=== PATIENT | male | born 1955 | race Caucasian/White ===

== ENCOUNTER 2017-08-22 06:03 | Day surgery (SDC) | payer OTHER ==
[~2017-08-22] VITALS: Ht 165.1 cm; Wt 68.0 kg
[~2017-08-22 06:03] MED LIST: 1-ME1LIQ PO; PERC5TAB12 PO; VASO10TA8 PO
[2017-08-22 06:51] VITALS: BP 151/91; PULSE 80; RESP 20; TEMP 98.7; O2SAT 98
[2017-08-22] MEDS ORDERED: CHLORHEXIDINE GLUCONATE 2 % 1 PACK (2 CLOTHS) TOPICAL SCH (07:00)
[2017-08-22] MEDS ORDERED: SODIUM CHLORIDE 0.9% 1000 ML IV SCH (07:00)
[2017-08-22] MEDS ORDERED: VANCOMYCIN 1000 MG/NS 250 ML - implanted port/tunneled catheter IV SCH ×2 (07:00)
[2017-08-22] MEDS ORDERED: ceFAZolin 2 GM PREMIX 50 ML - implanted port/tunneled catheter insertion IV SCH (07:00)
[2017-08-22] MEDS ORDERED: POVIDONE IODINE 5% (ANTISEPSIS KIT) 4 APPLICATIONS EACH NARE SCH (07:00)
[2017-08-22] MEDS ORDERED: AMLO5TAB2 PO (07:13)
[2017-08-22] MEDS ORDERED: VASO10TA8 PO (07:13)
[2017-08-22] MEDS ORDERED: [UNRECOGNIZED DRUG - OTHER] (07:13)
[2017-08-22] MEDS ORDERED: ASPI81CH6 CHEW (07:13)
[2017-08-22] MEDS ORDERED: MIDAZOLAM HCL 2 MG/2 ML VIAL ONE ×4 (07:47→08:34)
[2017-08-22] MEDS ORDERED: LORazepam 2 MG/ML VIAL ONE (07:47)
[2017-08-22] MEDS ORDERED: LIDOCAINE 1%/EPINEPHrine 1:100,000 SOLN 20 ML VIAL ONE (07:57)
[2017-08-22] MEDS ORDERED: HYDROmorphone HCL PF 2 MG/ML VIAL ONE (08:28)
--- NOTE | 2017-08-22 08:58 | PD.RAD ---
Post Procedure Progress Note Pre Procedure Diagnosis: (1) Rectal cancer Post Procedure Diagnosis: (1) Rectal cancer Procedure Date: Aug 22, 2017 Supervising Radiologist: Victorino Goldstein Proceduralist/Assist: Frankie Rausch RT(R), RT Orestes(R) Anesthesia: Local, Analgesia, Conscious Sedation Plan of Activity Patient to Unit: ROPU Patient Condition: Good See PACS Report for procedural detail/treatment Central Venous Access Device Procedure 1 Right Internal Jugular Infusaport Placement single lumen Divehi: 8 Victorino Goldstein MD Aug 22, 2017 08:58
[2017-08-22] MEDS ORDERED: SODIUM CHLORIDE 0.9% FLUSH 10 ML FLUSH IVF PRN (09:00)
[2017-08-22 09:05] VITALS: BP 122/65; PULSE 97; RESP 18; TEMP 97.9; O2SAT 94
[2017-08-22 09:20] VITALS: BP 115/65; PULSE 92; RESP 20; O2SAT 93
[2017-08-22 09:50] VITALS: BP 108/71; PULSE 82; RESP 20; O2SAT 97
[2017-08-22 10:20] VITALS: BP 117/72; PULSE 80; RESP 20; O2SAT 97
[2017-08-22 10:50] VITALS: BP 157/93; PULSE 91; RESP 20; O2SAT 96
--- NOTE | 2017-08-22 13:23 | RADRPT ---
EXAM DATE/TIME: 08/22/2017 09:06 [place] COMPARISON: No previous studies available for comparison. INDICATIONS : Patient presents with rectal cancer in need of a port placement. MEDICAL HISTORY : Rectal CA HTN DJD Bipolar Anxiety SURGICAL HISTORY : Carpal Tunnel Left Shoulder SX ENCOUNTER: Initial ACUITY: >1 year PAIN SCORE: 0/10 FLUORO TIME: 0.4 minutes IMAGE SERIES: 1 SEDATION TIME: 40 minutes ACCESS: Right internal jugular vein SEDATION: 1.) 6 mg midazolam (Versed) IV 2.) 300 mcg fentanyl (Sublimaze) IV 3.) 2mg hydromorphone (Dilaudid) IV 4.) 14units Lidocaine with epinephrine IV 5.) 400units Heparin IV Prophylactic antibiotics were administered with appropriate pre-procedure timing. Vancomycin within 2 hours of procedure, Ancef (or alternative) within 1 hour of procedure. DEVICE: 1. 8 Croatian single lumen cm [id number] PROCEDURE : 1. Continuous pulse oximetry and EKG monitoring. 2. Intravenous conscious sedation. 3. Ultrasound guidance for venous access. 4. Fluoroscopic guided implantable central venous port placement. The patient was placed supine. The neck was prepped in sterile fashion. Full sterile technique was u sed, including cap, mask, sterile gloves and gown, and a large sterile sheet. Hand hygiene and 2% ch lorhexidine Betadine was utilized per protocol for cutaneous antisepsis with appropriate dry time for site. Sterile gel and sterile probe cover were utilized for ultrasound guidance. The skin and sub cutaneous tissues were infiltrated with local anesthetic solution. Under direct ultrasound guidance, central venous access was accomplished in the targeted vessel. The ultrasound images depicting access guidance were stored and saved to PACS for permanent record. A s ubcutaneous pocket was created using blunt dissection. The port was introduced to the pocket. The c atheter tubing was fed through a subcutaneous tunnel to the venotomy site. The catheter tubing was c ut to a suitable length and then was introduced through a valved Peel-Away sheath and positioned with catheter tubing tip at the cavo-atrial junction level. The pocket incision was closed with subcutic ular Vicryl suture. Steri-Strips were applied. The port was flushed and locked with heparin solutio n per protocol. Sterile dressing was applied to the site. The patient tolerated the procedure well. Conscious sedation was performed with the prescribed dosages and duration as above in the presence of an independent trained radiology nurse to assist in the monitoring of the patient. EKG and oximetry remained stable throughout the procedure. The patient tolerated the procedure well and there were no complications. The patient was sent to post anesthesia recovery in stable condition. CONCLUSION: Uncomplicated ultrasound and fluoroscopic guided implanted central venous port catheter placement as described in detail above. An 8 Croatian Power port was placed. Victorino Goldstein MD on August 22, 2017 at 13:20 Board Certified Radiologist. This report was verified electronically.
== END 2017-08-22 11:15 | disposition home or self-care (01) ==
LOC: HROP 06:03 → HRIP 06:04 → HROP 11:15
PROVIDERS: ATTEND Internal Medicine
DX: Z45.2 Encounter for adjustment and management of vascular access device (principal); C20 Malignant neoplasm of rectum; I10 Essential (primary) hypertension; F41.9 Anxiety disorder, unspecified
CPT/HCPCS: 36561; 76937; 77001; 99152; 99153; C1788; J1170; J1642; J2060; J2250; J3010; J3370; J7030; J7050

== ENCOUNTER 2017-09-15 10:55 | Inpatient (IN) | payer OTHER ==
[~2017-09-15] VITALS: Ht 167.6 cm; Wt 68.2 kg
[~2017-09-15 10:55] MED LIST changes: -1-ME1LIQ PO; +AMLO5TAB2 PO; +ASPI81CH6 CHEW; -PERC5TAB12 PO; +[UNRECOGNIZED DRUG - OTHER]
[2017-09-15 10:57] VITALS: BP 156/82; PULSE 88; RESP 16; TEMP 98; O2SAT 100
[2017-09-15 11:32] VITALS: BP 138/88; PULSE 85; RESP 18; O2SAT 99
--- NOTE | 2017-09-15 11:56 | PD ---
HPI Chief Complaint: Abnormal Results Time Seen by Provider: 11:22 Travel History International Travel<30 days: No Contact w/Intl Traveler<30days: No Traveled to known affect area: No History of Present Illness HPI 61-year-old male with rectal cancer on chemotherapy and radiation therapy presents to emergency department at the request of his oncologist, Dr. Bauer for low sodium. Patient states that he started chemotherapy and radiation therapy one week ago and has felt weak since then. Patient admits to polydipsia and polyuria but believes this is secondary to physician's request to increase fluid intake. Patient denies fever or chills. Denies dizziness, chest pain, shortness of breath, abdominal pain. Denies urinary symptoms. Patient is to the complaints today. PFSH Past Medical History Bipolar Disorder: Yes Anxiety: Yes Depression: Yes Cancer: Yes (BASAL CELL, SQUAMOUS CELL CARCINOMA ) Cardiovascular Problems: Yes (HTN) Chemotherapy: Yes Diabetes: No Diminished Hearing: No Glaucoma: No Hepatitis: No Hiatal Hernia: No Hypertension: Yes Musculoskeletal: No Respiratory: No Immunizations Current: No Thyroid Disease: No Tetanus Vaccination: < 5 Years Influenza Vaccination: No Past Surgical History Abdominal Surgery: Yes (HERNIA REPAIR ) Cardiac Surgery: No Pacemaker: No Thoracic Surgery: No Other Surgery: Yes (CARPAL TUNNEL RELEASE BILATERAL) Social History Alcohol Use: No Tobacco Use: No Substance Use: No Allergies-Medications (Allergen,Severity, Reaction): Coded Allergies: doxycycline (Unverified Allergy, Severe, edema, 04/15/17) minocycline (Unverified Allergy, Severe, edema, 04/15/17) tigecycline (Unverified Allergy, Severe, edema, 04/15/17) Reported Meds & Prescriptions Reported Meds & Active Scripts Active Reported Trazodone (Trazodone HCl) 100 Mg Tablet 100 Mg PO BID Olanzapine Unknown Strength Tab 1 Tab PO TID Zolpidem (Zolpidem Tartrate) 10 Mg Tab 10 Mg PO HS Protonix (Pantoprazole Sodium) 40 Mg Tab 40 Mg PO DAILY Tegretol (Carbamazepine) 200 Mg Tab 200 Mg PO BID Lisinopril 20 Mg Tab 20 Mg PO BID Amlodipine (Amlodipine Besylate) 10 Mg Tab 10 Mg PO DAILY Aspirin Low Dose (Aspirin) 81 Mg Chew 81 Mg CHEW DAILY Review of Systems Except as stated in HPI: all other systems reviewed are Neg Physical Exam Narrative GENERAL: Well-developed well-nourished in no apparent distress SKIN: Focused skin assessment warm/dry. HEAD: Atraumatic. Normocephalic. EYES: Pupils equal and round. No scleral icterus. No injection or drainage. ENT: No nasal bleeding or discharge. Mucous membranes pink and moist. NECK: Trachea midline. No JVD. CARDIOVASCULAR: Regular rate and rhythm. No murmur appreciated. RESPIRATORY: No accessory muscle use. Clear to auscultation. Breath sounds equal bilaterally. GASTROINTESTINAL: Abdomen soft, non-tender, nondistended. Hepatic and splenic margins not palpable. MUSCULOSKELETAL: No obvious deformities. No clubbing. No cyanosis. No edema. NEUROLOGICAL: Awake and alert. No obvious cranial nerve deficits. Motor grossly within normal limits. Normal speech. PSYCHIATRIC: Appropriate mood and affect; insight and judgment normal. Data Data Last Documented VS Vital Signs Date Time Temp Pulse Resp B/P (MAP) Pulse Ox O2 Delivery O2 Flow Rate FiO2 09/15/17 11:32 83 18 98 Room Air 09/15/17 11:32 138/88 (105) 09/15/17 10:57 98.0 Orders Orders Sodium Chlorid 0.9% 500 Ml Inj (Ns 500 M (09/15/17 12:00) Admit To Inpatient (09/15/17 ) Code Status (09/15/17 12:17) Vital Signs (Adult) Q4H (09/15/17 12:17) Activity Oob With Assistance (09/15/17 12:17) Diet Heart Healthy (09/15/17 Lunch) Sodium Chloride 0.9% Flush (Ns Flush) (09/15/17 12:30) Sodium Chloride 0.9% Flush (Ns Flush) (09/15/17 21:00) Acetaminophen (Tylenol) (09/15/17 12:30) Ondansetron Inj (Zofran Inj) (09/15/17 12:30) Basic Metabolic Panel (Bmp) (09/16/17 06:00) Complete Blood Count With Diff (09/16/17 06:00) Electrocardiogram (09/15/17 12:17) Pt Request For Service (09/15/17 12:17) Scd Bilateral/Knee High MELISSA.BID (09/15/17 12:17) Naloxone Inj (Narcan Inj) (09/15/17 12:30) Magnesium Hydroxide Liq (Milk Of Magnesi (09/15/17 12:30) Inpatient Certification (09/15/17 ) Ns + Kcl 20 Meq Inj (Ns + Kcl 20 Meq Inj (09/15/17 12:30) Magnesium (Mg) (09/16/17 06:00) Amlodipine (Norvasc) (09/16/17 09:00) Aspirin Chew (Aspirin Chew) (09/16/17 09:00) Carbamazepine (Tegretol) (09/15/17 21:00) Lisinopril (Prinivil) (09/15/17 21:00) Pantoprazole (Protonix) (09/16/17 09:00) Zolpidem (Ambien) (09/15/17 21:00) Trazodone (Desyrel) (09/15/17 21:00) Olanzapine (Zyprexa) (09/15/17 21:00) Admit Order (Ed Use Only) (09/15/17 12:34) MDM Medical Decision Making Medical Screen Exam Complete: Yes Emergency Medical Condition: Yes Differential Diagnosis Hyponatremia, metabolic disorder, hypokalemia, electrolyte imbalance Narrative Course 61-year-old male with rectal cancer on chemotherapy and radiation therapy presents to emergency department at the request of his oncologist, Dr. Bauer for low sodium. Patient states that he started chemotherapy and radiation therapy one week ago and has felt weak since then. Patient admits to polydipsia and polyuria but believes this is secondary to physician's request to increase fluid intake. Patient denies fever or chills. Denies dizziness, chest pain, shortness of breath, abdominal pain. Denies urinary symptoms. Patient is to the complaints today. Vital signs stable. Sodium at 122. White blood cell count 3.1. I've attempted to contact Dr. Bauer for labs for comparison. I recommend fluid restriction and slow increase in sodium until confirmation of acuity of hyponatremia. No evidence of neurological deficits. Mucous membranes pink and moist. 500c fluid bolus administered in the ED for gentle hydration. Pt will be admitted for hyponatremia, leukocytopenia. Thank you Dr. Min for taking this patient. Patient was very reluctant to be admitted today. Patient states that he has dogs at home that he has taken care of. I discussed this case with case management but unfortunately there were unable to make further recommendations regarding this issue. Patient states that he does have a friend that will help with his dogs. Patient states that he is willing to stay for 24 hours. He is very concerned about getting his radiation therapy. Advised that if patient does not stay, this could results in coma and . I advised him the severity of this lab value and strongly advised him to stay. Patient is willing to stay at this point. Diagnosis Primary Impression: Rectal cancer Additional Impressions: Hyponatremia Leukocytopenia Qualified Codes: D72.810 - Lymphocytopenia Admitting Information Admitting Physician Requests: Admit Condition: Stable Krissy Chatterjee Sep 15, 2017 11:56
[2017-09-15] MEDS ORDERED: OLAN2.5T7 PO (11:58)
[2017-09-15] MEDS ORDERED: AMLO10TA2 PO (11:58)
[2017-09-15] MEDS ORDERED: ZOLP10TA3 PO (11:58)
[2017-09-15] MEDS ORDERED: PROT40TA PO (11:58)
[2017-09-15] MEDS ORDERED: TEGR200T PO (11:58)
[2017-09-15] MEDS ORDERED: LISI-515 PO (11:58)
[2017-09-15] MEDS ORDERED: SODIUM CHLORID 0.9% 500 ML INJ 500 ML IV ONE (12:00)
[2017-09-15] MEDS ORDERED: TRAZ100T10 PO (12:00)
[2017-09-15] MEDS ORDERED: NALOXONE HCL 0.4 MG/ML AMP IV PUSH PRN (12:30)
[2017-09-15] MEDS ORDERED: SODIUM CHLORIDE 0.9% FLUSH 10 ML FLUSH IV FLUSH PRN (12:30)
[2017-09-15] MEDS ORDERED: ACETAMINOPHEN 325 MG TAB PO PRN (12:30)
[2017-09-15] MEDS ORDERED: MAGNESIUM HYDROXIDE SUSP 30 ML CUP PO PRN (12:30)
[2017-09-15] MEDS ORDERED: ONDANSETRON HCL 4 MG/2 ML VIAL IVP PRN (12:30)
[2017-09-15] MEDS: NS + KCL 20 MEQ INJ 1,000 ML IV SCH (13:50)
--- NOTE | 2017-09-15 14:47 | HHI.HP ---
HPI Service [facility] Hospitalists Primary Care Physician Jerry Hankins MD Admission Diagnosis hyponatremia, leukocytopenia Chief Complaint: Weakness, oral pain Travel History International Travel<30 Days: No Contact w/Intl Traveler <30 Da: No Traveled to Known Affected Are: No History of Present Illness Mr. 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 Pt [place] [facility] [place] by his oncologist, Dr. Bauer, for hyponatremia. Pts labs noted sodium level of 122 this morning. Patient states that he started chemotherapy and radiation therapy one week ago and has felt weak since then. He reports that he has been drinking a lot of fluids over the last but he states that this is secondary to the physician's request to increase fluid intake. He has had some sores in his mouth which have been quite painful. He denies fever/chills, dizziness, chest pain, shortness of breath, abdominal pain. Denies urinary symptoms. He reports that he has been urinating more often but that he has been drinking a lot more liquids. He was noted to have a WBC count of 3.1, Hgb 11.7, Hct 33.4. Review of Systems Constitutional: DENIES: Diaphoretic episodes, Fever, Chills, Dizziness Eyes: DENIES: Vision loss Ears, nose, mouth, throat: COMPLAINS OF: Oral lesions, Odynophagia, DENIES: Hearing loss, Running Nose, Sinus Pain Respiratory: DENIES: Cough, Shortness of breath Cardiovascular: DENIES: Chest pain, Palpitations, Dyspnea on Exertion, Lower Extremity Edema Gastrointestinal: DENIES: Abdominal pain, Constipation, Nausea, Vomiting Genitourinary: COMPLAINS OF: Urinary frequency, Urgency, DENIES: Dysuria Musculoskeletal: DENIES: Back pain, Neck pain Integumentary: DENIES: Rash Neurologic: DENIES: Headache Psychiatric: DENIES: Confusion Past Family Social History Past Medical History 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 Bauer and Dr. Broussard, diagnosed in 08/2017 - PET/CT (08/08/17) with noted perirectal tumor was extremely hypermetabolic and measures in excess of 5cm. It is local regional metastasis with hypermetabolic right perirectal node and presacral mesenteric fat. No evidence of distal metastatic disease. HTN Hyperlipidemia GERD/Hiatal hernia Chronic back pain/lumbar disc disease Depression/Bipolar disorder Restless leg syndrome Hx of opioid dependence (he was addicted to Lortab and Oxycontin and went through a detox and 12-step program in 2009 and in 2013) BPH Hx of TIA Chronic intermittent vertigo Anemia Past Surgical History Colonoscopy on 07/31/[address] Noonan --> left lateral posterior submucosal rectal mass. Pathology with invasive squamous cell carcinoma, poorly differentiated EGD/colonoscopy 06/16/[address] Hamm --> reflux esophagitis in the distal esophagus, acute gastritis, medium hiatal hernia, rectal mass measuring 1 x 3cm , palpable on GILL, grade II hemorrhoids. Pathology was negative. Axillary lymphadenectomy in 1998, benign BCC removal Right inguinal hernia repair in 2012 Nerve block of paravertebral facet joints Bilateral carpal tunnel release Rhizotomy in 2008 Right rotator cuff repair in 2011 Left rotator cuff repair in 2014 Reported Medications -Zolpidem 10 Mg PO HS PRN -Protonix 40 Mg PO DAILY -Lisinopril 20 Mg PO BID -Amlodipine 10 Mg PO DAILY -Aspirin Low Dose 81 Mg CHEW DAILY -Trazodone 200 Mg PO HS -Olanzapine 15mg HS -Tegretol 400 Mg PO in AM and 600mg PO HS Allergies: Coded Allergies: doxycycline (Unverified Allergy, Severe, edema, 04/15/17) minocycline (Unverified Allergy, Severe, edema, 04/15/17) tigecycline (Unverified Allergy, Severe, edema, 04/15/17) Family History Paternal uncle with hx of colorectal cancer Father with hx of melanoma Mother with hx of CAD Social History Remote hx of tobacco use, smoked occasionally for about 5 years Denies any alcohol use Hx of opioid abuse, none since 2040 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 SKIN: No rashes, ecchymoses or lesions. Cool and dry. HEENT: Atraumatic. Normocephalic. No temporal or scalp tenderness. No scleral icterus. Mucositis noted. Airway patent. NECK: Trachea midline, supple, nontender. CARDIO: Regular. RESP: CTA bilaterally. No wheezes, rales, or rhonchi. ABD: +BS, soft, non-tender, nondistended. EXT: Extremities without clubbing, cyanosis, or edema. NEURO: Awake and alert. Motor and sensory grossly within normal limits. Normal speech. Caprini VTE Risk Assessment Caprini VTE Risk Assessment: Mod/High Risk (score >= 2) Caprini Risk Assessment Model Point Value = 1 Point Value = 2 Point Value = 3 Point Value = 5 Age 41-60 Minor surgery BMI > 25 kg/m2 Swollen legs Varicose veins or History of unexplained or recurrent spontaneous Oral contraceptives or hormone replacement Sepsis (< 1 month) Serious lung disease, including pneumonia (< 1 month) Abnormal pulmonary function Acute myocardial infarction Congestive heart failure (< 1 month) History of inflammatory bowel disease Medical patient at bed rest Age 61-74 Arthroscopic surgery Major open surgery (> 45 min) Laparoscopic surgery (> 45 min) Malignancy Confined to bed (> 72 hours) Immobilizing plaster cast Central venous access Age >= 75 History of VTE Family history of VTE Factor V Leiden Prothrombin [id number] Lupus anticoagulant Anticardiolipin antibodies Elevated serum homocysteine Heparin-induced thrombocytopenia Other congenital or acquired thrombophilia Stroke (< 1 month) Elective arthroplasty Hip, pelvis, or leg fracture Acute spinal cord injury (< 1 month) Prophylaxis Regimen Total Risk Factor Score Risk Level Prophylaxis Regimen 0-1 Low Early ambulation 2 Moderate Order ONE of the following: *Sequential Compression Device (SCD) *Heparin 5000 units SQ BID 3-4 Higher Order ONE of the following medications: *Heparin 5000 units SQ TID *Enoxaparin/Lovenox 40 mg SQ daily (WT < 150 kg, CrCl > 30 mL/min) *Enoxaparin/Lovenox 30 mg SQ daily (WT < 150 kg, CrCl > 10-29 mL/min) *Enoxaparin/Lovenox 30 mg SQ BID (WT < 150 kg, CrCl > 30 mL/min) AND/OR *Sequential Compression Device (SCD) 5 or more Highest Order ONE of the following medications: *Heparin 5000 units SQ TID (Preferred with Epidurals) *Enoxaparin/Lovenox 40 mg SQ daily (WT < 150 kg, CrCl > 30 mL/min) *Enoxaparin/Lovenox 30 mg SQ daily (WT < 150 kg, CrCl > 10-29 mL/min) *Enoxaparin/Lovenox 30 mg SQ BID (WT < 150 kg, CrCl > 30 mL/min) AND *Sequential Compression Device (SCD) Assessment and Plan Problem List: (1) Hyponatremia ICD Codes: E87.1 - Hypo-osmolality and hyponatremia Status: Acute Plan: - Pt is a 61 y/o male who was 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 - He follows with Dr. Bauer for Medical Oncology and Dr. Rocha for Radiation Oncology. - Pt just started chemo and XRT last week. - Pt was [place] [facility] [place] by his oncologist for hyponatremia. Pts labs noted sodium level of 122 this morning. - He reports that he has been drinking a lot of fluids over the last but he has developed some sores in his mouth which have been quite painful. - Labs noted WBC count of 3.1, Hgb 11.7, Hct 33.4. - We will provide IVF hydration with NS@85mL/hr and recheck labs in AM - Magic mouth wash QID - Pt is supposed to have radiation therapy tomorrow with Dr. Rocha so we will consult Dr. Rocha to help get that arranged. 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 Bauer and Dr. Broussard, diagnosed in 08/2017 - Outpt PET/CT (08/08/17) with noted perirectal tumor was extremely hypermetabolic and measures in excess of 5cm. It is local regional metastasis with hypermetabolic right perirectal node and presacral mesenteric fat. No evidence of distal metastatic disease. - Pt just started chemo and XRT last week - Consult Dr. Rocha as pt due for XRT tomorrow (5) HTN (hypertension) ICD Codes: I10 - Essential (primary) hypertension Status: Chronic Plan: - Home meds continued - Monitor (6) Bipolar depression ICD Codes: F31.30 - Bipolar disorder, current episode depressed, mild or moderate severity, unspecified Status: Chronic Plan: - Home meds resumed Assessment and Plan Patient examined. Assessment and plan formulated with Indira Pinedo PA-C. I agree with the above. Pt c/o ulceration and pain at tongue, mouth, lips. NS with KCL repeat BMP/Mg in AM Case d/w Radiation Oncology, Dr. Rocha. He will consult. Pt scheduled for next radiation treatment 09/16 at [facility]. Physician Certification 2 Midnight Certification Type: Admission for Inpatient Services Order for Inpatient Services The services are ordered in accordance with Medicare regulations or non- Medicare payer requirements, as applicable. In the case of services not specified as inpatient-only, they are appropriately provided as inpatient services in accordance with the 2-midnight benchmark. Estimated LOS (days): 2 2 days is the estimated time the patient will need to remain in the hospital, assuming treatment plan goals are met and no additional complications. Post-Hospital Plan: Not yet determined Problem Qualifiers (1) Leukocytopenia: Qualified Codes: D72.810 - Lymphocytopenia Indira Pinedo Sep 15, 2017 14:47 Tom Min DO Sep 15, 2017 22:44
[2017-09-15] MEDS ORDERED: traMADol HCL 50 MG TAB PO PRN (16:45)
[2017-09-15] MEDS: NYSTAT/DIPHENHY/LIDO MOUTHWASH (Adult) 120ML SWISH-SWAL SCH ×2 (19:24→23:29)
[2017-09-15 20:00] VITALS: BP 151/92; PULSE 96; RESP 18; TEMP 98.4; O2SAT 99
[2017-09-15] MEDS ORDERED: ZOLPIDEM TARTRATE 10 MG TAB PO SCH (21:00)
[2017-09-15] MEDS ORDERED: carBAMazepine 200 MG TAB PO SCH ×2 (21:00)
[2017-09-15] MEDS ORDERED: traZODone HCL 100 MG TAB PO SCH ×2 (21:00)
[2017-09-15] MEDS: LISINOPRIL 20 MG TAB PO SCH (23:25)
[2017-09-15] MEDS: SODIUM CHLORIDE 0.9% FLUSH 10 ML FLUSH IV FLUSH SCH (23:26)
[2017-09-16] MEDS: NS + KCL 20 MEQ INJ 1,000 ML IV SCH ×2 (00:16→12:02)
[2017-09-16 01:05] VITALS: BP 132/77; PULSE 91; RESP 18; TEMP 98.5; O2SAT 99
[2017-09-16 04:50] VITALS: BP 137/81; PULSE 97; RESP 17; TEMP 99.8; O2SAT 98
[2017-09-16 07:46] VITALS: BP 130/80; PULSE 94; RESP 17; TEMP 99.5; O2SAT 98
[2017-09-16] MEDS: SODIUM CHLORIDE 0.9% FLUSH 10 ML FLUSH IV FLUSH SCH (08:55)
[2017-09-16] MEDS: LISINOPRIL 20 MG TAB PO SCH (08:55)
[2017-09-16] MEDS: NYSTAT/DIPHENHY/LIDO MOUTHWASH (Adult) 120ML SWISH-SWAL SCH ×3 (08:56→18:00)
[2017-09-16 08:59] LABS: AUTOMATED NEUTROPHIL # 3.1 TH/MM3 (1.8-7.7); BASOPHIL % 0.2 % (0.0-2.0); EOSINOPHIL # 0.1 TH/MM3 (0-0.4); EOSINOPHIL % 1.8 % (0.0-4.0); HEMATOCRIT 32.7 % (39.0-51.0); HEMOGLOBIN 11.3 GM/DL (13.0-17.0); LYMPH % 9.2 % (9.0-44.0); LYMPHOCYTE # 0.3 TH/MM3 (1.0-4.8); MEAN CELL VOLUME 88.3 FL (80.0-100.0); MEAN CORPUSCULAR HEMOGLOBIN 30.4 PG (27.0-34.0); MEAN CORPUSCULAR HGB CONC 34.4 % (32.0-36.0); MEAN PLATELET VOLUME 7.6 FL (7.0-11.0); MONO % 3.6 % (0.0-8.0); MONOCYTE # 0.1 TH/MM3 (0-0.9); NEUT % 85.2 % (16.0-70.0); PLATELET COUNT 209 TH/MM3 (150-450); RED BLOOD COUNT 3.71 MIL/MM3 (4.50-5.90); RED CELL DISTRIBUTION WIDTH 12.7 % (11.6-17.2); WHITE BLOOD COUNT 3.7 TH/MM3 (4.0-11.0)
[2017-09-16] MEDS ORDERED: carBAMazepine 200 MG TAB PO SCH (09:00)
[2017-09-16] MEDS ORDERED: PANTOPRAZOLE SOD 40 MG DELAYED RELEASE TAB PO SCH (09:00)
[2017-09-16] MEDS ORDERED: ASPIRIN 81 MG CHEW TAB CHEW SCH (09:00)
[2017-09-16 09:26] LABS: CALCIUM 8.4 MG/DL (8.5-10.1); CREATININE 0.64 MG/DL (0.60-1.30); MAGNESIUM 2.2 MG/DL (1.5-2.5)
[2017-09-16 11:48] VITALS: BP 130/74; PULSE 98; RESP 17; TEMP 97.8; O2SAT 99
[2017-09-16 13:59] VITALS: BP 151/81; PULSE 97; RESP 17; TEMP 99.1; O2SAT 99
[2017-09-16 16:00] VITALS: BP 151/81; PULSE 97; RESP 17; TEMP 99.1; O2SAT 99
--- NOTE | 2017-09-16 16:02 | EKG ---
Date Performed: 09/15/2017 Time Performed: 13:57:56 PTAGE: 61 years EKG: Sinus rhythm Since previous tracing, no significant change noted NORMAL ECG PREVIOUS TRACING : 12/25/2013 22.39 DOCTOR: Lindy Garcia Interpretating Date/Time 09/16/2017 16:00:22
[2017-09-16] MEDS ORDERED: TAMSULOSIN HCL 0.4 MG CAP PO SCH (16:15)
[2017-09-16] MEDS ORDERED: TAMS5CAP PO (16:16)
--- NOTE | 2017-09-16 16:31 | HHI.DCPOC ---
Discharge Care Plan Diagnosis: (1) Mucositis due to chemotherapy (2) Rectal cancer (3) BPH (benign prostatic hyperplasia) (4) HTN (hypertension) (5) Bipolar depression Goals to Promote Your Health * To prevent worsening of your condition and complications * To maintain your health at the optimal level Directions to Meet Your Goals Take your medications as prescribed Follow your dietary instruction Follow activity as directed Keep your appointments as scheduled Take your immunizations and boosters as scheduled If your symptoms worsen call your PCP, if no PCP go to Urgent Care Center or Emergency Room Smoking is Dangerous to Your Health. Avoid second hand smoke Call the 24-hour hour crisis hotline for domestic abuse at Tom Min DO Sep 16, 2017 16:30
[2017-09-16] MEDS ORDERED: MAGICADU2 SWISH-SWAL (16:32)
--- NOTE | 2017-09-16 16:38 | HHI.PR ---
Subjective Remarks Pt had patterson inserted last night for suprapubic pain and inability to ambulate. Pt admits to BPH symptoms such as stammering urinary stream. Pt requests patterson be removed prior to discharge. Pt is felling overall much better. Pain at oral membranes is improved. Pt feels stronger and has been able to ambulate. Objective Vitals Vital Signs Date Time Temp Pulse Resp B/P (MAP) Pulse Ox O2 Delivery O2 Flow Rate FiO2 09/16/17 13:59 99.1 97 17 151/81 (104) 99 09/16/17 11:48 97.8 98 17 130/74 (92) 99 09/16/17 07:46 99.5 94 17 130/80 (97) 98 09/16/17 04:50 99.8 97 17 137/81 (99) 98 09/16/17 01:05 98.5 91 18 132/77 (95) 99 09/15/17 20:00 98.4 96 18 151/92 (111) 99 09/16/17 09/16/17 09/17/17 15:00 23:00 07:00 Intake Total 480 ml Output Total 3050 ml Balance -2570 ml Intake Oral 480 ml Output Urine Total 3050 ml # Bowel Movements 0 Result Diagram: 09/16/17 0750 09/16/17 0750 Objective Remarks GENERAL: This is a well-nourished, well-developed patient, in no apparent distress. CARDIOVASCULAR: Regular rate and rhythm without murmurs, gallops, or rubs. RESPIRATORY: Clear to auscultation. Breath sounds equal bilaterally. No wheezes , rales, or rhonchi. GASTROINTESTINAL: Abdomen soft, non-tender, nondistended. Normal active bowel sounds MUSCULOSKELETAL: Extremities without clubbing, cyanosis, or edema. NEURO: Alert & Oriented x4 to person, place, time, situation. 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 - He follows with Dr. Bauer for Medical Oncology and Dr. Rocha for Radiation Oncology. - Pt just started chemo and XRT last week. - Pt was sent to the ED at [facility] on 09/15/17 by his oncologist for hyponatremia. Pts labs noted sodium level of 122 this morning. - He reports that he has been drinking a lot of fluids over the last but he has developed some sores in his mouth which have been quite painful. - Labs noted WBC count of 3.1, Hgb 11.7, Hct 33.4. - NA improved on IV NS - PO intake and mouth pain improved with Magic Mouth wash - will discharge to home with magic mouth wash - repeat BMP/mg at [facility] lab on Friday, results to PCP - f/u with PCP, Dr. Jerry Hankins, in 1 week - f/u with urology Dr. Wayne Ferguson in 2 weeks - keep f/u with medical Oncology, Dr. Bauer - keep f/u with Radiation Oncology, Dr. 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 Bauer and Dr. Broussard, diagnosed in 08/2017 - Outpt PET/CT (08/08/17) with noted perirectal tumor was extremely hypermetabolic and measures in excess of 5cm. It is local regional metastasis with hypermetabolic right perirectal node and presacral mesenteric fat. No evidence of distal metastatic disease. - Pt just started chemo and XRT last week - Consult Dr. Rocha as pt due for XRT tomorrow (5) HTN (hypertension) ICD Codes: I10 - Essential (primary) hypertension Status: Chronic Plan: - Home meds continued - Monitor (6) Bipolar depression ICD Codes: F31.30 - Bipolar disorder, current episode depressed, mild or moderate severity, unspecified Status: Chronic Plan: - Home meds resumed (7) BPH (benign prostatic hyperplasia) ICD Codes: N40.0 - Benign prostatic hyperplasia without lower urinary tract symptoms Status: Acute Plan: - per request remove patterson prior to discharge - pt understands that if he again has urinary retention he may need to return to the ER for placement of patterson - start flomax - f/u with Urology, Dr. Wayne Ferguson, in 2 weeks Problem Qualifiers (1) Leukocytopenia: Qualified Codes: D72.810 - Lymphocytopenia (2) HTN (hypertension): Qualified Codes: I10 - Essential (primary) hypertension (3) BPH (benign prostatic hyperplasia): Qualified Codes: N40.1 - Benign prostatic hyperplasia with lower urinary tract symptoms; R33.8 - Other retention of urine Tom Min DO Sep 16, 2017 16:38
--- NOTE | 2017-09-17 05:53 | RC ---
cc: JOSUÉ THOMAS MD MEJIA,SUN Biggs MD DATE OF SERVICE 09/16/2017 DATE OF 1955. 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 CHIEF COMPLAINT Hyponatremia. Mouth sores. REASON FOR CONSULTATION The patient is being evaluated for continuation of care. HISTORY OF PRESENT ILLNESS This is a 61-year-old white male known to me as he is currently receiving radiation therapy to the pelvis for his diagnosis of squamous cell carcinoma of the rectum. The patient has received a total number of six treatments in combination with chemotherapy. We received a call last night from the ER doctor stating that the patient would be admitted due to hyponatremia as well as mouth sores. A consult has been placed for continuation of care for the patient. SUBJECTIVE The patient is doing well. He says that he has a burning sensation when he swallows. He has no mouth sores which are tender on the bilateral tongue. He denies any fevers or chills. He says he is weak but he feels better since being admitted to the hospital. The patient denies any bony pain, hemoptysis, cough or shortness of breath. No pelvic pain. No rectal bleeding. No neurological changes. No cognitive function changes. PHYSICAL EXAMINATION GENERAL: The patient is oriented x3, in no major acute distress or discomfort at the time of evaluation. VITAL SIGNS: Temperature 97.8, pulse 98, respiratory rate 17, blood pressure 130/74, pulse ox 99% on room air. LUNGS: Bilateral lungs were clear to auscultation with upper ventilatory and respiratory effort. HEART: The heart was regular in rate and rhythm, without murmurs. NECK: Palpation of the neck and bilateral supraclavicular areas are with lymph nodes. ENT: Visual examination of the facial area reveals ulceration of the left lower lip, mouth sores. CHEST: Examination of the oral cavity reveals no candidal infection. There is mucositis of the bilateral tongue, about grade 1. No other lesions were detected within the oral cavity. ABDOMEN: Palpation of the oral cavity reveals no hepatosplenomegaly. No pain. No periumbilical masses. EXTREMITIES: No lower extremity edema detected. NEUROLOGICAL: No neurological deficit detected. Cognitive function preserved. Motor function preserved. SKIN: With no rash. PELVIC AREA: The patient with a Vee catheter in place. No other positive findings. SURGICAL PATHOLOGY As previously recorded. RADIOLOGY RESULTS As recorded. ASSESSMENT A 61-year-old white male with non-small cell carcinoma of the rectum. The patient is being treated with concomitant chemoradiation therapy. The patient is being evaluated for continuation of care. PLAN I have advised the patient at this point that, since his blood counts are good, I will continue to move forward with radiation therapy. Should any of this change, then we will revise the radiation therapy but at this point we will continue to move forward with the radiation therapy as planned. He was in agreement with this. He was advised, if I could be of any further assistance to please let me know, otherwise we will proceed as above. Josué Thomas MD Radiation Oncologist [facility]AMSI FERGUSON/APOLINAR /3:27 PM /5:37 AM PETE
[2017-09-17] MEDS ORDERED: INFLUENZA VIRUS VACCINE (QUADRIVALENT) 0.5 ML SYR IM ONE (10:00)
[2017-09-17] MEDS ORDERED: PNEUMOCOCCAL POLYVALENT INJ 25 MCG/0.5 ML SYR IM ONE (10:00)
== END 2017-09-16 20:44 | disposition home or self-care (01) | DRG 641 ==
LOC: NEPC 10:55 → NEDA 12:36 → N06B 19:45
PROVIDERS: ADMIT Hospitalist; ATTEND Hospitalist
PROC: 0T9B70Z Drainage of Bladder with Drainage Device, Via Natural or Artificial Opening (ICD-10-PCS; principal; 2017-09-15)
DX: E87.1 Hypo-osmolality and hyponatremia (principal); C77.5 Secondary and unspecified malignant neoplasm of intrapelvic lymph nodes; D70.1 Agranulocytosis secondary to cancer chemotherapy; C21.8 Malignant neoplasm of overlapping sites of rectum, anus and anal canal; I10 Essential (primary) hypertension; K21.9 Gastro-esophageal reflux disease without esophagitis; F31.31 Bipolar disorder, current episode depressed, mild; K12.31 Oral mucositis (ulcerative) due to antineoplastic therapy; T45.1X5A Adverse effect of antineoplastic and immunosuppressive drugs, initial encounter; E78.5 Hyperlipidemia, unspecified; F11.21 Opioid dependence, in remission; N40.1 Benign prostatic hyperplasia with lower urinary tract symptoms; R33.9 Retention of urine, unspecified; M51.9 Unspecified thoracic, thoracolumbar and lumbosacral intervertebral disc disorder; G25.81 Restless legs syndrome; Z85.828 Personal history of other malignant neoplasm of skin; Z86.73 Personal history of transient ischemic attack (TIA), and cerebral infarction without residual deficits; Z87.891 Personal history of nicotine dependence; Z88.1 Allergy status to other antibiotic agents
CPT/HCPCS: 80048; 83735; 85025; 93005; J3480; J7040

== ENCOUNTER 2017-10-17 16:33 | Inpatient (IN) | payer OTHER ==
[~2017-10-17] VITALS: Ht 162.6 cm; Wt 56.8 kg
[2017-10-17] VITALS (10 sets, daily range): BP systolic 106–140; BP diastolic 68–87; PULSE 89–110; RESP 16–18; TEMP 98.4–99.2; O2SAT 95–98
[~2017-10-17 16:33] MED LIST changes: +AMLO10TA2 PO; -AMLO5TAB2 PO; +LISI-515 PO; +MAGICADU2 SWISH-SWAL; +OLAN2.5T7 PO; +PROT40TA PO; +TAMS5CAP PO; +TEGR200T PO; +TRAZ100T10 PO; -VASO10TA8 PO; +ZOLP10TA3 PO; -[UNRECOGNIZED DRUG - OTHER]
--- NOTE | 2017-10-17 17:12 | PD ---
HPI . Head injury Chief Complaint: Fall Time Seen by Provider: 16:58 Travel History International Travel<30 days: No Contact w/Intl Traveler<30days: No Traveled to known affect area: No History of Present Illness HPI This patient presents to us via [facility] following a head injury. He is unaware of the circumstances of the fall. He apparently fell this morning acting his head. He reportedly laid on a tile floor for some time following the fall actually was discovered by his family. He states that he was laying on his back. He states that he was unable to get up on his own. He is complaining with bilateral hip pain. The hip pain is rated 8/10. +/- LOC is unknown. He denies neck pain. He denies any current symptoms of head injury including nausea, blurred vision, headache. This patient has a history of colon cancer and has just completed Chad radiation therapy within the last couple of days. PFSH Past Medical History Bipolar Disorder: Yes Anxiety: Yes Depression: Yes Cancer: Yes (BASAL CELL, SQUAMOUS CELL CARCINOMA ) Cardiovascular Problems: Yes (HTN) Chemotherapy: Yes (FINAL DOSE OF CHEMO 10/15/17) Diabetes: No Diminished Hearing: No Endocrine: No Gastrointestinal Disorders: Yes GERD: Yes Glaucoma: No Genitourinary: No Hepatitis: No Hiatal Hernia: No Hypertension: Yes Immune Disorder: No Musculoskeletal: No Neurologic: Yes Psychiatric: Yes Reproductive: No Respiratory: No Immunizations Current: No Radiation Therapy: Yes Thyroid Disease: No Influenza Vaccination: No Past Surgical History Abdominal Surgery: Yes (HERNIA REPAIR ) Cardiac Surgery: No Pacemaker: No Thoracic Surgery: No Other Surgery: Yes (CARPAL TUNNEL RELEASE BILATERAL) Social History Alcohol Use: No Tobacco Use: No Substance Use: No Allergies-Medications (Allergen,Severity, Reaction): Coded Allergies: doxycycline (Unverified Allergy, Severe, edema, 10/17/17) minocycline (Unverified Allergy, Severe, edema, 10/17/17) tigecycline (Unverified Allergy, Severe, edema, 10/17/17) Reported Meds & Prescriptions Reported Meds & Active Scripts Active Magic Mouthwash Adult Liq (Multi-Ingredient Mouthwash/Gargle) 120 Ml Susp 10 Ml SWISH-SWAL QID Flomax (Tamsulosin HCl) 0.4 Mg Cap 0.4 Mg PO HS Reported Trazodone (Trazodone HCl) 100 Mg Tablet 200 Mg PO HS Zolpidem (Zolpidem Tartrate) 10 Mg Tab 10 Mg PO HS Protonix (Pantoprazole Sodium) 40 Mg Tab 40 Mg PO DAILY Tegretol (Carbamazepine) 200 Mg Tab 200 Mg PO DIRECTED 400MG PO in AM and 600mg PO HS Lisinopril 20 Mg Tab 20 Mg PO BID Aspirin Low Dose (Aspirin) 81 Mg Chew 81 Mg CHEW DAILY Review of Systems Except as stated in HPI: all other systems reviewed are Neg Physical Exam Narrative GENERAL: Awake and alert and in no acute distress. SKIN: Warm and dry. HEAD:. Contusion on the right side of his head. EYES: Pupils are equal. Extraocular movements are intact. NECK: Normal range of motion. Nontender. CARDIOVASCULAR: Regular rate and rhythm. RESPIRATORY: Nonlabored respirations. MUSCULOSKELETAL: Tender over both greater trochanters. Logrolling of both hips causes no pain. There is no shortening or malrotation of his lower extremities. He is distally neurovascularly intact. NEUROLOGICAL: Nonfocal. PSYCHIATRIC: Appropriate mood and affect. Data Data Last Documented VS Vital Signs Date Time Temp Pulse Resp B/P (MAP) Pulse Ox O2 Delivery O2 Flow Rate FiO2 10/17/17 17:19 107 18 118/68 (85) 95 Room Air 10/17/17 16:36 99.2 Orders Orders Basic Metabolic Panel (Bmp) (10/17/17 16:59) Complete Blood Count With Diff (10/17/17 16:59) Lactic Acid (10/17/17 16:59) ^ Saline Lock (10/17/17 16:59) Ct Brain W/O Iv Contrast(Rout) (10/17/17 16:59) Pelvis, Ap Only (Routine) (10/17/17 17:04) Sodium Chlor 0.9% 1000 Ml Inj (Ns 1000 M (10/17/17 17:15) Creatine Kinase (Cpk) (10/17/17 17:15) Protein Corrected Calcium(Pcc) (10/17/17 17:15) CKMB (10/17/17 17:15) CKMB% (10/17/17 17:15) Electrocardiogram (10/17/17 ) Admit Order (Ed Use Only) (10/17/17 18:43) Labs Laboratory Tests Test 10/17/17 17:15 White Blood Count 2.7 TH/MM3 Red Blood Count 2.50 MIL/MM3 Hemoglobin 7.8 GM/DL Hematocrit 22.0 % Mean Corpuscular Volume 87.9 FL Mean Corpuscular Hemoglobin 31.1 PG Mean Corpuscular Hemoglobin Concent 35.4 % Red Cell Distribution Width 14.2 % Platelet Count 163 TH/MM3 Mean Platelet Volume 6.5 FL Neutrophils (%) (Auto) 63.6 % Lymphocytes (%) (Auto) 2.4 % Monocytes (%) (Auto) 33.2 % Eosinophils (%) (Auto) 0.1 % Basophils (%) (Auto) 0.7 % Neutrophils # (Auto) 1.7 TH/MM3 Lymphocytes # (Auto) 0.1 TH/MM3 Monocytes # (Auto) 0.9 TH/MM3 Eosinophils # (Auto) 0.0 TH/MM3 Basophils # (Auto) 0.0 TH/MM3 CBC Comment AUTO DIFF Differential Total Cells Counted 100 Neutrophils % (Manual) 15 % Band Neutrophils % 46 % Lymphocytes % 13 % Monocytes % 7 % Neutrophils # (Manual) 1.9 TH/MM3 Metamyelocytes 7 % Myelocytes 3 % Differential Comment FINAL DIFF MANUAL Atypical Lymphocytes 9 % Dohle Bodies PRESENT Platelet Estimate LOW Platelet Morphology Comment NORMAL Polychromasia 2.0 % Spherocytes 1+ Blood Urea Nitrogen 15 MG/DL Creatinine 0.67 MG/DL Random Glucose 100 MG/DL Total Protein 5.7 GM/DL Calcium Level 7.3 MG/DL Sodium Level 133 MEQ/L Potassium Level 3.3 MEQ/L Chloride Level 99 MEQ/L Carbon Dioxide Level 24.3 MEQ/L Anion Gap 10 MEQ/L Estimat Glomerular Filtration Rate 120 ML/MIN Lactic Acid Level 0.8 mmol/L Protein Corrected Calcium 8.1 MG/DL Total Creatine Kinase 4545 U/L Creatine Kinase MB 5.9 NG/ML Creatine Kinase MB % 0.1 % [place] Medical Decision Making Medical Screen Exam Complete: Yes Emergency Medical Condition: Yes Interpretation(s) His EKG shows a sinus rhythm with a rate of 105. Differential Diagnosis My differential diagnosis of head trauma includes but is not limited to scalp contusion, concussion, intracerebral hemorrhage. Differential diagnosis of extremity trauma includes but is not limited to fracture, sprain or strain, dislocation, contusion Narrative Course This patient presents status post a fall. He struck his head. Whether or not there was any loss of consciousness is unknown. CT of his head is pending. In addition, the patient was on the ground for a prolonged period of time. CK is pending to check for rhabdomyolysis. Lastly, he is complaining with bilateral greater trochanter pain. Pelvic x-ray is pending. CBC & BMP Diagram 10/17/17 17:15 Total Protein 5.7 #L, Calcium Level 7.3 *L CK 4545 LA 0.8 Last Impressions Pelvis X-Ray 10/17/17 1704 Signed Impressions: Service Date/Time: Tuesday, October 17, 2017 17:21 - CONCLUSION: Abnormal intertrochanteric region left hip, nonspecific. I do not see evidence for acute traumatic injury. Imer Stanley MD FACR Head CT 10/17/17 1659 Signed Impressions: Service Date/Time: Tuesday, October 17, 2017 17:34 - CONCLUSION: Intracranial contents unremarkable. Large cephalhematoma. On the right. Imer Stanley MD FACR The patient will be admitted for treatment of mild rhabdomyolysis. Physician Communication Physician Communication Dr. Castle has asked that I consult his oncologist because of a drop in his hemoglobin. Dr. Gaitan does recommend transfusion. 2 units of PRBCs have been ordered for transfusion. Diagnosis Primary Impression: Scalp contusion Qualified Codes: S00.03XA - Contusion of scalp, initial encounter Additional Impressions: Rhabdomyolysis Qualified Codes: M62.82 - Rhabdomyolysis Anemia Qualified Codes: D64.9 - Anemia, unspecified Hypokalemia Admitting Information Admitting Physician Requests: Observation Condition: Stable Janelle Bo MD Oct 17, 2017 17:12
[2017-10-17] MEDS ORDERED: SODIUM CHLOR 0.9% 1000 ML INJ 1,000 ML IV ONE (17:15)
[2017-10-17 17:25] LABS: AUTOMATED NEUTROPHIL # 1.7 TH/MM3 (1.8-7.7); BASOPHIL % 0.7 % (0.0-2.0); EOSINOPHIL % 0.1 % (0.0-4.0); HEMOGLOBIN 7.8 GM/DL (13.0-17.0); LYMPH % 2.4 % (9.0-44.0); LYMPHOCYTE # 0.1 TH/MM3 (1.0-4.8); MEAN CELL VOLUME 87.9 FL (80.0-100.0); MEAN CORPUSCULAR HEMOGLOBIN 31.1 PG (27.0-34.0); MEAN CORPUSCULAR HGB CONC 35.4 % (32.0-36.0); MEAN PLATELET VOLUME 6.5 FL (7.0-11.0); MONO % 33.2 % (0.0-8.0); MONOCYTE # 0.9 TH/MM3 (0-0.9); NEUT % 63.6 % (16.0-70.0); PLATELET COUNT 163 TH/MM3 (150-450); RED CELL DISTRIBUTION WIDTH 14.2 % (11.6-17.2); WHITE BLOOD COUNT 2.7 TH/MM3 (4.0-11.0)
--- NOTE | 2017-10-17 17:47 | RADRPT ---
EXAM DATE/TIME: 10/17/2017 17:34 [facility] COMPARISON: No previous studies available for comparison. INDICATIONS : Trauma. Fall. Hit right forehead. RADIATION DOSE: 61.46 CTDIvol (mGy) MEDICAL HISTORY : Hypertension. Carcinoma, basal cell. SURGICAL HISTORY : Hernia repair. ENCOUNTER: Initial ACUITY: 1 day PAIN SCALE: 0/10 LOCATION: Right cranial TECHNIQUE: Multiple contiguous axial images were obtained of the head. Using automated exposure control and adj ustment of the mA and/or kV according to patient size, radiation dose was kept as low as reasonably a chievable to obtain optimal diagnostic quality images. DICOM format image data is available electro nically for review and comparison. FINDINGS: CEREBRUM: The ventricles are normal for age. No evidence of midline shift, mass lesion, hemorrhage or acute in farction. No extra-axial fluid collections are seen. POSTERIOR FOSSA: The cerebellum and brainstem are intact. The 4th ventricle is midline. The cerebellopontine angle i s unremarkable. EXTRACRANIAL: The visualized portion of the orbits is intact. SKULL: Large cephalhematoma on the right without skull fracture. CONCLUSION: Intracranial contents unremarkable. Large cephalhematoma. On the right. Imer Stanley MD FACR on October 17, 2017 at 17:45 Board Certified Radiologist. This report was verified electronically.
--- NOTE | 2017-10-17 17:53 | RADRPT ---
EXAM DATE/TIME: 10/17/2017 17:21 [facility] COMPARISON: No previous studies available for comparison. INDICATIONS : Bilateral hip pain post fall. MEDICAL HISTORY : Carcinoma, rectal. Hypertension Bipolar, Anxiety, DJD SURGICAL HISTORY : Infusaport, Carpal Tunnel, Left shoulder surgery ENCOUNTER: Initial ACUITY: 1 day PAIN SCORE: 4/10 LOCATION: Bilateral pelvis FINDINGS: Sclerotic well-circumscribed lucency is seen in the intertrochanteric region of the left hip without fracture. Right hip is normal. Bony pelvis is unremarkable. Degenerative changes lumbar spine. CONCLUSION: Abnormal intertrochanteric region left hip, nonspecific. I do not see evidence for acute traumatic injury. Imer Stanley MD FACR on October 17, 2017 at 17:50 Board Certified Radiologist. This report was verified electronically.
[2017-10-17 18:01] LABS: BICARBONATE 24.3 MEQ/L (21.0-32.0); CALCIUM 7.3 MG/DL (8.5-10.1); CREATININE 0.67 MG/DL (0.60-1.30)
[2017-10-17 18:09] LABS: ATYPICAL LYMPHOCYTES 9 % (0-0); BANDS 46 % (0-6); DOHLE BODIES PRESENT (NONE SEEN); LYMPHOCYTES 13 % (9-44); METAMYELOCYTES 7 % (0-1); MONOCYTES 7 % (0-8); MYELOCYTES 3 % (0-0); NEUTROPHIL # MANUAL DIFF 1.9 TH/MM3 (1.8-7.7); POLYS (SEG NEUTROPHILS) 15 % (16-70)
[2017-10-17 18:10] LABS: SPHEROCYTES 1+ (NORMAL)
[2017-10-17 18:22] LABS: CALCIUM-PROTEIN CORRECTED 8.1 MG/DL (8.5-10.1); TOTAL PROTEIN 5.7 GM/DL (6.4-8.2)
[2017-10-17] MEDS ORDERED: CALCIUM GLUCONATE INJ 1 GM in SODIUM CHLORIDE 0.9% INJ 100 ML IV ONE (19:00)
[2017-10-17] MEDS ORDERED: diphenhydrAMINE HCL 25 MG CAP PO ONE (19:30)
[2017-10-17] MEDS ORDERED: SODIUM CHLOR 0.9% 250 ML INJ 250 ML IV ONE (19:30)
[2017-10-17] MEDS ORDERED: ACETAMINOPHEN 325 MG TAB PO ONE (19:30)
[2017-10-17] MEDS: NS + KCL 20 MEQ INJ 1,000 ML IV SCH (19:43)
[2017-10-17] MEDS: carBAMazepine 200 MG TAB PO SCH (22:41)
[2017-10-17] MEDS: TAMSULOSIN HCL 0.4 MG CAP PO SCH (22:41)
[2017-10-17] MEDS: traZODone HCL 100 MG TAB PO SCH (22:41)
[2017-10-18] VITALS (9 sets, daily range): BP systolic 106–148; BP diastolic 70–94; PULSE 80–114; RESP 16–18; TEMP 98.5–100.6; O2SAT 95–98
--- NOTE | 2017-10-18 06:49 | HHI.HP ---
HPI Service [facility] Hospitalists Primary Care Physician Jerry Hankins MD Admission Diagnosis rhabdo, scalp contusion, anemia, hypokalemia Chief Complaint: weakness, s/p fall Travel History International Travel<30 Days: No Contact w/Intl Traveler <30 Da: No Traveled to Known Affected Are: No History of Present Illness 61-year-old male with bipolar Affective disorder presented to the ER via [facility] following a head injury. He was reportedly unaware of the circumstances of the fall yesterday however this morning on my exam he tells me that he was at his home and had been feeling somewhat dizzy and lightheaded and fell to the floor after feeling lightheaded. Denied any chest pain or palpitations or shortness of breath. He apparently fell to the floor yesterday morning hitting his head. He reportedly laid on a tile floor for some time following the fall actually was discovered by his nephew. He was reportedly lying on his back. He states that he was unable to get up on his own due to weakness. He was complaining with bilateral hip pain but this has improved this morning. He denies neck pain. He denies any current symptoms of head injury including nausea, blurred vision, headache. He reports that he had not been eating much lately as he had just been through 2 weeks of chemotherapy for the rectal cancer. He had radiation therapy approximately one month ago he says. He lives alone but has a nephew in the area and has a sister who apparently is flying down from [place] later today. Review of Systems Constitutional: COMPLAINS OF: Fatigue, Weight loss, Dizziness, Change in appetite, DENIES: Diaphoretic episodes, Fever, Weight gain, Chills, Night Sweats Endocrine: DENIES: Heat/cold intolerance, Polydipsia, Polyuria, Polyphagia Eyes: DENIES: Blurred vision, Diplopia, Eye inflammation, Eye pain, Vision loss , Photosensitivity, Double Vision Ears, nose, mouth, throat: DENIES: Tinnitus, Hearing loss, Vertigo, Nasal discharge, Oral lesions, Throat pain, Hoarseness, Ear Pain, Running Nose, Epistaxis, Sinus Pain, Toothache, Odynophagia Respiratory: DENIES: Apneas, Cough, Snoring, Wheezing, Hemoptysis, Sputum production, Shortness of breath Cardiovascular: DENIES: Chest pain, Palpitations, Syncope, Dyspnea on Exertion , PND, Lower Extremity Edema, Orthopnea, Claudication Gastrointestinal: COMPLAINS OF: Nausea, Anorexia, DENIES: Abdominal pain, Black stools, Bloody stools, BRB per rectum, Constipation, Diarrhea, GERD, Reflux, Vomiting, Difficulty Swallowing, See HPI Musculoskeletal: COMPLAINS OF: Joint pain, Back pain Hematologic/lymphatic: COMPLAINS OF: Bruising Neurologic: COMPLAINS OF: Poor Balance Psychiatric: COMPLAINS OF: Anxiety Past Family Social History Past Medical History Bipolar affective disorder with depression BPH Lumbar degenerative disc disease GERD Hypertension Hyperlipidemia Squamous cell carcinoma of the rectum which she reports was diagnosed in July 2017 Past Surgical History Axillary lymphadenectomy 1998 which was benign Rectal biopsy last year which revealed squamous cell carcinomas noted Destruction of basal cell carcinoma of the skin Open repair of indirect right inguinal hernia in 2012 Paravertebral nerve blocks Carpal tunnel release bilaterally Radiofrequency rhizotomy 2009 Rotator cuff repair on the right Port placement Reported Medications Magic Mouthwash Adult Liq (Multi-Ingredient Mouthwash/Gargle) 120 Ml Susp 10 Ml SWISH-SWAL QID Flomax (Tamsulosin HCl) 0.4 Mg Cap 0.4 Mg PO HS Trazodone (Trazodone HCl) 100 Mg Tablet 200 Mg PO HS Zolpidem (Zolpidem Tartrate) 10 Mg Tab 10 Mg PO HS Protonix (Pantoprazole Sodium) 40 Mg Tab 40 Mg PO DAILY Tegretol (Carbamazepine) 200 Mg Tab 200 Mg PO DIRECTED 400MG PO in AM and 600mg PO HS Lisinopril 20 Mg Tab 20 Mg PO BID Aspirin Low Dose (Aspirin) 81 Mg Chew 81 Mg CHEW DAILY Zofran 4 mg every 6 hours when necessary nausea vomiting Hydroxyzine 25 mg 1 in the morning and 2 pills at bedtime Olanzapine 15 mg at bedtime Vitamin D3 4000 units daily Allergies: Coded Allergies: doxycycline (Unverified Allergy, Severe, edema, 10/17/17) minocycline (Unverified Allergy, Severe, edema, 10/17/17) tigecycline (Unverified Allergy, Severe, edema, 10/17/17) Family History Father and sister had diabetes Coronary artery disease and colon cancer also run in the family Social History Denies alcohol or illicit drug use Occasionally smoked a cigarette less than 5 per day and not on a regular basis many years ago. 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 Physical Exam Vital Signs Vital Signs Date Time Temp Pulse Resp B/P (MAP) Pulse Ox O2 Delivery O2 Flow Rate FiO2 10/18/17 05:07 98.7 80 16 110/79 (89) 97 10/18/17 02:15 100.3 103 16 142/91 98 10/18/17 01:23 98.5 95 18 106/72 (83) 96 10/17/17 23:55 98.4 98 16 116/72 98 10/17/17 23:40 98.5 98 18 106/72 96 10/17/17 23:25 99.1 98 17 113/72 98 10/17/17 23:10 99.0 102 18 121/76 98 10/17/17 22:35 98.9 89 18 140/87 (104) 97 10/17/17 21:45 10/17/17 21:45 100 18 139/73 (95) 96 Room Air 10/17/17 20:00 110 18 136/79 (98) 95 Room Air 10/17/17 18:46 106 18 123/70 (87) 96 Room Air 10/17/17 17:19 107 18 118/68 (85) 95 Room Air 10/17/17 16:46 105 18 95 Room Air 10/17/17 16:36 99.2 108 18 117/69 (85) 95 Physical Exam GENERAL: This is a thin, well-developed patient, in no apparent distress. SKIN: Right forehead where the area of ecchymosis and slight abrasion, left forehead small abrasion, left forearm 2 small abrasions. Cool and dry. HEAD: Right forehead with ecchymosis and contusion is noted. Normocephalic. No temporal or scalp tenderness. EYES: Pupils equal round and reactive. Extraocular motions intact. No scleral icterus. No injection or drainage. ENT: Nose without bleeding, purulent drainage or septal hematoma. Airway patent. NECK: Trachea midline. No JVD or lymphadenopathy. Supple, nontender, no meningeal signs. CARDIOVASCULAR: Regular rate and rhythm with soft 2/6 systolic ejection murmur. No gallop or rub. Right upper chest wall with port in place. RESPIRATORY: Clear to auscultation. Breath sounds equal bilaterally. No wheezes , rales, or rhonchi. GASTROINTESTINAL: Abdomen soft, non-tender, nondistended. No hepato-splenomegaly , or palpable masses. No guarding. Bowel sounds normal. MUSCULOSKELETAL: Extremities without clubbing, cyanosis, or edema. No joint tenderness, effusion, or edema noted. No calf tenderness. NEUROLOGICAL: Awake and alert. Cranial nerves II through XII intact. Motor and sensory grossly within normal limits. Five out of 5 muscle strength in all muscle groups. Normal speech. Laboratory Laboratory Tests Test 10/17/17 17:15 White Blood Count 2.7 Red Blood Count 2.50 Hemoglobin 7.8 Hematocrit 22.0 Mean Corpuscular Volume 87.9 Mean Corpuscular Hemoglobin 31.1 Mean Corpuscular Hemoglobin Concent 35.4 Red Cell Distribution Width 14.2 Platelet Count 163 Mean Platelet Volume 6.5 Neutrophils (%) (Auto) 63.6 Lymphocytes (%) (Auto) 2.4 Monocytes (%) (Auto) 33.2 Eosinophils (%) (Auto) 0.1 Basophils (%) (Auto) 0.7 Neutrophils # (Auto) 1.7 Lymphocytes # (Auto) 0.1 Monocytes # (Auto) 0.9 Eosinophils # (Auto) 0.0 Basophils # (Auto) 0.0 CBC Comment AUTO DIFF Differential Total Cells Counted 100 Neutrophils % (Manual) 15 Band Neutrophils % 46 Lymphocytes % 13 Monocytes % 7 Neutrophils # (Manual) 1.9 Metamyelocytes 7 Myelocytes 3 Differential Comment FINAL DIFF MANUAL Atypical Lymphocytes 9 Dohle Bodies PRESENT Platelet Estimate LOW Platelet Morphology Comment NORMAL Polychromasia 2.0 Spherocytes 1+ Blood Urea Nitrogen 15 Creatinine 0.67 Random Glucose 100 Total Protein 5.7 Calcium Level 7.3 Sodium Level 133 Potassium Level 3.3 Chloride Level 99 Carbon Dioxide Level 24.3 Anion Gap 10 Estimat Glomerular Filtration Rate 120 Lactic Acid Level 0.8 Protein Corrected Calcium 8.1 Total Creatine Kinase 4545 Creatine Kinase MB 5.9 Creatine Kinase MB % 0.1 Result Diagram: 10/17/17 1715 10/17/17 1715 Imaging Last 72 hours Impressions Pelvis X-Ray 10/17/17 1704 Signed Impressions: Service Date/Time: Tuesday, October 17, 2017 17:21 - CONCLUSION: Abnormal intertrochanteric region left hip, nonspecific. I do not see evidence for acute traumatic injury. Imer Stanley MD FACR Head CT 10/17/17 165 Signed Impressions: Service Date/Time: Tuesday, October 17, 2017 17:34 - CONCLUSION: Intracranial contents unremarkable. Large cephalhematoma. On the right. Imer Stanley MD FACR Caprini VTE Risk Assessment Caprini VTE Risk Assessment: Mod/High Risk (score >= 2) Caprini Risk Assessment Model Point Value = 1 Point Value = 2 Point Value = 3 Point Value = 5 Age 41-60 Minor surgery BMI > 25 kg/m2 Swollen legs Varicose veins or History of unexplained or recurrent spontaneous Oral contraceptives or hormone replacement Sepsis (< 1 month) Serious lung disease, including pneumonia (< 1 month) Abnormal pulmonary function Acute myocardial infarction Congestive heart failure (< 1 month) History of inflammatory bowel disease Medical patient at bed rest Age 61-74 Arthroscopic surgery Major open surgery (> 45 min) Laparoscopic surgery (> 45 min) Malignancy Confined to bed (> 72 hours) Immobilizing plaster cast Central venous access Age >= 75 History of VTE Family history of VTE Factor V Leiden Prothrombin [id number] Lupus anticoagulant Anticardiolipin antibodies Elevated serum homocysteine Heparin-induced thrombocytopenia Other congenital or acquired thrombophilia Stroke (< 1 month) Elective arthroplasty Hip, pelvis, or leg fracture Acute spinal cord injury (< 1 month) Prophylaxis Regimen Total Risk Factor Score Risk Level Prophylaxis Regimen 0-1 Low Early ambulation 2 Moderate Order ONE of the following: *Sequential Compression Device (SCD) *Heparin 5000 units SQ BID 3-4 Higher Order ONE of the following medications: *Heparin 5000 units SQ TID *Enoxaparin/Lovenox 40 mg SQ daily (WT < 150 kg, CrCl > 30 mL/min) *Enoxaparin/Lovenox 30 mg SQ daily (WT < 150 kg, CrCl > 10-29 mL/min) *Enoxaparin/Lovenox 30 mg SQ BID (WT < 150 kg, CrCl > 30 mL/min) AND/OR *Sequential Compression Device (SCD) 5 or more Highest Order ONE of the following medications: *Heparin 5000 units SQ TID (Preferred with Epidurals) *Enoxaparin/Lovenox 40 mg SQ daily (WT < 150 kg, CrCl > 30 mL/min) *Enoxaparin/Lovenox 30 mg SQ daily (WT < 150 kg, CrCl > 10-29 mL/min) *Enoxaparin/Lovenox 30 mg SQ BID (WT < 150 kg, CrCl > 30 mL/min) AND *Sequential Compression Device (SCD) Assessment and Plan Problem List: (1) Rhabdomyolysis ICD Codes: M62.82 - Rhabdomyolysis Status: Acute Plan: We'll continue IV fluids. Monitor CK. He has good urine output and is not acidotic. Hopefully discharge home later today. We'll have physical therapy evaluate the patient as well. (2) Scalp contusion ICD Codes: S00.03XA - Contusion of scalp, initial encounter Status: Acute Plan: Manage conservatively. Use ice to the area as needed. (3) Rectal cancer ICD Codes: C20 - Malignant neoplasm of rectum Status: Chronic Plan: Currently undergoing chemotherapy as well as radiation therapy as an outpatient. Hematology as been consult and regarding his worsening anemia. He has received 1 unit packed red cells and hopefully that will suffice for now. (4) HTN (hypertension) ICD Codes: I10 - Essential (primary) hypertension Status: Chronic Plan: Continue medication as tolerated. (5) Bipolar depression ICD Codes: F31.30 - Bipolar disorder, current episode depressed, mild or moderate severity, unspecified Status: Chronic Plan: Continue home medication. Code Status Full Discussed Condition With Patient and ER provider. Problem Qualifiers (1) Rhabdomyolysis: (2) Scalp contusion: Qualified Codes: S00.03XA - Contusion of scalp, initial encounter (3) HTN (hypertension): Qualified Codes: I10 - Essential (primary) hypertension Trever Castle MD PhD Oct 18, 2017 06:49
[2017-10-18 07:18] LABS: HEMOGLOBIN 8.4 GM/DL (13.0-17.0); MEAN CELL VOLUME 86.6 FL (80.0-100.0); MEAN CORPUSCULAR HEMOGLOBIN 30.4 PG (27.0-34.0); MEAN CORPUSCULAR HGB CONC 35.1 % (32.0-36.0); PLATELET COUNT 137 TH/MM3 (150-450); RED BLOOD COUNT 2.77 MIL/MM3 (4.50-5.90); RED CELL DISTRIBUTION WIDTH 15.7 % (11.6-17.2); WHITE BLOOD COUNT 2.6 TH/MM3 (4.0-11.0)
[2017-10-18 07:51] LABS: ALBUMIN 1.9 GM/DL (3.4-5.0); BICARBONATE 20.4 MEQ/L (21.0-32.0); CALCIUM 7.2 MG/DL (8.5-10.1); CALCIUM-PROTEIN CORRECTED 8.2 MG/DL (8.5-10.1); CREATININE 0.51 MG/DL (0.60-1.30); TOTAL BILIRUBIN ADULT 1.8 MG/DL (0.2-1.0); TOTAL PROTEIN 5.3 GM/DL (6.4-8.2)
[2017-10-18] MEDS: NS + KCL 20 MEQ INJ 1,000 ML IV SCH ×3 (08:00→11:53)
[2017-10-18 08:11] LABS: BANDS 24 % (0-6); LYMPHOCYTES 3 % (9-44); METAMYELOCYTES 3 % (0-1); MONOCYTES 23 % (0-8); NEUTROPHIL # MANUAL DIFF 1.9 TH/MM3 (1.8-7.7); POLYS (SEG NEUTROPHILS) 47 % (16-70)
[2017-10-18 08:12] LABS: SPHEROCYTES OCC (NORMAL)
[2017-10-18 08:13] LABS: DOHLE BODIES PRESENT (NONE SEEN); ROULEAUX PRESENT (NORMAL); TOXIC GRANULATION 1+ (NORMAL)
[2017-10-18] MEDS: ASPIRIN 81 MG CHEW TAB CHEW SCH (08:17)
[2017-10-18] MEDS: PANTOPRAZOLE SOD 40 MG DELAYED RELEASE TAB PO SCH (08:17)
[2017-10-18] MEDS: carBAMazepine 200 MG TAB PO SCH ×3 (08:18→22:31)
[2017-10-18] MEDS: ACETAMINOPHEN 500 MG CPLT PO PRN (08:18)
--- NOTE | 2017-10-18 10:19 | RADRPT ---
EXAM DATE/TIME: 10/18/2017 10:02 [facility] COMPARISON: No previous studies available for comparison. INDICATIONS : Syncope. MEDICAL HISTORY : Carcinoma, basal cell. SURGICAL HISTORY : Infusaport ENCOUNTER: Initial ACUITY: 3 days PAIN SCORE: 2/10 LOCATION: Bilateral chest FINDINGS: A single view of the chest demonstrates the lungs to be symmetrically aerated without evidence of mas s, infiltrate or effusion. The cardiomediastinal contours are unremarkable. Osseous structures are intact. Right-sided [id number] in place. No evidence of pneumothorax. CONCLUSION: No acute disease. Danny Donahue MD on October 18, 2017 at 10:16 Board Certified Radiologist. This report was verified electronically.
[2017-10-18 11:57] LABS: BILIRUBIN, URINE MOD (NEG); BLOOD, URINE SMALL (NEG); GLUCOSE,URINE NEG (NEG); KETONE, URINE 80 OR GREATER mg/dL (NEG); NITRITE,URINE NEG (NEG); URINE LEUKOCYTE ESTERASE NEG (NEG)
[2017-10-18 12:07] LABS: URINE COLOR AMBER (YELLW/STRAW)
[2017-10-18 12:08] LABS: AMORPHOUS SEDIMENT, URINE MOD; WBC, URINE 0-2 /hpf (0-5)
--- NOTE | 2017-10-18 14:41 | EKG ---
Date Performed: 10/17/2017 Time Performed: 19:05:08 PTAGE: 61 years EKG: SINUS TACHYCARDIA NONSPECIFIC T-WAVE ABNORMALITY ABNORMAL RHYTHM ECG Since PREVIOUS TRACING , no significant change noted PREVIOUS TRACIN09/15/2017 13.57 DOCTOR: Layo Sepulveda Interpretating Date/Time 10/18/2017 14:39:28
[2017-10-18] MEDS: ONDANSETRON HCL 4 MG/2 ML VIAL IV PUSH PRN (16:48)
[2017-10-18] MEDS ORDERED: NS + KCL 20 MEQ INJ 1,000 ML IV SCH (17:00)
[2017-10-18] MEDS ORDERED: POTASSIUM CHLORIDE 20 MEQ CONTROLLED RELEASE TAB PO ONE (17:30)
--- NOTE | 2017-10-18 18:10 | MB ---
cc: SHERRILL CASTLE M.D., RUBY ANNE E. M.D. DATE OF CONSULTATION: 10/18/2017. REASON FOR CONSULTATION / CHIEF COMPLAINT: Dr. Castle requested consultation for Mr. Franks regarding locally advanced rectal cancer status post fall. REFERRING PHYSICIAN: Dr. Sherrill Castle. HISTORY OF PRESENT ILLNESS: Mr. Franks is a 61-year-old man who is a well-known patient to Dr. Kiley Bauer with a locally advanced rectal cancer. He had positive pararectal lymph node. He is being treated with concurrent chemotherapy and radiation. He reports having a dizzy condition that was evaluated at [facility]. He was having a lot of dizzy spells. He is not sure how he fell. He was bruised in the right knee, left hip, right hip more so and laceration of the right forehead and scalp. He was found by his father is sitting up. He was too weak to get up. He was brought into the emergency room on 10/17/2017. He denies any loss of consciousness. He was just feeling weak. His case was discussed with Dr. Castle who saw him in the emergency room. His hemoglobin was 7.8. We discussed transfusing him 2 units of packed red cells. He received one unit of packed red cell. He developed fever before the second unit of packed red cells. I was called at 02:30 in the morning about his fevers. We discussed stopping and halting the second unit of blood. He was followed. His fever recurred at 09:00 a.m.. He is mildly tachycardiac. He is afebrile now. He reports nausea. He has a lot of nausea associated with his chemotherapy and radiation. He is having vomiting. He was at the toilet vomiting when I was doing the consultation. He is requesting his Compazine which he finds very effective. He has frequent bowel movements, more than five a day. He was found to be hypokalemic. His calcium is decreased as well. His albumin is low at 1.9. He denies any urinary complaints. He is sore from the IV placed with a bruise. He has evidence of rhabdomyolysis. His total CK was 4500. His bilirubin is elevated to 1.8 on the day of the consultation with a total CK decreasing to 2800. Hematology/Oncology is consulted for the rectal cancer. PAST MEDICAL HISTORY: 1. Anemia. 2. Anxiety. 3. Bipolar. 4. Depression. 5. Benign prostatic hypertrophy. 6. Chronic low back pain. 7. Gastroesophageal reflux. 8. Hyperlipidemia. 9. Hypertension. 10. Hypogonadism. 11. Restless leg syndrome. 12. Migraine headaches. 13. Locally advanced rectal squamous cell carcinoma. PAST SURGICAL HISTORY: 1. Rectal mass biopsy. 2. Colonoscopy. 3. Port placement. 4. Rotator cuff repair. 5. Hernia repair. FAMILY HISTORY: Father has prostate cancer and is alive and well. SOCIAL HISTORY: He is single. 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 He quit smoking three years ago. He denies any illicit drug use. ALLERGIES: 1. CIPRO. 2. GABAPENTIN. 3. TETRACYCLINE. CURRENT MEDICATIONS: 1. Compazine. 2. Imodium. 3. Potassium chloride. 4. Zofran. 5. Aspirin. 6. Protonix. 7. Tegretol. 8. Tylenol. 9. Flomax. 10. Zyprexa. 11. Trazodone. 12. Demerol PRN. 13. Percocet PRN. PHYSICAL EXAMINATION: VITAL SIGNS: Temperature 98.9, heart rate 114, respiratory rate 16, blood pressure 146/70, saturation 96%. GENERAL: Mr. Franks is a well-developed slender man who looks his stated age. HEAD, EYES, EARS, NOSE, THROAT: His pupils are reactive to light and accommodation. Oropharynx is clear. NECK: Neck is supple. LUNGS: Lungs are clear to auscultation. CARDIOVASCULAR: Exam reveals mild tachycardia. ABDOMEN: Abdomen is benign. EXTREMITIES: Lower extremities with no edema. He has hematoma of the right knee . He has a hematoma over the left hip more prominent in the left hip than on the right. SKIN: He has a hematoma of the right forehead. There is radiation dermatitis in both groins area. NEUROLOGIC: Exam is nonfocal. ABDOMEN: Abdomen is benign. LABORATORY DATA: Significant for pancytopenia. White blood cell count 2.6, hemoglobin 8.4, platelet count 137,000 and 217,000. Potassium is 3.4, BUN and creatinine are normal. Calcium is 7.2. Bilirubin is 1.8. CK is 2800. ASSESSMENT AND PLAN: Mr. Franks is a 61-year-old man with multiple medical problems. He is well-known to oncology for locally advanced rectal cancer, squamous cell histology receiving concurrent chemotherapy and radiation. He has toxicities associated with the treatment. He has frequent diarrhea. He has nausea and vomiting. He feels fatigued. He has anemia and no evidence of leukopenia. His platelet count was normal prior to his admission. We discussed his pancytopenia. He is not neutropenic. He has anemia owing to his bruising and probably the chemotherapy. I recommend no additional transfusion. He has no other signs of bleeding. Ice will be applied to the areas of bruises. We will monitor his CBC. I suspect the decrease in platelet count is due to his consumption given these areas of trauma. No platelet transfusion is needed. There is no active bleeding. I anticipate that bilirubin will be elevated as the hematoma resolves. IV fluid hydration continues. His kidney function and is doing well. His creatine kinase is expected to continue to decrease. His potassium will need to be replaced. He has diarrhea which depletes his potassium stores. Imodium is offered on a p.r.n. basis. This would be an effort to decrease the frequency of his diarrhea to less than five per day. We will monitor closely for constipation. Magnesium will be checked. Mr. Franks's questions and his father's questions were answered to their satisfaction. His antiemetic therapy with Zofran is optimized. Compazine will be added. MD SHARRI Pinto/FILIBERTO /4:54 PM /5:52 PM PETE
[2017-10-18] MEDS: LOPERAMIDE HCL 2 MG CAP PO PRN (19:15)
[2017-10-18] MEDS: traZODone HCL 100 MG TAB PO SCH ×2 (21:02→22:30)
[2017-10-18] MEDS: TAMSULOSIN HCL 0.4 MG CAP PO SCH ×2 (21:02→22:31)
[2017-10-18] MEDS ORDERED: PROCHLORPERAZINE INJ 10 MG/2 ML VIAL IV PUSH ONE (21:30)
[2017-10-18] MEDS ORDERED: TAMSULOSIN HCL 0.4 MG CAP PO PRN (21:45)
[2017-10-18] MEDS ORDERED: carBAMazepine 200 MG TAB PO PRN (21:45)
[2017-10-18] MEDS ORDERED: traZODone HCL 100 MG TAB PO PRN (21:45)
[2017-10-19] VITALS (7 sets, daily range): BP systolic 99–138; BP diastolic 70–89; PULSE 90–120; RESP 14–18; TEMP 98.2–101.2; O2SAT 92–97
[2017-10-19] MEDS: ACETAMINOPHEN 500 MG CPLT PO PRN ×3 (00:12→20:17)
[2017-10-19] MEDS: ONDANSETRON HCL 4 MG/2 ML VIAL IV PUSH PRN ×2 (05:30→11:14)
[2017-10-19 07:01] LABS: AUTOMATED NEUTROPHIL # 0.9 TH/MM3 (1.8-7.7); BASOPHIL % 0.1 % (0.0-2.0); EOSINOPHIL % 1.2 % (0.0-4.0); HEMATOCRIT 29.1 % (39.0-51.0); HEMOGLOBIN 9.6 GM/DL (13.0-17.0); LYMPH % 3.5 % (9.0-44.0); MEAN CELL VOLUME 86.1 FL (80.0-100.0); MEAN CORPUSCULAR HEMOGLOBIN 28.3 PG (27.0-34.0); MEAN CORPUSCULAR HGB CONC 32.9 % (32.0-36.0); MEAN PLATELET VOLUME 7.1 FL (7.0-11.0); MONO % 2.5 % (0.0-8.0); NEUT % 92.7 % (16.0-70.0); PLATELET COUNT 167 TH/MM3 (150-450); RED BLOOD COUNT 3.39 MIL/MM3 (4.50-5.90); RED CELL DISTRIBUTION WIDTH 15.8 % (11.6-17.2)
--- NOTE | 2017-10-19 07:03 | HHI.PR ---
Subjective Remarks Patient had nausea over night which was relieved with Compazine and Zofran which is what he takes at home. Noted to have some intermittent fevers with fever curve slightly increasing. He does have chronic pain in the perirectal area due to recent radiation therapy. His lungs are clear, chest x-ray with no acute process, urine not consistent with infection so possible source could be the perirectal inflammatory process. Objective Vitals Vital Signs Date Time Temp Pulse Resp B/P (MAP) Pulse Ox O2 Delivery O2 Flow Rate FiO2 10/19/17 04:45 100.9 90 18 129/78 (95) 96 10/19/17 01:54 100.0 10/19/17 00:37 101.0 119 16 138/89 (105) 97 10/18/17 20:54 99.3 100 16 148/94 (112) 96 10/18/17 17:25 99.7 16 10/18/17 17:00 98.6 102 16 134/89 (104) 95 10/18/17 10:00 18 10/18/17 09:57 98.9 10/18/17 09:16 100.6 114 16 146/70 (95) 96 10/18/17 08:00 99 GENERAL: No acute distress, alert and oriented. Cooperative. SKIN: Warm and dry. Right forehead with ecchymosis but improved. Small abrasion left for head and left forearm. HEAD: Normocephalic. EYES: No scleral icterus. No injection or drainage. NECK: Supple, trachea midline. No JVD or lymphadenopathy. CARDIOVASCULAR: Regular rate and rhythm, slightly tachycardic, but without significant murmurs, gallops, or rubs. RESPIRATORY: Breath sounds equal bilaterally. No accessory muscle use. GASTROINTESTINAL: Abdomen soft, non-tender, nondistended. Well sounds normal to slightly hyperactive. MUSCULOSKELETAL: No cyanosis, or edema. Moves all extremities. BACK: No CVA tenderness. Result Diagram: 10/18/1762910/18/17629 Imaging Last 72 hours Impressions Pelvis X-Ray 10/17/17 7390 Signed Impressions: Service Date/Time: Tuesday, October 17, 2017 17:21 - CONCLUSION: Abnormal intertrochanteric region left hip, nonspecific. I do not see evidence for acute traumatic injury. Imer Stanley MD FACR Head CT 10/17/17 0071 Signed Impressions: Service Date/Time: Tuesday, October 17, 2017 17:34 - CONCLUSION: Intracranial contents unremarkable. Large cephalhematoma. On the right. Imer Stanley MD FACR Urinary Catheter: No Vascular Central Line Catheter: No A/P Problem List: (1) Rhabdomyolysis ICD Codes: M62.82 - Rhabdomyolysis Status: Acute Plan: We'll continue IV fluids. CK improved. He has good urine output and is not acidotic. Physical therapy will continue to work with patient. (2) Neutropenic fever ICD Codes: D70.9 - Neutropenia, unspecified; R50.81 - Fever presenting with conditions classified elsewhere Status: Acute Plan: Questionable etiology. We'll start Levaquin to cover gram negatives source possibly lower GI tract. ANC was [address] Montemayor this a.m. (3) Scalp contusion ICD Codes: S00.03XA - Contusion of scalp, initial encounter Status: Acute Plan: Manage conservatively. Use ice to the area as needed. (4) Rectal cancer ICD Codes: C20 - Malignant neoplasm of rectum Status: Chronic Plan: Currently undergoing chemotherapy as well as radiation therapy as an outpatient. Appreciate hematology input. He has received 1 unit packed red cells and hopefully that will suffice for now. Possible source of low-grade fever. Provide pain medication. (5) HTN (hypertension) ICD Codes: I10 - Essential (primary) hypertension Status: Chronic Plan: Continue medication as tolerated. (6) Bipolar depression ICD Codes: F31.30 - Bipolar disorder, current episode depressed, mild or moderate severity, unspecified Status: Chronic Plan: Continue home medication. Discharge Planning Hopefully discharge home tomorrow. Problem Qualifiers (1) Rhabdomyolysis: (2) Scalp contusion: Qualified Codes: S00.03XA - Contusion of scalp, initial encounter (3) HTN (hypertension): Qualified Codes: I10 - Essential (primary) hypertension Trever Castle MD PhD Oct 19, 2017 07:02
[2017-10-19 07:05] LABS: CHLORIDE 108 MEQ/L (98-107); SODIUM (NA) 141 MEQ/L (136-145)
[2017-10-19 07:11] LABS: ALBUMIN 1.9 GM/DL (3.4-5.0); BICARBONATE 19.8 MEQ/L (21.0-32.0); CALCIUM 7.7 MG/DL (8.5-10.1)
[2017-10-19 07:12] LABS: BLOOD UREA NITROGEN 19 MG/DL (7-18); GLUCOSE,RANDOM 127 MG/DL (74-106); MAGNESIUM 1.8 MG/DL (1.5-2.5); WHITE BLOOD COUNT 0.9 TH/MM3 (4.0-11.0)
[2017-10-19 07:15] LABS: ALT (GPT) 40 U/L (12-78); AST (GOT) 64 U/L (15-37); CREATININE 0.73 MG/DL (0.60-1.30); GLOMERULAR FILTRATION RATE 109 ML/MIN (>89)
[2017-10-19 07:16] LABS: TOTAL BILIRUBIN ADULT 3.3 MG/DL (0.2-1.0); TOTAL PROTEIN 5.5 GM/DL (6.4-8.2)
[2017-10-19 07:17] LABS: ALKALINE PHOSPHATASE 75 U/L (45-117)
[2017-10-19] MEDS: MORPHINE SULFATE 4 MG/ML INJ IV PUSH PRN ×4 (07:39→20:49)
[2017-10-19] MEDS: carBAMazepine 200 MG TAB PO SCH ×2 (07:40→20:16)
[2017-10-19] MEDS: ASPIRIN 81 MG CHEW TAB CHEW SCH (07:40)
[2017-10-19] MEDS: PANTOPRAZOLE SOD 40 MG DELAYED RELEASE TAB PO SCH (07:40)
[2017-10-19] MEDS: PROCHLORPERAZINE MALEATE 5 MG TAB PO PRN ×3 (07:50→20:16)
[2017-10-19] MEDS ORDERED: LEVOFLOXACIN 500 MG PREMIX INJ 100 ML IV SCH (08:00)
[2017-10-19 08:43] LABS: BANDS 38 % (0-6); LYMPHOCYTES 4 % (9-44); METAMYELOCYTES 3 % (0-1); MONOCYTES 6 % (0-8); NEUTROPHIL # MANUAL DIFF 0.8 TH/MM3 (1.8-7.7); POLYS (SEG NEUTROPHILS) 49 % (16-70)
[2017-10-19 08:45] LABS: DOHLE BODIES PRESENT (NONE SEEN); ROULEAUX PRESENT (NORMAL); TOXIC GRANULATION 1+ (NORMAL)
[2017-10-19 13:27] LABS: DIRECT BILIRUBIN ADULT 2.6 MG/DL (0.0-0.2); INDIRECT BILIRUBIN 0.7 MG/DL (0.0-0.8)
[2017-10-19] MEDS: POTASSIUM CHLORIDE INJ 20 MEQ in SODIUM CHLOR 0.9% 1000 ML INJ 1,000 ML IV SCH ×2 (13:30→23:38)
[2017-10-19 14:00] LABS: BILIRUBIN, URINE LARGE (NEG); BLOOD, URINE NEG (NEG); GLUCOSE,URINE 100 mg/dL (NEG); KETONE, URINE 40 mg/dL (NEG); NITRITE,URINE POS (NEG); PH, URINE 6.5 (5.0-8.5); URINE LEUKOCYTE ESTERASE NEG (NEG)
[2017-10-19] MEDS: CEFEPIME INJ 1,000 MG in SODIUM CHLORIDE 0.9% INJ 100 ML IV SCH ×2 (14:00→22:32)
[2017-10-19 14:07] LABS: URINE COLOR AMBER (YELLW/STRAW)
[2017-10-19 14:11] LABS: AMORPHOUS SEDIMENT, URINE MOD; TRANSITIONAL EPI CELLS, URINE 0-5 /hpf; WBC, URINE 0-2 /hpf (0-5)
[2017-10-19] MEDS: VANCOMYCIN INJ 1,000 MG in SODIUM CHLOR 0.9% 250 ML INJ 250 ML IV SCH (14:55)
[2017-10-19] MEDS: FILGRASTIM 300 MCG/ML VIAL SQ SCH (14:55)
--- NOTE | 2017-10-19 15:08 | RADRPT ---
EXAM DATE/TIME: 10/19/2017 14:17 [facility] COMPARISON: No previous studies available for comparison. EXTERNAL COMPARISON : [facility], PET/CT TUMOR, August 08, 2017, [facility], CT ABDOMEN & PELVIS W/CONTRA ST, June 27, 2017. INDICATIONS : Elevated bilirubin. MEDICAL HISTORY : Hypertension. Rectal cancer. Squamous berna carcinoma. GERD. Bipolar disorder. Depression. Anxiety. SURGICAL HISTORY : Hernia repair. Bilateral shoulder cuff repair. Chemotherapy. Radiation therapy. Blood transfusions. B ilateral carpel tunnel release. ENCOUNTER: Initial ACUITY: 1 day PAIN SCORE: 4/10 LOCATION: Bilateral upper quadrant MEASUREMENTS: LIVER: 16.8 cm length COMMON DUCT: 4 mm RIGHT KIDNEY: 10.8 x 5.2 x 5.0 cm SPLEEN: 9.9 cm length FINDINGS: LIVER: Normal echotexture without focal lesion or ductal dilatation except small hepatic cyst.. COMMON DUCT: No intraluminal mass or stone visualized. GALLBLADDER: Significance sludge in the gallbladder. Minimal pericholecystic fluid. PANCREAS: The visualized portions are within normal limits. RIGHT KIDNEY: No hydronephrosis, stone or mass except for benign cyst. SPLEEN: No focal lesion. CONCLUSION: Extensive sludge in the gallbladder. No gallbladder wall thickening is seen.. Yonatan Quijano MD on October 19, 2017 at 15:05 Board Certified Radiologist. This report was verified electronically.
--- NOTE | 2017-10-19 18:24 | PD.ONC.PN ---
Subjective Subjective Remarks "it hurts" c/o nikhil anal area Noted fevers, improve with empiric abx. Objective Data Date Time Temp Pulse Resp B/P (MAP) Pulse Ox O2 Delivery O2 Flow Rate FiO2 10/19/17 12:00 98.2 117 14 122/88 (99) 92 10/19/17 08:00 98.3 109 14 99/70 (80) 93 10/19/17 04:45 100.9 90 18 129/78 (95) 96 10/19/17 01:54 100.0 10/19/17 00:37 101.0 119 16 138/89 (105) 97 10/18/17 20:54 99.3 100 16 148/94 (112) 96 10/19/17 10/19/17 10/19/17 07:00 15:00 23:00 Intake Total 440 ml 250 ml Balance 440 ml 250 ml Result Diagram: 10/19/17 0630 10/19/17 0630 Laboratory Results Laboratory Tests Test 10/19/17 06:30 10/19/17 08:20 10/19/17 13:42 White Blood Count 0.9 TH/MM3 Red Blood Count 3.39 MIL/MM3 Hemoglobin 9.6 GM/DL Hematocrit 29.1 % Mean Corpuscular Volume 86.1 FL Mean Corpuscular Hemoglobin 28.3 PG Mean Corpuscular Hemoglobin Concent 32.9 % Red Cell Distribution Width 15.8 % Platelet Count 167 TH/MM3 Mean Platelet Volume 7.1 FL Neutrophils (%) (Auto) 92.7 % Lymphocytes (%) (Auto) 3.5 % Monocytes (%) (Auto) 2.5 % Eosinophils (%) (Auto) 1.2 % Basophils (%) (Auto) 0.1 % Neutrophils # (Auto) 0.9 TH/MM3 Lymphocytes # (Auto) 0.0 TH/MM3 Monocytes # (Auto) 0.0 TH/MM3 Eosinophils # (Auto) 0.0 TH/MM3 Basophils # (Auto) 0.0 TH/MM3 CBC Comment AUTO DIFF Differential Total Cells Counted 100 Neutrophils % (Manual) 49 % Band Neutrophils % 38 % Lymphocytes % 4 % Monocytes % 6 % Neutrophils # (Manual) 0.8 TH/MM3 Metamyelocytes 3 % Differential Comment FINAL DIFF MANUAL Toxic Granulation 1+ Dohle Bodies PRESENT Platelet Estimate NORMAL Platelet Morphology Comment NORMAL Rouleau PRESENT Blood Urea Nitrogen 19 MG/DL Creatinine 0.73 MG/DL Random Glucose 127 MG/DL Total Protein 5.5 GM/DL Albumin 1.9 GM/DL Calcium Level 7.7 MG/DL Magnesium Level 1.8 MG/DL Alkaline Phosphatase 75 U/L Aspartate Amino Transf (AST/SGOT) 64 U/L Alanine Aminotransferase (ALT/SGPT) 40 U/L Total Bilirubin 3.3 MG/DL Direct Bilirubin 2.6 MG/DL Sodium Level 141 MEQ/L Potassium Level 3.6 MEQ/L Chloride Level 108 MEQ/L Carbon Dioxide Level 19.8 MEQ/L Anion Gap 13 MEQ/L Estimat Glomerular Filtration Rate 109 ML/MIN Indirect Bilirubin 0.7 MG/DL Urine Collection Type CLEAN CATCH Urine Color HOANG Urine Turbidity SLIGHT Urine pH 6.5 Urine Specific [place] 1.033 Urine Protein 100 mg/dL Urine Glucose (UA) 100 mg/dL Urine Ketones 40 mg/dL Urine Occult Blood NEG Urine Nitrite POS Urine Bilirubin LARGE Urine Leukocyte Esterase NEG Urine WBC 0-2 /hpf Urine Squamous Epithelial Cells 6-8 /hpf Urine Transitional Epithelial Cells 0-5 /hpf Urine Amorphous Sediment MOD Urine Hyaline Casts 3-5 /lpf Urine Fine Granular Casts 0-2 /lpf Microscopic Urinalysis Comment CULTURE INDICATED Urine Collection Time 1342 Culture Results Microbiology Date/Time Source Procedure Growth Status 10/19/17 13:30 Blood Peripheral Aerobic Blood Culture Pending Received 10/19/17 13:30 Blood Peripheral Anaerobic Blood Culture Pending Received 10/19/17 00:30 Blood Peripheral Aerobic Blood Culture Pending Received 10/19/17 00:30 Blood Peripheral Anaerobic Blood Culture Pending Received 10/19/17 00:20 Blood Peripheral Aerobic Blood Culture Pending Received 10/19/17 00:20 Blood Peripheral Anaerobic Blood Culture Pending Received 10/19/17 13:42 Urine Clean Catch Urine Culture Pending Received Imaging Studies Last 24 hours Impressions Liver Ultrasound 10/19/17 0000 Signed Impressions: Service Date/Time: Thursday, October 19, 2017 14:17 - CONCLUSION: Extensive sludge in the gallbladder. No gallbladder wall thickening is seen.. Yonatan Quijano MD Administered Medications Medications (Trade) Dose Ordered Sig/Siddhartha Route PRN Reason Start Time Stop Time Status Last Admin Dose Admin Aspirin (Aspirin Chew) 81 mg DAILY CHEW 10/18/17 09:00 10/19/17 07:40 Pantoprazole Sodium (Protonix) 40 mg DAILY PO 10/18/17 09:00 10/19/17 07:40 Tamsulosin HCl (Flomax) 0.4 mg HS PO 10/17/17 21:00 10/18/17 22:31 Olanzapine (ZyPREXA) 15 mg HS PO 10/17/17 21:00 10/18/17 22:29 Carbamazepine (TEGretol) 400 mg DAILY PO 10/18/17 09:00 10/19/17 07:40 Carbamazepine (TEGretol) 600 mg HS PO 10/17/17 21:00 10/18/17 22:31 Trazodone HCl (Desyrel) 200 mg HS PO 10/17/17 21:00 10/18/17 22:30 Ondansetron HCl (Zofran Inj) 4 mg Q6H PRN IV PUSH VOMITING 10/18/17 16:45 10/19/17 11:14 Prochlorperazine Maleate (Compazine) 10 mg Q6H PRN PO NAUSEA 10/18/17 18:00 10/19/17 14:56 Loperamide HCl (Imodium) 2 mg Q6H PRN PO diarrhea 10/18/17 17:00 10/18/17 19:15 Acetaminophen (Tylenol) 500 mg Q4H PRN PO TEMPERATURE > 100.4 10/19/17 05:15 10/19/17 05:27 Morphine Sulfate (Morphine Inj) 4 mg Q3H PRN IV PUSH PAIN LEVEL 3-10 10/19/17 06:30 10/19/17 14:54 Potassium Chloride 20 meq/ Sodium Chloride 1,010 ml @ 100 mls/hr Q10H6M IV 10/19/17 12:00 10/20/17 07:59 10/19/17 13:30 Vancomycin HCl 1000 mg/Sodium Chloride 250 ml @ 250 mls/hr Q12H IV 10/19/17 15:00 10/19/17 14:55 Cefepime HCl 1000 mg/Sodium Chloride 100 ml @ 200 mls/hr Q8H IV 10/19/17 14:00 10/19/17 14:00 Filgrastim (Neupogen Inj) 300 mcg DAILY@14 SQ 10/19/17 14:00 10/22/17 13:59 10/19/17 14:55 Objective Remarks GENERAL: Slender, well-developed patient. SKIN: Warm and dry. HEAD: Normocephalic. EYES: No scleral icterus. No injection or drainage. NECK: Supple, trachea midline. No JVD or lymphadenopathy. LYMPHATIC: No adenopathy. CARDIOVASCULAR: Regular rate and rhythm without murmurs. RESPIRATORY: Breath sounds equal bilaterally. No accessory muscle use. GASTROINTESTINAL: Abdomen soft, non-tender, nondistended. EXTREMITIES: No cyanosis, or edema. MUSCULOSKELETAL: Adequate muscle tone. Bruising L hip extending posteriorly. Perianal area with maceration and denuded skin, erythema from XRT dermatitis. BL groin area post inflammatory changes. NEUROLOGICAL: No obvious focal deficit. Awake, alert, and oriented x3. Assessment/Plan Problem List: (1) Neutropenic fever ICD Codes: D70.9 - Neutropenia, unspecified; R50.81 - Fever presenting with conditions classified elsewhere Status: Acute Plan: Follow blood cultures. Empiric abx started. GCSF start as XRt anticipate to hold due to Neutropenic fever. Suspect perianal area as site of bacteria entry. Keep area dry, difficult with diarrhea and XRT. (2) Rectal cancer ICD Codes: C20 - Malignant neoplasm of rectum Status: Chronic Plan: Will discuss with Rad Onc. HOld XRT due to neutropenic fever. Anticipate resume treatment after recovery. Assessment 61y/o man undergoing tx for rectal cancer s/p call hematoma, developed neutropenic fever. Plan Cont Abx Follow cultures Perianal care. Ashley Montemayor MD Oct 19, 2017 18:24
[2017-10-19] MEDS: TAMSULOSIN HCL 0.4 MG CAP PO SCH (20:16)
[2017-10-19] MEDS: traZODone HCL 100 MG TAB PO SCH (20:17)
[2017-10-19] MEDS: AQUAPHOR OINT 50 GM TUBE TOPICAL SCH (23:38)
[2017-10-20] VITALS: BP 128/78; PULSE 103; RESP 17; TEMP 99; O2SAT 94
[2017-10-20] MEDS: VANCOMYCIN INJ 1,000 MG in SODIUM CHLOR 0.9% 250 ML INJ 250 ML IV SCH ×2 (03:36→14:53)
[2017-10-20] MEDS: PROCHLORPERAZINE MALEATE 5 MG TAB PO PRN (05:00)
[2017-10-20] MEDS: MORPHINE SULFATE 4 MG/ML INJ IV PUSH PRN ×3 (05:00→13:38)
[2017-10-20] MEDS: CEFEPIME INJ 1,000 MG in SODIUM CHLORIDE 0.9% INJ 100 ML IV SCH ×3 (05:40→21:37)
[2017-10-20 07:32] LABS: AUTOMATED NEUTROPHIL # 5.9 TH/MM3 (1.8-7.7); BASOPHIL # 0.1 TH/MM3 (0-0.2); BASOPHIL % 1.9 % (0.0-2.0); HEMATOCRIT 24.4 % (39.0-51.0); HEMOGLOBIN 8.1 GM/DL (13.0-17.0); LYMPH % 1.2 % (9.0-44.0); LYMPHOCYTE # 0.1 TH/MM3 (1.0-4.8); MEAN CELL VOLUME 86.3 FL (80.0-100.0); MEAN CORPUSCULAR HEMOGLOBIN 28.5 PG (27.0-34.0); MEAN PLATELET VOLUME 7.5 FL (7.0-11.0); MONO % 1.6 % (0.0-8.0); MONOCYTE # 0.1 TH/MM3 (0-0.9); NEUT % 95.3 % (16.0-70.0); PLATELET COUNT 126 TH/MM3 (150-450); RED BLOOD COUNT 2.83 MIL/MM3 (4.50-5.90); RED CELL DISTRIBUTION WIDTH 16.2 % (11.6-17.2); WHITE BLOOD COUNT 6.2 TH/MM3 (4.0-11.0)
--- NOTE | 2017-10-20 07:45 | HHI.PR ---
Subjective Remarks Physical bit stronger this morning. No vomiting. Still has diarrhea but slightly improved. Had fever last evening but none since per his report. Encouraged use of SCDs. Explained reasoning for his continued stay in the hospital due to neutropenic fever Objective Vitals Vital Signs Date Time Temp Pulse Resp B/P (MAP) Pulse Ox O2 Delivery O2 Flow Rate FiO2 10/20/17 05:05 16 10/20/17 00:00 99.0 103 17 128/78 (95) 94 10/19/17 20:00 101.1 101 18 133/74 (93) 93 10/19/17 16:00 101.2 120 16 133/86 (102) 92 10/19/17 12:00 98.2 117 14 122/88 (99) 92 10/19/17 08:00 98.3 109 14 99/70 (80) 93 GENERAL: No acute distress, alert and oriented. Cooperative. SKIN: Warm and dry. Appear slightly jaundiced. Right forehead with ecchymosis but improved. Small abrasion left for head and left forearm. Ecchymosis left lateral posterior thigh as well as left pelvic region. HEAD: Normocephalic. EYES: No scleral icterus. No injection or drainage. NECK: Supple, trachea midline. No JVD or lymphadenopathy. CARDIOVASCULAR: Regular rate and rhythm, slightly tachycardic, but without significant murmurs, gallops, or rubs. RESPIRATORY: Breath sounds equal bilaterally. No accessory muscle use. GASTROINTESTINAL: Abdomen soft, non-tender, nondistended. Bowel sounds normal. MUSCULOSKELETAL: No cyanosis, or edema. Moves all extremities. BACK: No CVA tenderness. Result Diagram: 10/20/17 0600 10/19/17 0630 Imaging Last 72 hours Impressions Pelvis X-Ray 10/17/17 1704 Signed Impressions: Service Date/Time: Tuesday, October 17, 2017 17:21 - CONCLUSION: Abnormal intertrochanteric region left hip, nonspecific. I do not see evidence for acute traumatic injury. Imer Stanley MD FACR Head CT 10/17/17 2134 Signed Impressions: Service Date/Time: Tuesday, October 17, 2017 17:34 - CONCLUSION: Intracranial contents unremarkable. Large cephalhematoma. On the right. Imer Stanley MD FACR Urinary Catheter: No Vascular Central Line Catheter: No A/P Problem List: (1) Rhabdomyolysis ICD Codes: M62.82 - Rhabdomyolysis Status: Acute Plan: We'll continue IV fluids. CK improved. He has good urine output and is not acidotic. Physical therapy will continue to work with patient. (2) Neutropenic fever ICD Codes: D70.9 - Neutropenia, unspecified; R50.81 - Fever presenting with conditions classified elsewhere Status: Resolved Plan: Questionable etiology. Initially started on Levaquin but replaced with cefepime and Vanco per hematology/oncology. Appreciate hematology/oncology input. ANC was down to [address] Montemayor October 19. ANC much improved likely associated with Neupogen injection. (3) Scalp contusion ICD Codes: S00.03XA - Contusion of scalp, initial encounter Status: Acute Plan: Manage conservatively. Use ice to the area as needed. (4) Rectal cancer ICD Codes: C20 - Malignant neoplasm of rectum Status: Chronic Plan: Currently undergoing chemotherapy as well as radiation therapy as an outpatient. Appreciate hematology input. He has received 1 unit packed red cells and hopefully that will suffice for now. Possible source of low-grade fever. Provide pain medication. (5) HTN (hypertension) ICD Codes: I10 - Essential (primary) hypertension Status: Chronic Plan: Continue medication as tolerated. (6) Bipolar depression ICD Codes: F31.30 - Bipolar disorder, current episode depressed, mild or moderate severity, unspecified Status: Chronic Plan: Continue home medication. Assessment and Plan Patient has been somewhat immobile and has not been using SCDs regularly. I discussed the importance of using SCDs and he is now agreeable. We'll try to get him up to chair some today. Discharge Planning Hopefully discharge home in next 2-3 days depending on clinical progress. Problem Qualifiers (1) Rhabdomyolysis: (2) Scalp contusion: Qualified Codes: S00.03XA - Contusion of scalp, initial encounter (3) HTN (hypertension): Qualified Codes: I10 - Essential (primary) hypertension Trever Castle MD PhD Oct 20, 2017 07:45
[2017-10-20 07:53] LABS: ALBUMIN 1.7 GM/DL (3.4-5.0); BICARBONATE 23.4 MEQ/L (21.0-32.0); CALCIUM 7.4 MG/DL (8.5-10.1); CALCIUM-PROTEIN CORRECTED 8.5 MG/DL (8.5-10.1); CREATININE 0.68 MG/DL (0.60-1.30); TOTAL BILIRUBIN ADULT 2.2 MG/DL (0.2-1.0); TOTAL PROTEIN 5.2 GM/DL (6.4-8.2)
[2017-10-20 08:00] VITALS: BP 127/81; PULSE 109; RESP 16; TEMP 98.7; O2SAT 92
[2017-10-20] MEDS: carBAMazepine 200 MG TAB PO SCH ×2 (08:41→20:10)
[2017-10-20] MEDS: PANTOPRAZOLE SOD 40 MG DELAYED RELEASE TAB PO SCH (08:41)
[2017-10-20] MEDS: ASPIRIN 81 MG CHEW TAB CHEW SCH (08:41)
[2017-10-20] MEDS: AQUAPHOR OINT 50 GM TUBE TOPICAL SCH ×2 (08:42→20:10)
[2017-10-20] MEDS: ONDANSETRON HCL 4 MG/2 ML VIAL IV PUSH PRN ×2 (08:53→14:57)
[2017-10-20 12:00] VITALS: BP 121/87; PULSE 115; RESP 18; TEMP 97.7; O2SAT 92
[2017-10-20] MEDS: FILGRASTIM 300 MCG/ML VIAL SQ SCH (13:43)
[2017-10-20 16:00] VITALS: BP 120/84; PULSE 115; RESP 18; TEMP 97.6; O2SAT 92
--- NOTE | 2017-10-20 18:28 | PD.ONC.PN ---
Subjective Subjective Remarks Patient seen and examined, vital signs, labs and medications reviewed, imaging studies reviewed as well. Subjectively; the patient reports feeling tired, he tells me he has been trying to eat. He has been ambulating and sitting up at the bedside. When asked if he feels better when compared to when he came into the hospital he tells me he does not feel better. He does appear to be somewhat disoriented and was oriented to person and place but not to time. He appeared to be word searching as well during this interview. Objective Data Date Time Temp Pulse Resp B/P (MAP) Pulse Ox O2 Delivery O2 Flow Rate FiO2 10/20/17 16:00 97.6 115 18 120/84 (96) 92 10/20/17 12:00 97.7 115 18 121/87 (98) 92 10/20/17 08:00 98.7 109 16 127/81 (96) 92 10/20/17 05:05 16 10/20/17 00:00 99.0 103 17 128/78 (95) 94 10/19/17 20:00 101.1 101 18 133/74 (93) 93 10/20/17 10/20/17 10/20/17 07:00 15:00 23:00 Intake Total 377 ml Balance 377 ml Result Diagram: 10/20/17 0600 10/20/17 0600 Laboratory Results Laboratory Tests Test 10/20/17 06:00 White Blood Count 6.2 TH/MM3 Red Blood Count 2.83 MIL/MM3 Hemoglobin 8.1 GM/DL Hematocrit 24.4 % Mean Corpuscular Volume 86.3 FL Mean Corpuscular Hemoglobin 28.5 PG Mean Corpuscular Hemoglobin Concent 33.0 % Red Cell Distribution Width 16.2 % Platelet Count 126 TH/MM3 Mean Platelet Volume 7.5 FL Neutrophils (%) (Auto) 95.3 % Lymphocytes (%) (Auto) 1.2 % Monocytes (%) (Auto) 1.6 % Eosinophils (%) (Auto) 0.0 % Basophils (%) (Auto) 1.9 % Neutrophils # (Auto) 5.9 TH/MM3 Lymphocytes # (Auto) 0.1 TH/MM3 Monocytes # (Auto) 0.1 TH/MM3 Eosinophils # (Auto) 0.0 TH/MM3 Basophils # (Auto) 0.1 TH/MM3 CBC Comment DIFF FINAL Differential Comment Blood Urea Nitrogen 23 MG/DL Creatinine 0.68 MG/DL Random Glucose 108 MG/DL Total Protein 5.2 GM/DL Albumin 1.7 GM/DL Calcium Level 7.4 MG/DL Alkaline Phosphatase 70 U/L Aspartate Amino Transf (AST/SGOT) 41 U/L Alanine Aminotransferase (ALT/SGPT) 35 U/L Total Bilirubin 2.2 MG/DL Sodium Level 141 MEQ/L Potassium Level 4.5 MEQ/L Chloride Level 110 MEQ/L Carbon Dioxide Level 23.4 MEQ/L Anion Gap 8 MEQ/L Estimat Glomerular Filtration Rate 118 ML/MIN Protein Corrected Calcium 8.5 MG/DL Culture Results Microbiology Date/Time Source Procedure Growth Status 10/19/17 13:30 Blood Peripheral Aerobic Blood Culture - Preliminary NO GROWTH IN 1 DAY Resulted 10/19/17 13:30 Blood Peripheral Anaerobic Blood Culture - Preliminary NO GROWTH IN 1 DAY Resulted 10/19/17 00:30 Blood Peripheral Aerobic Blood Culture - Preliminary NO GROWTH IN 1 DAY Resulted 10/19/17 00:30 Blood Peripheral Anaerobic Blood Culture - Preliminary NO GROWTH IN 1 DAY Resulted 10/19/17 00:20 Blood Peripheral Aerobic Blood Culture - Preliminary NO GROWTH IN 1 DAY Resulted 10/19/17 00:20 Blood Peripheral Anaerobic Blood Culture - Preliminary NO GROWTH IN 1 DAY Resulted 10/19/17 13:42 Urine Clean Catch Urine Culture - Preliminary IMMATURE GROWTH - REINCUBATE Resulted Administered Medications Medications (Trade) Dose Ordered Sig/Siddhartha Route PRN Reason Start Time Stop Time Status Last Admin Dose Admin Aspirin (Aspirin Chew) 81 mg DAILY CHEW 10/18/17 09:00 10/20/17 08:41 Pantoprazole Sodium (Protonix) 40 mg DAILY PO 10/18/17 09:00 10/20/17 08:41 Tamsulosin HCl (Flomax) 0.4 mg HS PO 10/17/17 21:00 10/19/17 20:16 Olanzapine (ZyPREXA) 15 mg HS PO 10/17/17 21:00 10/19/17 20:17 Carbamazepine (TEGretol) 400 mg DAILY PO 10/18/17 09:00 10/20/17 08:41 Carbamazepine (TEGretol) 600 mg HS PO 10/17/17 21:00 10/19/17 20:16 Trazodone HCl (Desyrel) 200 mg HS PO 10/17/17 21:00 10/19/17 20:17 Ondansetron HCl (Zofran Inj) 4 mg Q6H PRN IV PUSH VOMITING 10/18/17 16:45 10/20/17 14:57 Prochlorperazine Maleate (Compazine) 10 mg Q6H PRN PO NAUSEA 10/18/17 18:00 10/20/17 05:00 Loperamide HCl (Imodium) 2 mg Q6H PRN PO diarrhea 10/18/17 17:00 10/18/17 19:15 Acetaminophen (Tylenol) 500 mg Q4H PRN PO TEMPERATURE > 100.4 10/19/17 05:15 10/19/17 20:17 Morphine Sulfate (Morphine Inj) 4 mg Q3H PRN IV PUSH PAIN LEVEL 3-10 10/19/17 06:30 10/20/17 13:38 Vancomycin HCl 1000 mg/Sodium Chloride 250 ml @ 250 mls/hr Q12H IV 10/19/17 15:00 10/20/17 14:53 Cefepime HCl 1000 mg/Sodium Chloride 100 ml @ 200 mls/hr Q8H IV 10/19/17 14:00 10/20/17 13:38 Filgrastim (Neupogen Inj) 300 mcg DAILY@14 SQ 10/19/17 14:00 10/22/17 13:59 10/20/17 13:43 Emollient Ointment (Aquaphor Oint) 1 applic Q12HR TOPICAL 10/19/17 21:00 10/20/17 08:42 Objective Remarks GENERAL: Middle-aged male, appears thin, he does not appear acutely ill. SKIN: Warm and dry. HEAD: Hematoma noted along the right side of the forehead without skin breakdown. EYES: No scleral icterus. No injection or drainage. PERRLA, EOMI. NECK: Supple, trachea midline. No JVD or lymphadenopathy. LYMPHATIC: No adenopathy. CARDIOVASCULAR: Tachycardic, S1 and S2 bounding heart sounds. RESPIRATORY: Poor inspiratory effort, decreased bibasilar breath sounds, scattered rails and crepitus. GASTROINTESTINAL: Thin abdomen, soft, no obvious organ enlargement. EXTREMITIES: No cyanosis, or edema. MUSCULOSKELETAL: Adequate muscle tone. NEUROLOGICAL: He is awake and appears to be alert, he is not oriented to time but is oriented to person and place. He seems to be wart searching at times. PSYCHIATRIC: Appropriate mood, he does not appear to be depressed her tearful. I 'm unable to ascertain as to what degree he understood our conversation. Assessment/Plan Problem List: (1) Neutropenic fever ICD Codes: D70.9 - Neutropenia, unspecified; R50.81 - Fever presenting with conditions classified elsewhere Status: Resolved Plan: Blood and urine cultures remain negative as of 6:25 PM on 10/20/2017. On empiric antibiotic therapy with cefepime and vancomycin. On G-CSF, absolute neutral count is 5.9 as of today. Suspect perianal area as site of bacteria entry. Keep area dry, difficult with diarrhea and XRT. 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 He had been under the care of Dr. Bauer and was being treated with definitive dose chemoradiotherapy with infusional 5-FU and I believe mitomycin-C. He presents to the hospital with neutropenic fever, status post fall with a subcutaneous hematoma over his right for head and confusion. He is on empiric antibiotic therapy with vancomycin and cefepime and did receive Neupogen for growth factor support. Plan 1. Anal squama cell carcinoma: Locally advanced disease, had been on curative intent and current chemoradiotherapy. Presently in the hospital with neutropenic fever and chemotherapy associated myelosuppression. Neutropenia has resolved with Neupogen. I would continue Neupogen for at least 1 more day and then discontinue. Continue monitoring blood and urine cultures to isolate an organism to streamline antibiotic therapy. Initiate IV fluid hydration given the lack of oral intake (patient tells me he has not been drinking much fluids). Confusion: I did make the patient's nurse aware that the patient could not tell me accurately what year it was and he could not name the captain room service either. Nurse tells me the patient was given a dose of intravenous morphine just prior to my walking in the room and that may be disappointing him somewhat. I've advised the nurses to monitor him closely and to consider obtaining a CT head should he be persistently confused specially given his recent fall. The oncology service of follow along with you. Lorenzo Messer MD Oct 20, 2017 18:28
[2017-10-20 20:00] VITALS: BP 146/82; PULSE 121; RESP 18; TEMP 101.5; O2SAT 94
[2017-10-20] MEDS: SODIUM CHLOR 0.9% 1000 ML INJ 1,000 ML IV SCH (20:09)
[2017-10-20] MEDS: traZODone HCL 100 MG TAB PO SCH (20:10)
[2017-10-20] MEDS: TAMSULOSIN HCL 0.4 MG CAP PO SCH (20:10)
[2017-10-21] VITALS: BP 133/79; PULSE 110; RESP 17; TEMP 99; O2SAT 93
[2017-10-21] MEDS: VANCOMYCIN INJ 1,000 MG in SODIUM CHLOR 0.9% 250 ML INJ 250 ML IV SCH ×2 (02:39→15:35)
[2017-10-21] MEDS: MORPHINE SULFATE 4 MG/ML INJ IV PUSH PRN ×3 (02:59→22:09)
[2017-10-21] MEDS: ONDANSETRON HCL 4 MG/2 ML VIAL IV PUSH PRN ×2 (02:59→17:32)
[2017-10-21] MEDS: CEFEPIME INJ 1,000 MG in SODIUM CHLORIDE 0.9% INJ 100 ML IV SCH ×3 (06:05→21:55)
[2017-10-21] MEDS: SODIUM CHLOR 0.9% 1000 ML INJ 1,000 ML IV SCH ×3 (06:37→22:09)
[2017-10-21 06:47] LABS: AUTOMATED NEUTROPHIL # 6.7 TH/MM3 (1.8-7.7); BASOPHIL # 0.1 TH/MM3 (0-0.2); BASOPHIL % 0.9 % (0.0-2.0); EOSINOPHIL % 0.1 % (0.0-4.0); HEMATOCRIT 24.4 % (39.0-51.0); HEMOGLOBIN 7.9 GM/DL (13.0-17.0); LYMPH % 1.7 % (9.0-44.0); LYMPHOCYTE # 0.1 TH/MM3 (1.0-4.8); MEAN CELL VOLUME 86.3 FL (80.0-100.0); MEAN CORPUSCULAR HEMOGLOBIN 27.9 PG (27.0-34.0); MEAN CORPUSCULAR HGB CONC 32.4 % (32.0-36.0); MEAN PLATELET VOLUME 7.8 FL (7.0-11.0); MONO % 1.1 % (0.0-8.0); MONOCYTE # 0.1 TH/MM3 (0-0.9); NEUT % 96.2 % (16.0-70.0); PLATELET COUNT 100 TH/MM3 (150-450); RED BLOOD COUNT 2.82 MIL/MM3 (4.50-5.90); RED CELL DISTRIBUTION WIDTH 16.4 % (11.6-17.2)
[2017-10-21 07:11] LABS: ALBUMIN 1.6 GM/DL (3.4-5.0); BICARBONATE 24.5 MEQ/L (21.0-32.0); CALCIUM 7.2 MG/DL (8.5-10.1); CALCIUM-PROTEIN CORRECTED 8.3 MG/DL (8.5-10.1); CREATININE 0.61 MG/DL (0.60-1.30); TOTAL PROTEIN 5.1 GM/DL (6.4-8.2)
[2017-10-21 08:00] VITALS: BP 142/86; PULSE 115; RESP 18; TEMP 98.9
--- NOTE | 2017-10-21 08:20 | HHI.PR ---
Subjective Remarks Patient reports he is feeling about the same. Still having diarrhea but that has improved somewhat he reports. He reports he doesn't have much of an appetite but he is forcing himself to eat and each meal. Still has pain in the perirectal area. Seems a bit mentally cloudy this morning. It appears his last dose of morphine was around 2 AM. Objective Vitals Vital Signs Date Time Temp Pulse Resp B/P (MAP) Pulse Ox O2 Delivery O2 Flow Rate FiO2 10/21/17 00:00 99.0 110 17 133/79 (97) 93 10/20/17 20:00 101.5 121 18 146/82 (103) 94 10/20/17 16:00 97.6 115 18 120/84 (96) 92 10/20/17 12:00 97.7 115 18 121/87 (98) 92 10/20/17 08:00 98.7 109 16 127/81 (96) 92 GENERAL: No acute distress, alert. Cooperative. Appears a bit confused at times, specifically doesn't know today's date and believes it to be in the 1960s. He is aware that he is in the hospital and in what [facility] is located but cannot tell me the name of the hospital. Follows simple commands well and moves all extremities to command. He seems a bit frustrated by the fact that he can't recall some of the short-term memory questions I asked him. SKIN: Warm and dry. Appear slightly jaundiced. Right forehead with ecchymosis but improved. Small abrasion left for head and left forearm. Ecchymosis left lateral posterior thigh as well as left pelvic region. HEAD: Normocephalic. Contusion right for it is noted. EYES: No scleral icterus. No injection or drainage. NECK: Supple, trachea midline. No JVD or lymphadenopathy. CARDIOVASCULAR: Regular rate and rhythm, slightly tachycardic, but without significant murmurs, gallops, or rubs. RESPIRATORY: Breath sounds equal bilaterally. No accessory muscle use. GASTROINTESTINAL: Abdomen soft, non-tender, mildly distended. Bowel sounds normal to slightly hyperactive. MUSCULOSKELETAL: No cyanosis, or edema. Moves all extremities to command. Strength 5 out of 54 extremities. BACK: No CVA tenderness. Result Diagram: 10/21/17 0540 10/21/17 0640 Imaging Last 72 hours Impressions Pelvis X-Ray 10/17/17 1704 Signed Impressions: Service Date/Time: Tuesday, October 17, 2017 17:21 - CONCLUSION: Abnormal intertrochanteric region left hip, nonspecific. I do not see evidence for acute traumatic injury. Imer Stanley MD FACR Head CT 10/17/17 1659 Signed Impressions: Service Date/Time: Tuesday, October 17, 2017 17:34 - CONCLUSION: Intracranial contents unremarkable. Large cephalhematoma. On the right. Imer Stanley MD FACR Urinary Catheter: No A/P Problem List: (1) Rhabdomyolysis ICD Codes: M62.82 - Rhabdomyolysis Status: Acute Plan: We'll continue IV fluids. CK improved. He has good urine output and is not acidotic. Physical therapy will continue to work with patient. (2) Neutropenic fever ICD Codes: D70.9 - Neutropenia, unspecified; R50.81 - Fever presenting with conditions classified elsewhere Status: Resolved Plan: Questionable etiology. Initially started on Levaquin but replaced with cefepime and Vanco per hematology/oncology. Appreciate hematology/oncology input. ANC was down to 800 10/19/17, but much improved with Neupogen. Discussed with Dr. Montemayor October 19. Still with occasional fever spike. (3) Scalp contusion ICD Codes: S00.03XA - Contusion of scalp, initial encounter Status: Acute Plan: Manage conservatively. Use ice to the area as needed. Clinically improved. Appears a bit more confused 10/21...? post concussive, but had been more oriented previously so not classic presentation. (4) Rectal cancer ICD Codes: C20 - Malignant neoplasm of rectum Status: Chronic Plan: Currently undergoing chemotherapy as well as radiation therapy as an outpatient. Appreciate hematology input. He has received 1 unit packed red cells and hopefully that will suffice for now. Provide pain medication. Pt reports that pain is controlled for short time with morphine, but does complain that it's not controlled usp. (5) HTN (hypertension) ICD Codes: I10 - Essential (primary) hypertension Status: Chronic Plan: Continue medication as tolerated. (6) Bipolar depression ICD Codes: F31.30 - Bipolar disorder, current episode depressed, mild or moderate severity, unspecified Status: Chronic Plan: Continue home medication. (7) Confusion ICD Codes: R41.0 - Disorientation, unspecified Status: Acute Plan: ? etiology. Was more oriented 10/20. ? a/w infectious process, metabolic disturbance, meds, recent head injury. Will check labs, CT brain and monitor for signs of worsening mental capacity. Seems to be some vacillating as pt was able to provide clear information about today's date, his location, name of hospital, day of week when I interviewed him again after he went to restroom. (8) At risk for abuse of opiates ICD Codes: Z91.89 - Other specified personal risk factors, not elsewhere classified Status: Chronic Plan: I spoke with pt's sister and father at his request. Pt has hx of opiate abuse and had been in outpt rehab program. He had been doing quite well. Will use caution when prescribing opiates to control his pain. Assessment and Plan Patient has been somewhat immobile and has not been using SCDs regularly. I discussed the importance of using SCDs 10/21 and he is now agreeable. Hesitant to give lovenox/heparin given his platelet counts, low Hb values. He ambulated to rest room independently when I was leaving his room 10/21/17. Discharge Planning Hopefully discharge home in next 2-3 days depending on clinical progress. Problem Qualifiers (1) Rhabdomyolysis: (2) Scalp contusion: Qualified Codes: S00.03XA - Contusion of scalp, initial encounter (3) HTN (hypertension): Qualified Codes: I10 - Essential (primary) hypertension Trever Castle MD PhD Oct 21, 2017 08:20
[2017-10-21] MEDS: ASPIRIN 81 MG CHEW TAB CHEW SCH (10:51)
[2017-10-21] MEDS: PANTOPRAZOLE SOD 40 MG DELAYED RELEASE TAB PO SCH (10:51)
[2017-10-21] MEDS: carBAMazepine 200 MG TAB PO SCH ×2 (10:52→21:56)
[2017-10-21] MEDS: AQUAPHOR OINT 50 GM TUBE TOPICAL SCH ×2 (10:52→22:05)
[2017-10-21 12:00] VITALS: BP 139/81; PULSE 115; RESP 18; TEMP 99.5; O2SAT 92
[2017-10-21] MEDS: LOPERAMIDE HCL 2 MG CAP PO PRN (15:32)
[2017-10-21] MEDS: FILGRASTIM 300 MCG/ML VIAL SQ SCH (15:34)
[2017-10-21 16:00] VITALS: BP 159/93; PULSE 105; RESP 19; TEMP 100; O2SAT 94
[2017-10-21] MEDS ORDERED: Vancomycin Consult Pharmacy 1 EA OTHER SCH (18:15)
--- NOTE | 2017-10-21 18:18 | PD.ONC.PN ---
Subjective Subjective Remarks Feels better, he knows the president's name now. He is applying aquaphor to perianal area. Ambulating to Br. Objective Data Date Time Temp Pulse Resp B/P (MAP) Pulse Ox O2 Delivery O2 Flow Rate FiO2 10/21/17 16:00 100.0 105 19 159/93 (115) 94 10/21/17 12:00 99.5 115 18 139/81 (100) 92 10/21/17 08:00 98.9 115 18 142/86 (104) 10/21/17 00:00 99.0 110 17 133/79 (97) 93 10/20/17 20:00 101.5 121 18 146/82 (103) 94 10/21/17 10/21/17 10/21/17 07:00 15:00 23:00 Intake Total 1000 ml 100 ml Output Total 2 ml Balance 1000 ml 98 ml Result Diagram: 10/21/17 0540 10/21/17 0640 Laboratory Results Laboratory Tests Test 10/21/17 05:40 10/21/17 06:40 10/21/17 09:40 10/21/17 14:25 White Blood Count 7.0 TH/MM3 Red Blood Count 2.82 MIL/MM3 Hemoglobin 7.9 GM/DL Hematocrit 24.4 % Mean Corpuscular Volume 86.3 FL Mean Corpuscular Hemoglobin 27.9 PG Mean Corpuscular Hemoglobin Concent 32.4 % Red Cell Distribution Width 16.4 % Platelet Count 100 TH/MM3 Mean Platelet Volume 7.8 FL Neutrophils (%) (Auto) 96.2 % Lymphocytes (%) (Auto) 1.7 % Monocytes (%) (Auto) 1.1 % Eosinophils (%) (Auto) 0.1 % Basophils (%) (Auto) 0.9 % Neutrophils # (Auto) 6.7 TH/MM3 Lymphocytes # (Auto) 0.1 TH/MM3 Monocytes # (Auto) 0.1 TH/MM3 Eosinophils # (Auto) 0.0 TH/MM3 Basophils # (Auto) 0.1 TH/MM3 CBC Comment AUTO DIFF Differential Comment AUTO DIFF CONFIRMED Blood Urea Nitrogen 18 MG/DL Creatinine 0.61 MG/DL Random Glucose 115 MG/DL Total Protein 5.1 GM/DL Albumin 1.6 GM/DL Calcium Level 7.2 MG/DL Alkaline Phosphatase 101 U/L Aspartate Amino Transf (AST/SGOT) 121 U/L Alanine Aminotransferase (ALT/SGPT) 61 U/L Total Bilirubin 2.0 MG/DL Sodium Level 140 MEQ/L Potassium Level 3.8 MEQ/L Chloride Level 109 MEQ/L Carbon Dioxide Level 24.5 MEQ/L Anion Gap 7 MEQ/L Estimat Glomerular Filtration Rate 134 ML/MIN Protein Corrected Calcium 8.3 MG/DL Total Creatine Kinase 80 U/L Ammonia LESS THAN 10 MCMOL/L Culture Results Microbiology Date/Time Source Procedure Growth Status 10/19/17 13:30 Blood Peripheral Aerobic Blood Culture - Preliminary NO GROWTH IN 2 DAYS Resulted 10/19/17 13:30 Blood Peripheral Anaerobic Blood Culture - Preliminary NO GROWTH IN 2 DAYS Resulted 10/19/17 00:30 Blood Peripheral Aerobic Blood Culture - Preliminary NO GROWTH IN 2 DAYS Resulted 10/19/17 00:30 Blood Peripheral Anaerobic Blood Culture - Preliminary NO GROWTH IN 2 DAYS Resulted 10/19/17 00:20 Blood Peripheral Aerobic Blood Culture - Preliminary NO GROWTH IN 2 DAYS Resulted 10/19/17 00:20 Blood Peripheral Anaerobic Blood Culture - Preliminary NO GROWTH IN 2 DAYS Resulted 10/19/17 13:42 Urine Clean Catch Urine Culture - Final <10,000 CFU/ML MIXED GRAM POSITIVE FL... Complete Administered Medications Medications (Trade) Dose Ordered Sig/Siddhartha Route PRN Reason Start Time Stop Time Status Last Admin Dose Admin Aspirin (Aspirin Chew) 81 mg DAILY CHEW 10/18/17 09:00 10/21/17 10:51 Pantoprazole Sodium (Protonix) 40 mg DAILY PO 10/18/17 09:00 10/21/17 10:51 Tamsulosin HCl (Flomax) 0.4 mg HS PO 10/17/17 21:00 10/20/17 20:10 Olanzapine (ZyPREXA) 15 mg HS PO 10/17/17 21:00 10/20/17 20:10 Carbamazepine (TEGretol) 400 mg DAILY PO 10/18/17 09:00 10/21/17 10:52 Ondansetron HCl (Zofran Inj) 4 mg Q6H PRN IV PUSH VOMITING 10/18/17 16:45 10/21/17 17:32 Prochlorperazine Maleate (Compazine) 10 mg Q6H PRN PO NAUSEA 10/18/17 18:00 10/20/17 05:00 Loperamide HCl (Imodium) 2 mg Q6H PRN PO diarrhea 10/18/17 17:00 10/21/17 15:32 Acetaminophen (Tylenol) 500 mg Q4H PRN PO TEMPERATURE > 100.4 10/19/17 05:15 10/19/17 20:17 Morphine Sulfate (Morphine Inj) 4 mg Q3H PRN IV PUSH PAIN LEVEL 3-10 10/19/17 06:30 10/21/17 15:33 Vancomycin HCl 1000 mg/Sodium Chloride 250 ml @ 250 mls/hr Q12H IV 10/19/17 15:00 10/21/17 15:35 Cefepime HCl 1000 mg/Sodium Chloride 100 ml @ 200 mls/hr Q8H IV 10/19/17 14:00 10/21/17 15:32 Filgrastim (Neupogen Inj) 300 mcg DAILY@14 SQ 10/19/17 14:00 10/22/17 13:59 10/21/17 15:34 Emollient Ointment (Aquaphor Oint) 1 applic Q12HR TOPICAL 10/19/17 21:00 10/21/17 10:52 Sodium Chloride 1,000 ml @ 84 mls/hr [id number] IV 10/20/17 18:45 10/21/17 10:55 Objective Remarks GENERAL: Well-nourished, well-developed patient. SKIN: Warm and dry. HEAD: Normocephalic. EYES: No scleral icterus. No injection or drainage. NECK: Supple, trachea midline. No JVD or lymphadenopathy. LYMPHATIC: No adenopathy. CARDIOVASCULAR: Regular rate and rhythm without murmurs. RESPIRATORY: Breath sounds equal bilaterally. No accessory muscle use. GASTROINTESTINAL: Abdomen soft, non-tender, nondistended. EXTREMITIES: No cyanosis, or trace edema. MUSCULOSKELETAL: Adequate muscle tone. NEUROLOGICAL: No obvious focal deficit. Awake, alert, and oriented x3. PSYCHIATRIC: Appropriate mood and affect; Anxious. Assessment/Plan Problem List: (1) Neutropenic fever ICD Codes: D70.9 - Neutropenia, unspecified; R50.81 - Fever presenting with conditions classified elsewhere Status: Resolved Plan: Blood and urine cultures remain negative as of 6:25 PM on 10/20/2017. On empiric antibiotic therapy with cefepime and vancomycin. On G-CSF, absolute neutral count is 5.9 as of today. Suspect perianal area as site of bacteria entry. Keep area dry, difficult with diarrhea and XRT. 10/21/17. Neutropenia resolve. Still has fever- low grade T 100.0, BC neg. Noted thrombocytopenia likely chemo induced. Asymptomatic, follow. 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 He had been under the care of Dr. Bauer and was being treated with definitive dose chemoradiotherapy with infusional 5-FU and I believe mitomycin-C. He presents to the hospital with neutropenic fever, status post fall with a subcutaneous hematoma over his right for head and confusion. He is on empiric antibiotic therapy with vancomycin and cefepime and did receive Neupogen for growth factor support. Plan 1. Anal squama cell carcinoma: Locally advanced disease, had been on curative intent and current chemoradiotherapy. 2. DC Neupogen. 3. Cont Abx. Check Vanc trough level, pharmacy to dose. 4. OK for LMWH for DVt prophylaxis 5. La anal care. The oncology service of follow along with you. Ashley Montemayor MD Oct 21, 2017 18:18
[2017-10-21 20:00] VITALS: BP 150/93; PULSE 113; RESP 18; TEMP 99.1; O2SAT 91
[2017-10-21] MEDS: TAMSULOSIN HCL 0.4 MG CAP PO SCH (21:56)
[2017-10-21] MEDS: traZODone HCL 100 MG TAB PO SCH (21:58)
--- NOTE | 2017-10-21 23:58 | RADRPT ---
EXAM DATE/TIME: 10/21/2017 23:07 [facility] COMPARISON: CT BRAIN W/O CONTRAST, October 17, 2017, 17:34. INDICATIONS : Confusion since fall a few days ago. RADIATION DOSE: 60.21 CTDIvol (mGy) MEDICAL HISTORY : Carcinoma, rectal. Carcinoma, squamous cell. Gastroesophageal reflux disease.Basal cell cancer. SURGICAL HISTORY : Hernia repair. Orthopedic surgery. ENCOUNTER: Subsequent ACUITY: 4 - 6 days PAIN SCALE: 5/10 LOCATION: cranial TECHNIQUE: Multiple contiguous axial images were obtained of the head. Using automated exposure control and adj ustment of the mA and/or kV according to patient size, radiation dose was kept as low as reasonably a chievable to obtain optimal diagnostic quality images. DICOM format image data is available electro nically for review and comparison. FINDINGS: CEREBRUM: The ventricles are normal for age. No evidence of midline shift, mass lesion, or acute infarction. T here is now a new hyperdense ill-defined area on the left occipital parietal lobe measuring up to sandra roximately 1.4 x 1.6 cm. There is no mass effect or midline shift. POSTERIOR FOSSA: The cerebellum and brainstem are intact. The 4th ventricle is midline. The cerebellopontine angle i s unremarkable. EXTRACRANIAL: The visualized portion of the orbits is intact. SKULL: The calvaria is intact. No evidence of skull fracture. The previously noted cephalohematoma over the right frontal bone has decreased in size. CONCLUSION: 1. Ill-defined hyperdense area now noted along the left occipital parietal lobe junction likely repre senting a hemorrhagic contusion. 2. Interval decrease in the size of the right cephalohematoma. Ino Head MD on October 21, 2017 at 23:53 Board Certified Radiologist. This report was verified electronically.
[2017-10-22] VITALS (22 sets, daily range): BP systolic 107–158; BP diastolic 79–107; PULSE 92–112; RESP 18–30; TEMP 97.5–99.6; O2SAT 3–100
[2017-10-22] MEDS ORDERED: ENOXAPARIN SODIUM 30 MG/0.3 ML SYRINGE SQ SCH
[2017-10-22] MEDS: VANCOMYCIN INJ 1,000 MG in SODIUM CHLOR 0.9% 250 ML INJ 250 ML IV SCH ×2 (03:05→13:41)
[2017-10-22] MEDS: MORPHINE SULFATE 4 MG/ML INJ IV PUSH PRN ×3 (04:29→21:29)
[2017-10-22 05:56] LABS: AUTOMATED NEUTROPHIL # 5.7 TH/MM3 (1.8-7.7); BASOPHIL # 0.1 TH/MM3 (0-0.2); BASOPHIL % 1.2 % (0.0-2.0); EOSINOPHIL % 0.1 % (0.0-4.0); HEMATOCRIT 24.3 % (39.0-51.0); HEMOGLOBIN 8.4 GM/DL (13.0-17.0); LYMPH % 2.9 % (9.0-44.0); LYMPHOCYTE # 0.2 TH/MM3 (1.0-4.8); MEAN CELL VOLUME 85.4 FL (80.0-100.0); MEAN CORPUSCULAR HEMOGLOBIN 29.4 PG (27.0-34.0); MEAN CORPUSCULAR HGB CONC 34.5 % (32.0-36.0); MEAN PLATELET VOLUME 7.7 FL (7.0-11.0); MONO % 1.7 % (0.0-8.0); MONOCYTE # 0.1 TH/MM3 (0-0.9); NEUT % 94.1 % (16.0-70.0); PLATELET COUNT 66 TH/MM3 (150-450); RED BLOOD COUNT 2.85 MIL/MM3 (4.50-5.90); RED CELL DISTRIBUTION WIDTH 17.4 % (11.6-17.2); WHITE BLOOD COUNT 6.1 TH/MM3 (4.0-11.0)
[2017-10-22] MEDS ORDERED: SODIUM CHLOR 0.9% 250 ML INJ 250 ML IV ONE (06:00)
[2017-10-22] MEDS ORDERED: diphenhydrAMINE HCL 25 MG CAP PO PRN (06:00)
[2017-10-22 06:11] LABS: CHLORIDE 109 MEQ/L (98-107); SODIUM (NA) 140 MEQ/L (136-145)
[2017-10-22 06:14] LABS: CALCIUM 7.5 MG/DL (8.5-10.1)
[2017-10-22] MEDS: CEFEPIME INJ 1,000 MG in SODIUM CHLORIDE 0.9% INJ 100 ML IV SCH ×3 (06:14→21:01)
[2017-10-22 06:15] LABS: ALBUMIN 1.7 GM/DL (3.4-5.0); BLOOD UREA NITROGEN 13 MG/DL (7-18); GLUCOSE,RANDOM 136 MG/DL (74-106)
--- NOTE | 2017-10-22 06:55 | HHI.PR ---
Subjective Remarks Reports that he feels better this morning. Reports the pain is better controlled. Has been walking to the restroom frequently. Diarrhea relatively stable. Mentation appears more clear this morning. Objective Vitals Vital Signs Date Time Temp Pulse Resp B/P (MAP) Pulse Ox O2 Delivery O2 Flow Rate FiO2 10/22/17 04:00 98.7 112 18 144/93 (110) 92 10/22/17 00:00 97.5 106 18 123/79 (94) 92 10/21/17 20:00 99.1 113 18 150/93 (112) 91 10/21/17 16:00 100.0 105 19 159/93 (115) 94 10/21/17 12:00 99.5 115 18 139/81 (100) 92 10/21/17 08:00 98.9 115 18 142/86 (104) GENERAL: No acute distress, alert. Cooperative. Mentation improved this morning. He is able to provide for me today's date and day of the week. He tells me that his birthday is only a few days away and he is correct. He is still at times searching for words and is still not able to provide for me the president's name but apparently was able to do so last night for a physician. SKIN: Warm and dry. Mild jaundice, improving. Right forehead with ecchymosis but improved. Small abrasion left for head and left forearm. Ecchymosis left lateral posterior thigh as well as left pelvic region. HEAD: Normocephalic. Contusion right for it is noted. EYES: No scleral icterus. No injection or drainage. NECK: Supple, trachea midline. No JVD or lymphadenopathy. CARDIOVASCULAR: Regular rate and rhythm, slightly tachycardic, but without significant murmurs, gallops, or rubs. RESPIRATORY: Breath sounds equal bilaterally. No accessory muscle use. GASTROINTESTINAL: Abdomen soft, non-tender, mildly distended. Bowel sounds normal to slightly hyperactive. MUSCULOSKELETAL: No cyanosis, or edema. Moves all extremities to command. Strength 5 out of 54 extremities. BACK: No CVA tenderness. Result Diagram: 10/22/17 0540 10/22/17 0540 Imaging Last 72 hours Impressions Pelvis X-Ray 10/17/17 1704 Signed Impressions: Service Date/Time: Tuesday, October 17, 2017 17:21 - CONCLUSION: Abnormal intertrochanteric region left hip, nonspecific. I do not see evidence for acute traumatic injury. Imer Stanley MD FACR Head CT 10/17/17 [id number] Signed Impressions: Service Date/Time: Tuesday, October 17, 2017 17:34 - CONCLUSION: Intracranial contents unremarkable. Large cephalhematoma. On the right. Imer Stanley MD FACR Urinary Catheter: No Vascular Central Line Catheter: No A/P Problem List: (1) Rhabdomyolysis ICD Codes: M62.82 - Rhabdomyolysis Status: Acute Plan: We'll stop IV fluids. CK normalized. He has good urine output and is not acidotic. Physical therapy will continue to work with patient. (2) Neutropenic fever ICD Codes: D70.9 - Neutropenia, unspecified; R50.81 - Fever presenting with conditions classified elsewhere Status: Resolved Plan: Questionable etiology but most likely associated with perirectal exposure. Initially started on Levaquin but replaced with cefepime and Vanco per hematology/oncology. Appreciate hematology/oncology input. ANC was down to 800 10/19/17, but much improved with Neupogen. Still with occasional fever spike, but fever curve much improved. (3) Scalp contusion ICD Codes: S00.03XA - Contusion of scalp, initial encounter Status: Acute Plan: Manage conservatively. Use ice to the area as needed. Clinically improved. Appeared a bit more confused 10/21...? post concussive, but had been more oriented previously so not classic presentation. Mentation improved 10/22 (4) Rectal cancer ICD Codes: C20 - Malignant neoplasm of rectum Status: Chronic Plan: Currently undergoing chemotherapy as well as radiation therapy as an outpatient. Appreciate hematology input. He has received 1 unit packed red cells and hopefully that will suffice for now. Continue to provide pain medication. We'll monitor for signs of abuse given his history. (5) HTN (hypertension) ICD Codes: I10 - Essential (primary) hypertension Status: Chronic Plan: Continue medication as tolerated. (6) Bipolar depression ICD Codes: F31.30 - Bipolar disorder, current episode depressed, mild or moderate severity, unspecified Status: Chronic Plan: Continue home medication. (7) Confusion ICD Codes: R41.0 - Disorientation, unspecified Status: Acute Plan: ? etiology. Mentation improved today. ? a/w infectious process, metabolic disturbance, meds, recent head injury. Ammonia, CK unremarkable. CT brain reveals possible mild hemorrhagic contusion now. Given that his neuro exam is actually improving, we'll monitor. We'll hold Lovenox due to the CT finding. Patient denies headache. (8) At risk for abuse of opiates ICD Codes: Z91.89 - Other specified personal risk factors, not elsewhere classified Status: Chronic Plan: I spoke with pt's sister and father on October 21 at his request. Pt has hx of opiate abuse and had been in outpt rehab program. He had been doing quite well. Will use caution when prescribing opiates to control his pain. Assessment and Plan Patient has been somewhat immobile and has not been using SCDs regularly. I discussed the importance of using SCDs 10/21 and he is now agreeable. Was hesitant to give lovenox/heparin given his platelet counts, low Hb values, but review of hematology note from October 21 reveals okay for Lovenox so he received a dose last night. Stop Lovenox as noted above due to CT finding. Discharge Planning Hopefully discharge home in next 2-3 days depending on clinical progress. Problem Qualifiers (1) Rhabdomyolysis: (2) Scalp contusion: Qualified Codes: S00.03XA - Contusion of scalp, initial encounter (3) HTN (hypertension): Qualified Codes: I10 - Essential (primary) hypertension Trever Castle MD PhD Oct 22, 2017 06:55
[2017-10-22 07:14] LABS: ALKALINE PHOSPHATASE 143 U/L (45-117); ALT (GPT) 143 U/L (12-78); AST (GOT) 238 U/L (15-37); CREATININE 0.63 MG/DL (0.60-1.30); GLOMERULAR FILTRATION RATE 129 ML/MIN (>89); TOTAL PROTEIN 5.4 GM/DL (6.4-8.2)
[2017-10-22 07:28] LABS: TOXIC GRANULATION 1+ (NORMAL)
--- NOTE | 2017-10-22 07:47 | HHI.PR ---
Addendum to Inpatient Note Addendum Reason: Additional Documentation Additional Information Called to see patient regarding respiratory distress. HEENT seen the patient not long ago when he was breathing fine. He is now resting relatively comfortably although somewhat With a nonrebreather. His sats are above 90s now however when they initially checked him his sats were down in the 60s range on NC earlier. Pt denies CP. No cough. No significant fever as fever has been improving. AM labs are back now and his LFTs are a bit high. This may reflect some degree of pulm congestion. CXR stat reveals pulm congestion. Will provide IV lasix. Fluids already stopped this AM. Check labs. Pt comfortable for now. Will follow closely. Transfer to intermediate care or ICU if deteriorating. Consider BIPAP as well. Trever Castle MD PhD Oct 22, 2017 07:47
[2017-10-22] MEDS ORDERED: FUROSEMIDE 40 MG/4 ML VIAL IV PUSH ONE ×2 (08:00→16:00)
--- NOTE | 2017-10-22 08:10 | RADRPT ---
EXAM DATE/TIME: 10/22/2017 07:34 [facility] COMPARISON: CHEST SINGLE AP, October 18, 2017, 10:02. INDICATIONS : Severe shortness of breath, decrease oxygen saturations. MEDICAL HISTORY : Hypertension. Rectal cancer. Squamous cell carcinoma. GERD. Bipolar disorder. Depression. Anxiety SURGICAL HISTORY : Hernia repair. Bilateral shoulder cuff repair. Chemotherapy. Radiation therapy. Blood transfusions. B ilateral carpel tunnel release. ENCOUNTER: Initial ACUITY: 1 day PAIN SCORE: 0/10 LOCATION: chest FINDINGS: [id number] in good position. The heart is enlarged. There is diffuse interstitial prominence which is new when compared to a prior dated 10/18/17. Findings would be most consistent with CHF. The bony structures are grossly intact. CONCLUSION: 1. Interval developmental of congestive failure compared to previous dated 10/18/17. Bossman Stanley MD on October 22, 2017 at 8:08 Board Certified Radiologist. This report was verified electronically.
[2017-10-22] MEDS: RESP: ALBUTEROL 2.5 MG/3 ML NEB (PRN) INH (10:01)
[2017-10-22] MEDS: PANTOPRAZOLE SOD 40 MG DELAYED RELEASE TAB PO SCH (10:13)
[2017-10-22] MEDS: carBAMazepine 200 MG TAB PO SCH ×2 (10:13→20:59)
[2017-10-22] MEDS: ASPIRIN 81 MG CHEW TAB CHEW SCH (10:13)
[2017-10-22] MEDS: AQUAPHOR OINT 50 GM TUBE TOPICAL SCH ×2 (10:15→21:01)
--- NOTE | 2017-10-22 13:34 | EKG ---
Date Performed: 10/22/2017 Time Performed: 11:33:47 PTAGE: 61 years EKG: Sinus rhythm MODERATE ST DEPRESSION ABNORMAL ECG PREVIOUS TRACING : 10/17/2017 19.05 DOCTOR: Yonatan Boateng Interpretating Date/Time 10/22/2017 13:33:05
--- NOTE | 2017-10-22 13:34 | ECHRPT ---
Indication: Resp. Distress CONCLUSIONS The left ventricular systolic function is normal with an estimated ejection fraction in the range of 60-65%. Normal left ventricular size. Wall thickness is normal. No regional wall motion abnormalities are present. Trace mitral valve regurgitation. There is trace tricuspid valve regurgitation. The estimated pulmonary arterial pressure is 25.7 mmHg. Mild pulmonary valve regurgitation. The inferior vena cava was not well visualized. There is trace pericardial effusion present. BP: / HR: Rhythm: Sinus MEASUREMENTS (Male / Female) Normal Values Technical Quality:Fair 2D ECHO LV Diastolic Diameter PLAX 4.5 cm 4.2 - 5.9 / 3.9 - 5.3 cm LV Systolic Diameter PLAX 3.3 cm IVS Diastolic Thickness 0.8 cm 0.6 - 1.0 / 0.6 - 0.9 cm LVPW Diastolic Thickness 0.8 cm 0.6 - 1.0 / 0.6 - 0.9 cm LV Relative Wall Thickness 0.4 RV Internal Dim ED PLAX 2.8 cm LVOT Diameter 2.0 cm LA Systolic Diameter LX 3.1 cm 3.0 - 4.0 / 2.7 - 3.8 cm LV Ejection Fraction MOD 4C 63.4 % LV Ejection Fraction 4C AL 65.0 % M-MODE Aortic Root Diameter MM 2.2 cm LA Systolic Diameter MM 3.7 cm LA Ao Ratio MM 1.7 AV Cusp Separation MM 1.9 cm DOPPLER AV Peak Velocity 139.0 cm/s AV Peak Gradient 7.7 mmHg LVOT Peak Velocity 103.0 cm/s LVOT Peak Gradient 4.2 mmHg AV Area Cont Eq pk 2.3 cm LV E' Lateral Velocity 10.7 cm/s LV E' Septal Velocity 10.1 cm/s TR Peak Velocity 198.0 cm/s TR Peak Gradient 15.7 mmHg Right Atrial Pressure 10.0 mmHg Pulmonary Artery Systolic Pressu 25.7 mmHg Right Ventricular Systolic Press 25.7 mmHg PV Peak Velocity 99.1 cm/s PV Peak Gradient 3.9 mmHg FINDINGS LEFT VENTRICLE The left ventricular systolic function is normal with an estimated ejection fraction in the range of 60-65%. Normal left ventricular size. Wall thickness is normal. No regional wall motion abnormalities are present. RIGHT VENTRICLE Normal right ventricular size and systolic function. LEFT ATRIUM The left atrial size is normal. RIGHT ATRIUM The right atrial size is normal. ATRIAL SEPTUM Normal atrial septal thickness without atrial level shunting by limited color doppler interrogation. AORTA The aortic root and proximal ascending aorta are normal in size on limited imaging. MITRAL VALVE Structurally normal mitral valve. Trace mitral valve regurgitation. AORTIC VALVE Trileaflet aortic valve. No aortic valve stenosis or regurgitation. TRICUSPID VALVE Structurally normal tricuspid valve. There is trace tricuspid valve regurgitation. The estimated pulmonary arterial pressure is 25.7 mmHg. PULMONARY VALVE Mild pulmonary valve regurgitation. VESSELS The inferior vena cava was not well visualized. PERICARDIUM There is trace pericardial effusion present. Layo Sepulveda MD, FACC, [facility] [place] (Electronically Signed) Final Date:22 October 2017 13:33
[2017-10-22] MEDS: ACETAMINOPHEN 500 MG CPLT PO PRN (13:51)
[2017-10-22] MEDS ORDERED: POTASSIUM CHLORIDE 20 MEQ PWD PACKET PO ONE (16:00)
--- NOTE | 2017-10-22 17:18 | PD.ONC.PN ---
Subjective Subjective Remarks Breathing is better since this morning. Still on BiPap. perianal area is better Dad and sister at bedside Objective Data Date Time Temp Pulse Resp B/P (MAP) Pulse Ox O2 Delivery O2 Flow Rate FiO2 10/22/17 16:13 97 45 10/22/17 13:51 99.6 10/22/17 13:35 93 45 10/22/17 13:07 99.2 110 24 158/107 (124) 100 10/22/17 11:30 97 45 10/22/17 11:15 92 Nasal Cannula 6.00 10/22/17 11:08 99 Partial Rebreather 10.00 10/22/17 11:05 98.4 111 19 148/81 (103) 10/22/17 10:02 97 Partial Rebreather 9.00 10/22/17 09:11 98 45 10/22/17 08:00 100 65 10/22/17 07:20 62 High Flow Nasal Cannula 4.00 10/22/17 07:20 62 4.00 10/22/17 04:00 98.7 112 18 144/93 (110) 92 10/22/17 00:00 97.5 106 18 123/79 (94) 92 10/21/17 20:00 99.1 113 18 150/93 (112) 91 10/22/17 10/22/17 10/22/17 07:00 15:00 23:00 Intake Total 1346 ml 100 ml 250 ml Output Total 1890 ml Balance 1346 ml -1790 ml 250 ml Result Diagram: 10/22/17 0540 10/22/17 0540 Laboratory Results Laboratory Tests Test 10/22/17 05:40 10/22/17 11:24 10/22/17 16:25 White Blood Count 6.1 TH/MM3 Red Blood Count 2.85 MIL/MM3 Hemoglobin 8.4 GM/DL Hematocrit 24.3 % Mean Corpuscular Volume 85.4 FL Mean Corpuscular Hemoglobin 29.4 PG Mean Corpuscular Hemoglobin Concent 34.5 % Red Cell Distribution Width 17.4 % Platelet Count 66 TH/MM3 Mean Platelet Volume 7.7 FL Neutrophils (%) (Auto) 94.1 % Lymphocytes (%) (Auto) 2.9 % Monocytes (%) (Auto) 1.7 % Eosinophils (%) (Auto) 0.1 % Basophils (%) (Auto) 1.2 % Neutrophils # (Auto) 5.7 TH/MM3 Lymphocytes # (Auto) 0.2 TH/MM3 Monocytes # (Auto) 0.1 TH/MM3 Eosinophils # (Auto) 0.0 TH/MM3 Basophils # (Auto) 0.1 TH/MM3 CBC Comment AUTO DIFF Differential Comment AUTO DIFF CONFIRMED Toxic Granulation 1+ Platelet Estimate LOW Platelet Morphology Comment NORMAL Blood Urea Nitrogen 13 MG/DL Creatinine 0.63 MG/DL Random Glucose 136 MG/DL Total Protein 5.4 GM/DL Albumin 1.7 GM/DL Calcium Level 7.5 MG/DL Alkaline Phosphatase 143 U/L Aspartate Amino Transf (AST/SGOT) 238 U/L Alanine Aminotransferase (ALT/SGPT) 143 U/L Total Bilirubin 3.0 MG/DL Sodium Level 140 MEQ/L Potassium Level 3.7 MEQ/L Chloride Level 109 MEQ/L Carbon Dioxide Level 23.0 MEQ/L Anion Gap 8 MEQ/L Estimat Glomerular Filtration Rate 129 ML/MIN Troponin I 0.08 NG/ML 0.07 NG/ML Imaging Studies Last 24 hours Impressions Chest X-Ray 10/22/17 0000 Signed Impressions: Service Date/Time: Sunday, October 22, 2017 07:34 - CONCLUSION: 1. Interval developmental of congestive failure compared to previous dated . Bossman Stanley MD Administered Medications Medications (Trade) Dose Ordered Sig/Siddhartha Route PRN Reason Start Time Stop Time Status Last Admin Dose Admin Aspirin (Aspirin Chew) 81 mg DAILY CHEW 10/18/17 09:00 10/22/17 10:13 Pantoprazole Sodium (Protonix) 40 mg DAILY PO 10/18/17 09:00 10/22/17 10:13 Tamsulosin HCl (Flomax) 0.4 mg HS PO 10/17/17 21:00 10/21/17 21:56 Olanzapine (ZyPREXA) 15 mg HS PO 10/17/17 21:00 10/21/17 21:56 Carbamazepine (TEGretol) 400 mg DAILY PO 10/18/17 09:00 10/22/17 10:13 Ondansetron HCl (Zofran Inj) 4 mg Q6H PRN IV PUSH VOMITING 10/18/17 16:45 10/21/17 17:32 Prochlorperazine Maleate (Compazine) 10 mg Q6H PRN PO NAUSEA 10/18/17 18:00 10/20/17 05:00 Loperamide HCl (Imodium) 2 mg Q6H PRN PO diarrhea 10/18/17 17:00 10/21/17 15:32 Acetaminophen (Tylenol) 500 mg Q4H PRN PO TEMPERATURE > 100.4 10/19/17 05:15 10/22/17 13:51 Morphine Sulfate (Morphine Inj) 4 mg Q3H PRN IV PUSH PAIN LEVEL 3-10 10/19/17 06:30 10/22/17 14:00 Vancomycin HCl 1000 mg/Sodium Chloride 250 ml @ 250 mls/hr Q12H IV 10/19/17 15:00 10/22/17 13:41 Cefepime HCl 1000 mg/Sodium Chloride 100 ml @ 200 mls/hr Q8H IV 10/19/17 14:00 10/22/17 13:41 Emollient Ointment (Aquaphor Oint) 1 applic Q12HR TOPICAL 10/19/17 21:00 10/22/17 10:15 Carbamazepine (TEGretol) 400 mg HS PO 10/21/17 21:00 10/21/17 21:56 Trazodone HCl (Desyrel) 150 mg HS PO 10/21/17 21:00 10/21/17 21:58 Albuterol Sulfate (Albuterol Neb) 2.5 mg Q4HR NEB PRN INH SHORTNESS OF BREATH 10/22/17 08:15 10/22/17 10:01 Objective Remarks GENERAL: Well-nourished, well-developed patient. SKIN: Warm and dry. HEAD: Normocephalic. EYES: No scleral icterus. No injection or drainage. NECK: Supple, trachea midline. No JVD or lymphadenopathy. LYMPHATIC: No adenopathy. CARDIOVASCULAR: Regular rate and rhythm without murmurs. RESPIRATORY: Breath sounds decrease bilaterally. Bibasilar rales. GASTROINTESTINAL: Abdomen soft, non-tender, nondistended. EXTREMITIES: No cyanosis, or edema. NEUROLOGICAL: No obvious focal deficit. Awake, alert, and oriented x3. . Assessment/Plan Problem List: (1) Neutropenic fever ICD Codes: D70.9 - Neutropenia, unspecified; R50.81 - Fever presenting with conditions classified elsewhere Status: Resolved Plan: Blood and urine cultures remain negative as of 6:25 PM on 10/20/2017. On empiric antibiotic therapy with cefepime and vancomycin. On G-CSF, absolute neutral count is 5.9 as of today. Suspect perianal area as site of bacteria entry. Keep area dry, difficult with diarrhea and XRT. 10/21/17. Neutropenia resolve. Still has fever- low grade T 100.0, BC neg. Noted thrombocytopenia likely chemo induced. Asymptomatic, follow. Cont abx 10/22/17 Pt went into resp distress this morning, Movd to ICU. Had Lasix with a good response. Still on BiPap. XRT and chemo on hold at this time due to toxicity,. Neutropenia has resolved. Off of Neupogen, Thrombocytopenia persists. NO TX needed. d/w pt, Dad and sister. Answered their questions. Dr Bauer (His oncologist) will see him tomorrow. 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 He had been under the care of Dr. Bauer and was being treated with definitive dose chemoradiotherapy with infusional 5-FU and I believe mitomycin-C. He presents to the hospital with neutropenic fever, status post fall with a subcutaneous hematoma over his right for head and confusion. He is on empiric antibiotic therapy with vancomycin and cefepime and did receive Neupogen for growth factor support. Plan 1. Anal squama cell carcinoma: Locally advanced disease, had been on curative intent and current chemoradiotherapy. 2. DC Neupogen. 3. Cont Abx. Check Vanc trough level, pharmacy to dose. 4. OK for LMWH for DVt prophylaxis 5. La anal care. The oncology service of follow along with you. Michael Foss MD Oct 22, 2017 17:18
--- NOTE | 2017-10-22 20:22 | MB ---
cc: LYRIC GONZALES DATE OF CONSULTATION 10/22/2017 Cardiac catheterization performed on 10/22/2017 INDICATION Elevated troponin. HISTORY OF THE PRESENT ILLNESS This is a 61-year-old gentleman with history of bipolar affective disorder came into the emergency department after head injury in the fall. He has history of hypertension, hyperlipidemia, but no significant prior heart history. Apparently he developed acute respiratory distress requiring non-rebreather and pulmonary congestion. He was given immediate intravenous Lasix, put on non invasive positive pressure ventilation with BiPap and had significant improvement. He is still on BiPap now weaning the FIO2. No prior history of congestive heart failure. We have an echocardiogram which was performed today showed normal ejection fraction and minimal valvular heart disease. His troponin was slightly elevated 0.07, 0.08. We are consulted for further recommendations. PAST MEDICAL HISTORY 1. Benign prostatic hypertrophy. 2. Bipolar affective disorder. 3. Gastroesophageal reflux disease. 4. Hypertension. 5. Hyperlipidemia. 6. 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 MEDICATIONS See medication reconciliation. ALLERGIES DOXYCYCLINE. MINOCYCLINE. FAMILY HISTORY Denies any family history of early cardiac disease or sudden cardia . SOCIAL HISTORY Occasional tobacco use. Retired. REVIEW OF SYSTEMS 12-point review of systems was performed and negative unless otherwise noted in the history of present illness. PHYSICAL EXAMINATION VITAL SIGNS: Temperature 99, pulse is 106, blood pressure 107/94 mmHg. GENERAL: Alert and oriented times three in no acute distress. HEENT: Exam shows pupils equal and reactive to light and accommodation. Extraocular movements intact. NECK: No elevation in jugular venous distention. No thyromegaly or lymphadenopathy. No carotid bruits. LUNGS: Clear to auscultation bilaterally. CARDIOVASCULAR: Regular rate and rhythm without murmurs, rubs or gallops. ABDOMEN: Nontender. Nondistended. Good bowel sounds. No hepatosplenomegaly. EXTREMITIES: No clubbing, cyanosis or edema. Good peripheral pulses. NEUROLOGIC: Cranial nerves intact. Motor and sensory grossly intact. LABORATORY DATA Sodium 140, potassium 3.7, BUN 13, creatinine 0.63. LFTs mildly elevated. Troponin as mentioned earlier is intermediate range. Hemoglobin is 8.4. ASSESSMENT 1. Diastolic congestive heart failure. 2. Hypertension. 3. Hyperlipidemia. 4. Rectal cancer. PLAN The patient's ejection fraction is normal. No significant valvular heart disease. Symptomatically he is doing better. Looking back he has been getting quite a positive fluid balance, 3 liters just reported for today earlier in addition to between 1.5 and 2.0 liters per day for the past 3 days. I would suspect that he probably just got a significant volume overload in the setting of some diastolic dysfunction. His troponin is only intermediate range. I do not feel strongly without symptoms that we really even need to proceed with a further workup related to this. It does not seem like he is going to be a great invasive candidate anyway. We have a great explanation for his respiratory distress and troponin elevation secondary to demand mediated state, so unless it trends upward, I would probably not even proceed with a stress test or heart catheterization. At this point continue with intravenous diuretic and wean BiPAP as appropriate. We will sign off. If you have any further questions give me a call. MD SHANE Obrien/ADRIAN /6:08 PM /7:49 PM
[2017-10-22] MEDS: traZODone HCL 100 MG TAB PO SCH (20:58)
[2017-10-22] MEDS: TAMSULOSIN HCL 0.4 MG CAP PO SCH (20:59)
[2017-10-22] MEDS: OLANZapine 5 MG TAB PO SCH (21:00)
[2017-10-23] VITALS (20 sets, daily range): BP systolic 92–136; BP diastolic 57–79; PULSE 88–111; RESP 21–47; TEMP 98.1–101.7; O2SAT 81–100
[2017-10-23] MEDS: VANCOMYCIN INJ 1,000 MG in SODIUM CHLOR 0.9% 250 ML INJ 250 ML IV SCH ×2 (03:34→13:19)
[2017-10-23] MEDS: CEFEPIME INJ 1,000 MG in SODIUM CHLORIDE 0.9% INJ 100 ML IV SCH ×3 (05:03→22:06)
[2017-10-23 05:51] LABS: AUTOMATED NEUTROPHIL # 3.2 TH/MM3 (1.8-7.7); BASOPHIL % 0.1 % (0.0-2.0); EOSINOPHIL % 0.2 % (0.0-4.0); HEMOGLOBIN 7.7 GM/DL (13.0-17.0); LYMPH % 4.2 % (9.0-44.0); LYMPHOCYTE # 0.1 TH/MM3 (1.0-4.8); MEAN CELL VOLUME 84.1 FL (80.0-100.0); MEAN CORPUSCULAR HGB CONC 33.3 % (32.0-36.0); MEAN PLATELET VOLUME 8.6 FL (7.0-11.0); MONO % 0.4 % (0.0-8.0); NEUT % 95.1 % (16.0-70.0); PLATELET COUNT 48 TH/MM3 (150-450); RED BLOOD COUNT 2.74 MIL/MM3 (4.50-5.90); RED CELL DISTRIBUTION WIDTH 16.4 % (11.6-17.2); WHITE BLOOD COUNT 3.3 TH/MM3 (4.0-11.0)
[2017-10-23 06:26] LABS: TOXIC GRANULATION 1+ (NORMAL)
--- NOTE | 2017-10-23 07:41 | HHI.PR ---
Subjective Remarks Pt still requiring Bipap on 45-50% supplemental oxygen. Tends to desat easily now. Obviously had some fluid overload and has diuresed over 3 liters. Feels better, but doesn't like the bipap device. Objective Vitals Vital Signs Date Time Temp Pulse Resp B/P (MAP) Pulse Ox O2 Delivery O2 Flow Rate FiO2 10/23/17 04:05 98 Bi-Pap 50 10/23/17 04:00 94 50 10/23/17 04:00 98.8 92 30 124/68 (86) 98 10/23/17 04:00 95 Bi-Pap 50 10/23/17 02:00 100 25 135/79 (97) 100 10/23/17 01:30 95 50 10/23/17 00:00 94 10/23/17 00:00 100 Bi-Pap 50 10/23/17 00:00 99.2 94 30 107/67 (80) 98 10/22/17 23:30 93 Bi-Pap 50 10/22/17 23:30 98 50 10/22/17 22:00 96 114/83 (93) 96 10/22/17 21:40 3 60 10/22/17 21:40 93 Bi-Pap 60 10/22/17 21:05 85 Nasal Cannula 6.00 10/22/17 21:05 92 Bi-Pap 45 10/22/17 21:00 86 Nasal Cannula 6.00 10/22/17 21:00 91 Nasal Cannula 6.00 10/22/17 20:39 93 45 10/22/17 20:00 98 10/22/17 20:00 98.9 92 30 145/86 (105) 96 10/22/17 19:00 96 Bi-Pap 45 10/22/17 16:13 97 45 10/22/17 15:00 106 107/94 (98) 97 10/22/17 13:51 99.6 10/22/17 13:35 93 45 10/22/17 13:07 99.2 110 24 158/107 (124) 100 10/22/17 11:30 97 45 10/22/17 11:15 92 Nasal Cannula 6.00 10/22/17 11:08 99 Partial Rebreather 10.00 10/22/17 11:05 98.4 111 19 148/81 (103) 10/22/17 10:02 97 Partial Rebreather 9.00 10/22/17 09:11 98 45 10/22/17 08:00 100 65 10/22/17 07:20 62 High Flow Nasal Cannula 4.00 10/22/17 07:20 62 4.00 GENERAL: nad, bipap in place, alert, is able to provide his location and month/ year, but not today's date. He is aware that his bday is upcoming on 10/25. SKIN: Warm and dry. Somewhat jaundiced. Left thigh and left gluteal with significant ecchymosis. perirectal wound with erythema/radiation burn. HEAD: Normocephalic. Right forehead with ecchymosis, abrasion left forehead. EYES: No scleral icterus. No injection or drainage. NECK: Supple, trachea midline. No JVD or lymphadenopathy. CARDIOVASCULAR: Regular rate and rhythm without murmurs, gallops, or rubs. slightly tachy. RESPIRATORY: course bs noted in bases, few scattered crackles, course bipap sounds noted. GASTROINTESTINAL: Abdomen soft, non-tender. Moderately distended. BS slightly diminished. NO RUQ pain. MUSCULOSKELETAL: No cyanosis. Trace edema distal LE bilat, SCD in place. BACK: No CVA tenderness. Result Diagram: 10/23/17 0517 10/22/17 0540 Imaging Last 72 hours Impressions Pelvis X-Ray 10/17/17 1704 Signed Impressions: Service Date/Time: Tuesday, October 17, 2017 17:21 - CONCLUSION: Abnormal intertrochanteric region left hip, nonspecific. I do not see evidence for acute traumatic injury. Imer Stanley MD FACR Head CT 10/17/17 1659 Signed Impressions: Service Date/Time: Tuesday, October 17, 2017 17:34 - CONCLUSION: Intracranial contents unremarkable. Large cephalhematoma. On the right. Imer Stanley MD FACR Urinary Catheter: Yes Assessment to: Continue Vee insert reason: Measure Accurate Output Vascular Central Line Catheter: No A/P Problem List: (1) Respiratory failure, acute ICD Codes: J96.00 - Acute respiratory failure, unspecified whether with hypoxia or hypercapnia Status: Acute Plan: likely due to fluid overload. Continue diuresis. Follow lytes. Will have pulm see pt to a/w weaning bipap if not improving by noon. Echo noted. Appreciate cardiology input. (2) Rhabdomyolysis ICD Codes: M62.82 - Rhabdomyolysis Status: Acute Plan: CK normalized. IVF stopped yesterday AM. He was a bit fluid overloaded yesterday causing resp distress/failure. He has good urine output and is not acidotic. will resume PT when resp status improved. (3) Neutropenic fever ICD Codes: D70.9 - Neutropenia, unspecified; R50.81 - Fever presenting with conditions classified elsewhere Status: Resolved Plan: Questionable etiology but most likely associated with perirectal exposure. Initially started on Levaquin but replaced with cefepime and Vanco per hematology/oncology. Appreciate hematology/oncology input. ANC was down to 800 2, but much improved with Neupogen. Still with occasional fever spike, but fever curve much improved. (4) Scalp contusion ICD Codes: S00.03XA - Contusion of scalp, initial encounter Status: Acute Plan: Manage conservatively. Use ice to the area as needed. Clinically improved. Appeared a bit more confused 10/21...? post concussive, but had been more oriented previously so not classic presentation. Mentation improved 10/22 and stable 10/23. cerebral contusion noted on repeat CT. Follow clinically. (5) Rectal cancer ICD Codes: C20 - Malignant neoplasm of rectum Status: Chronic Plan: Currently undergoing chemotherapy as well as radiation therapy as an outpatient. Appreciate hematology input. He has received 1 unit packed red cells and hopefully that will suffice for now. Continue to provide pain medication. We'll monitor for signs of abuse given his history. (6) HTN (hypertension) ICD Codes: I10 - Essential (primary) hypertension Status: Chronic Plan: Continue medication as tolerated. (7) Bipolar depression ICD Codes: F31.30 - Bipolar disorder, current episode depressed, mild or moderate severity, unspecified Status: Chronic Plan: Continue home medication. (8) Confusion ICD Codes: R41.0 - Disorientation, unspecified Status: Acute Plan: ? etiology. Mentation improved 10/22 and stable 10/23. ? a/w infectious process, metabolic disturbance, meds, recent head injury. Ammonia, CK unremarkable. CT brain reveals possible mild hemorrhagic contusion now. Given that his neuro exam is actually improving, we'll monitor. We'll hold Lovenox due to the CT finding. Patient denies headache. (9) At risk for abuse of opiates ICD Codes: Z91.89 - Other specified personal risk factors, not elsewhere classified Status: Chronic Plan: I spoke with pt's sister and father on October 21 at his request. Pt has hx of opiate abuse and had been in outpt rehab program. He had been doing quite well. Will use caution when prescribing opiates to control his pain. (10) Elevated LFTs ICD Codes: R79.89 - Other specified abnormal findings of blood chemistry Status: Acute Plan: will repeat labs today. Possible a/w recent fluid overload vs med (? cefepime) If LFT continue to rise, will stop cefepime and try different abx. (11) Abdominal distension (gaseous) ICD Codes: R14.0 - Abdominal distension (gaseous) Status: Acute Plan: BS decreased a bit. ? developing ileus. Check kub. Some air trapping likely a/w bipap use. May need NGT if we can't wean off bipap later today. Assessment and Plan One lovenox injection given 2/20 PM, but stopped due to CT reading and dropping platelets. Using SCD for dvt proph. Discharge Planning Hopefully discharge home in next 2-3 days depending on clinical progress. Problem Qualifiers (1) Respiratory failure, acute: Qualified Codes: J96.01 - Acute respiratory failure with hypoxia (2) Rhabdomyolysis: (3) Scalp contusion: Qualified Codes: S00.03XA - Contusion of scalp, initial encounter (4) HTN (hypertension): Qualified Codes: I10 - Essential (primary) hypertension Trever Castle MD PhD Oct 23, 2017 07:41
[2017-10-23] MEDS ORDERED: FUROSEMIDE 40 MG/4 ML VIAL IV PUSH ONE ×2 (08:00→14:00)
--- NOTE | 2017-10-23 08:14 | EKG ---
Date Performed: 10/22/2017 Time Performed: 16:04:29 PTAGE: 61 years EKG: SUPRAVENTRICULAR TACHYCARDIA Significant baseline artifact precluding any further interpret ation ABNORMAL ECG PREVIOUS TRACING : 10/22/2017 11.33 DOCTOR: Gabbi Unger Interpretating Date/Time 10/23/2017 08:11:31
--- NOTE | 2017-10-23 08:50 | RADRPT ---
EXAM DATE/TIME: 10/23/2017 08:14 This report includes an Addendum and supersedes previous reports for this exam. [facility] COMPARISON: No previous studies available for comparison. INDICATIONS : Abdomen distention. MEDICAL HISTORY : Hypertension. Rectal cancer. Squamous cell carcinoma. GERD. Bipolar disorder. Depression. Anxiety SURGICAL HISTORY : Hernia repair. Bilateral shoulder cuff repair. Chemotherapy. Radiation therapy. Blood transfusions. B ilateral carpel tunnel release. ENCOUNTER: Subsequent ACUITY: 2 days PAIN SCORE: 0/10 LOCATION: abdomen. FINDINGS: A single supine view of the abdomen shows gas dilated loops of small bowel throughout the abdomen. Th e colon is decompressed. No gross pneumoperitoneum in this supine position patient. No organomegaly. No abnormal calcifications. CONCLUSION: Bowel gas pattern suggesting a distal small bowel obstruction. Marty Ashford Jr., MD on October 23, 2017 at 8:47 Board Certified Radiologist. This report was verified electronically. ADDENDUM: I spoke with Dr. Castle who informs me that patient is on BIPAP. This could generate the distention of the small bowel as opposed to a distal small bowel obstruction. Marty Ashford Jr., MD on October 23, 2017 at 10:33 Board Certified Radiologist. This report was verified electronically.
--- NOTE | 2017-10-23 08:52 | RADRPT ---
EXAM DATE/TIME: 10/23/2017 08:25 [facility] COMPARISON: CHEST SINGLE AP, October 22, 2017, 7:34. INDICATIONS : Short of breath, respiratory distress, pulmonary edema. MEDICAL HISTORY : Hypertension. Rectal cancer. Squamous cell carcinoma. GERD. Bipolar disorder. Depression. Anxiety SURGICAL HISTORY : Hernia repair. Bilateral shoulder cuff repair. Chemotherapy. Radiation therapy. Blood transfusions. B ilateral carpel tunnel release. ENCOUNTER: Initial ACUITY: 2 days PAIN SCORE: 0/10 LOCATION: chest FINDINGS: A single portable frontal view of the chest shows patchy areas of parenchymal consolidation scattered throughout both lungs. The largest consolidation involves the left midlung. There is no basilar pred ominance. No effusions. The heart is at the upper limits of normal in terms of size. Pulmonary vascul ature is limited in evaluation due to the parenchymal infiltrates. No significant engorgement observe d. A Port-A-Cath overlies the right chest. Gas-distended loops of small bowel within the visualized p ortions of the left upper quadrant. CONCLUSION: 1. Bilateral pulmonary infiltrates as detailed above. These have progressed from yesterday's study. D ifferential diagnostic considerations include pulmonary edema versus infectious etiology. Marty Ashford Jr., MD on October 23, 2017 at 8:48 Board Certified Radiologist. This report was verified electronically.
[2017-10-23 08:59] LABS: ALBUMIN 1.5 GM/DL (3.4-5.0); CALCIUM 7.3 MG/DL (8.5-10.1); CALCIUM-PROTEIN CORRECTED 8.3 MG/DL (8.5-10.1); CREATININE 0.58 MG/DL (0.60-1.30); TOTAL BILIRUBIN ADULT 2.6 MG/DL (0.2-1.0); TOTAL PROTEIN 5.2 GM/DL (6.4-8.2)
[2017-10-23] MEDS: PANTOPRAZOLE SOD 40 MG DELAYED RELEASE TAB PO SCH (08:59)
[2017-10-23] MEDS: carBAMazepine 200 MG TAB PO SCH ×2 (09:00→20:00)
[2017-10-23] MEDS: ASPIRIN 81 MG CHEW TAB CHEW SCH (09:00)
[2017-10-23] MEDS: AQUAPHOR OINT 50 GM TUBE TOPICAL SCH ×2 (09:05→20:01)
--- NOTE | 2017-10-23 10:15 | HHI.PR ---
Addendum to Inpatient Note Addendum Reason: Additional Documentation Additional Information Spoke with pt's sister and father per his request. Update on his condition. Reviewed CXR, KUB with his ICU nurse. We have given extra dose of IV lasix this AM and he has had good response, but still dependent on bipap at 45-50% fio2. Will have pulm see pt to a/w Bipap weaning vs more indepth treatment. Noted GI distention most likely due to forced gas volume from bipap. Trever Castle MD PhD Oct 23, 2017 10:15
[2017-10-23] MEDS ORDERED: POTASSIUM CHLORIDE 20 MEQ CONTROLLED RELEASE TAB PO ONE (10:30)
[2017-10-23] MEDS: NYSTAT/DIPHENHY/LIDO MOUTHWASH (Adult) 120ML SWISH-SWAL SCH ×3 (13:00→20:00)
[2017-10-23] MEDS: ACETAMINOPHEN 325 MG TAB PO PRN (13:35)
[2017-10-23] MEDS: ONDANSETRON HCL 4 MG/2 ML VIAL IV PUSH PRN (19:59)
[2017-10-23] MEDS: OLANZapine 5 MG TAB PO SCH (19:59)
[2017-10-23] MEDS: traZODone HCL 100 MG TAB PO SCH (20:00)
[2017-10-23] MEDS: TAMSULOSIN HCL 0.4 MG CAP PO SCH (20:00)
[2017-10-23] MEDS: RESP: ALBUTEROL 2.5 MG/3 ML NEB (PRN) INH (21:15)
[2017-10-23] MEDS: 1/2 NS + KCL 20 MEQ INJ 1,000 ML IV SCH (21:34)
[2017-10-23] MEDS: methylPREDNISolone SOD SUCC 40 MG/1 ML VIAL IV PUSH SCH (21:34)
[2017-10-24] VITALS (14 sets, daily range): BP systolic 97–137; BP diastolic 57–75; PULSE 88–108; RESP 14–39; TEMP 98.2–99.8; O2SAT 90–100
[2017-10-24] MEDS: MORPHINE SULFATE 4 MG/ML INJ IV PUSH PRN ×5 (00:53→19:46)
[2017-10-24] MEDS: VANCOMYCIN INJ 1,000 MG in SODIUM CHLOR 0.9% 250 ML INJ 250 ML IV SCH ×3 (02:26→23:27)
[2017-10-24] MEDS: CEFEPIME INJ 1,000 MG in SODIUM CHLORIDE 0.9% INJ 100 ML IV SCH ×3 (05:17→21:00)
[2017-10-24] MEDS: methylPREDNISolone SOD SUCC 40 MG/1 ML VIAL IV PUSH SCH ×3 (05:18→21:04)
--- NOTE | 2017-10-24 05:40 | PD.ONC.PN ---
Subjective Subjective Remarks Late note entry. Patient seen at bedside at [facility] 7:30 on 10/23/2017. Sister at bedside. Patient is conversant, alert, oriented to person, place and time. Converses fluently. Objective Data Date Time Temp Pulse Resp B/P (MAP) Pulse Ox O2 Delivery O2 Flow Rate FiO2 10/24/17 04:05 99.6 88 29 97/60 (72) 99 10/24/17 04:00 88 10/24/17 00:05 99.8 108 31 101/57 (72) 92 10/24/17 00:00 104 10/23/17 22:05 96 Venturi Mask 12.00 50 10/23/17 22:05 94 Partial Rebreather 12.00 10/23/17 22:04 81 Venturi Mask 6.00 50 10/23/17 21:25 81 Venturi Mask 50 10/23/17 21:25 92 Venturi Mask 6.00 50 10/23/17 21:15 100 Partial Rebreather 12.00 10/23/17 20:05 99.2 100 42 122/64 (83) 98 10/23/17 20:00 111 10/23/17 19:00 85 Nasal Cannula 6.00 Humidified 10/23/17 16:05 98.5 88 31 92/57 (69) 95 10/23/17 16:00 88 10/23/17 16:00 90 21 92 10/23/17 14:00 98.4 10/23/17 12:05 101.7 108 36 117/69 (85) 95 10/23/17 12:00 108 10/23/17 10:50 91 Nasal Cannula 6.00 10/23/17 10:05 102 42 114/70 (85) 96 10/23/17 10:05 102 42 114/70 (85) 96 10/23/17 09:02 92 47 136/76 (96) 91 10/23/17 08:05 91 50 10/23/17 08:05 100 38 128/75 (92) 89 10/23/17 08:00 94 10/23/17 08:00 98.1 10/24/17 10/24/17 10/24/17 07:00 15:00 23:00 Intake Total 880 ml Output Total 1050 ml Balance -170 ml Result Diagram: 10/23/17 0517 10/23/17 1220 Laboratory Results Laboratory Tests Test 10/23/17 05:17 10/23/17 08:20 10/23/17 12:20 10/23/17 21:40 White Blood Count 3.3 TH/MM3 Red Blood Count 2.74 MIL/MM3 Hemoglobin 7.7 GM/DL Hematocrit 23.0 % Mean Corpuscular Volume 84.1 FL Mean Corpuscular Hemoglobin 28.0 PG Mean Corpuscular Hemoglobin Concent 33.3 % Red Cell Distribution Width 16.4 % Platelet Count 48 TH/MM3 Mean Platelet Volume 8.6 FL Neutrophils (%) (Auto) 95.1 % Lymphocytes (%) (Auto) 4.2 % Monocytes (%) (Auto) 0.4 % Eosinophils (%) (Auto) 0.2 % Basophils (%) (Auto) 0.1 % Neutrophils # (Auto) 3.2 TH/MM3 Lymphocytes # (Auto) 0.1 TH/MM3 Monocytes # (Auto) 0.0 TH/MM3 Eosinophils # (Auto) 0.0 TH/MM3 Basophils # (Auto) 0.0 TH/MM3 CBC Comment AUTO DIFF Differential Comment AUTO DIFF CONFIRMED Toxic Granulation 1+ Platelet Estimate LOW Platelet Morphology Comment NORMAL Blood Urea Nitrogen 16 MG/DL Creatinine 0.58 MG/DL Random Glucose 124 MG/DL Total Protein 5.2 GM/DL Albumin 1.5 GM/DL Calcium Level 7.3 MG/DL Alkaline Phosphatase 124 U/L Aspartate Amino Transf (AST/SGOT) 101 U/L Alanine Aminotransferase (ALT/SGPT) 97 U/L Total Bilirubin 2.6 MG/DL Sodium Level 141 MEQ/L Potassium Level 3.4 MEQ/L 3.8 MEQ/L Chloride Level 104 MEQ/L Carbon Dioxide Level 31.0 MEQ/L Anion Gap 6 MEQ/L Estimat Glomerular Filtration Rate 142 ML/MIN Protein Corrected Calcium 8.3 MG/DL Activated Partial Thromboplast Time 43.4 SEC Administered Medications Medications (Trade) Dose Ordered Sig/Siddhartha Route PRN Reason Start Time Stop Time Status Last Admin Dose Admin Aspirin (Aspirin Chew) 81 mg DAILY CHEW 10/18/17 09:00 10/23/17 09:00 Pantoprazole Sodium (Protonix) 40 mg DAILY PO 10/18/17 09:00 10/23/17 08:59 Tamsulosin HCl (Flomax) 0.4 mg HS PO 10/17/17 21:00 10/23/17 20:00 Carbamazepine (TEGretol) 400 mg DAILY PO 10/18/17 09:00 10/23/17 09:00 Ondansetron HCl (Zofran Inj) 4 mg Q6H PRN IV PUSH VOMITING 10/18/17 16:45 10/23/17 19:59 Prochlorperazine Maleate (Compazine) 10 mg Q6H PRN PO NAUSEA 10/18/17 18:00 10/20/17 05:00 Loperamide HCl (Imodium) 2 mg Q6H PRN PO diarrhea 10/18/17 17:00 10/21/17 15:32 Acetaminophen (Tylenol) 500 mg Q4H PRN PO TEMPERATURE > 100.4 10/19/17 05:15 10/22/17 13:51 Morphine Sulfate (Morphine Inj) 4 mg Q3H PRN IV PUSH PAIN LEVEL 3-10 10/19/17 06:30 10/24/17 00:53 Vancomycin HCl 1000 mg/Sodium Chloride 250 ml @ 250 mls/hr Q12H IV 10/19/17 15:00 10/24/17 02:26 Cefepime HCl 1000 mg/Sodium Chloride 100 ml @ 200 mls/hr Q8H IV 10/19/17 14:00 10/23/17 22:06 Emollient Ointment (Aquaphor Oint) 1 applic Q12HR TOPICAL 10/19/17 21:00 10/23/17 20:01 Carbamazepine (TEGretol) 400 mg HS PO 10/21/17 21:00 10/23/17 20:00 Trazodone HCl (Desyrel) 150 mg HS PO 10/21/17 21:00 10/23/17 20:00 Acetaminophen (Tylenol) 650 mg Q4H PRN PO SEE LABEL COMMENTS 10/22/17 06:00 10/23/17 13:35 Albuterol Sulfate (Albuterol Neb) 2.5 mg Q4HR NEB PRN INH SHORTNESS OF BREATH 10/22/17 08:15 10/23/17 21:15 Olanzapine (ZyPREXA) 15 mg HS PO 10/22/17 21:00 10/23/17 19:59 Multi-Ingredient Mouthwash/Gargle (Magic Mouthwash Adult Liq) 5 ml QID SWISH-SWAL 10/23/17 13:00 10/23/17 20:00 Methylprednisolone Sodium Succinate (SoluMEDROL INJ) 40 mg Q8HR IV PUSH 10/23/17 22:00 10/23/17 21:34 Potassium Chloride/Sodium Chloride 1,000 ml @ 42 mls/hr [id number] IV 10/23/17 20:30 10/23/17 21:34 Objective Remarks GENERAL: thin, chronically ill appearing man in no distress SKIN: Warm and dry. HEAD: Normocephalic. EYES: No scleral icterus. No injection or drainage. NECK: Supple, trachea midline. No JVD or lymphadenopathy. LYMPHATIC: No adenopathy. CARDIOVASCULAR: Regular rate and rhythm without murmurs. RESPIRATORY: Breath sounds equal bilaterally. No accessory muscle use. GASTROINTESTINAL: Abdomen soft, non-tender, mildly distended EXTREMITIES: No cyanosis, or edema. MUSCULOSKELETAL: Adequate muscle tone. NEUROLOGICAL: No obvious focal deficit. Awake, alert, and oriented x3. PSYCHIATRIC: Appropriate mood and affect; insight and judgment normal. Assessment/Plan Problem List: (1) Neutropenic fever ICD Codes: D70.9 - Neutropenia, unspecified; R50.81 - Fever presenting with conditions classified elsewhere Status: Resolved Plan: Blood and urine cultures remain negative as of 6:25 PM on 10/20/2017. On empiric antibiotic therapy with cefepime and vancomycin. On G-CSF, absolute neutral count is 5.9 as of today. Suspect perianal area as site of bacteria entry. Keep area dry, difficult with diarrhea and XRT. 10/21/17. Neutropenia resolve. Still has fever- low grade T 100.0, BC neg. Noted thrombocytopenia likely chemo induced. Asymptomatic, follow. Cont abx 10/22/17 Pt went into resp distress this morning, Movd to ICU. Had Lasix with a good response. Still on BiPap. XRT and chemo on hold at this time due to toxicity,. Neutropenia has resolved. Off of Neupogen, Thrombocytopenia persists. NO TX needed. d/w pt, Dad and sister. Answered their questions. Dr Bauer (His oncologist) will see him tomorrow. 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 He had been under the care of Dr. Bauer, Dr. Rocha and was being treated with definitive dose chemoradiotherapy with infusional 5-FU and mitomycin-C. He presents to the hospital with neutropenic fever, status post fall with a subcutaneous hematoma over his right for head and confusion. He is on empiric antibiotic therapy with vancomycin and cefepime and did receive Neupogen for growth factor support. Plan 1. Anal squama cell carcinoma: Locally advanced disease, had been on curative intent and current chemoradiotherapy. Currently on hold due to acute illness and hospitalization. 2. Cytopenia: due to chemotherapy (5-fu and mitomycin C) continue to follow platelet count closely. If continues to fall would discontinue Lovenox for VTE ppx. 3. AMS: resolved 4. Elevated troponin: s/p evaluation by cardiology team. No need for heart catheterization. 5. Respiratory status: improving. s/p lasix. Pulmonary consult pending. Kiley Bauer MD Oct 24, 2017 05:40
[2017-10-24 05:58] LABS: PROTHROMBIN TIME - PATIENT 20.4 SEC (9.8-11.6)
--- NOTE | 2017-10-24 06:51 | HHI.PR ---
Subjective Remarks Patient feeling much better this morning. He was placed on Solu-Medrol last night. Appreciate pulmonology input. Objective Vitals Vital Signs Date Time Temp Pulse Resp B/P (MAP) Pulse Ox O2 Delivery O2 Flow Rate FiO2 10/24/17 04:05 99.6 88 29 97/60 (72) 99 10/24/17 04:00 88 10/24/17 00:05 99.8 108 31 101/57 (72) 92 10/24/17 00:00 104 10/23/17 22:05 96 Venturi Mask 12.00 50 10/23/17 22:05 94 Partial Rebreather 12.00 10/23/17 22:04 81 Venturi Mask 6.00 50 10/23/17 21:25 81 Venturi Mask 50 10/23/17 21:25 92 Venturi Mask 6.00 50 10/23/17 21:15 100 Partial Rebreather 12.00 10/23/17 20:05 99.2 100 42 122/64 (83) 98 10/23/17 20:00 111 10/23/17 19:00 85 Nasal Cannula 6.00 Humidified 10/23/17 16:05 98.5 88 31 92/57 (69) 95 10/23/17 16:00 88 10/23/17 16:00 90 21 92 10/23/17 14:00 98.4 10/23/17 12:05 101.7 108 36 117/69 (85) 95 10/23/17 12:00 108 10/23/17 10:50 91 Nasal Cannula 6.00 10/23/17 10:05 102 42 114/70 (85) 96 10/23/17 10:05 102 42 114/70 (85) 96 10/23/17 09:02 92 47 136/76 (96) 91 10/23/17 08:05 91 50 10/23/17 08:05 100 38 128/75 (92) 89 10/23/17 08:00 94 10/23/17 08:00 98.1 GENERAL: Sleeping, arouses to voice, alert and oriented. Able to provide location, date of the month and is aware that tomorrow is his birthday. SKIN: Warm and dry. A bit jaundiced. Perirectal wound noted with pad and Aquaphor in place. HEAD: Normocephalic. EYES: No scleral icterus. No injection or drainage. NECK: Supple, trachea midline. No JVD or lymphadenopathy. CARDIOVASCULAR: Regular rate and rhythm without murmurs, gallops, or rubs. RESPIRATORY: Breath sounds equal bilaterally. Few crackles at the bases but overall much improved air movement. No wheeze. GASTROINTESTINAL: Abdomen soft, non-tender, mildly distended. Bowel sounds normal. Improved from yesterday. MUSCULOSKELETAL: No cyanosis. Trace edema in distal lower extremities. BACK: Nontender without obvious deformity. No CVA tenderness. Result Diagram: 10/23/17 0517 10/23/17 1220 Imaging Last 72 hours Impressions Pelvis X-Ray 10/17/17 1704 Signed Impressions: Service Date/Time: Tuesday, October 17, 2017 17:21 - CONCLUSION: Abnormal intertrochanteric region left hip, nonspecific. I do not see evidence for acute traumatic injury. Imer Stanley MD FACR Head CT 10/17/17 1659 Signed Impressions: Service Date/Time: Tuesday, October 17, 2017 17:34 - CONCLUSION: Intracranial contents unremarkable. Large cephalhematoma. On the right. Imer Stanley MD FACR Urinary Catheter: Yes Assessment to: Continue Vee insert reason: ICU Pt Getting Diuretics Vascular Central Line Catheter: No A/P Problem List: (1) Respiratory failure, acute ICD Codes: J96.00 - Acute respiratory failure, unspecified whether with hypoxia or hypercapnia Status: Acute Plan: likely due to fluid overload, diastolic failure. Continue diuresis with p.o. Lasix. Follow lytes. Echo noted. Appreciate cardiology and pulmonology input. (2) Rhabdomyolysis ICD Codes: M62.82 - Rhabdomyolysis Status: Acute Plan: CK normalized. IVF stopped 10/22 due to fluid overload, but resumed at a slow rate last night by pulmonology. He has good urine output and is not acidotic. will resume PT. (3) Neutropenic fever ICD Codes: D70.9 - Neutropenia, unspecified; R50.81 - Fever presenting with conditions classified elsewhere Status: Resolved Plan: Questionable etiology but most likely associated with perirectal exposure. Initially started on Levaquin but replaced with cefepime and Vanco per hematology/oncology. Appreciate hematology/oncology input. ANC was down to 800 10/19/17, but much improved with Neupogen. Still with occasional fever spike, but fever curve much improved. (4) Scalp contusion ICD Codes: S00.03XA - Contusion of scalp, initial encounter Status: Acute Plan: Manage conservatively. Use ice to the area as needed. Clinically improved. Appeared a bit more confused 10/21...? post concussive, but had been more oriented previously so not classic presentation. Mentation improved 10/22 and stable 10/23. cerebral contusion noted on repeat CT. Follow clinically. (5) Rectal cancer ICD Codes: C20 - Malignant neoplasm of rectum Status: Chronic Plan: Currently undergoing chemotherapy as well as radiation therapy as an outpatient. Appreciate hematology input. He has received 1 unit packed red cells and hopefully that will suffice for now. Continue to provide pain medication. We'll monitor for signs of abuse given his history. (6) HTN (hypertension) ICD Codes: I10 - Essential (primary) hypertension Status: Chronic Plan: Continue medication as tolerated. (7) Bipolar depression ICD Codes: F31.30 - Bipolar disorder, current episode depressed, mild or moderate severity, unspecified Status: Chronic Plan: Continue home medication. (8) Confusion ICD Codes: R41.0 - Disorientation, unspecified Status: Acute Plan: ? etiology. Mentation improved 10/24 ? a/w infectious process, metabolic disturbance, meds, recent head injury. Ammonia, CK unremarkable. CT brain reveals possible mild hemorrhagic contusion now. Given that his neuro exam is actually improving, we'll monitor. We'll hold Lovenox due to the CT finding. Patient denies headache. (9) At risk for abuse of opiates ICD Codes: Z91.89 - Other specified personal risk factors, not elsewhere classified Status: Chronic Plan: I spoke with pt's sister and father on October 21 and October 23 at his request. Pt has hx of opiate abuse and had been in outpt rehab program. He had been doing quite well. Will use caution when prescribing opiates to control his pain. (10) Elevated LFTs ICD Codes: R79.89 - Other specified abnormal findings of blood chemistry Status: Acute Plan: LFTs improved yesterday. Possible a/w recent fluid overload vs med (? cefepime) If LFT continue to rise, will stop cefepime and try different abx. (11) Abdominal distension (gaseous) ICD Codes: R14.0 - Abdominal distension (gaseous) Status: Acute Plan: Likely associated with BiPAP as noted. Abdominal distention much improved today as we were able to wean patient off BiPAP yesterday. Assessment and Plan One lovenox injection given 2/20 PM, but stopped due to CT reading and dropping platelets. Using SCD for dvt proph. Discharge Planning Hopefully discharge to rehab in next 2-3 days depending on clinical progress. Problem Qualifiers (1) Respiratory failure, acute: Qualified Codes: J96.01 - Acute respiratory failure with hypoxia (2) Rhabdomyolysis: (3) Scalp contusion: Qualified Codes: S00.03XA - Contusion of scalp, initial encounter (4) HTN (hypertension): Qualified Codes: I10 - Essential (primary) hypertension Trever Castle MD PhD Oct 24, 2017 06:51
[2017-10-24] MEDS: RESP: ALBUTEROL 2.5 MG/IPRATROPIUM 0.5 MG NEB (SCH) NEB ×3 (07:22→20:19)
[2017-10-24 07:44] LABS: BASOPHIL % 0.1 % (0.0-2.0); EOSINOPHIL % 0.2 % (0.0-4.0); HEMATOCRIT 19.6 % (39.0-51.0); LYMPH % 7.8 % (9.0-44.0); LYMPHOCYTE # 0.2 TH/MM3 (1.0-4.8); MEAN CELL VOLUME 85.3 FL (80.0-100.0); MEAN CORPUSCULAR HEMOGLOBIN 29.9 PG (27.0-34.0); MEAN PLATELET VOLUME 9.1 FL (7.0-11.0); MONO % 0.7 % (0.0-8.0); NEUT % 91.2 % (16.0-70.0); PLATELET COUNT 39 TH/MM3 (150-450); RED CELL DISTRIBUTION WIDTH 17.1 % (11.6-17.2); WHITE BLOOD COUNT 2.2 TH/MM3 (4.0-11.0)
[2017-10-24 07:50] LABS: HEMOGLOBIN 6.9 GM/DL (13.0-17.0)
[2017-10-24 08:13] LABS: ALBUMIN 1.4 GM/DL (3.4-5.0); BICARBONATE 33.9 MEQ/L (21.0-32.0)
[2017-10-24 08:27] LABS: CALCIUM-PROTEIN CORRECTED 8.2 MG/DL (8.5-10.1); CREATININE 0.52 MG/DL (0.60-1.30); TOTAL BILIRUBIN ADULT 2.1 MG/DL (0.2-1.0); TOTAL PROTEIN 4.9 GM/DL (6.4-8.2)
[2017-10-24] MEDS: PANTOPRAZOLE SOD 40 MG DELAYED RELEASE TAB PO SCH (09:50)
[2017-10-24] MEDS: carBAMazepine 200 MG TAB PO SCH ×2 (09:50→19:47)
[2017-10-24] MEDS: NYSTAT/DIPHENHY/LIDO MOUTHWASH (Adult) 120ML SWISH-SWAL SCH ×5 (09:52→19:45)
[2017-10-24] MEDS: AQUAPHOR OINT 50 GM TUBE TOPICAL SCH ×2 (10:36→21:00)
--- NOTE | 2017-10-24 11:54 | MB ---
cc: LEV ESTRELLA DATE OF CONSULTATION 10/23/2017 REASON FOR CONSULTATION Respiratory failure, hypoxia. HISTORY OF PRESENT ILLNESS This is a 61-year-old white male with a past history of locally advanced rectal cancer who was admitted following a fall and dizzy spells. The patient apparently fell and had a laceration of the right forehead area and scalp and also contused left hip and right hip. He was brought to the emergency room since he could not get up and following admission was noted to be hypoxic and his hemoglobin had dropped to below 8. He received two units of packed red cells and the patient also was on oxygen via Ventimask, but had to be placed on BiPap mask briefly since he was hypoxic. The patient continues to have low oxygen saturations and was tachypneic and nauseated and was admitted to the intensive care unit overnight and presently he is now down to a partial rebreather mask maintaining a saturation 95%. He denies chest pains, but does have some cough and chest congestion, wheezing and having some low grade fevers. He is also having loose stools. Following admission, he also was noted to have a high CK and abnormal liver functions. A chest x-ray done following admission showed patchy bilateral infiltrates and the patient presently is on oxygen at 60-70% via mask. PAST HISTORY The past history has included: 1. History of rectal cancer. 2. History of anemia. 3. History of anxiety and depression. 4. History of chronic back pain. 5. Gastroesophageal reflux 6. Hypertension 7. Restless leg syndrome 8. Migraines PAST SURGICAL HISTORY His surgeries includes: 1. Rotator cuff repair 2. Hernia repairs 3. Colonoscopy 4. Rectal biopsy FAMILY HISTORY Significant for cancer of the prostate in his father HABITS The patient was a prior smoker for over 20 years and quit. 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 No significant alcohol use. ALLERGIES CIPRO, GABAPENTIN, TETRACYCLINE. MEDICATIONS Med list was reviewed from the chart which included: 1. Zyprexa 2. Tegretol 3. Protonix 4. Zofran 5. Potassium chloride 6. Compazine 7. Imodium SYSTEM REVIEW The patient has lost weight. He has dizziness. Postnasal drip, cough and wheezing. He has epigastric distress and cramping. Denies urinary symptoms. Denies leg or calf muscle pains. He has some joint pains of his extremities and urinary frequency. He has depression and anxiety. PHYSICAL EXAMINATION This is a thinly built middle-aged white male who is pale, alert and mildly dyspneic. VITAL SIGNS: Blood pressure 130/60, pulse is 95, respirations 22, temperature 99.2. HEENT: Head normocephalic. Pupils reactive. Tongue is dry. Throat is injected. Nasal mucosae edematous. He has a hematoma of the right side of his forehead about 3 cm in diameter. Ears have no inflammation. NECK: Supple. No bruits or thyroid enlargement. No lymphadenopathy. Throat is mildly injected. CHEST: Distant breath sounds with wheezes bilaterally, prolonged expirations. There are a few crackles in the right lung field. HEART: The heart sounds are regular S1-S2. No murmur. No S3. ABDOMEN: The abdomen is soft and protuberant. No masses or organomegaly or tenderness. Bowel sounds are active. EXTREMITIES: Mild peripheral edema with diminished pulses. Reflexes are 1+ with no gross motor deficits. NEUROLOGIC: Cranial nerves are grossly intact. RECTAL: Exam is deferred. SKIN: No lesions. IMPRESSION 1. Acute hypoxemic respiratory failure. 2. He has a history of rectal cancer. 3. Syncopal episodes 4. Basilar pneumonia 5. Anemia with blood loss 6. Dehydration and acute kidney injury PLAN The patient has been started on O2 at 50% Ventimask and BiPap will be used at night to keep sats above 92. Continue with antibiotic coverage as ordered including Zosyn and vancomycin and nebulized DuoNeb solution started q.i.d. the patient will be weaned down to a nasal cannula once he is clinically stable and a follow up chest x-ray has been ordered for the a.m. Solu-Medrol 40 mg every 6 hours was ordered and this will be tapered down over the next 24-48 hours. CBC and electrolytes to be repeated in a.m. I will follow the case with you Care. Dr. Castle, thank you for this consultation. MD YAEL Dan/ZEESHAN /12:26 AM /11:28 AM
[2017-10-24] MEDS ORDERED: VANCOMYCIN TROUGH ONE (14:45)
[2017-10-24 16:26] LABS: CREATININE 0.48 MG/DL (0.60-1.30)
[2017-10-24 17:15] LABS: HEMATOCRIT 28.4 % (39.0-51.0); HEMOGLOBIN 9.4 GM/DL (13.0-17.0)
[2017-10-24 17:21] LABS: VANCOMYCIN TROUGH 10.7 MCG/ML (5.0-10.0)
--- NOTE | 2017-10-24 18:47 | PD.ONC.PN ---
Subjective Subjective Remarks Anxious but eager to look at good side of things. Afebrile. NO longer on bipap. Saturation better. Objective Data Date Time Temp Pulse Resp B/P (MAP) Pulse Ox O2 Delivery O2 Flow Rate FiO2 10/24/17 16:09 30 10/24/17 16:00 98.2 98 33 137/75 (95) 90 10/24/17 16:00 100 10/24/17 12:54 98.2 97 10/24/17 12:41 98.3 101 10/24/17 12:00 96 10/24/17 12:00 98.3 96 31 102/60 (74) 97 10/24/17 10:34 98.3 90 10/24/17 10:20 98.5 95 10/24/17 08:00 95 Partial Non-Rebreather 12.00 10/24/17 08:00 98.4 10/24/17 08:00 88 39 114/67 (83) 100 10/24/17 08:00 88 10/24/17 07:25 92 Nasal Cannula 6.00 10/24/17 04:05 99.6 88 29 97/60 (72) 99 10/24/17 04:00 88 10/24/17 00:05 99.8 108 31 101/57 (72) 92 10/24/17 00:00 104 10/23/17 22:05 96 Venturi Mask 12.00 50 10/23/17 22:05 94 Partial Rebreather 12.00 10/23/17 22:04 81 Venturi Mask 6.00 50 10/23/17 21:25 81 Venturi Mask 50 10/23/17 21:25 92 Venturi Mask 6.00 50 10/23/17 21:15 100 Partial Rebreather 12.00 10/23/17 20:05 99.2 100 42 122/64 (83) 98 10/23/17 20:00 111 10/23/17 19:00 85 Nasal Cannula 6.00 Humidified 10/24/17 10/24/17 10/24/17 07:00 15:00 23:00 Intake Total 880 ml 390 ml 400 ml Output Total 1200 ml Balance -320 ml 390 ml 400 ml Result Diagram: 10/24/17 1530 10/24/17 1530 Laboratory Results Laboratory Tests Test 10/23/17 21:40 10/24/17 05:30 10/24/17 15:30 Activated Partial Thromboplast Time 43.4 SEC White Blood Count 2.2 TH/MM3 Red Blood Count 2.30 MIL/MM3 Hemoglobin 6.9 GM/DL 9.4 GM/DL Hematocrit 19.6 % 28.4 % Mean Corpuscular Volume 85.3 FL Mean Corpuscular Hemoglobin 29.9 PG Mean Corpuscular Hemoglobin Concent 35.0 % Red Cell Distribution Width 17.1 % Platelet Count 39 TH/MM3 Mean Platelet Volume 9.1 FL Neutrophils (%) (Auto) 91.2 % Lymphocytes (%) (Auto) 7.8 % Monocytes (%) (Auto) 0.7 % Eosinophils (%) (Auto) 0.2 % Basophils (%) (Auto) 0.1 % Neutrophils # (Auto) 2.0 TH/MM3 Lymphocytes # (Auto) 0.2 TH/MM3 Monocytes # (Auto) 0.0 TH/MM3 Eosinophils # (Auto) 0.0 TH/MM3 Basophils # (Auto) 0.0 TH/MM3 CBC Comment AUTO DIFF Differential Comment AUTO DIFF CONFIRMED Platelet Estimate LOW Platelet Morphology Comment NORMAL Haptoglobin 344 MG/DL Prothrombin Time 20.4 SEC Prothromb Time International Ratio 2.0 RATIO Blood Urea Nitrogen 19 MG/DL Creatinine 0.52 MG/DL 0.48 MG/DL Random Glucose 126 MG/DL Total Protein 4.9 GM/DL Albumin 1.4 GM/DL Calcium Level 7.0 MG/DL Alkaline Phosphatase 126 U/L Aspartate Amino Transf (AST/SGOT) 86 U/L Alanine Aminotransferase (ALT/SGPT) 77 U/L Lactate Dehydrogenase 400 U/L Total Bilirubin 2.1 MG/DL Sodium Level 139 MEQ/L Potassium Level 3.8 MEQ/L Chloride Level 102 MEQ/L Carbon Dioxide Level 33.9 MEQ/L Anion Gap 3 MEQ/L Estimat Glomerular Filtration Rate 161 ML/MIN 176 ML/MIN Protein Corrected Calcium 8.2 MG/DL Vancomycin Level Trough 10.7 MCG/ML Administered Medications Medications (Trade) Dose Ordered Sig/Siddhartha Route PRN Reason Start Time Stop Time Status Last Admin Dose Admin Pantoprazole Sodium (Protonix) 40 mg DAILY PO 10/18/17 09:00 10/24/17 09:50 Tamsulosin HCl (Flomax) 0.4 mg HS PO 10/17/17 21:00 10/23/17 20:00 Carbamazepine (TEGretol) 400 mg DAILY PO 10/18/17 09:00 10/24/17 09:50 Ondansetron HCl (Zofran Inj) 4 mg Q6H PRN IV PUSH VOMITING 10/18/17 16:45 10/23/17 19:59 Prochlorperazine Maleate (Compazine) 10 mg Q6H PRN PO NAUSEA 10/18/17 18:00 10/20/17 05:00 Loperamide HCl (Imodium) 2 mg Q6H PRN PO diarrhea 10/18/17 17:00 10/21/17 15:32 Acetaminophen (Tylenol) 500 mg Q4H PRN PO TEMPERATURE > 100.4 10/19/17 05:15 10/22/17 13:51 Morphine Sulfate (Morphine Inj) 4 mg Q3H PRN IV PUSH PAIN LEVEL 3-10 10/19/17 06:30 10/24/17 15:56 Vancomycin HCl 1000 mg/Sodium Chloride 250 ml @ 250 mls/hr Q12H IV 10/19/17 15:00 10/24/17 16:07 Cefepime HCl 1000 mg/Sodium Chloride 100 ml @ 200 mls/hr Q8H IV 10/19/17 14:00 10/24/17 15:48 Emollient Ointment (Aquaphor Oint) 1 applic Q12HR TOPICAL 10/19/17 21:00 10/24/17 10:36 Carbamazepine (TEGretol) 400 mg HS PO 10/21/17 21:00 10/23/17 20:00 Trazodone HCl (Desyrel) 150 mg HS PO 10/21/17 21:00 10/23/17 20:00 Acetaminophen (Tylenol) 650 mg Q4H PRN PO SEE LABEL COMMENTS 10/22/17 06:00 10/23/17 13:35 Albuterol Sulfate (Albuterol Neb) 2.5 mg Q4HR NEB PRN INH SHORTNESS OF BREATH 10/22/17 08:15 10/23/17 21:15 Olanzapine (ZyPREXA) 15 mg HS PO 10/22/17 21:00 10/23/17 19:59 Multi-Ingredient Mouthwash/Gargle (Magic Mouthwash Adult Liq) 5 ml QID SWISH-SWAL 2/22/18 13:00 10/24/17 15:47 Methylprednisolone Sodium Succinate (SoluMEDROL INJ) 40 mg Q8HR IV PUSH 10/23/17 22:00 10/24/17 15:48 Albuterol/ Ipratropium (Duoneb Neb) 1 ampule Q6HR WHILE AWAKE NEB NEB 10/24/17 08:00 10/24/17 13:43 Potassium Chloride/Sodium Chloride 1,000 ml @ 42 mls/hr [id number] IV 10/23/17 20:30 10/23/17 21:34 Objective Remarks GENERAL: thin, chronically ill appearing man in no distress SKIN: Warm and dry. HEAD: Normocephalic. EYES: No scleral icterus. No injection or drainage. NECK: Supple, trachea midline. No JVD or lymphadenopathy. LYMPHATIC: No adenopathy. CARDIOVASCULAR: Regular rate and rhythm without murmurs. RESPIRATORY: Breath sounds equal bilaterally. No accessory muscle use. GASTROINTESTINAL: Abdomen soft, non-tender, mildly distended EXTREMITIES: No cyanosis, or edema. MUSCULOSKELETAL: Adequate muscle tone. NEUROLOGICAL: No obvious focal deficit. Awake, alert, and oriented x3. PSYCHIATRIC: Appropriate mood and affect; insight and judgment normal. Assessment/Plan Problem List: (1) Neutropenic fever ICD Codes: D70.9 - Neutropenia, unspecified; R50.81 - Fever presenting with conditions classified elsewhere Status: Resolved Plan: Blood and urine cultures remain negative as of 6:25 PM on 10/20/2017. On empiric antibiotic therapy with cefepime and vancomycin. On G-CSF, absolute neutral count is 5.9 as of today. Suspect perianal area as site of bacteria entry. Keep area dry, difficult with diarrhea and XRT. 10/21/17. Neutropenia resolve. Still has fever- low grade T 100.0, BC neg. Noted thrombocytopenia likely chemo induced. Asymptomatic, follow. Cont abx 10/22/17 Pt went into resp distress this morning, Movd to ICU. Had Lasix with a good response. Still on BiPap. XRT and chemo on hold at this time due to toxicity,. Neutropenia has resolved. Off of Neupogen, Thrombocytopenia persists. NO TX needed. d/w pt, Dad and sister. Answered their questions. Dr Bauer (His oncologist) will see him tomorrow. D/W RN 10/24/17. Continue GCSF, goal ANC>5000 x 2 days. (2) Thrombocytopenia ICD Codes: D69.6 - Thrombocytopenia, unspecified Status: Acute Plan: Likely due to chemo, Mitomycin C and 5FU. complicated by neutropenic fever, pulmonary infiltrates Noted PT/PTT prolonged, check fibrinogen r/o DIC Consider drug effect, LMWH, antiseizures, antibiotics- monitor for now. Check HIT antibody but clinical presentation makes it unlikely. Monitor for bleeding. 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 He had been under the care of Dr. Bauer, Dr. Rocha and was being treated with definitive dose chemoradiotherapy with infusional 5-FU and mitomycin-C. He presents to the hospital with neutropenic fever, status post fall with a subcutaneous hematoma over his right for head and confusion. He is on empiric antibiotic therapy with vancomycin and cefepime and did receive Neupogen for growth factor support. Plan 1. Anal squama cell carcinoma: Locally advanced disease, had been on curative intent and current chemoradiotherapy. Currently on hold due to acute illness and hospitalization. 2. Cytopenia: due to chemotherapy (5-fu and mitomycin C), s/p transfusion 2UPRBC, no platelet transfusion 3. AMS: resolved 4. Elevated troponin: s/p evaluation by cardiology team. No need for heart catheterization. 5. Respiratory status: improving, saturation better, no longer on Bipap, noted infiltrate. Ashley Montemayor MD Oct 24, 2017 18:47
--- NOTE | 2017-10-24 19:10 | HHI.PR ---
Subjective Remarks Better today and on O2 N/C at 5 L. Had Red cell transfusion. On Antibiotics and Steroids. Objective Vital Signs Date Time Temp Pulse Resp B/P (MAP) Pulse Ox O2 Delivery O2 Flow Rate FiO2 10/24/17 16:09 30 10/24/17 16:00 98.2 98 33 137/75 (95) 90 10/24/17 16:00 100 10/24/17 12:54 98.2 97 10/24/17 12:41 98.3 101 10/24/17 12:00 96 10/24/17 12:00 98.3 96 31 102/60 (74) 97 10/24/17 10:34 98.3 90 10/24/17 10:20 98.5 95 10/24/17 08:00 95 Partial Non-Rebreather 12.00 10/24/17 08:00 98.4 10/24/17 08:00 88 39 114/67 (83) 100 10/24/17 08:00 88 10/24/17 07:25 92 Nasal Cannula 6.00 10/24/17 04:05 99.6 88 29 97/60 (72) 99 10/24/17 04:00 88 10/24/17 00:05 99.8 108 31 101/57 (72) 92 10/24/17 00:00 104 10/23/17 22:05 96 Venturi Mask 12.00 50 10/23/17 22:05 94 Partial Rebreather 12.00 10/23/17 22:04 81 Venturi Mask 6.00 50 10/23/17 21:25 81 Venturi Mask 50 10/23/17 21:25 92 Venturi Mask 6.00 50 10/23/17 21:15 100 Partial Rebreather 12.00 10/23/17 20:05 99.2 100 42 122/64 (83) 98 10/23/17 20:00 111 I/O 10/23/17 10/23/17 10/23/17 10/24/17 10/24/17 10/24/17 07:00 15:00 23:00 07:00 15:00 23:00 Intake Total 680 ml 1500 ml 250 ml 1330 ml 390 ml 1350 ml Output Total 1800 ml 1200 ml 650 ml Balance -1120 ml 1500 ml 250 ml 130 ml 390 ml 700 ml Intake Oral 480 ml 1500 ml 680 ml 600 ml IV Total 200 ml 250 ml 650 ml 350 ml Packed Cells 350 ml 400 ml Blood Product IV Normal Saline Flush 40 ml Output Urine Total 1800 ml 1200 ml 650 ml # Bowel Movements 2 0 0 Result Diagram: 10/24/17 1530 10/24/17 1530 Objective Remarks This is a thinly built middle-aged white male who is pale, alert and mildly dyspneic. HEENT: Head normocephalic. Pupils reactive. Tongue is dry. Throat is injected. Nasal mucosae edematous. He has a hematoma of the right side of his forehead about 3 cm in diameter. Ears have no inflammation. NECK: Supple. No bruits or thyroid enlargement. No lymphadenopathy. Throat is mildly injected. CHEST: Distant breath sounds with wheezes bilaterally, prolonged expirations. There are a few crackles in the right lung field. HEART: The heart sounds are regular S1-S2. No murmur. No S3. ABDOMEN: The abdomen is soft and protuberant. No masses or organomegaly or tenderness. Bowel sounds are active. EXTREMITIES: Mild peripheral edema . Reflexes are 1+ with no gross motor deficits. NEUROLOGIC: Cranial nerves are grossly intact. RECTAL: Exam is deferred. SKIN: No lesions. Assessment and Plan Assessment and Plan IMPRESSION 1. Acute hypoxemic respiratory failure. 2. He has a history of rectal cancer. 3. Syncopal episodes 4. Basilar pneumonia 5. Anemia with blood loss 6. Dehydration and acute kidney injury PLan : 1. Wean o2 to 4 L. 2. Taper solumedrol to 40 mg IV Q8H 3. Continue Antibiotics . 4. BiPAP at HS 12/5 Cm FIO2 35 % 5. CBC,BMP ,Xray chest in Kaylie Jimenez MD Oct 24, 2017 19:10
[2017-10-24] MEDS: traZODone HCL 100 MG TAB PO SCH (19:46)
[2017-10-24] MEDS: OLANZapine 5 MG TAB PO SCH (19:47)
[2017-10-24] MEDS: TAMSULOSIN HCL 0.4 MG CAP PO SCH (19:47)
[2017-10-24] MEDS: ACETAMINOPHEN 500 MG CPLT PO PRN (23:26)
[2017-10-24] MEDS: 1/2 NS + KCL 20 MEQ INJ 1,000 ML IV SCH (23:34)
[2017-10-25] VITALS (22 sets, daily range): BP systolic 110–158; BP diastolic 66–88; PULSE 90–116; RESP 20–42; TEMP 98.2–101.3; O2SAT 92–100
[2017-10-25] MEDS: MORPHINE SULFATE 4 MG/ML INJ IV PUSH PRN ×5 (00:33→20:45)
[2017-10-25] MEDS: ONDANSETRON HCL 4 MG/2 ML VIAL IV PUSH PRN (04:05)
[2017-10-25] MEDS: methylPREDNISolone SOD SUCC 40 MG/1 ML VIAL IV PUSH SCH ×3 (05:51→21:03)
[2017-10-25] MEDS: CEFEPIME INJ 1,000 MG in SODIUM CHLORIDE 0.9% INJ 100 ML IV SCH ×3 (05:51→21:02)
[2017-10-25] MEDS: ACETAMINOPHEN 500 MG CPLT PO PRN (05:52)
[2017-10-25 06:22] LABS: AUTOMATED NEUTROPHIL # 1.9 TH/MM3 (1.8-7.7); BASOPHIL % 1.4 % (0.0-2.0); EOSINOPHIL % 0.3 % (0.0-4.0); HEMATOCRIT 30.5 % (39.0-51.0); HEMOGLOBIN 9.6 GM/DL (13.0-17.0); LYMPH % 10.3 % (9.0-44.0); LYMPHOCYTE # 0.2 TH/MM3 (1.0-4.8); MEAN CELL VOLUME 83.9 FL (80.0-100.0); MEAN CORPUSCULAR HEMOGLOBIN 26.5 PG (27.0-34.0); MEAN CORPUSCULAR HGB CONC 31.6 % (32.0-36.0); MEAN PLATELET VOLUME 9.1 FL (7.0-11.0); MONO % 0.6 % (0.0-8.0); NEUT % 87.4 % (16.0-70.0); PLATELET COUNT 46 TH/MM3 (150-450); RED BLOOD COUNT 3.64 MIL/MM3 (4.50-5.90); RED CELL DISTRIBUTION WIDTH 15.2 % (11.6-17.2); WHITE BLOOD COUNT 2.1 TH/MM3 (4.0-11.0)
--- NOTE | 2017-10-25 06:27 | RADRPT ---
EXAM DATE/TIME: 10/25/2017 05:51 [facility] COMPARISON: CHEST SINGLE AP, October 23, 2017, 8:25. INDICATIONS : Shortness of breath. MEDICAL HISTORY : Hypertension. Rectal cancer. Squamous cell carcinoma. GERD. Bipolar disorder, Depression, Anxiety SURGICAL HISTORY : Hernia repair. Bilateral shoulder cuff repair. Chemotherapy. Radiation therapy. Blood transfusions. B ilateral carpel tunnel release ENCOUNTER: Subsequent ACUITY: 4 - 6 days PAIN SCORE: 0/10 LOCATION: Bilateral chest FINDINGS: Diffuse bilateral airspace opacities persist and accounting for differences in technique not signific antly changed. No large effusion seen. No pneumothorax. Heart size stable, within normal limits. There is a right subclavian [id number] catheter are again noted with tip in the superior vena cava , slightly kinked at its entry site. Chronic left rotator cuff tear noted. CONCLUSION: No significant change. Tommie Capellan MD on October 25, 2017 at 6:24 Board Certified Radiologist. This report was verified electronically.
[2017-10-25 06:36] LABS: INTERNATIONAL NORMALIZED RATIO 1.6 RATIO; PROTHROMBIN TIME - PATIENT 15.8 SEC (9.8-11.6)
[2017-10-25 07:35] LABS: ALBUMIN 1.5 GM/DL (3.4-5.0); BICARBONATE 30.5 MEQ/L (21.0-32.0); CALCIUM 7.3 MG/DL (8.5-10.1); CALCIUM-PROTEIN CORRECTED 8.3 MG/DL (8.5-10.1); CREATININE 0.51 MG/DL (0.60-1.30); TOTAL BILIRUBIN ADULT 2.9 MG/DL (0.2-1.0); TOTAL PROTEIN 5.3 GM/DL (6.4-8.2)
[2017-10-25] MEDS: RESP: ALBUTEROL 2.5 MG/IPRATROPIUM 0.5 MG NEB (SCH) NEB ×2 (07:42→12:54)
[2017-10-25] MEDS: NYSTAT/DIPHENHY/LIDO MOUTHWASH (Adult) 120ML SWISH-SWAL SCH ×4 (09:00→20:30)
[2017-10-25] MEDS: carBAMazepine 200 MG TAB PO SCH ×2 (09:50→20:44)
[2017-10-25] MEDS: VANCOMYCIN INJ 1,000 MG in SODIUM CHLOR 0.9% 250 ML INJ 250 ML IV SCH ×2 (09:50→16:00)
[2017-10-25] MEDS: AQUAPHOR OINT 50 GM TUBE TOPICAL SCH ×2 (09:51→20:47)
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
[2017-10-25] MEDS ORDERED: PANTOPRAZOLE SODIUM 40 MG VIAL IV PUSH ONE (10:00)
[2017-10-25] MEDS: LORazepam 2 MG/ML VIAL IV PRN (13:47)
--- NOTE | 2017-10-25 15:22 | HHI.PR ---
Subjective Remarks severe respiratory distress on bipap cxay increasing bilateral infiltrates Objective Vital Signs Date Time Temp Pulse Resp B/P (MAP) Pulse Ox O2 Delivery O2 Flow Rate FiO2 10/25/17 12:55 104 34 141/88 (105) 93 10/25/17 12:55 104 10/25/17 12:00 102 10/25/17 12:00 102 32 92 10/25/17 11:19 98.2 10/25/17 10:45 100 42 147/83 (104) 95 10/25/17 09:51 30 10/25/17 08:46 106 40 132/78 (96) 95 10/25/17 08:00 95 Partial Non-Rebreather 12.00 10/25/17 08:00 108 20 93 10/25/17 08:00 108 10/25/17 08:00 108 10/25/17 07:42 98 Partial Rebreather 15.00 10/25/17 07:35 99.9 10/25/17 06:44 99.5 10/25/17 05:50 100.1 10/25/17 04:00 98.7 90 32 137/80 (99) 95 10/25/17 04:00 90 10/25/17 01:00 94 10/25/17 01:00 98.9 94 22 100 10/25/17 00:00 101.2 102 28 148/85 (106) 99 10/25/17 00:00 102 10/24/17 20:21 90 Nasal Cannula 6.00 10/24/17 20:00 99.5 102 14 131/73 (92) 92 10/24/17 20:00 102 10/24/17 19:15 92 Nasal Cannula 7.00 Humidified 10/24/17 16:00 98.2 98 33 137/75 (95) 90 10/24/17 16:00 100 I/O 10/24/17 10/24/17 10/24/17 10/25/17 10/25/17 10/25/17 07:00 15:00 23:00 07:00 15:00 23:00 Intake Total 1330 ml 390 ml 1350 ml 1970 ml 600 ml Output Total 1200 ml 650 ml 400 ml 500 ml Balance 130 ml 390 ml 700 ml 1570 ml 100 ml Intake Oral 680 ml 600 ml 720 ml 600 ml Oral Supplement 0 ml IV Total 650 ml 350 ml 1250 ml Packed Cells 350 ml 400 ml Blood Product IV Normal Saline Flush 40 ml Output Urine Total 1200 ml 650 ml 400 ml 500 ml # Bowel Movements 0 0 0 Result Diagram: 10/25/1760910/25/17609 Objective Remarks GENERAL: SKIN: Warm and dry. HEAD: Atraumatic. Normocephalic. EYES: Pupils equal and round. No scleral icterus. No injection or drainage. ENT: No nasal bleeding or discharge. Mucous membranes pink and moist. NECK: Trachea midline. No JVD. CARDIOVASCULAR: Regular rate and rhythm. RESPIRATORY: tachypneic, use of accessory muscles. GASTROINTESTINAL: Abdomen soft, non-tender, nondistended. Hepatic and splenic margins not palpable. MUSCULOSKELETAL: Extremities without clubbing, cyanosis, or edema. No obvious deformities. NEUROLOGICAL: Awake and alert. No obvious cranial nerve deficits. Motor grossly within normal limits. Five out of 5 muscle strength in the arms and legs. Normal speech. PSYCHIATRIC: Appropriate mood and affect; insight and judgment normal. Assessment and Plan Assessment and Plan respiratory failure pna/ards rectal ca plan bipap most likely will need vent support antibx intensvist and id consulted Laisha Interiano MD Oct 25, 2017 15:22
[2017-10-25] MEDS ORDERED: PHARMACY ORDERED LAB ONE (15:45)
[2017-10-25] MEDS ORDERED: SUCCINYLCHOLINE CHLORIDE 100 MG/5 ML SYRINGE IV PUSH ONE (16:30)
[2017-10-25] MEDS ORDERED: ETOMIDATE 20 MG/10 ML VIAL IV PUSH ONE (16:30)
[2017-10-25] MEDS ORDERED: PROPOFOL 500 MG/50 ML INJ 50 ML ONE (16:45)
--- NOTE | 2017-10-25 17:23 | RADRPT ---
EXAM DATE/TIME: 10/25/2017 16:51 [facility] COMPARISON: CHEST SINGLE AP, October 25, 2017, 5:51. INDICATIONS : Post intubation. MEDICAL HISTORY : Hypertension. Rectal cancer. Squamous cell carcinoma. GERD. Bipolar disorder, Depression, Anxiety SURGICAL HISTORY : Hernia repair. Bilateral shoulder cuff repair. Chemotherapy. Radiation therapy. Blood transfusions. B ilateral carpel tunnel release ENCOUNTER: Initial ACUITY: 1 day PAIN SCORE: Non-responsive. LOCATION: Bilateral chest FINDINGS: Portable AP view of the chest demonstrates a normal-sized cardiac silhouette. Nasogastric tube course s beyond the GE junction. Endotracheal tube distal tip measures 1.8 cm from the justin. [id number] remains present multiple lines overlie the patient. There is diffuse relatively severe bilateral air space consolidation without significant change. No pneumothorax is identified. CONCLUSION: 1. Endotracheal tube distal tip measures 1.8 cm from the justin. Nasogastric tube courses beyond the GE junction. 2. Stable severe bilateral airspace consolidation. Tommie Rivera MD on October 25, 2017 at 17:20 Board Certified Radiologist. This report was verified electronically.
[2017-10-25] MEDS: PROPOFOL 1000 MG/100 ML INJ 100 ML IV PRN (19:00)
[2017-10-25] MEDS: 1/2 NS + KCL 20 MEQ INJ 1,000 ML IV SCH (20:08)
[2017-10-25] MEDS: TAMSULOSIN HCL 0.4 MG CAP PO SCH (20:28)
[2017-10-25] MEDS: ACETAMINOPHEN 325 MG TAB PO PRN (20:43)
[2017-10-25] MEDS: traZODone HCL 100 MG TAB PO SCH (20:44)
[2017-10-25] MEDS: CHLORHEXIDINE 0.12% (ORAL KIT) 15 ML CUP MT SCH (20:45)
[2017-10-25] MEDS: OLANZapine 5 MG TAB PO SCH (21:00)
--- NOTE | 2017-10-25 22:07 | PD.CONS ---
HPI Service Critical Care Medicine Consult Requested By Primary Care Physician Jerry Hankins MD History of Present Illness 62-year-old very pleasant gentleman with locally advanced rectal cancer, positive pararectal lymph node, who has been treated with concurrent chemotherapy and radiation. He is been admitted to [facility] after having a dizzy condition, having a lot of dizzy spells. The day prior to admission he fell and hit his head. He was not sure how he fell. He was bruised in the right knee, left hip, right hip more so and laceration of the right forehead and scalp. He was found by his father sitting up. He was too weak to get up. He was brought into the emergency room on 10/17/2017. While in the hospital he became severely septic with suspect perianal area as site of bacteria entry. He developed respiratory failure with ARDS requiring intubation and transfer to [facility] critical care unit. 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 July 2017 Past Surgical History Axillary lymphadenectomy 1998 which was benign Rectal biopsy last year which revealed squamous cell carcinomas noted Destruction of basal cell carcinoma of the skin Open repair of indirect right inguinal hernia in 2012 Paravertebral nerve blocks Carpal tunnel release bilaterally Radiofrequency rhizotomy 2008 Rotator cuff repair on the right Port placement Reported Medications Reported Meds & Active Scripts Active Magic Mouthwash Adult Liq (Multi-Ingredient Mouthwash/Gargle) 120 Ml Susp 10 Ml SWISH-SWAL QID Flomax (Tamsulosin HCl) 0.4 Mg Cap 0.4 Mg PO HS Reported Trazodone (Trazodone HCl) 100 Mg Tablet 200 Mg PO HS Zolpidem (Zolpidem Tartrate) 10 Mg Tab 10 Mg PO HS Protonix (Pantoprazole Sodium) 40 Mg Tab 40 Mg PO DAILY Tegretol (Carbamazepine) 200 Mg Tab 200 Mg PO DIRECTED 400MG PO in AM and 600mg PO HS Lisinopril 20 Mg Tab 20 Mg PO BID Aspirin Low Dose (Aspirin) 81 Mg Chew 81 Mg CHEW DAILY Active Ordered Medications Current Medications Medications (Trade) Dose Ordered Sig/Siddhartha Route PRN Reason Start Time Stop Time Status Last Admin Dose Admin Tamsulosin HCl (Flomax) 0.4 mg HS PO 10/17/17 21:00 10/24/17 19:47 Carbamazepine (TEGretol) 400 mg DAILY PO 10/18/17 09:00 10/25/17 09:50 Ondansetron HCl (Zofran Inj) 4 mg Q6H PRN IV PUSH VOMITING 10/18/17 16:45 10/25/17 04:05 Prochlorperazine Maleate (Compazine) 10 mg Q6H PRN PO NAUSEA 10/18/17 18:00 10/20/17 05:00 Loperamide HCl (Imodium) 2 mg Q6H PRN PO diarrhea 10/18/17 17:00 10/21/17 15:32 Acetaminophen (Tylenol) 500 mg Q4H PRN PO TEMPERATURE > 100.4 10/19/17 05:15 10/25/17 05:52 Morphine Sulfate (Morphine Inj) 4 mg Q3H PRN IV PUSH PAIN LEVEL 3-10 10/19/17 06:30 10/25/17 20:45 Cefepime HCl 1000 mg/Sodium Chloride 100 ml @ 200 mls/hr Q8H IV 10/19/17 14:00 10/25/17 21:02 Emollient Ointment (Aquaphor Oint) 1 applic Q12HR TOPICAL 10/19/17 21:00 10/25/17 09:51 Carbamazepine (TEGretol) 400 mg HS PO 10/21/17 21:00 10/25/17 20:44 Trazodone HCl (Desyrel) 150 mg HS PO 10/21/17 21:00 10/25/17 20:44 Pharmacy Profile Note 0 ml @ 0 mls/hr UNSCH OTHER 10/21/17 18:15 Diphenhydramine HCl (Benadryl) 25 mg Q4H PRN PO SEE LABEL COMMENTS 10/22/17 06:00 Albuterol Sulfate (Albuterol Neb) 2.5 mg Q4HR NEB PRN INH SHORTNESS OF BREATH 10/22/17 08:15 10/23/17 21:15 Olanzapine (ZyPREXA) 15 mg HS PO 10/22/17 21:00 10/24/17 19:47 Multi-Ingredient Mouthwash/Gargle (Magic Mouthwash Adult Liq) 5 ml QID SWISH-SWAL 10/23/17 13:00 10/24/17 19:45 Methylprednisolone Sodium Succinate (SoluMEDROL INJ) 40 mg Q8HR IV PUSH 10/23/17 22:00 10/25/17 21:03 Albuterol/ Ipratropium (Duoneb Neb) 1 ampule Q6HR WHILE AWAKE NEB NEB 10/24/17 08:00 10/25/17 12:54 Potassium Chloride/Sodium Chloride 1,000 ml @ 42 mls/hr [id number] IV 10/23/17 20:30 10/24/17 23:34 Vancomycin HCl 1000 mg/Sodium Chloride 250 ml @ 250 mls/hr Q8H IV 10/25/17 00:00 10/25/17 16:00 Pantoprazole Sodium (Protonix Inj) 40 mg Q24H IV PUSH 10/26/17 10:00 Lorazepam (Ativan Inj) 1 mg Q8H PRN IV ANXIETY 10/25/17 13:45 10/25/17 13:47 Propofol 100 ml @ 1.911 mls/ hr TITRATE PRN IV SEDATION 10/25/17 16:30 10/25/17 19:00 Chlorhexidine Gluconate (Peridex 0.12% Liq) 15 ml BID@08,20 MT 10/25/17 20:00 10/25/17 20:45 Fentanyl Citrate 250 ml @ 5 mls/hr TITRATE PRN IV SEDATION 10/25/17 22:15 10/25/17 22:51 Oseltamivir Phosphate (Tamiflu) 75 mg BID PO 10/25/17 22:30 Azithromycin 500 mg/Sodium Chloride 250 ml @ 250 mls/hr Q24H IV 10/25/17 20:00 Family History Father and sister had diabetes Coronary artery disease and colon cancer also run in the family Social History Denies alcohol or illicit drug use Occasionally smoked a cigarette less than 5 per day and not on a regular basis many years ago. 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 Physical Exam Vital Signs Vital Signs Date Time Temp Pulse Resp B/P (MAP) Pulse Ox O2 Delivery O2 Flow Rate FiO2 10/25/17 20:14 99 50 10/25/17 20:00 95 Mechanical Ventilator 50 10/25/17 18:00 94 32 110/66 (81) 99 10/25/17 18:00 94 10/25/17 17:15 96 100 10/25/17 17:10 108 10/25/17 17:10 108 36 125/75 (92) 96 10/25/17 17:00 116 10/25/17 17:00 116 35 158/79 (105) 94 10/25/17 16:00 100 80 10/25/17 16:00 99 15.00 10/25/17 15:26 100.2 10/25/17 15:00 99 100 10/25/17 12:55 104 34 141/88 (105) 93 10/25/17 12:55 104 10/25/17 12:00 102 10/25/17 12:00 102 32 92 10/25/17 11:19 98.2 10/25/17 10:45 100 42 147/83 (104) 95 10/25/17 09:51 30 10/25/17 08:46 106 40 132/78 (96) 95 10/25/17 08:00 95 Partial Non-Rebreather 12.00 10/25/17 08:00 108 20 93 10/25/17 08:00 108 10/25/17 08:00 108 10/25/17 07:42 98 Partial Rebreather 15.00 10/25/17 07:35 99.9 10/25/17 06:44 99.5 10/25/17 05:50 100.1 10/25/17 04:00 98.7 90 32 137/80 (99) 95 10/25/17 04:00 90 10/25/17 01:00 94 10/25/17 01:00 98.9 94 22 100 10/25/17 00:00 101.2 102 28 148/85 (106) 99 10/25/17 00:00 102 Physical Exam GENERAL: Cachectic sick ill-appearing male sedated and intubated SKIN: Right forehead where the area of ecchymosis and slight abrasion, left forehead small abrasion, left forearm 2 small abrasions. Cool and dry. HEAD: Right forehead with ecchymosis and contusion is noted. Normocephalic. No temporal or scalp tenderness. EYES: Pupils equal round and reactive. Extraocular motions intact. No scleral icterus. No injection or drainage. ENT: Nose without bleeding, purulent drainage or septal hematoma. Airway patent. NECK: Trachea midline. No JVD or lymphadenopathy. Supple, nontender, no meningeal signs. CARDIOVASCULAR: Regular rate and rhythm with soft 2/6 systolic ejection murmur. No gallop or rub. Right upper chest wall with port in place. RESPIRATORY: Clear to auscultation. Breath sounds equal bilaterally. No wheezes , rales, or rhonchi. GASTROINTESTINAL: Abdomen soft, non-tender, nondistended. No hepato-splenomegaly , or palpable masses. No guarding. Bowel sounds normal. MUSCULOSKELETAL: Extremities without clubbing, cyanosis, or edema. No joint tenderness, effusion, or edema noted. No calf tenderness. NEUROLOGICAL: Sedated and intubated Laboratory Laboratory Tests Test 10/25/17 06:10 10/25/17 15:25 10/25/17 17:20 10/25/17 17:36 White Blood Count 2.1 Red Blood Count 3.64 Hemoglobin 9.6 Hematocrit 30.5 Mean Corpuscular Volume 83.9 Mean Corpuscular Hemoglobin 26.5 Mean Corpuscular Hemoglobin Concent 31.6 Red Cell Distribution Width 15.2 Platelet Count 46 Mean Platelet Volume 9.1 Neutrophils (%) (Auto) 87.4 Lymphocytes (%) (Auto) 10.3 Monocytes (%) (Auto) 0.6 Eosinophils (%) (Auto) 0.3 Basophils (%) (Auto) 1.4 Neutrophils # (Auto) 1.9 Lymphocytes # (Auto) 0.2 Monocytes # (Auto) 0.0 Eosinophils # (Auto) 0.0 Basophils # (Auto) 0.0 CBC Comment AUTO DIFF Differential Comment AUTO DIFF CONFIRMED Platelet Estimate LOW Platelet Morphology Comment NORMAL Prothrombin Time 15.8 Prothromb Time International Ratio 1.6 Activated Partial Thromboplast Time 31.5 Fibrinogen 539 Blood Urea Nitrogen 18 Creatinine 0.51 Random Glucose 102 Total Protein 5.3 Albumin 1.5 Calcium Level 7.3 Alkaline Phosphatase 163 Aspartate Amino Transf (AST/SGOT) 104 Alanine Aminotransferase (ALT/SGPT) 89 Total Bilirubin 2.9 Sodium Level 135 Potassium Level 3.7 Chloride Level 99 Carbon Dioxide Level 30.5 Anion Gap 6 Estimat Glomerular Filtration Rate 164 Protein Corrected Calcium 8.3 Blood Gas Puncture Site RT RADIAL LT RADIAL Blood Gas Patient Temperature 37.0 37.0 Blood Gas HCO3 28 29 Blood Gas Base Excess 5.1 4.8 Blood Gas Oxygen Saturation 96 97 Arterial Blood pH 7.51 7.43 Arterial Blood Partial Pressure CO2 36 45 Arterial Blood Partial Pressure O2 164 226 Arterial Blood Oxygen Content 13.8 13.6 Arterial Blood Carboxyhemoglobin 1.6 0.2 Arterial Blood Methemoglobin 1.4 1.0 Blood Gas Hemoglobin 10.0 9.6 Oxygen Delivery Device BIPAP VENTILATOR Blood Gas Ventilator Setting 15IPAP/ 8 EPAP PRVC/AC Blood Gas Inspired Oxygen 100 100 Vancomycin Level Trough 15.3 Test 10/25/17 20:15 Date/Time Source Procedure Growth Status 10/25/17 17:20 Blood Peripheral Aerobic Blood Culture Pending Received 10/25/17 17:20 Blood Peripheral Anaerobic Blood Culture Pending Received 10/25/17 17:30 Nasal Aspirate Influenza Types A,B Antigen (CED) - Final Positive For Flu A Antigen Complete 10/25/17 17:30 Urine Catheterized Urine Legionella Antigen Pending Received 10/25/17 17:30 Urine Catheterized Urine Streptococcus pneumoniae Antigen (M Pending Received Result Diagram: 10/25/17 0610 10/25/17 0610 Imaging Last 24 hours Impressions Chest X-Ray 10/25/17 0600 Signed Impressions: Service Date/Time: Wednesday, October 25, 2017 05:51 - CONCLUSION: No significant change. Tommie Capellan MD Chest X-Ray 10/25/17 0000 Signed Impressions: Service Date/Time: Wednesday, October 25, 2017 16:51 - CONCLUSION: 1. Endotracheal tube distal tip measures 1.8 cm from the justin. Nasogastric tube courses beyond the GE junction. 2. Stable severe bilateral airspace consolidation. Tommie Rivera MD Septic Shock Reassessment Septic shock perfusion: reassessment completed Assessment and Plan Assessment and Plan Respiratory failure - ARDS - Underlying sepsis - Broad-spectrum antibiotic - Mechanical ventilation - Follow-up cultures - CXR and ABG daily - DuoNeb scheduled and when necessary Severe sepsis - perianal area as site of bacteria entry - Broad-spectrum antibiotics - Follow-up cultures and de-escalate per sensitivity Influenza A - Tamiflu twice a day BPH - Flomax Bipolar disorder - Olanzapine - Carbamazepine - Trazodone DVT GI prophylaxis - Teds SCDs - Subcutaneous Lovenox - Pantoprazole Critical Care: The total critical care time was 35 minutes. Time to perform other separately billable procedures was not included in the critical care time. Mike Epstein MD Oct 25, 2017 10:07 pm
[2017-10-25] MEDS: fentaNYL DRIP 250 ML IV PRN (22:51)
[2017-10-25] MEDS: AZITHROMYCIN INJ 500 MG in SODIUM CHLOR 0.9% 250 ML INJ 250 ML IV SCH (23:16)
[2017-10-25] MEDS: OSELTAMIVIR PHOSPHATE 75 MG CAP PO SCH (23:23)
[2017-10-26] VITALS (17 sets, daily range): BP systolic 101–119; BP diastolic 62–79; PULSE 68–93; RESP 26–27; TEMP 98.5–99.7; O2SAT 97–100
[2017-10-26] MEDS: VANCOMYCIN INJ 1,000 MG in SODIUM CHLOR 0.9% 250 ML INJ 250 ML IV SCH ×3 (00:28→15:06)
[2017-10-26] MEDS: PROPOFOL 1000 MG/100 ML INJ 100 ML IV PRN ×3 (00:31→15:58)
[2017-10-26 04:53] LABS: AUTOMATED NEUTROPHIL # 1.3 TH/MM3 (1.8-7.7); BASOPHIL % 0.4 % (0.0-2.0); EOSINOPHIL % 0.4 % (0.0-4.0); HEMATOCRIT 24.2 % (39.0-51.0); HEMOGLOBIN 8.4 GM/DL (13.0-17.0); LYMPH % 5.9 % (9.0-44.0); LYMPHOCYTE # 0.1 TH/MM3 (1.0-4.8); MEAN CELL VOLUME 83.3 FL (80.0-100.0); MEAN CORPUSCULAR HGB CONC 34.8 % (32.0-36.0); MEAN PLATELET VOLUME 9.2 FL (7.0-11.0); MONO % 1.8 % (0.0-8.0); NEUT % 91.5 % (16.0-70.0); PLATELET COUNT 39 TH/MM3 (150-450); RED BLOOD COUNT 2.91 MIL/MM3 (4.50-5.90); WHITE BLOOD COUNT 1.4 TH/MM3 (4.0-11.0)
[2017-10-26 05:00] LABS: ALBUMIN 1.3 GM/DL (3.4-5.0); ALT (GPT) 94 U/L (12-78); AST (GOT) 97 U/L (15-37); BICARBONATE 32.6 MEQ/L (21.0-32.0); BLOOD UREA NITROGEN 15 MG/DL (7-18); CALCIUM 7.6 MG/DL (8.5-10.1); CHLORIDE 100 MEQ/L (98-107); CREATININE 0.59 MG/DL (0.60-1.30); GLOMERULAR FILTRATION RATE 138 ML/MIN (>89); GLUCOSE,RANDOM 106 MG/DL (74-106); MAGNESIUM 1.8 MG/DL (1.5-2.5); PHOSPHORUS 2.4 MG/DL (2.5-4.9); SODIUM (NA) 136 MEQ/L (136-145)
[2017-10-26 05:03] LABS: ALKALINE PHOSPHATASE 149 U/L (45-117); TOTAL BILIRUBIN ADULT 3.2 MG/DL (0.2-1.0); TOTAL PROTEIN 4.6 GM/DL (6.4-8.2)
[2017-10-26] MEDS: CEFEPIME INJ 1,000 MG in SODIUM CHLORIDE 0.9% INJ 100 ML IV SCH (05:08)
[2017-10-26] MEDS: methylPREDNISolone SOD SUCC 40 MG/1 ML VIAL IV PUSH SCH ×3 (05:08→20:17)
[2017-10-26 06:46] LABS: BANDS 1 % (0-6); LYMPHOCYTES 6 % (9-44); NEUTROPHIL # MANUAL DIFF 1.3 TH/MM3 (1.8-7.7); POLYS (SEG NEUTROPHILS) 93 % (16-70); TOXIC GRANULATION 3+ (NORMAL)
[2017-10-26 06:47] LABS: DOHLE BODIES PRESENT (NONE SEEN)
[2017-10-26 06:48] LABS: ACANTHOCYTES OCC (NORMAL)
[2017-10-26] MEDS ORDERED: PHARMACY ORDERED LAB ONE (07:45)
[2017-10-26] MEDS: CHLORHEXIDINE 0.12% (ORAL KIT) 15 ML CUP MT SCH ×2 (08:00→19:15)
[2017-10-26] MEDS: RESP: ALBUTEROL 2.5 MG/IPRATROPIUM 0.5 MG NEB (SCH) NEB ×4 (08:10→21:04)
[2017-10-26] MEDS: OSELTAMIVIR PHOSPHATE 75 MG CAP PO SCH ×2 (08:24→20:16)
[2017-10-26] MEDS: NYSTAT/DIPHENHY/LIDO MOUTHWASH (Adult) 120ML SWISH-SWAL SCH ×4 (08:25→20:17)
[2017-10-26] MEDS: AQUAPHOR OINT 50 GM TUBE TOPICAL SCH ×3 (08:25→20:17)
[2017-10-26] MEDS: carBAMazepine 200 MG TAB PO SCH ×2 (08:25→20:16)
[2017-10-26] MEDS: PANTOPRAZOLE SODIUM 40 MG VIAL IV PUSH SCH (08:26)
--- NOTE | 2017-10-26 09:38 | HHI.CCPN ---
Subjective Remarks/Hospital Course 10/25: 62-year-old very pleasant gentleman with locally advanced rectal cancer, positive pararectal lymph node, who has been treated with concurrent chemotherapy and radiation. He is been admitted to [facility] after having a dizzy condition, having a lot of dizzy spells. The day prior to admission he fell and hit his head. He was not sure how he fell. He was bruised in the right knee, left hip, right hip more so and laceration of the right forehead and scalp. He was found by his father sitting up. He was too weak to get up. He was brought into the emergency room on 10/17/2017. While in the hospital he became severely septic with suspect perianal area as site of bacteria entry. He developed respiratory failure with ARDS requiring intubation and transfer to [facility] critical care unit. 10/26: No events overnight. Oxygen requirement gradually improving, currently at 0.5 FiO2. T-max of 101.3 yesterday afternoon. Patient is currently on propofol and fentanyl, comfortable, easily arousable, denying any pain. Yesterday's chest x-ray reviewed, ET tube 1.7 cm above justin, diffuse bilateral infiltrates. Objective Vital Signs Date Time Temp Pulse Resp B/P (MAP) Pulse Ox O2 Delivery O2 Flow Rate FiO2 10/26/17 08:14 99 50 10/26/17 08:00 92 10/26/17 08:00 99.2 26 116/66 (83) 10/26/17 07:00 Mechanical Ventilator 10/25/17 16:00 15.00 Intake and Output 10/26/17 10/26/17 10/27/17 08:00 16:00 00:00 Intake Total 700 ml 100 ml Output Total 950 ml Balance -250 ml 100 ml Result Diagram: 10/26/17 0412 10/26/17 0412 Other Results Microbiology Date/Time Source Procedure Growth Status 10/25/17 17:30 Nasal Aspirate Influenza Types A,B Antigen (CED) - Final Positive For Flu A Antigen Complete Laboratory Tests Test 10/25/17 15:25 10/25/17 17:36 10/26/17 07:19 Blood Gas Puncture Site RT RADIAL LT RADIAL LT RADIAL Blood Gas Patient Temperature 37.0 37.0 98.6 Blood Gas HCO3 28 mmol/L (22-26) 29 mmol/L (22-26) 28 mmol/L (22-26) Blood Gas Base Excess 5.1 mmol/L (-2-2) 4.8 mmol/L (-2-2) 4.1 mmol/L (-2-2) Blood Gas Oxygen Saturation 96 % (90-100) 97 % (90-100) 96 % (90-100) Arterial Blood pH 7.51 (7.380-7.420) 7.43 (7.380-7.420) 7.45 (7.380-7.420) Arterial Blood Partial Pressure CO2 36 mmHg (38-42) 45 mmHg (38-42) 41 mmHg (38-42) Arterial Blood Partial Pressure O2 164 mmHg (61-120) 226 mmHg (61-120) 131 mmHg (61-120) Arterial Blood Oxygen Content 13.8 Vol % (12.0-20.0) 13.6 Vol % (12.0-20.0) 13.9 Vol % (12.0-20.0) Arterial Blood Carboxyhemoglobin 1.6 % (0-4) 0.2 % (0-4) 1.3 % (0-4) Arterial Blood Methemoglobin 1.4 % (0-2) 1.0 % (0-2) 1.1 % (0-2) Blood Gas Hemoglobin 10.0 G/DL (12.0-16.0) 9.6 G/DL (12.0-16.0) 10.1 G/DL (12.0-16.0) Oxygen Delivery Device BIPAP VENTILATOR VENTILATOR Blood Gas Ventilator Setting 15IPAP/ 8 EPAP PRVC/AC PRVC/AC Blood Gas Inspired Oxygen 100 % 100 % 50 % Imaging Last 24 hours Impressions Chest X-Ray 10/25/17 0600 Signed Impressions: Service Date/Time: Wednesday, October 25, 2017 05:51 - CONCLUSION: No significant change. Tommie Capellan MD Chest X-Ray 10/25/17 0000 Signed Impressions: Service Date/Time: Wednesday, October 25, 2017 16:51 - CONCLUSION: 1. Endotracheal tube distal tip measures 1.8 cm from the justin. Nasogastric tube courses beyond the GE junction. 2. Stable severe bilateral airspace consolidation. Tommie Rivera MD Objective Remarks General -middle-aged gentleman, intubated and lightly sedated, cachectic, ill- appearing HEENT - pupils equal, reactive, sclerae anicteric, neck supple, no nuchal rigidity, neck veins not distended, no carotid bruit CV - regular S1, S2, no murmurs Chest - coarse breath sounds b/l, good air entry, no wheezes Abdomen - soft, non-tender, distended, BS present, no hepatomegaly, no splenomegaly Skin - no rashes, no cyanosis Extremities - warm and well perfused, no edema, + peripheral pulses, no clubbing Neuro -intubated and lightly sedated, easily arousable, follows commands, moves all 4 extremities A/P Assessment and Plan 1. Acute hypoxic respiratory failure -improved oxygen requirements, currently at 0.5 FiO2 2. Severe sepsis 3. Influenza pneumonia 4. Rule out bacterial superinfection 5. Leukopenia -ANC 1300 6. Anal squama cell carcinoma which is locally advanced to the rectum and perirectal lymph nodes on 5FU and mitomycin 7. Bipolar disorder 8. Mild transaminitis -etiology unclear at this time 1. Continue PRVC at the current vent settings. Decrease Ti to 0.7 to avoid auto PEEP 2. Vent bundle and bronchodilators. Sedation with propofol, pain controlled with fentanyl. Maintain a RASS of -1 as long as patient does not interfere with the ventilator 3. Neutropenic precautions 4. Continue Vanco, change cefepime to meropenem (patient worsening on cefepime) 5. Continue azithromycin for now but discontinue over the next few days if Legionella urinary antigen returns negative 6. Oseltamivir 7. On carbamazepine, trazodone and Zyprexa 8. Daily chest x-ray 9. KUB today to rule out obstruction. If no evidence of obstruction we will start tube feeds tomorrow after EGD 10. GI/DVT prophylaxis 11. GI consult appreciated. Plan for EGD noted 12. Liver ultrasound ordered. Check acute hepatitis profile and HIV Patient is critically ill with acute hypoxic respiratory failure, influenza pneumonia, neutropenic fever in an immunosuppressed individual, and he is at very high risk for further deterioration and . I spent 32 minutes of critical care time managing ventilator, fluids, antibiotics, reviewing data, ordering tests, discussing with nursing staff. No family present at bedside. Gabino Huddleston MD Oct 26, 2017 09:38
--- NOTE | 2017-10-26 09:44 | PD.CONS ---
HPI History of Present Illness This is an unfortunate 62 year old male who is currently in the intensive care setting being managed with ET tube and ventilator. He is very drowsy but does open eyes with minimal response time. According to the record he was brought to the emergency room on 10/19/17 with dizzy spells, fall and hitting his head, bruises noted to right knee left hip and right hip, laceration to the 4 head and scalp which is healing, weakness and malaise. According to the record patient has advanced rectal cancer, positive pararectal lymph nodes and being treated with concurrent chemotherapy and radiation. Perianal site is very edematous and erythema, which may be the cause of his sepsis. He also is in contact and respiratory isolation for flu A. Patient will shake his head very minimal to questions of symptoms. Currently has no nausea no vomiting, no abdominal pain. Labs include elevated LFTs AST 97, ALT 94, alkaline phosphatase 149. Hemoglobin on 10/24/17 was 6.9 patient received transfusions X 3 units. 3 units now hemoglobin is 8.4. Initial bilirubin was 2.1 and now 3.2. patient is negative for C. difficile (Riddhi Andrews) PFSH Past Medical History Per the record GERD Hypertension Hyperlipidemia Degenerative disc disease BPH Bipolar affective disorder with depression Squamous cell carcinoma of the rectum, medical records show diagnosis July 2017 Past Surgical History Chemotherapy and radiation According to the record axillary lymph node removal benign in 1998 Rectal biopsy July 2017 squamous cell Distraction of basal cell skin carcinoma Right inguinal hernia 2012 Vertebral nerve blocks (Riddhi Andrews) Coded Allergies: doxycycline (Unverified Allergy, Severe, edema, 10/17/17) minocycline (Unverified Allergy, Severe, edema, 10/17/17) tigecycline (Unverified Allergy, Severe, edema, 10/17/17) Medications Administered Medications Medications (Trade) Dose Ordered Sig/Siddhartha Route PRN Reason Start Time Stop Time Status Last Admin Dose Admin Tamsulosin HCl (Flomax) 0.4 mg HS PO 10/17/17 21:00 10/24/17 19:47 Carbamazepine (TEGretol) 400 mg DAILY PO 10/18/17 09:00 10/26/17 08:25 Ondansetron HCl (Zofran Inj) 4 mg Q6H PRN IV PUSH VOMITING 10/18/17 16:45 10/25/17 04:05 Prochlorperazine Maleate (Compazine) 10 mg Q6H PRN PO NAUSEA 10/18/17 18:00 10/20/17 05:00 Loperamide HCl (Imodium) 2 mg Q6H PRN PO diarrhea 10/18/17 17:00 10/21/17 15:32 Acetaminophen (Tylenol) 500 mg Q4H PRN PO TEMPERATURE > 100.4 10/19/17 05:15 10/25/17 05:52 Morphine Sulfate (Morphine Inj) 4 mg Q3H PRN IV PUSH PAIN LEVEL 3-10 10/19/17 06:30 10/25/17 20:45 Cefepime HCl 1000 mg/Sodium Chloride 100 ml @ 200 mls/hr Q8H IV 10/19/17 14:00 10/26/17 05:08 Emollient Ointment (Aquaphor Oint) 1 applic Q12HR TOPICAL 10/19/17 21:00 10/25/17 09:51 Carbamazepine (TEGretol) 400 mg HS PO 10/21/17 21:00 10/25/17 20:44 Trazodone HCl (Desyrel) 150 mg HS PO 10/21/17 21:00 10/25/17 20:44 Albuterol Sulfate (Albuterol Neb) 2.5 mg Q4HR NEB PRN INH SHORTNESS OF BREATH 10/22/17 08:15 10/23/17 21:15 Olanzapine (ZyPREXA) 15 mg HS PO 10/22/17 21:00 10/24/17 19:47 Multi-Ingredient Mouthwash/Gargle (Magic Mouthwash Adult Liq) 5 ml QID SWISH-SWAL 10/23/17 13:00 10/24/17 19:45 Methylprednisolone Sodium Succinate (SoluMEDROL INJ) 40 mg Q8HR IV PUSH 10/23/17 22:00 10/26/17 05:08 Albuterol/ Ipratropium (Duoneb Neb) 1 ampule Q6HR WHILE AWAKE NEB NEB 10/24/17 08:00 10/26/17 08:10 Potassium Chloride/Sodium Chloride 1,000 ml @ 42 mls/hr [id number] IV 10/23/17 20:30 2/23/18 23:34 Vancomycin HCl 1000 mg/Sodium Chloride 250 ml @ 250 mls/hr Q8H IV 10/25/17 00:00 10/26/17 08:24 Pantoprazole Sodium (Protonix Inj) 40 mg Q24H IV PUSH 10/26/17 10:00 10/26/17 08:26 Lorazepam (Ativan Inj) 1 mg Q8H PRN IV ANXIETY 10/25/17 13:45 10/25/17 13:47 Propofol 100 ml @ 1.911 mls/ hr TITRATE PRN IV SEDATION 10/25/17 16:30 10/26/17 08:30 Chlorhexidine Gluconate (Peridex 0.12% Liq) 15 ml BID@08,20 MT 10/25/17 20:00 10/26/17 08:00 Fentanyl Citrate 250 ml @ 5 mls/hr TITRATE PRN IV SEDATION 10/25/17 22:15 10/25/17 22:51 Oseltamivir Phosphate (Tamiflu) 75 mg BID PO 10/25/17 22:30 10/26/17 08:24 Azithromycin 500 mg/Sodium Chloride 250 ml @ 250 mls/hr Q24H IV 10/25/17 20:00 10/25/17 23:16 Family History Unknown, minimal communication for now Social History Unknown (Riddhi Andrews) Review of Systems Minimal review due to patient's drowsiness and ventilator management (Riddhi Andrews) GI Exam Vitals I&O Vital Signs Date Time Temp Pulse Resp B/P (MAP) Pulse Ox O2 Delivery O2 Flow Rate FiO2 10/26/17 08:14 99 50 10/26/17 08:00 92 10/26/17 08:00 99.2 82 26 116/66 (83) 99 10/26/17 08:00 50 10/26/17 07:00 95 Mechanical Ventilator 50 10/26/17 04:00 76 10/26/17 04:00 50 10/26/17 04:00 98.6 76 26 102/62 (75) 99 10/26/17 03:54 100 50 10/26/17 00:34 99 50 10/26/17 00:00 50 10/26/17 00:00 99.7 69 26 101/63 (76) 98 10/26/17 00:00 69 10/25/17 20:14 99 50 10/25/17 20:00 60 10/25/17 20:00 95 Mechanical Ventilator 50 10/25/17 20:00 92 10/25/17 20:00 101.3 94 33 148/75 (99) 99 10/25/17 18:00 94 32 110/66 (81) 99 10/25/17 18:00 94 10/25/17 17:15 96 100 10/25/17 17:10 108 10/25/17 17:10 108 36 125/75 (92) 96 10/25/17 17:00 116 10/25/17 17:00 116 35 158/79 (105) 94 10/25/17 16:00 100 80 10/25/17 16:00 99 15.00 10/25/17 15:26 100.2 10/25/17 15:00 99 100 10/25/17 12:55 104 34 141/88 (105) 93 10/25/17 12:55 104 10/25/17 12:00 102 10/25/17 12:00 102 32 92 10/25/17 11:19 98.2 10/25/17 10:45 100 42 147/83 (104) 95 10/25/17 09:51 30 I/O 10/25/17 10/25/17 10/25/17 10/26/17 10/26/17 10/26/17 07:00 15:00 23:00 07:00 15:00 23:00 Intake Total 1970 ml 600 ml 500 ml 700 ml 100 ml Output Total 400 ml 500 ml 950 ml Balance 1570 ml 100 ml 500 ml -250 ml 100 ml Intake Oral 720 ml 600 ml 0 ml Oral Supplement 0 ml IV Total 1250 ml 500 ml 600 ml 100 ml Other 100 ml Output Urine Total 400 ml 500 ml 750 ml Gastric Drainage Total 200 ml # Bowel Movements 0 0 Imaging Last Impressions Chest X-Ray 10/25/17 0600 Signed Impressions: Service Date/Time: Wednesday, October 25, 2017 05:51 - CONCLUSION: No significant change. Tommie Capellan MD Abdomen X-Ray 10/23/17 0000 Signed Impressions: Service Date/Time: October 08:14 - CONCLUSION: Bowel gas pattern suggesting a distal small bowel obstruction. Marty Ashford Jr., MD ADDENDUM: I spoke with Dr. Castle who informs me that patient is on BIPAP. This could generate the distention of the small bowel as opposed to a distal small bowel obstruction. Marty Ashford Jr., MD Head CT 10/21/17 0000 Signed Impressions: Service Date/Time: Saturday, October 21, 2017 23:07 - CONCLUSION: 1. Ill-defined hyperdense area now noted along the left occipital parietal lobe junction likely representing a hemorrhagic contusion. 2. Interval decrease in the size of the right cephalohematoma. Ino Head MD Liver Ultrasound 10/19/17 0000 Signed Impressions: Service Date/Time: Thursday, October 19, 2017 14:17 - CONCLUSION: Extensive sludge in the gallbladder. No gallbladder wall thickening is seen.. Yonatan Quijano MD Pelvis X-Ray 10/17/17 1704 Signed Impressions: Service Date/Time: Tuesday, October 17, 2017 17:21 - CONCLUSION: Abnormal intertrochanteric region left hip, nonspecific. I do not see evidence for acute traumatic injury. Imer Stanley MD FACR Laboratory Test 10/25/17 15:25 10/25/17 17:20 10/25/17 17:36 10/25/17 20:15 Blood Gas Puncture Site RT RADIAL LT RADIAL Blood Gas Patient Temperature 37.0 37.0 Blood Gas HCO3 28 mmol/L 29 mmol/L Blood Gas Base Excess 5.1 mmol/L 4.8 mmol/L Blood Gas Oxygen Saturation 96 % 97 % Arterial Blood pH 7.51 7.43 Arterial Blood Partial Pressure CO2 36 mmHg 45 mmHg Arterial Blood Partial Pressure O2 164 mmHg 226 mmHg Arterial Blood Oxygen Content 13.8 Vol % 13.6 Vol % Arterial Blood Carboxyhemoglobin 1.6 % 0.2 % Arterial Blood Methemoglobin 1.4 % 1.0 % Blood Gas Hemoglobin 10.0 G/DL 9.6 G/DL Oxygen Delivery Device BIPAP VENTILATOR Blood Gas Ventilator Setting 15IPAP/ 8 EPAP PRVC/AC Blood Gas Inspired Oxygen 100 % 100 % Vancomycin Level Trough 15.3 MCG/ML Nasal Screen MRSA (PCR) MRSA NOT DETECTED Test 10/26/17 04:12 10/26/17 07:19 White Blood Count 1.4 TH/MM3 Red Blood Count 2.91 MIL/MM3 Hemoglobin 8.4 GM/DL Hematocrit 24.2 % Mean Corpuscular Volume 83.3 FL Mean Corpuscular Hemoglobin 29.0 PG Mean Corpuscular Hemoglobin Concent 34.8 % Red Cell Distribution Width 16.0 % Platelet Count 39 TH/MM3 Mean Platelet Volume 9.2 FL Neutrophils (%) (Auto) 91.5 % Lymphocytes (%) (Auto) 5.9 % Monocytes (%) (Auto) 1.8 % Eosinophils (%) (Auto) 0.4 % Basophils (%) (Auto) 0.4 % Neutrophils # (Auto) 1.3 TH/MM3 Lymphocytes # (Auto) 0.1 TH/MM3 Monocytes # (Auto) 0.0 TH/MM3 Eosinophils # (Auto) 0.0 TH/MM3 Basophils # (Auto) 0.0 TH/MM3 CBC Comment AUTO DIFF Differential Total Cells Counted 100 Neutrophils % (Manual) 93 % Band Neutrophils % 1 % Lymphocytes % 6 % Neutrophils # (Manual) 1.3 TH/MM3 Differential Comment FINAL DIFF MANUAL Toxic Granulation 3+ Dohle Bodies PRESENT Platelet Estimate LOW Platelet Morphology Comment NORMAL Acanthocytes OCC Blood Urea Nitrogen 15 MG/DL Creatinine 0.59 MG/DL Random Glucose 106 MG/DL Total Protein 4.6 GM/DL Albumin 1.3 GM/DL Calcium Level 7.6 MG/DL Phosphorus Level 2.4 MG/DL Magnesium Level 1.8 MG/DL Alkaline Phosphatase 149 U/L Aspartate Amino Transf (AST/SGOT) 97 U/L Alanine Aminotransferase (ALT/SGPT) 94 U/L Total Bilirubin 3.2 MG/DL Sodium Level 136 MEQ/L Potassium Level 3.7 MEQ/L Chloride Level 100 MEQ/L Carbon Dioxide Level 32.6 MEQ/L Anion Gap 3 MEQ/L Estimat Glomerular Filtration Rate 138 ML/MIN Blood Gas Puncture Site LT RADIAL Blood Gas Patient Temperature 98.6 Blood Gas HCO3 28 mmol/L Blood Gas Base Excess 4.1 mmol/L Blood Gas Oxygen Saturation 96 % Arterial Blood pH 7.45 Arterial Blood Partial Pressure CO2 41 mmHg Arterial Blood Partial Pressure O2 131 mmHg Arterial Blood Oxygen Content 13.9 Vol % Arterial Blood Carboxyhemoglobin 1.3 % Arterial Blood Methemoglobin 1.1 % Blood Gas Hemoglobin 10.1 G/DL Oxygen Delivery Device VENTILATOR Blood Gas Ventilator Setting PRVC/AC Blood Gas Inspired Oxygen 50 % Date/Time Source Procedure Growth Status 10/25/17 17:20 Blood Peripheral Aerobic Blood Culture Pending Received 10/25/17 17:20 Blood Peripheral Anaerobic Blood Culture Pending Received 10/25/17 17:30 Nasal Aspirate Influenza Types A,B Antigen (CED) - Final Positive For Flu A Antigen Complete 10/25/17 17:30 Urine Catheterized Urine Legionella Antigen Pending Received 10/25/17 17:30 Urine Catheterized Urine Streptococcus pneumoniae Antigen (M Pending Received Physical Examination HEENT: Pupils round and reactive to light, slow; normocephalic; atraumatic; pale , mild icteric ET tube in, with oral NG tube NECK: Neck is supple, CHEST: Mild rhonchi, some diminished breath sounds, ventilator management CARDIAC: Regular rate and rhythm with no murmur gallop or rubs. ABDOMEN: Taut, nondistended, nontender; no hepatosplenomegaly; bowel sounds are soft in all four quadrants. EXTREMITIES: Mild lower extremity edema right leg SKIN: Pale, dry; no rash; no jaundice. IN STORE DEMONSTRATOR: Drowsy and lethargic, sedation on board (Riddhi Andrews) Assessment and Plan Assessment: (1) Rectal cancer ICD Codes: C20 - Malignant neoplasm of rectum Status: Chronic (2) Elevated LFTs ICD Codes: R79.89 - Other specified abnormal findings of blood chemistry Status: Acute (3) Abdominal distension (gaseous) ICD Codes: R14.0 - Abdominal distension (gaseous) Status: Acute (4) Anemia ICD Codes: D64.9 - Anemia, unspecified Status: Acute Plan Symptomatic anemia on 223 hemoglobin dropped to 6.9, she received 3 units of packed RBC transfusion now back up to 8.4. After reviewing these record no history seen of EGD or colonoscopy. GI bleed, hemoglobin now stable but will need further evaluation. Will review for previous EGD and colonoscopy records Patient remains on ventilator management, positive for flu a, C. difficile negative. Shakes head minimally to no nausea vomiting or diarrhea. Abdomen is taut, soft bowel sounds. Rectal erythema which is recommended to manage through wound care. Rectal cancer, local, advanced per the record. Currently has been receiving chemotherapy and radiation Transaminitis , Elevated LFTs and bilirubin, initially 2.1 now 3.2, could be related to his cancer, inflammatory, rule out obstructive, versus shock, hemolysis., Liver ultrasound done on 10/19/17 shows extensive sludge in the gallbladder no gallbladder wall thickening, rule out gallbladder disease. Abdominal x-ray on 10/23/17 shows possible distal small bowel obstruction, patient was on BiPAP which could generate the distention of the small bowel as opposed to a distal small bowel obstruction, now patient is intubated. OG tube is to low intermittent suction Plan Liver workup, alpha-1 antitrypsin, mitochondrial and smooth muscle auto labs, LILA, IgG IgA, sedimentation rate, Ceruloplasmin. Liver ultrasound on chart. Consider EGD/possible colonoscopy, TBA, probable EGD in morning. PPI OG tube left intermittent suction, consider trickle feedings within the next few days abdominal x-ray today read eval distention Monitor for any acute bleeding Transfuse as necessary Supportive care Monitor labs This patient was seen per myself and Dr. Asencio, written on his behalf (Riddhi Andrews) Plan Patient was seen and examined, agree with above-noted, we will start by doing upper endoscopy to see if there is any reason for the bleeding and anemia to try to avoid giving patient the burden of the prep, if this is negative and patient continued to have anemia we will plan on doing colonoscopy at a later date Patient also has elevated liver function test and workup in progress most likely multifactorial (Willie Mclaughlin MD) Problem Qualifiers (1) Anemia: Qualified Codes: D64.9 - Anemia, unspecified Riddhi Andrews Oct 26, 2017 09:44 Willie Mclaughlin MD Oct 26, 2017 16:53
[2017-10-26] MEDS ORDERED: MISCELLANEOUS PHARMACY INFORMATION XX PRN (10:15)
[2017-10-26] MEDS ORDERED: ASP: Other exception documentation: ( ) PRN (10:15)
--- NOTE | 2017-10-26 10:39 | RADRPT ---
EXAM DATE/TIME: 10/26/2017 09:47 [facility] COMPARISON: ABDOMEN KUB ONLY, October 23, 2017, 8:14. INDICATIONS : Obstruction. Abdominal pain. MEDICAL HISTORY : Hypertension. Rectal cancer. Squamous cell carcinoma. GERD. SURGICAL HISTORY : Hernia repair. Bilateral shoulder cuff repair. Chemotherapy. Radiation therapy. Blood transfusions. ENCOUNTER: Subsequent ACUITY: 1 week PAIN SCORE: Non-responsive. LOCATION: abdomen. FINDINGS: There is an NG tube in place with the tip in the duodenum. Air seen within nondistended segments of s mall and large bowel. Free air is not detected. There is some degenerative change of the lower lumbar spine. CONCLUSION: Negative KUB. Tommie Cortez MD on October 26, 2017 at 10:37 Board Certified Radiologist. This report was verified electronically.
[2017-10-26] MEDS: MEROPENEM INJ 1,000 MG in SODIUM CHLORIDE 0.9% INJ 100 ML IV SCH ×2 (10:53→18:02)
--- NOTE | 2017-10-26 11:34 | RADRPT ---
EXAM DATE/TIME: 10/26/2017 09:42 [facility] COMPARISON: CHEST SINGLE AP, October 25, 2017, 16:51. INDICATIONS : Respiratory failure. MEDICAL HISTORY : Hypertension. Rectal cancer. Squamous cell carcinoma. GERD. SURGICAL HISTORY : Hernia repair. Bilateral shoulder cuff repair. Chemotherapy. Radiation therapy. Blood transfusions. ENCOUNTER: Subsequent ACUITY: 1 week PAIN SCORE: Non-responsive. LOCATION: Bilateral chest FINDINGS: The patient is intubated with the tip of the ET tube 1.4 cm from the justin. There is an Infuse-A-Po rt in place in the right entering throughout the right internal jugular central approach with the tip overlying the SVC. It is well-placed. The heart size is normal. There is diffuse areas of consoli dation seen throughout the lungs bilaterally being most prominent in the left perihilar region. Ther e is an NG tube in place with the tip directed into the stomach. A significant effusion is not clear ly seen on these frontal views. CONCLUSION: 1. Diffuse areas of consolidation throughout the lungs which could represent underlying edema or dif fuse infection. There is more focal consolidation in the left perihilar region. These findings are unchanged. 2. ET tube continues to be a low but acceptable position 1.4 cm above the justin. Tommie Cortez MD on October 26, 2017 at 10:34 Board Certified Radiologist. This report was verified electronically.
--- NOTE | 2017-10-26 12:17 | MB ---
cc: MAURA NICK MD DATE OF CONSULTATION: 10/26/2017 REQUESTING PHYSICIAN: Dr. Interiano. REASON FOR CONSULTATION: Sepsis. HISTORY OF PRESENT ILLNESS This is a 62-year-old white male who presented to the emergency department on 10/17 after falling. The patient reportedly was on the tile floor of his home for some time after he fell and was discovered by his family. He was evaluated and was noted to have heart rate of 107 and white blood cell count of 2.7 with 63% neutrophils. He was felt to have mild rhabdomyolysis and was treated. The patient has a history of rectal cancer for which he received chemotherapy and subsequently radiation therapy. His blood cultures were taken on admission and has no growth. He was positive for testing for influenzae on 10/25. Chest x-ray performed on 10/25 showed severe bilateral airspace consolidation. The chest x-ray on October 23 also revealed bilateral pulmonary infiltrates which has progressed and the differential included pulmonary edema versus infectious etiology. Sputum culture is pending. The sputum Gram stain showed few white cells and rare budding yeast cells and also rare pleomorphic gram-positive rods. He is currently not producing any significant sputum via the endotracheal tube. The patient has been intubated and is on the ventilator. The radiation therapy has been put on hold because of his current condition and hospitalization. The patient had a temperature elevation of 100.3 on 10/18 and he has had recurrent fever with temperature up to 101, and the last maximum temperature was 101.3 yesterday evening. The white count has been decreasing. The white count was 2.7 on admission and today it is 1.4. Latest temperature is 99.2. He is awake on the ventilator and follows commands. The patient was intubated yesterday and transferred to the [facility] from [place] yesterday evening. Repeated blood cultures from 10/25 is pending. Urine Legionella antigen and Strep pneumoniae antigen is negative. Today's chest x-ray still shows bilateral infiltrates but they appear to be improved. The patient has been started on Tamiflu. PAST MEDICAL HISTORY: 1. Bipolar disorder. 2. Hypertension. 3. Gastroesophageal reflux. 4. BPH. 5. Lumbar degenerative disk disease. 6. Squamous cell cancer of the rectum diagnosed 07/2017. 7. Basal cell carcinoma of the skin. 8. Right inguinal hernia repair. 9. Rotator cuff repair. 10. [id number]. ALLERGIES DOXYCYCLINE, MINOCYCLINE, TIGECYCLINE. MEDICATIONS: 1. Meropenem. 2. Azithromycin. 3. Vancomycin. 4. Methylprednisolone. 5. Tamiflu 6. Protonix 7. Propofol. 8. Inhaled albuterol. 9. Potassium. 10. Tegretol. 11. Desyrel. 12. Flomax. SOCIAL HISTORY: No tobacco, no alcohol. No illicit drugs noted. FAMILY HISTORY Noncontributory. REVIEW OF SYSTEMS: Unobtainable. PHYSICAL EXAMINATION: This is a well-developed slender male who is in no acute distress. He is awake and alert on the ventilator. Vital signs: Include temperature of 99.2, BP 139/66, heart rate 84, respirations per ventilator. HEENT. Respirations per ventilator. The patient on 50% FIO2. Head, ears, eyes, nose and throat: The head atraumatic. Extraocular movements grossly intact, pupils reactive to light. No icterus. Oropharynx intubated. Neck: Supple without adenopathy or swelling. Lungs: Rhonchi at both bases. No wheezes. Heart: Regular S1-S2. No murmurs, rubs or gallops. Abdomen: Bowel sounds present, soft, mildly distended, nontender. No masses palpable. : Normal genitalia. Rectal: Not performed. The patient has skin breakdown at the rectum. Extremities: No clubbing or cyanosis or edema. Skin: No rash. Neurologic: No gross focal findings. Psychiatric: The patient is calm and is cooperative. LABORATORY DATA WBC 1.4, platelets 39, hemoglobin 8.4, 91% neutrophils, 5% lymphocytes, BUN 15, creatinine 0.59, sodium 136, AST 97, ALT 94, total bilirubin 3.2. IMPRESSION 1. Sepsis. 2. Neutropenia with fever. 3. Influenza pneumonia and probably superimposed bacterial pneumonia. 4. Acute respiratory failure. 5. Rectal cancer. The patient receiving radiation therapy. RECOMMENDATIONS 1. Continue Tamiflu for influenza treatment. 2. Continue vancomycin and meropenem for broad antibiotic coverage. 3. Continue azithromycin for additional pulmonary coverage in light of persistent infiltrates. 4. Monitor blood cultures. 5. Monitor white blood cell count. 6. Monitor temperature. 7. Monitor liver function tests. I have discussed the patient's condition with the RN. Thank you this consultation. The patient's progress will be monitored and further recommendations will be given on follow up. Maura Nick MD FD/MARJAN /11:24 AM /11:54 AM PETE
[2017-10-26 13:19] LABS: HEPARIN INDUCED PLATELET AB NEGATIVE (NEGATIVE)
--- NOTE | 2017-10-26 13:22 | HHI.PR ---
Subjective Remarks Patient was intubated yesterday after he failed BIPAP currently intubated and sedated with Diprivan and Fentanyl infusion. T:101.3 last night. Objective Vital Signs Vital Signs Date Time Temp Pulse Resp B/P (MAP) Pulse Ox O2 Delivery O2 Flow Rate FiO2 10/26/17 12:00 98.7 81 27 119/71 (87) 100 10/26/17 12:00 50 10/26/17 12:00 81 10/26/17 11:29 100 40 10/26/17 10:00 72 10/26/17 08:14 99 50 10/26/17 08:00 92 10/26/17 08:00 99.2 82 26 116/66 (83) 99 10/26/17 08:00 50 10/26/17 07:00 95 Mechanical Ventilator 50 10/26/17 04:00 76 10/26/17 04:00 50 10/26/17 04:00 98.6 76 26 102/62 (75) 99 10/26/17 03:54 100 50 10/26/17 00:34 99 50 10/26/17 00:00 50 10/26/17 00:00 99.7 69 26 101/63 (76) 98 10/26/17 00:00 69 10/25/17 20:14 99 50 10/25/17 20:00 60 10/25/17 20:00 95 Mechanical Ventilator 50 10/25/17 20:00 92 10/25/17 20:00 101.3 94 33 148/75 (99) 99 10/25/17 18:00 94 32 110/66 (81) 99 10/25/17 18:00 94 10/25/17 17:15 96 100 10/25/17 17:10 108 10/25/17 17:10 108 36 125/75 (92) 96 10/25/17 17:00 116 10/25/17 17:00 116 35 158/79 (105) 94 10/25/17 16:00 100 80 10/25/17 16:00 99 15.00 10/25/17 15:26 100.2 10/25/17 15:00 99 100 I/O 2/24/18 2/24/18 2/24/18 2/25/18 2/25/18 2/25/18 07:00 15:00 23:00 07:00 15:00 23:00 Intake Total 1970 ml 600 ml 500 ml 700 ml 450 ml Output Total 400 ml 500 ml 950 ml Balance 1570 ml 100 ml 500 ml -250 ml 450 ml Intake Oral 720 ml 600 ml 0 ml Oral Supplement 0 ml IV Total 1250 ml 500 ml 600 ml 450 ml Other 100 ml Output Urine Total 400 ml 500 ml 750 ml Gastric Drainage Total 200 ml # Bowel Movements 0 0 Result Diagram: 10/26/1741110/26/17411 Other Results Last Impressions Chest X-Ray 10/25/17 0600 Signed Impressions: Service Date/Time: Wednesday, October 25, 2017 05:51 - CONCLUSION: No significant change. Tommie Capellan MD Abdomen X-Ray 10/23/17 0000 Signed Impressions: Service Date/Time: October 08:14 - CONCLUSION: Bowel gas pattern suggesting a distal small bowel obstruction. Marty Ashford Jr., MD ADDENDUM: I spoke with Dr. Castle who informs me that patient is on BIPAP. This could generate the distention of the small bowel as opposed to a distal small bowel obstruction. Marty Ashford Jr., MD Head CT 10/21/17 0000 Signed Impressions: Service Date/Time: Saturday, October 21, 2017 23:07 - CONCLUSION: 1. Ill-defined hyperdense area now noted along the left occipital parietal lobe junction likely representing a hemorrhagic contusion. 2. Interval decrease in the size of the right cephalohematoma. Ino Head MD Liver Ultrasound 10/19/17 0000 Signed Impressions: Service Date/Time: Thursday, October 19, 2017 14:17 - CONCLUSION: Extensive sludge in the gallbladder. No gallbladder wall thickening is seen.. Yonatan Quijano MD Pelvis X-Ray 10/17/17 1704 Signed Impressions: Service Date/Time: Tuesday, October 17, 2017 17:21 - CONCLUSION: Abnormal intertrochanteric region left hip, nonspecific. I do not see evidence for acute traumatic injury. Imre Stanley MD FACR Objective Remarks GENERAL: Patient is 62 yo intubated and sedated SKIN: Warm and dry. HEAD: Normocephalic. EYES: No scleral icterus. No injection or drainage. NECK: Supple, trachea midline. No JVD or lymphadenopathy. CARDIOVASCULAR: Regular rate and rhythm without murmurs, gallops, or rubs. RESPIRATORY: Breath sounds equal bilaterally. No accessory muscle use. GASTROINTESTINAL: Abdomen soft, non-tender, nondistended. MUSCULOSKELETAL: No cyanosis, or edema. Neuro: Sedated A/P Assessment and Plan 1)VDRF 2)Diffuse b/l pulmonary infiltrates ddx : Infectious process vs fluid overload 3)Pancytopenia 4)Positive Influenza 5)Rectal Ca 6)Elevated LFT's Plan Continue with Diprivan, Fentanyl infusion for sedation. Daily sedation vacation. Monitor neuro status Continue with vent support keep sat >92% On PRVC, decrease FIO2 as fatuma. Bronchodilators, continue solumederol 40mg Q8 Abx per ID ( On Tamiflu, Vanco, Merrem, Azithromycin) Follow up on sputum cx, strep pneumonia and Legionella Ag negative on 10/25 D/C IVF and diurese with Lasix 40mg IV x1 Check 2D echo to eval LV function Continue treatment plan Danielle Landis MD Oct 26, 2017 13:22
[2017-10-26] MEDS ORDERED: FUROSEMIDE 40 MG/4 ML VIAL IV PUSH ONE (14:00)
[2017-10-26] MEDS: AZITHROMYCIN INJ 500 MG in SODIUM CHLOR 0.9% 250 ML INJ 250 ML IV SCH (19:15)
[2017-10-26] MEDS: traZODone HCL 100 MG TAB PO SCH (20:16)
[2017-10-26] MEDS: TAMSULOSIN HCL 0.4 MG CAP PO SCH (20:17)
[2017-10-27] VITALS (18 sets, daily range): BP systolic 89–139; BP diastolic 62–81; PULSE 78–110; RESP 26–28; TEMP 98.4–99.2; O2SAT 98–100
[2017-10-27] MEDS: VANCOMYCIN INJ 1,000 MG in SODIUM CHLOR 0.9% 250 ML INJ 250 ML IV SCH ×3 (00:30→16:00)
[2017-10-27] MEDS: PROPOFOL 1000 MG/100 ML INJ 100 ML IV PRN (01:50)
[2017-10-27] MEDS: MEROPENEM INJ 1,000 MG in SODIUM CHLORIDE 0.9% INJ 100 ML IV SCH ×3 (02:02→19:00)
[2017-10-27] MEDS: RESP: ALBUTEROL 2.5 MG/IPRATROPIUM 0.5 MG NEB (SCH) NEB ×4 (02:59→20:18)
[2017-10-27 04:20] LABS: AUTOMATED NEUTROPHIL # 1.1 TH/MM3 (1.8-7.7); BASOPHIL % 0.4 % (0.0-2.0); EOSINOPHIL % 0.6 % (0.0-4.0); HEMATOCRIT 24.2 % (39.0-51.0); HEMOGLOBIN 8.3 GM/DL (13.0-17.0); LYMPH % 9.2 % (9.0-44.0); LYMPHOCYTE # 0.1 TH/MM3 (1.0-4.8); MEAN CELL VOLUME 84.7 FL (80.0-100.0); MEAN CORPUSCULAR HEMOGLOBIN 29.2 PG (27.0-34.0); MEAN CORPUSCULAR HGB CONC 34.4 % (32.0-36.0); MEAN PLATELET VOLUME 9.3 FL (7.0-11.0); NEUT % 87.8 % (16.0-70.0); PLATELET COUNT 52 TH/MM3 (150-450); RED BLOOD COUNT 2.85 MIL/MM3 (4.50-5.90); RED CELL DISTRIBUTION WIDTH 16.1 % (11.6-17.2); WHITE BLOOD COUNT 1.2 TH/MM3 (4.0-11.0)
[2017-10-27 04:42] LABS: ALBUMIN 1.3 GM/DL (3.4-5.0); AST (GOT) 45 U/L (15-37); BICARBONATE 33.3 MEQ/L (21.0-32.0); BLOOD UREA NITROGEN 22 MG/DL (7-18); CALCIUM 7.7 MG/DL (8.5-10.1); CHLORIDE 100 MEQ/L (98-107); CREATININE 0.55 MG/DL (0.60-1.30); GLOMERULAR FILTRATION RATE 150 ML/MIN (>89); GLUCOSE,RANDOM 90 MG/DL (74-106); SODIUM (NA) 138 MEQ/L (136-145)
[2017-10-27 04:44] LABS: ALT (GPT) 67 U/L (12-78); PHOSPHORUS 2.9 MG/DL (2.5-4.9)
[2017-10-27 04:47] LABS: ALKALINE PHOSPHATASE 133 U/L (45-117); TOTAL BILIRUBIN ADULT 1.9 MG/DL (0.2-1.0); TOTAL PROTEIN 4.8 GM/DL (6.4-8.2)
[2017-10-27] MEDS: methylPREDNISolone SOD SUCC 40 MG/1 ML VIAL IV PUSH SCH ×3 (05:33→22:13)
--- NOTE | 2017-10-27 05:56 | RADRPT ---
EXAM DATE/TIME: 10/27/2017 05:08 [place] COMPARISON: CHEST SINGLE AP, October 26, 2017, 9:42. INDICATIONS : Short of breath. MEDICAL HISTORY : Hypertension. Rectal cancer. Squamous cell carcinoma. GERD. SURGICAL HISTORY : Hernia repair. Bilateral shoulder cuff repair. Chemotherapy. Radiation therapy. Blood transfusions. ENCOUNTER: Subsequent ACUITY: 1 week PAIN SCORE: 0/10 LOCATION: Bilateral chest FINDINGS: Stable ETT, NGT coursing beyond the GE junction and right IJ [id number]. Improved aeration of the right lower lung zones with persistent patchy airspace disease most prominently in the left mid to lo wer lung zones and perihilar region. Cardiomediastinal contours are stable. Remainder of the exam is unchanged. CONCLUSION: 1. Stable tubes and lines, as above. 2. Improved right lower lung zone airspace disease. 3. Stable patchy airspace disease in the left mid to lower lung zones. Erasmo Lacey MD on October 27, 2017 at 5:54 Board Certified Radiologist. This report was verified electronically.
[2017-10-27 06:59] LABS: BANDS 5 % (0-6); LYMPHOCYTES 7 % (9-44); MONOCYTES 1 % (0-8); NEUTROPHIL # MANUAL DIFF 1.1 TH/MM3 (1.8-7.7); POLYS (SEG NEUTROPHILS) 87 % (16-70)
[2017-10-27] MEDS: NYSTAT/DIPHENHY/LIDO MOUTHWASH (Adult) 120ML SWISH-SWAL SCH ×4 (07:41→20:53)
[2017-10-27] MEDS: CHLORHEXIDINE 0.12% (ORAL KIT) 15 ML CUP MT SCH ×2 (08:14→20:00)
[2017-10-27] MEDS: carBAMazepine 200 MG TAB PO SCH ×2 (08:15→20:50)
[2017-10-27] MEDS: OSELTAMIVIR PHOSPHATE 75 MG CAP PO SCH ×2 (08:15→20:49)
[2017-10-27] MEDS: AQUAPHOR OINT 50 GM TUBE TOPICAL SCH ×2 (08:15→20:53)
[2017-10-27] MEDS: PANTOPRAZOLE SODIUM 40 MG VIAL IV PUSH SCH (09:56)
[2017-10-27 10:32] LABS: HEPATITIS A AB IGM NEGATIVE (NEGATIVE); HEPATITIS B CORE AB IGM NEGATIVE (NEGATIVE); HEPATITIS B SURFACE ANTIGEN NEGATIVE (NEGATIVE); HEPATITIS C AB IgG NEGATIVE (NEGATIVE)
[2017-10-27] MEDS: fentaNYL DRIP 250 ML IV PRN (10:54)
[2017-10-27] MEDS ORDERED: PROPOFOL 200 MG/20 ML AMP IV ONE (12:00)
[2017-10-27] MEDS ORDERED: PHENYLEPH/NS 1000 MCG/10 ML SYR IV ONE (12:00)
[2017-10-27] MEDS ORDERED: ROCURONIUM INJ 50 MG/5 ML SYRINGE IV PUSH ONE (12:00)
--- NOTE | 2017-10-27 12:47 | HHI.PR ---
Subjective Remarks Intubated and on Vent support for resp failure . On Antibiotics and Steroids. Objective Vital Signs Date Time Temp Pulse Resp B/P (MAP) Pulse Ox O2 Delivery O2 Flow Rate FiO2 10/27/17 12:14 99 40 10/27/17 12:00 98.9 81 26 123/69 (87) 99 10/27/17 12:00 81 10/27/17 12:00 40 10/27/17 10:00 100 10/27/17 08:35 100 40 10/27/17 08:00 98.8 78 26 117/68 (84) 100 10/27/17 08:00 78 10/27/17 08:00 40 10/27/17 07:00 99 Mechanical Ventilator 40 10/27/17 04:30 99 40 10/27/17 04:00 40 10/27/17 04:00 98.4 88 26 89/62 (71) 100 10/27/17 02:05 99 40 10/27/17 00:00 40 10/27/17 00:00 99.2 92 26 123/68 (86) 100 10/26/17 22:37 99 40 10/26/17 20:00 95 Mechanical Ventilator 50 10/26/17 20:00 40 10/26/17 20:00 98.5 92 26 114/79 (91) 100 10/26/17 20:00 93 10/26/17 19:59 100 40 10/26/17 18:00 86 10/26/17 16:00 88 10/26/17 16:00 40 10/26/17 16:00 98.8 88 26 103/66 (78) 97 10/26/17 15:54 99 40 10/26/17 15:00 86 10/26/17 15:00 50 10/26/17 14:00 68 I/O 10/26/17 10/26/17 10/26/17 10/27/17 10/27/17 10/27/17 07:00 15:00 23:00 07:00 15:00 23:00 Intake Total 700 ml 1450 ml 593 ml 1095 ml 500 ml Output Total 950 ml 2550 ml 675 ml Balance -250 ml 1450 ml -1957 ml 420 ml 500 ml IV Total 600 ml 1450 ml 593 ml 1095 ml 500 ml Other 100 ml Output Urine Total 750 ml 2450 ml 550 ml Gastric Drainage Total 200 ml 100 ml 125 ml # Bowel Movements 0 0 0 Result Diagram: 10/27/1739910/27/17399 Objective Remarks This is a thinly built middle-aged white male who is pale and on Vent support. HEENT: Head normocephalic. Pupils reactive. Tongue is dry. Throat is clear . Nasal mucosae clear. He has a hematoma of the right side of his forehead about 1 cm in diameter. Ears have no inflammation. NECK: Supple. No bruits or thyroid enlargement. No lymphadenopathy. CHEST: Distant breath sounds with wheezes bilaterally, prolonged expirations. There are a few crackles at bases . HEART: The heart sounds are regular S1-S2. No murmur. No S3. ABDOMEN: The abdomen is soft and protuberant. No masses or organomegaly or tenderness. Bowel sounds are active. EXTREMITIES: Mild peripheral edema . Reflexes are 1+ with no gross motor deficits. NEUROLOGIC: sedated. RECTAL: Exam is deferred. SKIN: No lesions. Assessment and Plan Assessment and Plan IMPRESSION 1. Acute hypoxemic respiratory failure. 2. He has a history of rectal cancer. 3. Syncopal episodes 4. Basilar pneumonia 5. Anemia with blood loss 6. Dehydration and acute kidney injury PLan : 1. Wean Fio2 to 30 % 2. Cont solumedrol 40 mg IV Q8H 3. Continue Antibiotics . 4. Wean vent to CPAP in am 5. CBC,BMP ,Xray chest in am 6. Reduce sedation Kaylie Son MD Oct 27, 2017 12:47
--- NOTE | 2017-10-27 14:14 | HHI.CCPN ---
Subjective Remarks/Hospital Course 10/25: 62-year-old very pleasant gentleman with locally advanced rectal cancer, positive pararectal lymph node, who has been treated with concurrent chemotherapy and radiation. He is been admitted to [facility] after having a dizzy condition, having a lot of dizzy spells. The day prior to admission he fell and hit his head. He was not sure how he fell. He was bruised in the right knee, left hip, right hip more so and laceration of the right forehead and scalp. He was found by his father sitting up. He was too weak to get up. He was brought into the emergency room on 10/17/2017. While in the hospital he became severely septic with suspect perianal area as site of bacteria entry. He developed respiratory failure with ARDS requiring intubation and transfer to [facility] critical care unit. 10/26: No events overnight. Oxygen requirement gradually improving, currently at 0.5 FiO2. T-max of 101.3 yesterday afternoon. Patient is currently on propofol and fentanyl, comfortable, easily arousable, denying any pain. Yesterday's chest x-ray reviewed, ET tube 1.7 cm above justin, diffuse bilateral infiltrates. 10/27: some improvements in fio2 and oxygenation. patient awake and alert denies pain. out of shock. however, recently was in hypoxic respiratory failure. patient endorses mild dypsnea. ROS difficult to obtain due to ett, appears otherwise negative and only complaint this morning is mild dyspnea. Objective Vital Signs Date Time Temp Pulse Resp B/P (MAP) Pulse Ox O2 Delivery O2 Flow Rate FiO2 10/27/17 14:00 85 10/27/17 12:30 30 10/27/17 12:30 100 10/27/17 12:00 98.9 26 123/69 (87) 10/27/17 07:00 Mechanical Ventilator 10/25/17 16:00 15.00 Intake and Output 10/27/17 10/27/17 10/28/17 08:00 16:00 00:00 Intake Total 1095 ml 500 ml Output Total 675 ml Balance 420 ml 500 ml Result Diagram: 10/27/17 0400 10/27/17 0400 Other Results Microbiology Date/Time Source Procedure Growth Status 10/25/17 17:30 Nasal Aspirate Influenza Types A,B Antigen (CED) - Final Positive For Flu A Antigen Complete 10/25/17 17:30 Sputum Endotracheal Gram Stain - Final Complete 10/25/17 17:30 Sputum Endotracheal Sputum Culture - Final HEAVY GROWTH NORMAL RESPIRATORY MARIVEL Complete 10/25/17 17:30 Urine Catheterized Urine Legionella Antigen - Final PRESUMPTIVE NEGATIVE FOR LEGIONELLA P... Complete 10/25/17 17:30 Urine Catheterized Urine Streptococcus pneumoniae Antigen (M - Final PRESUMPTIVE NEGATIVE FOR STREPTOCOCCU... Complete Laboratory Tests Test 10/27/17 05:44 Blood Gas Puncture Site RT RADIAL Blood Gas Patient Temperature 98.6 Blood Gas HCO3 29 mmol/L (22-26) Blood Gas Base Excess 5.6 mmol/L (-2-2) Blood Gas Oxygen Saturation 97 % (90-100) Arterial Blood pH 7.50 (7.380-7.420) Arterial Blood Partial Pressure CO2 38 mmHg (38-42) Arterial Blood Partial Pressure O2 165 mmHg (61-120) Arterial Blood Oxygen Content 13.6 Vol % (12.0-20.0) Arterial Blood Carboxyhemoglobin 1.2 % (0-4) Arterial Blood Methemoglobin 1.0 % (0-2) Blood Gas Hemoglobin 9.7 G/DL (12.0-16.0) Oxygen Delivery Device VENT Blood Gas Ventilator Setting Blood Gas Inspired Oxygen 40 % Imaging Last 24 hours Impressions Chest X-Ray 10/25/17 0600 Signed Impressions: Service Date/Time: Wednesday, October 25, 2017 05:51 - CONCLUSION: No significant change. Tommie Capellan MD Chest X-Ray 10/25/17 0000 Signed Impressions: Service Date/Time: Wednesday, October 25, 2017 16:51 - CONCLUSION: 1. Endotracheal tube distal tip measures 1.8 cm from the justin. Nasogastric tube courses beyond the GE junction. 2. Stable severe bilateral airspace consolidation. Tommie Rivera MD Objective Remarks General -middle-aged gentleman, intubated and lightly sedated, cachectic, ill- appearing HEENT - pupils equal, reactive, sclerae anicteric, no JVD. CV - normal rate, regular rhythm. sinus. Chest - coarse breath sounds b/l, good air entry, no wheezes Abdomen - soft, non-tender, non-distended, no guarding. Skin - no rashes, no cyanosis Extremities - warm and well perfused, no edema, + peripheral pulses, no clubbing Neuro -intubated and lightly sedated, easily arousable, follows commands, moves all 4 extremities A/P Assessment and Plan 1. Acute hypoxic respiratory failure -improved oxygen requirements, currently at 0.5 FiO2 2. Severe sepsis - improving. 3. Influenza pneumonia 4. Rule out bacterial superinfection 5. Leukopenia - persistent. 6. Anal squama cell carcinoma which is locally advanced to the rectum and perirectal lymph nodes on 5FU and mitomycin 7. Bipolar disorder 8. Mild transaminitis -etiology unclear at this time 1. continue mechanical ventilation. will trial 30 - 60 minutes of SBT today, but given recent respiratory failure and ongoing dyspnea, will not extubate today. 2. Vent bundle and bronchodilators. Sedation with propofol, pain controlled with fentanyl. Maintain a RASS of -1 as long as patient does not interfere with the ventilator 3. Neutropenic precautions 4. Continue Vanco, changed cefepime to meropenem (patient worsening on cefepime ) 5. will attempt OOB today to prevent deconditioning. 6. continue Oseltamivir 7. On carbamazepine, trazodone and Zyprexa 8. Daily chest x-ray 9. tube feeds. 10. GI/DVT prophylaxis 11. GI consult appreciated. Plan for EGD noted OVERALL IMPRESSION: s/p severe sepsis, clinically improving. still with influenza pneumonia and marked neutropenia. respiratory failure persists and not ready to separate from mechanical ventilation. critically ill, but with some improvements today. Dominic Corado MD Oct 27, 2017 14:14
--- NOTE | 2017-10-27 14:55 | ECHRPT ---
Indication: EVALUATE LV FUNCTION CONCLUSIONS The left ventricular systolic function is normal with an estimated ejection fraction in the range of 55-60%. Mild concentric left ventricular hypertrophy. There is trace to mild tricuspid regurgitation. Probable epicardial fat pad is present, although could be a possible small anterior locuated pericar dial effusion (no hemodynamic criteria for tamponade noted). Doppler parameters are consistent with impaired left ventricular relaxtion (grade 1 diastolic dysfun ction). BP: 89 / 62 HR: 88 Rhythm: MEASUREMENTS (Male / Female) Normal Values Technical Quality: 2D ECHO LV Diastolic Diameter PLAX 4.8 cm 4.2 - 5.9 / 3.9 - 5.3 cm LV Systolic Diameter PLAX 3.1 cm IVS Diastolic Thickness 1.0 cm 0.6 - 1.0 / 0.6 - 0.9 cm LVPW Diastolic Thickness 1.0 cm 0.6 - 1.0 / 0.6 - 0.9 cm LV Relative Wall Thickness 0.4 RV Internal Dim ED PLAX 2.2 cm LVOT Diameter 1.9 cm Aortic Root Diameter 3.3 cm LA Systolic Diameter LX 3.1 cm 3.0 - 4.0 / 2.7 - 3.8 cm M-MODE AV Cusp Separation MM 2.1 cm DOPPLER AV Peak Velocity 146.0 cm/s AV Peak Gradient 8.5 mmHg AV Mean Gradient 4.0 mmHg AV Velocity Time Integral 24.0 cm LVOT Peak Velocity 82.7 cm/s LVOT Peak Gradient 2.7 mmHg LVOT Velocity Time Integral 12.5 cm AV Area Cont Eq vti 1.5 cm AV Area Cont Eq pk 1.6 cm Mitral E Point Velocity 64.7 cm/s Mitral A Point Velocity 93.8 cm/s Mitral E to A Ratio 0.7 LV E' Lateral Velocity 6.6 cm/s Mitral E to LV E' Lateral Ratio 9.8 LV E' Septal Velocity 9.1 cm/s Mitral E to LV E' Septal Ratio 7.1 TR Peak Velocity 322.0 cm/s TR Peak Gradient 41.5 mmHg Right Atrial Pressure 10.0 mmHg Pulmonary Artery Systolic Pressu 51.5 mmHg Right Ventricular Systolic Press 51.5 mmHg PV Peak Velocity 63.9 cm/s PV Peak Gradient 1.6 mmHg FINDINGS LEFT VENTRICLE Normal left ventricular size. Mild concentric left ventricular hypertrophy. The left ventricular systolic function is normal with an estimated ejection fraction in the range of 55-60%. There was limited left ventricular wall motion assessment due to poor endocardial visualization. Doppler parameters are consistent with impaired left ventricular relaxtion (grade 1 diastolic dysfun ction). RIGHT VENTRICLE Normal right ventricular size and systolic function. LEFT ATRIUM The left atrial size is normal. RIGHT ATRIUM The right atrial size is normal. ATRIAL SEPTUM Normal atrial septal thickness without atrial level shunting by limited color doppler interrogation. AORTA The aortic root and proximal ascending aorta are normal in size on limited imaging. MITRAL VALVE Structurally normal mitral valve. No mitral valve stenosis or regurgitation. AORTIC VALVE Aortic valve sclerosis is present. No aortic valve regurgitation. No aortic valve stenosis. TRICUSPID VALVE Structurally normal tricuspid valve. There is trace to mild tricuspid regurgitation The estimated pulmonary arterial pressure is 39 mmHg. PULMONARY VALVE The pulmonary valve is not well visualized. VESSELS The inferior vena cava is normal in size. PERICARDIUM Probable epicardial fat pad is present, although possible small anterior locuated pericardial effusi on (no hemodynamic criteria for tamponade noted) Porfirio Barraza DO (Electronically Signed) Final Date:27 October 2017 14:54 Amended: 27 October 2017 15:53
--- NOTE | 2017-10-27 14:58 | HHI.IDPN ---
Note Infectious Disease Note Patient on the ventilator. He is awake and alert. Following commands. Afebrile. Blood counts remain low. 62-year-old white male who presented to the emergency department on 10/17 after falling. The patient reportedly was on the tile floor of his home for some time after he fell and was discovered by his family. He was evaluated and was noted to have heart rate of 107 and white blood cell count of 2.7 with 63% neutrophils. He was felt to have mild rhabdomyolysis and was treated. The patient has a history of rectal cancer for which he received chemotherapy and subsequently radiation therapy. His blood cultures were taken on admission and has no growth. He was positive for testing for influenzae on 10/25. PAST MEDICAL HISTORY: 1. Bipolar disorder. 2. Hypertension. 3. Gastroesophageal reflux. 4. BPH. 5. Lumbar degenerative disk disease. 6. Squamous cell cancer of the rectum diagnosed 07/2017. 7. Basal cell carcinoma of the skin. 8. Right inguinal hernia repair. 9. Rotator cuff repair. 10. [id number]. ALLERGIES DOXYCYCLINE, MINOCYCLINE, TIGECYCLINE. MEDICATIONS: 1. Meropenem. 2. Azithromycin. 3. Vancomycin. 4. Tamiflu OBJECTIVE: Vital Signs Date Time Temp Pulse Resp B/P (MAP) Pulse Ox O2 Delivery O2 Flow Rate FiO2 10/27/17 14:00 85 10/27/17 12:30 30 10/27/17 12:30 100 30 10/27/17 12:14 99 40 10/27/17 12:00 98.9 81 26 123/69 (87) 99 10/27/17 12:00 81 10/27/17 12:00 40 10/27/17 10:00 100 10/27/17 08:35 100 40 10/27/17 08:00 98.8 78 26 117/68 (84) 100 10/27/17 08:00 78 10/27/17 08:00 40 10/27/17 07:00 99 Mechanical Ventilator 40 10/27/17 04:30 99 40 10/27/17 04:00 40 10/27/17 04:00 98.4 88 26 89/62 (71) 100 10/27/17 02:05 99 40 10/27/17 00:00 40 10/27/17 00:00 99.2 92 26 123/68 (86) 100 10/26/17 22:37 99 40 10/26/17 20:00 95 Mechanical Ventilator 50 10/26/17 20:00 40 10/26/17 20:00 98.5 92 26 114/79 (91) 100 10/26/17 20:00 93 10/26/17 19:59 100 40 10/26/17 18:00 86 10/26/17 16:00 88 10/26/17 16:00 40 10/26/17 16:00 98.8 88 10/26/17 15:00 50 Laboratory Tests Test 10/26/17 04:12 10/27/17 04:00 White Blood Count 1.4 TH/MM3 1.2 TH/MM3 Red Blood Count 2.91 MIL/MM3 2.85 MIL/MM3 Hemoglobin 8.4 GM/DL 8.3 GM/DL Hematocrit 24.2 % 24.2 % Mean Corpuscular Volume 83.3 FL 84.7 FL Mean Corpuscular Hemoglobin 29.0 PG 29.2 PG Mean Corpuscular Hemoglobin Concent 34.8 % 34.4 % Red Cell Distribution Width 16.0 % 16.1 % Platelet Count 39 TH/MM3 52 TH/MM3 Mean Platelet Volume 9.2 FL 9.3 FL Neutrophils (%) (Auto) 91.5 % 87.8 % Lymphocytes (%) (Auto) 5.9 % 9.2 % Monocytes (%) (Auto) 1.8 % 2.0 % Eosinophils (%) (Auto) 0.4 % 0.6 % Basophils (%) (Auto) 0.4 % 0.4 % Neutrophils # (Auto) 1.3 TH/MM3 1.1 TH/MM3 Lymphocytes # (Auto) 0.1 TH/MM3 0.1 TH/MM3 Monocytes # (Auto) 0.0 TH/MM3 0.0 TH/MM3 Eosinophils # (Auto) 0.0 TH/MM3 0.0 TH/MM3 Basophils # (Auto) 0.0 TH/MM3 0.0 TH/MM3 CBC Comment AUTO DIFF AUTO DIFF Differential Total Cells Counted 100 100 Neutrophils % (Manual) 93 % 87 % Band Neutrophils % 1 % 5 % Lymphocytes % 6 % 7 % Neutrophils # (Manual) 1.3 TH/MM3 1.1 TH/MM3 Differential Comment FINAL DIFF MANUAL FINAL DIFF MANUAL Toxic Granulation 3+ Dohle Bodies PRESENT Platelet Estimate LOW LOW Platelet Morphology Comment NORMAL NORMAL Acanthocytes OCC Monocytes % 1 % Red Cell Morphology Comment Laboratory Tests Test 10/26/17 04:12 10/27/17 04:00 Blood Urea Nitrogen 15 MG/DL 22 MG/DL Creatinine 0.59 MG/DL 0.55 MG/DL Random Glucose 106 MG/DL 90 MG/DL Total Protein 4.6 GM/DL 4.8 GM/DL Albumin 1.3 GM/DL 1.3 GM/DL Calcium Level 7.6 MG/DL 7.7 MG/DL Phosphorus Level 2.4 MG/DL 2.9 MG/DL Magnesium Level 1.8 MG/DL 2.0 MG/DL Alkaline Phosphatase 149 U/L 133 U/L Aspartate Amino Transf (AST/SGOT) 97 U/L 45 U/L Alanine Aminotransferase (ALT/SGPT) 94 U/L 67 U/L Total Bilirubin 3.2 MG/DL 1.9 MG/DL Sodium Level 136 MEQ/L 138 MEQ/L Potassium Level 3.7 MEQ/L 3.4 MEQ/L Chloride Level 100 MEQ/L 100 MEQ/L Carbon Dioxide Level 32.6 MEQ/L 33.3 MEQ/L Anion Gap 3 MEQ/L 5 MEQ/L Estimat Glomerular Filtration Rate 138 ML/MIN 150 ML/MIN Microbiology Date/Time Source Procedure Growth Status 10/25/17 17:20 Blood Peripheral Aerobic Blood Culture - Preliminary NO GROWTH IN 2 DAYS Resulted 10/25/17 17:20 Blood Peripheral Anaerobic Blood Culture - Preliminary NO GROWTH IN 2 DAYS Resulted 10/25/17 17:15 Blood Peripheral Aerobic Blood Culture - Preliminary NO GROWTH IN 2 DAYS Resulted 10/25/17 17:15 Blood Peripheral Anaerobic Blood Culture - Preliminary NO GROWTH IN 2 DAYS Resulted 10/25/17 17:30 Nasal Aspirate Influenza Types A,B Antigen (CED) - Final Positive For Flu A Antigen Complete 10/25/17 17:30 Sputum Endotracheal Gram Stain - Final Complete 10/25/17 17:30 Sputum Endotracheal Sputum Culture - Final HEAVY GROWTH NORMAL RESPIRATORY MARIVEL Complete 10/25/17 17:30 Urine Catheterized Urine Legionella Antigen - Final PRESUMPTIVE NEGATIVE FOR LEGIONELLA P... Complete 10/25/17 17:30 Urine Catheterized Urine Streptococcus pneumoniae Antigen (M - Final PRESUMPTIVE NEGATIVE FOR STREPTOCOCCU... Complete IMAGING: Chest X-Ray 10/26/17 1000 Signed Impressions: Service Date/Time: Thursday, October 26, 2017 09:42 - CONCLUSION: 1. Diffuse areas of consolidation throughout the lungs which could represent underlying edema or diffuse infection. There is more focal consolidation in the left perihilar region. These findings are unchanged. 2. ET tube continues to be a low but acceptable position 1.4 cm above the justin. Tommie Cortez MD Abdomen X-Ray 10/26/17 1000 Signed Impressions: Service Date/Time: Thursday, October 26, 2017 09:47 - CONCLUSION: Negative KUB. Tommie Cortez MD Head CT 10/21/17 0000 Signed Impressions: Service Date/Time: Saturday, October 21, 2017 23:07 - CONCLUSION: 1. Ill-defined hyperdense area now noted along the left occipital parietal lobe junction likely representing a hemorrhagic contusion. 2. Interval decrease in the size of the right cephalohematoma. Ino Head MD Liver Ultrasound 10/19/17 0000 Signed Impressions: Service Date/Time: Thursday, October 19, 2017 14:17 - CONCLUSION: Extensive sludge in the gallbladder. No gallbladder wall thickening is seen.. Yonatan Quijano MD Pelvis X-Ray 10/17/17 1704 Signed Impressions: Service Date/Time: Tuesday, October 17, 2017 17:21 - CONCLUSION: Abnormal intertrochanteric region left hip, nonspecific. I do not see evidence for acute traumatic injury. Imer Stanley MD FACR PHYSICAL EXAMINATION: GENERAL: No acute distress. He is awake and alert on the ventilator. HEENT. The head atraumatic. Extraocular movements grossly intact, pupils reactive to light. No icterus. Oropharynx intubated. Neck: Supple without adenopathy or swelling. Lungs: Rhonchi at the left base. No wheezes. Breath sounds clearer. Heart: Regular S1-S2. No murmurs, rubs or gallops. Abdomen: Bowel sounds present, soft, mildly distended, nontender. No masses palpable. Extremities: No clubbing or cyanosis or edema. Skin: No rash. Neurologic: No gross focal findings. Psychiatric: Calm and is cooperative. IMPRESSION 1. Sepsis. 2. Neutropenia with fever. 3. Influenza pneumonia and probably superimposed bacterial pneumonia. 4. Acute respiratory failure. 5. Rectal cancer. 6. Increased LFT. improving. RECOMMENDATIONS 1. Continue Tamiflu for influenzae treatment. 2. Continue vancomycin. 3. Continue Meropenem. 4. Continue azithromycin for additional pulmonary coverage in light of persistent infiltrates. 5. Monitor blood cultures. 6. Monitor white blood cell count. 7. Monitor temperature. 8. Monitor liver function tests. Discussed with RN and patient's 2 sisters at bedside. Kamar Chand MD Oct 27, 2017 14:58
--- NOTE | 2017-10-27 15:37 | PD.PROCEDR ---
GI Procedure PROCEDURE PERFORMED Upper endoscopy INDICATION FOR PROCEDURE Anemia PROCEDURE: The procedure, risks and benefits were discussed with Mr. Franks and informed consent was obtained. Anesthesia sedated him with Diprivan. He was placed in the left lateral decubitus position. EGD: The Pentax videoscope was introduced through the oropharynx and advanced to the second portion of the duodenum under direct visualization. Retroflexion was performed in the stomach. ESTIMATED BLOOD LOSS: None SPECIMENS REMOVED: None COMPLICATIONS: None IMPRESSION: Mild erythema in the stomach consistent with NG tube trauma Minimal esophagitis Normal otherwise Most likely anemia multifactorial including colon cancer PLAN: Avoid to much suction to the NG tube Monitor hemoglobin Back RBC as needed If patient started having active bleeding from the rectum might consider colonoscopy Willie Mclaughlin MD Oct 27, 2017 15:37
--- NOTE | 2017-10-27 15:41 | HHI.GIFU ---
Subjective Remarks Patient is awake intubated lethargic no sign of active bleeding Objective Vitals I&O Vital Signs Date Time Temp Pulse Resp B/P (MAP) Pulse Ox O2 Delivery O2 Flow Rate FiO2 10/27/17 14:00 85 10/27/17 12:30 30 10/27/17 12:30 100 30 10/27/17 12:14 99 40 10/27/17 12:00 98.9 81 26 123/69 (87) 99 10/27/17 12:00 81 10/27/17 12:00 40 10/27/17 10:00 100 10/27/17 08:35 100 40 10/27/17 08:00 98.8 78 26 117/68 (84) 100 10/27/17 08:00 78 10/27/17 08:00 40 10/27/17 07:00 99 Mechanical Ventilator 40 10/27/17 04:30 99 40 10/27/17 04:00 40 10/27/17 04:00 98.4 88 26 89/62 (71) 100 10/27/17 02:05 99 40 10/27/17 00:00 40 10/27/17 00:00 99.2 92 26 123/68 (86) 100 10/26/17 22:37 99 40 10/26/17 20:00 95 Mechanical Ventilator 50 10/26/17 20:00 40 10/26/17 20:00 98.5 92 26 114/79 (91) 100 10/26/17 20:00 93 10/26/17 19:59 100 40 10/26/17 18:00 86 10/26/17 16:00 88 10/26/17 16:00 40 10/26/17 16:00 98.8 88 26 103/66 (78) 97 10/26/17 15:54 99 40 I/O 10/26/17 10/26/17 10/26/17 10/27/17 10/27/17 10/27/17 07:00 15:00 23:00 07:00 15:00 23:00 Intake Total 700 ml 1450 ml 593 ml 1095 ml 500 ml Output Total 950 ml 2550 ml 675 ml Balance -250 ml 1450 ml -1957 ml 420 ml 500 ml IV Total 600 ml 1450 ml 593 ml 1095 ml 500 ml Other 100 ml Output Urine Total 750 ml 2450 ml 550 ml Gastric Drainage Total 200 ml 100 ml 125 ml # Bowel Movements 0 0 0 Laboratory Laboratory Tests Test 10/27/17 04:00 10/27/17 05:44 White Blood Count 1.2 Red Blood Count 2.85 Hemoglobin 8.3 Hematocrit 24.2 Mean Corpuscular Volume 84.7 Mean Corpuscular Hemoglobin 29.2 Mean Corpuscular Hemoglobin Concent 34.4 Red Cell Distribution Width 16.1 Platelet Count 52 Mean Platelet Volume 9.3 Neutrophils (%) (Auto) 87.8 Lymphocytes (%) (Auto) 9.2 Monocytes (%) (Auto) 2.0 Eosinophils (%) (Auto) 0.6 Basophils (%) (Auto) 0.4 Neutrophils # (Auto) 1.1 Lymphocytes # (Auto) 0.1 Monocytes # (Auto) 0.0 Eosinophils # (Auto) 0.0 Basophils # (Auto) 0.0 CBC Comment AUTO DIFF Differential Total Cells Counted 100 Neutrophils % (Manual) 87 Band Neutrophils % 5 Lymphocytes % 7 Monocytes % 1 Neutrophils # (Manual) 1.1 Differential Comment FINAL DIFF MANUAL Platelet Estimate LOW Platelet Morphology Comment NORMAL Red Cell Morphology Comment Blood Urea Nitrogen 22 Creatinine 0.55 Random Glucose 90 Total Protein 4.8 Albumin 1.3 Calcium Level 7.7 Phosphorus Level 2.9 Magnesium Level 2.0 Alkaline Phosphatase 133 Aspartate Amino Transf (AST/SGOT) 45 Alanine Aminotransferase (ALT/SGPT) 67 Total Bilirubin 1.9 Sodium Level 138 Potassium Level 3.4 Chloride Level 100 Carbon Dioxide Level 33.3 Anion Gap 5 Estimat Glomerular Filtration Rate 150 Hepatitis A IgM Antibody NEGATIVE Hepatitis B Surface Antigen NEGATIVE Hepatitis B Core IgM Antibody NEGATIVE Hepatitis C Antibody NEGATIVE HIV (1&2) Antibody NEGATIVE Blood Gas Puncture Site RT RADIAL Blood Gas Patient Temperature 98.6 Blood Gas HCO3 29 Blood Gas Base Excess 5.6 Blood Gas Oxygen Saturation 97 Arterial Blood pH 7.50 Arterial Blood Partial Pressure CO2 38 Arterial Blood Partial Pressure O2 165 Arterial Blood Oxygen Content 13.6 Arterial Blood Carboxyhemoglobin 1.2 Arterial Blood Methemoglobin 1.0 Blood Gas Hemoglobin 9.7 Oxygen Delivery Device VENT Blood Gas Ventilator Setting Blood Gas Inspired Oxygen 40 Date/Time Source Procedure Growth Status 10/25/17 17:20 Blood Peripheral Aerobic Blood Culture - Preliminary NO GROWTH IN 2 DAYS Resulted 10/25/17 17:20 Blood Peripheral Anaerobic Blood Culture - Preliminary NO GROWTH IN 2 DAYS Resulted 10/25/17 17:30 Nasal Aspirate Influenza Types A,B Antigen (CED) - Final Positive For Flu A Antigen Complete 10/25/17 17:30 Urine Catheterized Urine Legionella Antigen - Final PRESUMPTIVE NEGATIVE FOR LEGIONELLA P... Complete 10/25/17 17:30 Urine Catheterized Urine Streptococcus pneumoniae Antigen (M - Final PRESUMPTIVE NEGATIVE FOR STREPTOCOCCU... Complete Physical Exam HEENT: Pupils round and reactive to light; normocephalic; atraumatic; no jaundice. Throat is clear.n a shunt intubated NECK: Neck is supple, no JVD, no lymphadenopathy. CHEST: Decreased breathing sounds CARDIAC: Regular rate and rhythm with no murmur gallop or rubs. ABDOMEN: Soft, nondistended, nontender; no hepatosplenomegaly; bowel sounds are present in all four quadrants. EXTREMITIES: No clubbing, cyanosis, +edema. SKIN: Normal; no rash; no jaundice. STATISTICS TEACHER: No focal deficits; awake. Assessment and Plan Assessment: (1) Rectal cancer ICD Codes: C20 - Malignant neoplasm of rectum Status: Chronic (2) Elevated LFTs ICD Codes: R79.89 - Other specified abnormal findings of blood chemistry Status: Acute (3) Abdominal distension (gaseous) ICD Codes: R14.0 - Abdominal distension (gaseous) Status: Acute (4) Anemia ICD Codes: D64.9 - Anemia, unspecified Status: Acute Plan Patient was seen and examined, agree hemoglobin stable over the last 48 hours, patient had upper endoscopy today, Liver function test is improving IMPRESSION: Mild erythema in the stomach consistent with NG tube trauma Minimal esophagitis Normal otherwise Most likely anemia multifactorial including colon cancer PLAN: Avoid to much suction to the NG tube Monitor hemoglobin Back RBC as needed If patient started having active bleeding from the rectum might consider colonoscopy Most likely elevated liver function test because of medication and possible malignancy Problem Qualifiers (1) Anemia: Qualified Codes: D64.9 - Anemia, unspecified Willie Mclaughlin MD Oct 27, 2017 15:41
--- NOTE | 2017-10-27 15:43 | PD.WCN.NOT ---
Wound Consult Description: Consult placed for WOUND MANAGEMENT of rectal per telephone order by Dr Celestin/ CARMEN Communicated with: DAVID Hale Family members at bedside Recommendation: Apply Ritters Cream BID to perirectal/bilateral buttocks. Ritters cream is a medication available from pharmacy. Additional Information: Patient seen with RN and family members at bedside. Patient turned to his right side for assessment of the perirectal and bilateral buttocks that are severely macerated. Patient family members are stating that the wounds have actually gotten better and are from radiation therapy. The wounds were measured as one wound encompassing the medial buttocks and distal sacral area. Measurements are 10cm x 6cm x <0.1cm of moist red non granulating tissue with maceration noted to the periwounds. Patient has blanching discoloration noted to bilateral buttocks. The cloth pad was removed and the green disposable ultrasorb was placed underneath patient buttocks for moisture. Wounds were gently cleansed with normal saline and gauze before prepping with Cavilon skin barrier film spray. Patient repositioned back to his right side with a pillow underneath his left buttocks and back when film writer was leaving room for a procedure with GI. Kasia Pineda [facility] Oct 27, 2017 15:43
[2017-10-27] MEDS: TAMSULOSIN HCL 0.4 MG CAP PO SCH (20:49)
[2017-10-27] MEDS: traZODone HCL 100 MG TAB PO SCH (20:50)
[2017-10-27] MEDS: AZITHROMYCIN INJ 500 MG in SODIUM CHLOR 0.9% 250 ML INJ 250 ML IV SCH (20:51)
[2017-10-28] VITALS (17 sets, daily range): BP systolic 105–144; BP diastolic 63–82; PULSE 72–96; RESP 14–26; TEMP 98.4–100.6; O2SAT 94–100
[2017-10-28] MEDS: fentaNYL DRIP 250 ML IV PRN (01:11)
[2017-10-28] MEDS: VANCOMYCIN INJ 1,000 MG in SODIUM CHLOR 0.9% 250 ML INJ 250 ML IV SCH ×3 (01:11→15:14)
[2017-10-28] MEDS: PROPOFOL 1000 MG/100 ML INJ 100 ML IV PRN (01:12)
[2017-10-28] MEDS: ACETAMINOPHEN 500 MG CPLT PO PRN (01:24)
[2017-10-28] MEDS: MEROPENEM INJ 1,000 MG in SODIUM CHLORIDE 0.9% INJ 100 ML IV SCH ×3 (03:29→18:26)
[2017-10-28] MEDS: RESP: ALBUTEROL 2.5 MG/IPRATROPIUM 0.5 MG NEB (SCH) NEB ×4 (04:32→20:43)
[2017-10-28] MEDS: methylPREDNISolone SOD SUCC 40 MG/1 ML VIAL IV PUSH SCH ×3 (05:14→21:00)
[2017-10-28 05:59] LABS: HEMATOCRIT 22.8 % (39.0-51.0); HEMOGLOBIN 7.8 GM/DL (13.0-17.0); MEAN CELL VOLUME 84.2 FL (80.0-100.0); MEAN CORPUSCULAR HGB CONC 34.4 % (32.0-36.0); MEAN PLATELET VOLUME 9.2 FL (7.0-11.0); PLATELET COUNT 62 TH/MM3 (150-450); RED CELL DISTRIBUTION WIDTH 15.9 % (11.6-17.2); WHITE BLOOD COUNT 0.8 TH/MM3 (4.0-11.0)
[2017-10-28 06:23] LABS: ALBUMIN 1.3 GM/DL (3.4-5.0); BICARBONATE 28.2 MEQ/L (21.0-32.0); CALCIUM 7.1 MG/DL (8.5-10.1); CALCIUM-PROTEIN CORRECTED 8.5 MG/DL (8.5-10.1); CREATININE 0.6 MG/DL (0.60-1.30); MAGNESIUM 1.9 MG/DL (1.5-2.5); PHOSPHORUS 1.8 MG/DL (2.5-4.9); TOTAL BILIRUBIN ADULT 2.3 MG/DL (0.2-1.0); TOTAL PROTEIN 4.5 GM/DL (6.4-8.2)
[2017-10-28] MEDS: OSELTAMIVIR PHOSPHATE 75 MG CAP PO SCH ×2 (07:51→21:00)
[2017-10-28] MEDS: CHLORHEXIDINE 0.12% (ORAL KIT) 15 ML CUP MT SCH ×2 (07:51→20:00)
[2017-10-28] MEDS: carBAMazepine 200 MG TAB PO SCH ×2 (07:52→21:01)
[2017-10-28] MEDS: NYSTAT/DIPHENHY/LIDO MOUTHWASH (Adult) 120ML SWISH-SWAL SCH ×4 (07:52→21:02)
[2017-10-28] MEDS: AQUAPHOR OINT 50 GM TUBE TOPICAL SCH ×2 (07:53→21:04)
[2017-10-28 09:10] LABS: BANDS 1 % (0-6); BASOPHILS 1 % (0-2); LYMPHOCYTES 32 % (9-44); MONOCYTES 3 % (0-8); NEUTROPHIL # MANUAL DIFF 0.5 TH/MM3 (1.8-7.7); POLYS (SEG NEUTROPHILS) 63 % (16-70); TOXIC GRANULATION 2+ (NORMAL)
[2017-10-28] MEDS: PANTOPRAZOLE SODIUM 40 MG VIAL IV PUSH SCH (10:27)
[2017-10-28] MEDS ORDERED: POTASSIUM PHOSPHATE INJ 30 MMOL in SODIUM CHLOR 0.9% 250 ML INJ 250 ML IV PRN (10:30)
[2017-10-28] MEDS ORDERED: MAGNESIUM OXIDE 400 MG TAB PO PRN (10:30)
[2017-10-28] MEDS ORDERED: POTASSIUM CHLOR 40 MEQ PREMIX 100 ML IV PRN ×2 (10:30)
[2017-10-28] MEDS ORDERED: SODIUM PHOSPHATE INJ 30 MMOL in SODIUM CHLOR 0.9% 250 ML INJ 240 ML IV PRN (10:30)
[2017-10-28] MEDS ORDERED: POTASSIUM PHOSPHATE MONOBASIC 500 MG TAB PO PRN (10:30)
[2017-10-28] MEDS ORDERED: POTASSIUM CHLORIDE 25 MEQ EFFERVESCENT TAB PO PRN (10:30)
[2017-10-28] MEDS ORDERED: MAGNESIUM SULFATE INJ 4 GM in SODIUM CHLORIDE 0.9% INJ 92 ML IV PRN (10:30)
[2017-10-28] MEDS ORDERED: POTASSIUM PHOSPHATE MONOBASIC 500 MG TAB PO/TUBE PRN (10:30)
[2017-10-28] MEDS ORDERED: MAGNESIUM SULFATE INJ 2 GM in SODIUM CHLORIDE 0.9% INJ 96 ML IV PRN (10:30)
[2017-10-28] MEDS ORDERED: POTASSIUM CHLOR 20 MEQ PREMIX 100 ML IV PRN ×2 (10:30)
--- NOTE | 2017-10-28 10:35 | HHI.CCPN ---
Subjective Remarks/Hospital Course 10/25: 62-year-old very pleasant gentleman with locally advanced rectal cancer, positive pararectal lymph node, who has been treated with concurrent chemotherapy and radiation. He is been admitted to [facility] after having a dizzy condition, having a lot of dizzy spells. The day prior to admission he fell and hit his head. He was not sure how he fell. He was bruised in the right knee, left hip, right hip more so and laceration of the right forehead and scalp. He was found by his father sitting up. He was too weak to get up. He was brought into the emergency room on 10/17/2017. While in the hospital he became severely septic with suspect perianal area as site of bacteria entry. He developed respiratory failure with ARDS requiring intubation and transfer to [facility] critical care unit. 10/26: No events overnight. Oxygen requirement gradually improving, currently at 0.5 FiO2. T-max of 101.3 yesterday afternoon. Patient is currently on propofol and fentanyl, comfortable, easily arousable, denying any pain. Yesterday's chest x-ray reviewed, ET tube 1.7 cm above justin, diffuse bilateral infiltrates. 10/27: some improvements in fio2 and oxygenation. patient awake and alert denies pain. out of shock. however, recently was in hypoxic respiratory failure. patient endorses mild dypsnea. ROS difficult to obtain due to ett, appears otherwise negative and only complaint this morning is mild dyspnea. 10/28: clinically improving. tolerated 1 hour of cpap yesterday, but due to severe deconditioning and recent hypoxia, rested overnight. did get OOB and stand, walk in place yesterday to help with strength. still very neutropenic today. EGD yesterday with mild gastritis Objective Vital Signs Date Time Temp Pulse Resp B/P (MAP) Pulse Ox O2 Delivery O2 Flow Rate FiO2 10/28/17 10:00 85 10/28/17 08:00 98.7 16 144/77 (99) 97 10/28/17 08:00 30 10/28/17 07:00 Mechanical Ventilator 10/25/17 16:00 15.00 Intake and Output 10/28/17 10/28/17 10/29/17 08:00 16:00 00:00 Intake Total 250 ml Output Total 425 ml Balance -425 ml 250 ml Result Diagram: 10/28/17 0520 10/28/17 0520 Other Results Microbiology Date/Time Source Procedure Growth Status 10/25/17 17:30 Nasal Aspirate Influenza Types A,B Antigen (CED) - Final Positive For Flu A Antigen Complete 10/25/17 17:30 Sputum Endotracheal Gram Stain - Final Complete 10/25/17 17:30 Sputum Endotracheal Sputum Culture - Final HEAVY GROWTH NORMAL RESPIRATORY MARIVEL Complete 10/25/17 17:30 Urine Catheterized Urine Legionella Antigen - Final PRESUMPTIVE NEGATIVE FOR LEGIONELLA P... Complete 10/25/17 17:30 Urine Catheterized Urine Streptococcus pneumoniae Antigen (M - Final PRESUMPTIVE NEGATIVE FOR STREPTOCOCCU... Complete Imaging Last 24 hours Impressions Chest X-Ray 10/25/17 0600 Signed Impressions: Service Date/Time: Wednesday, October 25, 2017 05:51 - CONCLUSION: No significant change. Tommie Capellan MD Chest X-Ray 10/25/17 0000 Signed Impressions: Service Date/Time: Wednesday, October 25, 2017 16:51 - CONCLUSION: 1. Endotracheal tube distal tip measures 1.8 cm from the justin. Nasogastric tube courses beyond the GE junction. 2. Stable severe bilateral airspace consolidation. Tommie Rivera MD Objective Remarks General -middle-aged gentleman, intubated and lightly sedated, cachectic, ill- appearing HEENT - pupils equal, reactive, sclerae anicteric, no JVD. CV - normal rate, regular rhythm. sinus. Chest - coarse breath sounds b/l, good air entry, no wheezes Abdomen - soft, non-tender, non-distended, no guarding. Skin - no rashes, no cyanosis Extremities - warm and well perfused, no edema, + peripheral pulses, no clubbing Neuro -intubated and lightly sedated, easily arousable, follows commands, moves all 4 extremities A/P Assessment and Plan 1. Acute hypoxic respiratory failure -improved oxygen requirements 2. Severe sepsis - improving. 3. Influenza pneumonia 4. Rule out bacterial superinfection 5. Leukopenia - persistent. 6. Neutropenia - worsening 7. 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 Bipolar disorder 9. Mild transaminitis -etiology unclear at this time 1. SBT again. would consider extubation if he passes SBT. 2. Vent bundle and bronchodilators. Sedation with propofol, pain controlled with fentanyl. Maintain a RASS of -1 as long as patient does not interfere with the ventilator 3. Neutropenic precautions 4. Continue Vanco, changed cefepime to meropenem (patient worsening on cefepime ) 5. continue daily OOB for strength training. 6. continue Oseltamivir 7. On carbamazepine, trazodone and Zyprexa 8. ID consulted 9. tube feeds. 10. GI/DVT prophylaxis OVERALL IMPRESSION: s/p severe sepsis, clinically improving. still with influenza pneumonia and marked neutropenia. critically ill, but with some improvements today. Dominic Corado MD Oct 28, 2017 10:35
[2017-10-28] MEDS ORDERED: FUROSEMIDE 40 MG/4 ML VIAL IV PUSH ONE (10:50)
[2017-10-28] MEDS: POTASSIUM CHLOR 20 MEQ PREMIX 100 ML IV SCH ×2 (11:00→12:58)
[2017-10-28] MEDS ORDERED: POTASSIUM CHLORIDE 25 MEQ EFFERVESCENT TAB PO ONE (11:00)
--- NOTE | 2017-10-28 13:17 | HHI.GIFU ---
Objective Vitals I&O Vital Signs Date Time Temp Pulse Resp B/P (MAP) Pulse Ox O2 Delivery O2 Flow Rate FiO2 10/28/17 12:00 93 10/28/17 12:00 30 10/28/17 12:00 98.9 93 23 134/82 (99) 97 10/28/17 11:15 99 30 10/28/17 10:00 85 10/28/17 08:00 98.7 81 16 144/77 (99) 97 10/28/17 08:00 30 10/28/17 08:00 81 10/28/17 07:48 96 30 10/28/17 07:48 30 10/28/17 07:00 100 Mechanical Ventilator 40 10/28/17 06:00 72 10/28/17 04:32 94 30 10/28/17 04:00 40 10/28/17 04:00 76 10/28/17 04:00 98.9 76 26 120/65 (83) 96 10/28/17 02:00 86 10/28/17 00:00 100.6 96 26 105/63 (77) 95 10/28/17 00:00 40 10/28/17 00:00 96 10/27/17 23:14 98 30 10/27/17 22:00 104 10/27/17 20:23 99 30 10/27/17 20:00 40 10/27/17 20:00 98.9 110 26 123/71 (88) 98 10/27/17 20:00 110 10/27/17 19:00 100 Mechanical Ventilator 40 10/27/17 18:00 93 10/27/17 16:14 100 30 10/27/17 16:00 40 10/27/17 16:00 98.7 92 28 139/81 (100) 100 10/27/17 16:00 92 10/27/17 14:00 85 I/O 10/27/17 10/27/17 10/27/17 10/28/17 10/28/17 10/28/17 07:00 15:00 23:00 07:00 15:00 23:00 Intake Total 1095 ml 600 ml 250 ml 250 ml Output Total 675 ml 400 ml 425 ml Balance 420 ml 600 ml -150 ml -425 ml 250 ml IV Total 1095 ml 600 ml 250 ml 250 ml Output Urine Total 550 ml 350 ml 425 ml Gastric Drainage Total 125 ml 50 ml 0 ml # Bowel Movements 0 0 0 Laboratory Laboratory Tests Test 10/28/17 05:20 10/28/17 12:45 White Blood Count 0.8 Red Blood Count 2.70 Hemoglobin 7.8 Hematocrit 22.8 Mean Corpuscular Volume 84.2 Mean Corpuscular Hemoglobin 29.0 Mean Corpuscular Hemoglobin Concent 34.4 Red Cell Distribution Width 15.9 Platelet Count 62 Mean Platelet Volume 9.2 CBC Comment AUTO DIFF Differential Total Cells Counted 100 Neutrophils % (Manual) 63 Band Neutrophils % 1 Lymphocytes % 32 Monocytes % 3 Basophils % 1 Neutrophils # (Manual) 0.5 Differential Comment FINAL DIFF MANUAL Atypical Lymphocytes Toxic Granulation 2+ Platelet Estimate LOW Platelet Morphology Comment ENLARGED Blood Urea Nitrogen 21 Creatinine 0.60 Random Glucose 88 Total Protein 4.5 Albumin 1.3 Calcium Level 7.1 Phosphorus Level 1.8 Magnesium Level 1.9 Alkaline Phosphatase 173 Aspartate Amino Transf (AST/SGOT) 56 Alanine Aminotransferase (ALT/SGPT) 56 Total Bilirubin 2.3 Sodium Level 137 Potassium Level 3.1 Chloride Level 102 Carbon Dioxide Level 28.2 Anion Gap 7 Estimat Glomerular Filtration Rate 136 Protein Corrected Calcium 8.5 Blood Gas Puncture Site RT RADIAL Blood Gas Patient Temperature 98.6 Blood Gas HCO3 29 Blood Gas Base Excess 5.3 Blood Gas Oxygen Saturation 96 Arterial Blood pH 7.48 Arterial Blood Partial Pressure CO2 39 Arterial Blood Partial Pressure O2 105 Arterial Blood Oxygen Content 13.9 Arterial Blood Carboxyhemoglobin 1.3 Arterial Blood Methemoglobin 1.2 Blood Gas Hemoglobin 10.2 Oxygen Delivery Device VENTILATOR Blood Gas Ventilator Setting [id number] Blood Gas Inspired Oxygen 30 Date/Time Source Procedure Growth Status 10/25/17 17:20 Blood Peripheral Aerobic Blood Culture - Preliminary NO GROWTH IN 3 DAYS Resulted 10/25/17 17:20 Blood Peripheral Anaerobic Blood Culture - Preliminary NO GROWTH IN 3 DAYS Resulted 10/25/17 17:30 Nasal Aspirate Influenza Types A,B Antigen (CED) - Final Positive For Flu A Antigen Complete 10/25/17 17:30 Urine Catheterized Urine Legionella Antigen - Final PRESUMPTIVE NEGATIVE FOR LEGIONELLA P... Complete 10/25/17 17:30 Urine Catheterized Urine Streptococcus pneumoniae Antigen (M - Final PRESUMPTIVE NEGATIVE FOR STREPTOCOCCU... Complete Physical Exam HEENT: Pupils round and reactive to light; normocephalic; atraumatic; no jaundice. Throat is clear.n a shunt intubated NECK: Neck is supple, no JVD, no lymphadenopathy. CHEST: Decreased breathing sounds CARDIAC: Regular rate and rhythm with no murmur gallop or rubs. ABDOMEN: Soft, nondistended, nontender; no hepatosplenomegaly; bowel sounds are present in all four quadrants. EXTREMITIES: No clubbing, cyanosis, +edema. SKIN: Normal; no rash; no jaundice. 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 (Maddy Razo) Assessment and Plan Plan Symptomatic anemia on 223 hemoglobin dropped to 6.9, she received 3 units of packed RBC transfusion now back up to 8.4. After reviewing these record no history seen of EGD or colonoscopy. GI bleed, hemoglobin now stable but will need further evaluation. Will review for previous EGD and colonoscopy records Patient remains on ventilator management, positive for flu a, C. difficile negative. Shakes head minimally to no nausea vomiting or diarrhea. Abdomen is taut, soft bowel sounds. Rectal erythema which is recommended to manage through wound care. Rectal cancer, local, advanced per the record. Currently has been receiving chemotherapy and radiation Transaminitis , Elevated LFTs and bilirubin, initially 2.1 now 3.2, could be related to his cancer, inflammatory, rule out obstructive, versus shock, hemolysis., Liver ultrasound done on 10/19/17 shows extensive sludge in the gallbladder no gallbladder wall thickening, rule out gallbladder disease. Abdominal x-ray on 10/23/17 shows possible distal small bowel obstruction, patient was on BiPAP which could generate the distention of the small bowel as opposed to a distal small bowel obstruction, now patient is intubated. OG tube is to low intermittent suction 10/27/17 Patient was seen and examined, agree hemoglobin stable over the last 48 hours, patient had upper endoscopy today, Liver function test is improving IMPRESSION: Mild erythema in the stomach consistent with NG tube trauma Minimal esophagitis Normal otherwise Most likely anemia multifactorial including colon cancer PLAN: Avoid to much suction to the NG tube Monitor hemoglobin Back RBC as needed If patient started having active bleeding from the rectum might consider colonoscopy (Maddy Razo) Plan patient was seen and examined, agree with above note, contniue current care, GI will sign off and FU as needed. (Willie Mclaughlin MD) Maddy Razo Oct 28, 2017 13:17 Willie Mclaughlin MD Oct 30, 2017 17:21
--- NOTE | 2017-10-28 14:08 | HHI.GIFU ---
Subjective Remarks Pt resting in bed, at bedside. He is happy to be extubated and eager for something to drink. has questions about probiotics for him, discussed this with her. No bleeding. (Maddy Razo) Objective Vitals I&O Vital Signs Date Time Temp Pulse Resp B/P (MAP) Pulse Ox O2 Delivery O2 Flow Rate FiO2 10/28/17 13:26 98 Nasal Cannula 4.00 10/28/17 13:10 98 Nasal Cannula 4 10/28/17 12:00 93 10/28/17 12:00 30 10/28/17 12:00 98.9 93 23 134/82 (99) 97 10/28/17 11:15 99 30 10/28/17 10:00 85 10/28/17 08:00 98.7 81 16 144/77 (99) 97 10/28/17 08:00 30 10/28/17 08:00 81 10/28/17 07:48 96 30 10/28/17 07:48 30 10/28/17 07:00 100 Mechanical Ventilator 40 10/28/17 06:00 72 10/28/17 04:32 94 30 10/28/17 04:00 40 10/28/17 04:00 76 10/28/17 04:00 98.9 76 26 120/65 (83) 96 10/28/17 02:00 86 10/28/17 00:00 100.6 96 26 105/63 (77) 95 10/28/17 00:00 40 10/28/17 00:00 96 10/27/17 23:14 98 30 10/27/17 22:00 104 10/27/17 20:23 99 30 10/27/17 20:00 40 10/27/17 20:00 98.9 110 26 123/71 (88) 98 10/27/17 20:00 110 10/27/17 19:00 100 Mechanical Ventilator 40 10/27/17 18:00 93 10/27/17 16:14 100 30 10/27/17 16:00 40 10/27/17 16:00 98.7 92 28 139/81 (100) 100 10/27/17 16:00 92 I/O 10/27/17 10/27/17 10/27/17 10/28/17 10/28/17 10/28/17 07:00 15:00 23:00 07:00 15:00 23:00 Intake Total 1095 ml 600 ml 250 ml 590 ml Output Total 675 ml 400 ml 425 ml Balance 420 ml 600 ml -150 ml -425 ml 590 ml IV Total 1095 ml 600 ml 250 ml 590 ml Output Urine Total 550 ml 350 ml 425 ml Gastric Drainage Total 125 ml 50 ml 0 ml # Bowel Movements 0 0 0 Laboratory Laboratory Tests Test 10/28/17 05:20 10/28/17 12:45 White Blood Count 0.8 Red Blood Count 2.70 Hemoglobin 7.8 Hematocrit 22.8 Mean Corpuscular Volume 84.2 Mean Corpuscular Hemoglobin 29.0 Mean Corpuscular Hemoglobin Concent 34.4 Red Cell Distribution Width 15.9 Platelet Count 62 Mean Platelet Volume 9.2 CBC Comment AUTO DIFF Differential Total Cells Counted 100 Neutrophils % (Manual) 63 Band Neutrophils % 1 Lymphocytes % 32 Monocytes % 3 Basophils % 1 Neutrophils # (Manual) 0.5 Differential Comment FINAL DIFF MANUAL Atypical Lymphocytes Toxic Granulation 2+ Platelet Estimate LOW Platelet Morphology Comment ENLARGED Blood Urea Nitrogen 21 Creatinine 0.60 Random Glucose 88 Total Protein 4.5 Albumin 1.3 Calcium Level 7.1 Phosphorus Level 1.8 Magnesium Level 1.9 Alkaline Phosphatase 173 Aspartate Amino Transf (AST/SGOT) 56 Alanine Aminotransferase (ALT/SGPT) 56 Total Bilirubin 2.3 Sodium Level 137 Potassium Level 3.1 Chloride Level 102 Carbon Dioxide Level 28.2 Anion Gap 7 Estimat Glomerular Filtration Rate 136 Protein Corrected Calcium 8.5 Blood Gas Puncture Site RT RADIAL Blood Gas Patient Temperature 98.6 Blood Gas HCO3 29 Blood Gas Base Excess 5.3 Blood Gas Oxygen Saturation 96 Arterial Blood pH 7.48 Arterial Blood Partial Pressure CO2 39 Arterial Blood Partial Pressure O2 105 Arterial Blood Oxygen Content 13.9 Arterial Blood Carboxyhemoglobin 1.3 Arterial Blood Methemoglobin 1.2 Blood Gas Hemoglobin 10.2 Oxygen Delivery Device VENTILATOR Blood Gas Ventilator Setting [id number] Blood Gas Inspired Oxygen 30 Date/Time Source Procedure Growth Status 10/25/17 17:20 Blood Peripheral Aerobic Blood Culture - Preliminary NO GROWTH IN 3 DAYS Resulted 10/25/17 17:20 Blood Peripheral Anaerobic Blood Culture - Preliminary NO GROWTH IN 3 DAYS Resulted 10/25/17 17:30 Nasal Aspirate Influenza Types A,B Antigen (CED) - Final Positive For Flu A Antigen Complete 10/25/17 17:30 Urine Catheterized Urine Legionella Antigen - Final PRESUMPTIVE NEGATIVE FOR LEGIONELLA P... Complete 10/25/17 17:30 Urine Catheterized Urine Streptococcus pneumoniae Antigen (M - Final PRESUMPTIVE NEGATIVE FOR STREPTOCOCCU... Complete Imaging Last Impressions Chest X-Ray 10/27/17 0600 Signed Impressions: Service Date/Time: Friday, October 27, 2017 05:08 - CONCLUSION: 1. Stable tubes and lines, as above. 2. Improved right lower lung zone airspace disease. 3. Stable patchy airspace disease in the left mid to lower lung zones. Erasmo Lacey MD Abdomen X-Ray 10/26/17 1000 Signed Impressions: Service Date/Time: Thursday, October 26, 2017 09:47 - CONCLUSION: Negative KUB. Tommie Cortez MD Head CT 10/21/17 0000 Signed Impressions: Service Date/Time: Saturday, October 21, 2017 23:07 - CONCLUSION: 1. Ill-defined hyperdense area now noted along the left occipital parietal lobe junction likely representing a hemorrhagic contusion. 2. Interval decrease in the size of the right cephalohematoma. Ino Head MD Liver Ultrasound 10/19/17 0000 Signed Impressions: Service Date/Time: Thursday, October 19, 2017 14:17 - CONCLUSION: Extensive sludge in the gallbladder. No gallbladder wall thickening is seen.. Yonatan Quijano MD Pelvis X-Ray 10/17/17 1704 Signed Impressions: Service Date/Time: Tuesday, October 17, 2017 17:21 - CONCLUSION: Abnormal intertrochanteric region left hip, nonspecific. I do not see evidence for acute traumatic injury. Imer Stanley MD FACR Physical Exam HEENT: PERRL; normocephalic; atraumatic; no jaundice. CHEST: CTA CARDIAC: RRR ABDOMEN: Soft, nondistended, nontender; no hepatosplenomegaly; bowel sounds are present in all four quadrants. EXTREMITIES: No clubbing, cyanosis, SKIN: Normal; no rash; no jaundice. 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 After reviewing these record no history seen of EGD or colonoscopy. GI bleed, hemoglobin now stable but will need further evaluation. Will review for previous EGD and colonoscopy records Patient remains on ventilator management, positive for flu a, C. difficile negative. Shakes head minimally to no nausea vomiting or diarrhea. Abdomen is taut, soft bowel sounds. Rectal erythema which is recommended to manage through wound care. Rectal cancer, local, advanced per the record. Currently has been receiving chemotherapy and radiation Transaminitis , Elevated LFTs and bilirubin, initially 2.1 now 3.2, could be related to his cancer, inflammatory, rule out obstructive, versus shock, hemolysis., Liver ultrasound done on 10/19/17 shows extensive sludge in the gallbladder no gallbladder wall thickening, rule out gallbladder disease. Abdominal x-ray on 10/23/17 shows possible distal small bowel obstruction, patient was on BiPAP which could generate the distention of the small bowel as opposed to a distal small bowel obstruction, now patient is intubated. OG tube is to low intermittent suction 10/27/17 Patient was seen and examined, agree hemoglobin stable over the last 48 hours, patient had upper endoscopy today, Liver function test is improving IMPRESSION: Mild erythema in the stomach consistent with NG tube trauma Minimal esophagitis Normal otherwise Most likely anemia multifactorial including colon cancer 10/28/17 mild decrease hgb. recently extubated, doing well. no bleeding. LFTs trending down. starting clears per CCM. d/w probiotics sources PLAN: - clear liquids, advance as tolerated - monitor labs - transfuse as needed - consider colonoscopy if active rectal bleeding - probiotics from [employer] refrigerator section or foods w/ probiotics - supportive care pt seen by myself and Dr Mclaughlin and this note is on his behalf (Maddy Razo) Plan Patient was seen and examined, agree with above-noted, patient extubated and doing well, LFTs improving, no sign of active bleeding, EGD was unremarkable, if patient starts having bleeding he might need colonoscopy otherwise plan per radiation oncology, will follow up as needed (Willie Mclaughlin MD) Problem Qualifiers (1) Anemia: Qualified Codes: D64.9 - Anemia, unspecified Maddy Razo Oct 28, 2017 14:08 Willie Mclaughlin MD Oct 29, 2017 10:37
[2017-10-28] MEDS ORDERED: FUROSEMIDE 20 MG/2 ML VIAL IV PUSH ONE (16:00)
--- NOTE | 2017-10-28 17:07 | HHI.IDPN ---
Note Infectious Disease Note Patient was extubated today. He is awake and alert. No complaints. Feels well. On nasal cannula. Not short of breath. Afebrile. Blood counts remain low. 62-year-old white male who presented to the emergency department on 10/17 after falling. The patient reportedly was on the tile floor of his home for some time after he fell and was discovered by his family. He was evaluated and was noted to have heart rate of 107 and white blood cell count of 2.7 with 63% neutrophils. He was felt to have mild rhabdomyolysis and was treated. The patient has a history of rectal cancer for which he received chemotherapy and subsequently radiation therapy. His blood cultures were taken on admission and has no growth. He was positive for testing for influenzae on 10/25. PAST MEDICAL HISTORY: 1. Bipolar disorder. 2. Hypertension. 3. Gastroesophageal reflux. 4. BPH. 5. Lumbar degenerative disk disease. 6. Squamous cell cancer of the rectum diagnosed 07/2017. 7. Basal cell carcinoma of the skin. 8. Right inguinal hernia repair. 9. Rotator cuff repair. 10. [id number]. ALLERGIES DOXYCYCLINE, MINOCYCLINE, TIGECYCLINE. MEDICATIONS: 1. Meropenem. 2. Azithromycin. 3. Vancomycin. 4. Tamiflu Current Medications Medications (Trade) Dose Ordered Sig/Siddhartha Route PRN Reason Start Time Stop Time Status Last Admin Dose Admin Tamsulosin HCl (Flomax) 0.4 mg HS PO 10/17/17 21:00 10/27/17 20:49 Carbamazepine (TEGretol) 400 mg DAILY PO 10/18/17 09:00 10/28/17 07:52 Ondansetron HCl (Zofran Inj) 4 mg Q6H PRN IV PUSH VOMITING 10/18/17 16:45 10/25/17 04:05 Prochlorperazine Maleate (Compazine) 10 mg Q6H PRN PO NAUSEA 10/18/17 18:00 10/20/17 05:00 Loperamide HCl (Imodium) 2 mg Q6H PRN PO diarrhea 10/18/17 17:00 10/21/17 15:32 Acetaminophen (Tylenol) 500 mg Q4H PRN PO TEMPERATURE > 100.4 10/19/17 05:15 10/28/17 01:24 Morphine Sulfate (Morphine Inj) 4 mg Q3H PRN IV PUSH PAIN LEVEL 3-10 2/18/18 06:30 10/25/17 20:45 Emollient Ointment (Aquaphor Oint) 1 applic Q12HR TOPICAL 10/19/17 21:00 10/28/17 07:53 Carbamazepine (TEGretol) 400 mg HS PO 10/21/17 21:00 10/27/17 20:50 Trazodone HCl (Desyrel) 150 mg HS PO 10/21/17 21:00 10/27/17 20:50 Pharmacy Profile Note 0 ml @ 0 mls/hr UNSCH OTHER 10/21/17 18:15 Diphenhydramine HCl (Benadryl) 25 mg Q4H PRN PO SEE LABEL COMMENTS 10/22/17 06:00 Albuterol Sulfate (Albuterol Neb) 2.5 mg Q4HR NEB PRN INH SHORTNESS OF BREATH 10/22/17 08:15 10/23/17 21:15 Multi-Ingredient Mouthwash/Gargle (Magic Mouthwash Adult Liq) 5 ml QID SWISH-SWAL 10/23/17 13:00 10/28/17 13:00 Methylprednisolone Sodium Succinate (SoluMEDROL INJ) 40 mg Q8HR IV PUSH 10/23/17 22:00 10/28/17 13:58 Vancomycin HCl 1000 mg/Sodium Chloride 250 ml @ 250 mls/hr Q8H IV 10/25/17 00:00 10/28/17 15:14 Pantoprazole Sodium (Protonix Inj) 40 mg Q24H IV PUSH 10/26/17 10:00 10/28/17 10:27 Lorazepam (Ativan Inj) 1 mg Q8H PRN IV ANXIETY 10/25/17 13:45 10/25/17 13:47 Chlorhexidine Gluconate (Peridex 0.12% Liq) 15 ml BID@08,20 MT 10/25/17 20:00 10/28/17 07:51 Oseltamivir Phosphate (Tamiflu) 75 mg BID PO 10/25/17 22:30 10/28/17 07:51 Azithromycin 500 mg/Sodium Chloride 250 ml @ 250 mls/hr Q24H IV 10/25/17 20:00 10/27/17 20:51 Meropenem 1000 mg/ Sodium Chloride 100 ml @ 200 mls/hr Q8H IV 10/26/17 11:00 10/28/17 10:27 Albuterol/ Ipratropium (Duoneb Neb) 1 ampule Q6HR NEB NEB 10/26/17 16:00 10/28/17 16:00 Olanzapine (ZyPREXA) 15 mg HS PO 10/26/17 21:00 10/27/17 20:49 Potassium Chloride 100 ml @ 50 mls/hr Q2H PRN IV For Potassium 2.8 - 3.2 mEq/L 10/28/17 10:30 Potassium Chloride 100 ml @ 50 mls/hr Q2H PRN IV For Potassium 2.8 - 3.2 mEq/L 10/28/17 10:30 Potassium Bicarb/ Potassium Chloride (K-Lyte Cl Eff) 50 meq UNSCH PRN PO For Potassium 3.3 - 3.5 mEq/L 10/28/17 10:30 Potassium Chloride 100 ml @ 25 mls/hr UNSCH PRN IV For Potassium 3.3 - 3.5 mEq/L 10/28/17 10:30 Potassium Chloride 100 ml @ 50 mls/hr Q2H PRN IV For Potassium 3.3 - 3.5 mEq/L 10/28/17 10:30 Magnesium Sulfate 4 gm/Sodium Chloride 100 ml @ 50 mls/hr UNSCH PRN IV For Magnesium 0.9 - 1.1 mg/dL 10/28/17 10:30 Magnesium Oxide (Mag-Ox) 800 mg UNSCH PRN PO For Magnesium 1.2 - 1.6 mg/dL 10/28/17 10:30 Magnesium Sulfate 2 gm/Sodium Chloride 100 ml @ 50 mls/hr UNSCH PRN IV For Magnesium 1.2 - 1.6 mg/dL 10/28/17 10:30 Potassium Phosphate (K-Phos) 2,000 mg Q4H PRN PO For Phosphorus < 2.5 mg/dL 10/28/17 10:30 Sodium Phosphate 30 mmol/Sodium Chloride 250 ml @ 42 mls/hr UNSCH PRN IV For Phosphorus < 2.5 mg/dL 10/28/17 10:30 Potassium Phosphate (K-Phos) 2,000 mg UNSCH PRN PO/TUBE SEE LABEL COMMENTS 10/28/17 10:30 Potassium Phosphate 30 mmol/ Sodium Chloride 260 ml @ 42 mls/hr UNSCH PRN IV SEE LABEL COMMENTS 10/28/17 10:30 10/28/17 11:15 Miscellaneous Information SPECIFIC LAB TO BE DRAWN:[facility]AN[facility] TROUGH DATE TO... ONCE ONCE .XX 10/29/17 07:45 10/29/17 07:46 Compound Med (Ritters Cream) 1 applic BID TOPICAL 10/28/17 21:00 OBJECTIVE: Vital Signs Date Time Temp Pulse Resp B/P (MAP) Pulse Ox O2 Delivery O2 Flow Rate FiO2 10/28/17 16:00 96 10/28/17 14:00 90 10/28/17 13:26 98 Nasal Cannula 4.00 10/28/17 13:10 98 Nasal Cannula 4 10/28/17 12:00 93 10/28/17 12:00 30 10/28/17 12:00 98.9 93 23 134/82 (99) 97 10/28/17 11:15 99 30 10/28/17 10:00 85 10/28/17 08:00 98.7 81 16 144/77 (99) 97 10/28/17 08:00 30 10/28/17 08:00 81 10/28/17 07:48 96 30 10/28/17 07:48 30 10/28/17 07:00 100 Mechanical Ventilator 40 10/28/17 06:00 72 10/28/17 04:32 94 30 10/28/17 04:00 40 10/28/17 04:00 76 10/28/17 04:00 98.9 76 26 120/65 (83) 96 10/28/17 02:00 86 10/28/17 00:00 100.6 96 26 105/63 (77) 95 10/28/17 00:00 40 10/28/17 00:00 96 10/27/17 23:14 98 30 10/27/17 22:00 104 10/27/17 20:23 99 30 10/27/17 20:00 40 10/27/17 20:00 98.9 110 26 123/71 (88) 98 10/27/17 20:00 110 10/27/17 19:00 100 Mechanical Ventilator 40 10/27/17 18:00 93 Laboratory Tests Test 10/27/17 04:00 10/28/17 05:20 White Blood Count 1.2 TH/MM3 0.8 TH/MM3 Red Blood Count 2.85 MIL/MM3 2.70 MIL/MM3 Hemoglobin 8.3 GM/DL 7.8 GM/DL Hematocrit 24.2 % 22.8 % Mean Corpuscular Volume 84.7 FL 84.2 FL Mean Corpuscular Hemoglobin 29.2 PG 29.0 PG Mean Corpuscular Hemoglobin Concent 34.4 % 34.4 % Red Cell Distribution Width 16.1 % 15.9 % Platelet Count 52 TH/MM3 62 TH/MM3 Mean Platelet Volume 9.3 FL 9.2 FL Neutrophils (%) (Auto) 87.8 % Lymphocytes (%) (Auto) 9.2 % Monocytes (%) (Auto) 2.0 % Eosinophils (%) (Auto) 0.6 % Basophils (%) (Auto) 0.4 % Neutrophils # (Auto) 1.1 TH/MM3 Lymphocytes # (Auto) 0.1 TH/MM3 Monocytes # (Auto) 0.0 TH/MM3 Eosinophils # (Auto) 0.0 TH/MM3 Basophils # (Auto) 0.0 TH/MM3 CBC Comment AUTO DIFF AUTO DIFF Differential Total Cells Counted 100 100 Neutrophils % (Manual) 87 % 63 % Band Neutrophils % 5 % 1 % Lymphocytes % 7 % 32 % Monocytes % 1 % 3 % Neutrophils # (Manual) 1.1 TH/MM3 0.5 TH/MM3 Differential Comment FINAL DIFF MANUAL FINAL DIFF MANUAL Platelet Estimate LOW LOW Platelet Morphology Comment NORMAL ENLARGED Red Cell Morphology Comment Basophils % 1 % Atypical Lymphocytes % Toxic Granulation 2+ Laboratory Tests Test 10/27/17 04:00 10/28/17 05:20 Blood Urea Nitrogen 22 MG/DL 21 MG/DL Creatinine 0.55 MG/DL 0.60 MG/DL Random Glucose 90 MG/DL 88 MG/DL Total Protein 4.8 GM/DL 4.5 GM/DL Albumin 1.3 GM/DL 1.3 GM/DL Calcium Level 7.7 MG/DL 7.1 MG/DL Phosphorus Level 2.9 MG/DL 1.8 MG/DL Magnesium Level 2.0 MG/DL 1.9 MG/DL Alkaline Phosphatase 133 U/L 173 U/L Aspartate Amino Transf (AST/SGOT) 45 U/L 56 U/L Alanine Aminotransferase (ALT/SGPT) 67 U/L 56 U/L Total Bilirubin 1.9 MG/DL 2.3 MG/DL Sodium Level 138 MEQ/L 137 MEQ/L Potassium Level 3.4 MEQ/L 3.1 MEQ/L Chloride Level 100 MEQ/L 102 MEQ/L Carbon Dioxide Level 33.3 MEQ/L 28.2 MEQ/L Anion Gap 5 MEQ/L 7 MEQ/L Estimat Glomerular Filtration Rate 150 ML/MIN 136 ML/MIN Protein Corrected Calcium 8.5 MG/DL Microbiology Date/Time Source Procedure Growth Status 10/25/17 17:20 Blood Peripheral Aerobic Blood Culture - Preliminary NO GROWTH IN 3 DAYS Resulted 10/25/17 17:20 Blood Peripheral Anaerobic Blood Culture - Preliminary NO GROWTH IN 3 DAYS Resulted 10/25/17 17:15 Blood Peripheral Aerobic Blood Culture - Preliminary NO GROWTH IN 3 DAYS Resulted 10/25/17 17:15 Blood Peripheral Anaerobic Blood Culture - Preliminary NO GROWTH IN 3 DAYS Resulted 10/25/17 17:30 Nasal Aspirate Influenza Types A,B Antigen (CED) - Final Positive For Flu A Antigen Complete 10/25/17 17:30 Sputum Endotracheal Gram Stain - Final Complete 10/25/17 17:30 Sputum Endotracheal Sputum Culture - Final HEAVY GROWTH NORMAL RESPIRATORY MARIVEL Complete 10/25/17 17:30 Urine Catheterized Urine Legionella Antigen - Final PRESUMPTIVE NEGATIVE FOR LEGIONELLA P... Complete 10/25/17 17:30 Urine Catheterized Urine Streptococcus pneumoniae Antigen (M - Final PRESUMPTIVE NEGATIVE FOR STREPTOCOCCU... Complete Microbiology Date/Time Source Procedure Growth Status 10/25/17 17:20 Blood Peripheral Aerobic Blood Culture - Preliminary NO GROWTH IN 2 DAYS Resulted 10/25/17 17:20 Blood Peripheral Anaerobic Blood Culture - Preliminary NO GROWTH IN 2 DAYS Resulted 10/25/17 17:15 Blood Peripheral Aerobic Blood Culture - Preliminary NO GROWTH IN 2 DAYS Resulted 10/25/17 17:15 Blood Peripheral Anaerobic Blood Culture - Preliminary NO GROWTH IN 2 DAYS Resulted 10/25/17 17:30 Nasal Aspirate Influenza Types A,B Antigen (CED) - Final Positive For Flu A Antigen Complete 10/25/17 17:30 Sputum Endotracheal Gram Stain - Final Complete 10/25/17 17:30 Sputum Endotracheal Sputum Culture - Final HEAVY GROWTH NORMAL RESPIRATORY MARIVEL Complete 10/25/17 17:30 Urine Catheterized Urine Legionella Antigen - Final PRESUMPTIVE NEGATIVE FOR LEGIONELLA P... Complete 10/25/17 17:30 Urine Catheterized Urine Streptococcus pneumoniae Antigen (M - Final PRESUMPTIVE NEGATIVE FOR STREPTOCOCCU... Complete IMAGING: Chest X-Ray 10/27/17 0600 Signed Impressions: Service Date/Time: Friday, October 27, 2017 05:08 - CONCLUSION: 1. Stable tubes and lines, as above. 2. Improved right lower lung zone airspace disease. 3. Stable patchy airspace disease in the left mid to lower lung zones. Erasmo Lacey MD Abdomen X-Ray 10/26/17 1000 Signed Impressions: Service Date/Time: Thursday, October 26, 2017 09:47 - CONCLUSION: Negative KUB. Tommie Cortez MD Head CT 10/21/17 0000 Signed Impressions: Service Date/Time: Saturday, October 21, 2017 23:07 - CONCLUSION: 1. Ill-defined hyperdense area now noted along the left occipital parietal lobe junction likely representing a hemorrhagic contusion. 2. Interval decrease in the size of the right cephalohematoma. Ino Head MD Liver Ultrasound 10/19/17 0000 Signed Impressions: Service Date/Time: Thursday, October 19, 2017 14:17 - CONCLUSION: Extensive sludge in the gallbladder. No gallbladder wall thickening is seen.. Yonatan Quijano MD Pelvis X-Ray 10/17/17 1704 Signed Impressions: Service Date/Time: Tuesday, October 17, 2017 17:21 - CONCLUSION: Abnormal intertrochanteric region left hip, nonspecific. I do not see evidence for acute traumatic injury. Imer Stanley MD FACR Chest X-Ray 10/26/17 1000 Signed Impressions: Service Date/Time: Thursday, October 26, 2017 09:42 - CONCLUSION: 1. Diffuse areas of consolidation throughout the lungs which could represent underlying edema or diffuse infection. There is more focal consolidation in the left perihilar region. These findings are unchanged. 2. ET tube continues to be a low but acceptable position 1.4 cm above the justin. Tommie Cortez MD Abdomen X-Ray 10/26/17 1000 Signed Impressions: Service Date/Time: Thursday, October 26, 2017 09:47 - CONCLUSION: Negative KUB. Tommie Cortez MD Head CT 10/21/17 0000 Signed Impressions: Service Date/Time: Saturday, October 21, 2017 23:07 - CONCLUSION: 1. Ill-defined hyperdense area now noted along the left occipital parietal lobe junction likely representing a hemorrhagic contusion. 2. Interval decrease in the size of the right cephalohematoma. Ino Head MD Liver Ultrasound 10/19/17 0000 Signed Impressions: Service Date/Time: Thursday, October 19, 2017 14:17 - CONCLUSION: Extensive sludge in the gallbladder. No gallbladder wall thickening is seen.. Yonatan Quijano MD Pelvis X-Ray 10/17/17 1704 Signed Impressions: Service Date/Time: Tuesday, October 17, 2017 17:21 - CONCLUSION: Abnormal intertrochanteric region left hip, nonspecific. I do not see evidence for acute traumatic injury. Imer Stanley MD FACR PHYSICAL EXAMINATION: GENERAL: No acute distress. HEENT. The head atraumatic. Extraocular movements grossly intact, pupils reactive to light. No icterus. Neck: Supple without adenopathy or swelling. Lungs: Rhonchi at the left base. No wheezes. Heart: Regular S1-S2. No murmurs, rubs or gallops. Abdomen: Bowel sounds present, soft, mildly distended, nontender. No masses. Extremities: No clubbing or cyanosis or edema. Skin: No rash. Neurologic: No gross focal findings. Psychiatric: Pleasant, calm and is cooperative. IMPRESSION 1. Sepsis. 2. Neutropenia with fever. 3. Influenza pneumonia and probably superimposed bacterial pneumonia. improving. 4. Acute respiratory failure. 5. Rectal cancer. 6. Increased LFT. improving. Clinically appears stable. RECOMMENDATIONS 1. Continue Tamiflu for influenzae treatment. 2. Continue vancomycin. 3. Continue Meropenem. 4. Continue azithromycin for additional pulmonary coverage in light of persistent infiltrates. 5. Monitor blood cultures. 6. Monitor white blood cell count. 7. Monitor temperature. 8. Monitor liver function tests. 9. consider oncology consult. Kamar Chand MD Oct 28, 2017 17:07
[2017-10-28] MEDS: MORPHINE SULFATE 4 MG/ML INJ IV PUSH PRN (18:27)
[2017-10-28] MEDS: SILVER SULFADIAZINE/LIDOCAINE CREAM 60 GM JAR TOPICAL SCH (20:59)
[2017-10-28] MEDS: AZITHROMYCIN INJ 500 MG in SODIUM CHLOR 0.9% 250 ML INJ 250 ML IV SCH (21:00)
[2017-10-28] MEDS: traZODone HCL 100 MG TAB PO SCH (21:00)
[2017-10-28] MEDS: TAMSULOSIN HCL 0.4 MG CAP PO SCH (21:01)
[2017-10-28] MEDS: LORazepam 2 MG/ML VIAL IV PRN (21:41)
--- NOTE | 2017-10-28 23:49 | PD.ONC.PN ---
Subjective Subjective Remarks Resting comfortably in bed in no distress. S/p extubation. Breathing comfortably on nasal cannula. Objective Data Date Time Temp Pulse Resp B/P (MAP) Pulse Ox O2 Delivery O2 Flow Rate FiO2 10/28/17 20:33 100 Nasal Cannula 4.00 10/28/17 18:32 17 10/28/17 18:00 96 10/28/17 16:00 98.4 96 14 123/74 (90) 98 10/28/17 16:00 96 10/28/17 14:00 90 10/28/17 13:26 98 Nasal Cannula 4.00 10/28/17 13:10 98 Nasal Cannula 4 10/28/17 12:00 93 10/28/17 12:00 30 10/28/17 12:00 98.9 93 23 134/82 (99) 97 10/28/17 11:15 99 30 10/28/17 10:00 85 10/28/17 08:00 98.7 81 16 144/77 (99) 97 10/28/17 08:00 30 10/28/17 08:00 81 10/28/17 07:48 96 30 10/28/17 07:48 30 10/28/17 07:00 100 Mechanical Ventilator 40 10/28/17 06:00 72 10/28/17 04:32 94 30 10/28/17 04:00 40 10/28/17 04:00 76 10/28/17 04:00 98.9 76 26 120/65 (83) 96 10/28/17 02:00 86 10/28/17 00:00 100.6 96 26 105/63 (77) 95 10/28/17 00:00 40 10/28/17 00:00 96 Result Diagram: 10/28/17 0520 10/28/17 0520 Laboratory Results Laboratory Tests Test 10/28/17 05:20 10/28/17 12:45 10/28/17 23:15 White Blood Count 0.8 TH/MM3 Red Blood Count 2.70 MIL/MM3 Hemoglobin 7.8 GM/DL Hematocrit 22.8 % Mean Corpuscular Volume 84.2 FL Mean Corpuscular Hemoglobin 29.0 PG Mean Corpuscular Hemoglobin Concent 34.4 % Red Cell Distribution Width 15.9 % Platelet Count 62 TH/MM3 Mean Platelet Volume 9.2 FL CBC Comment AUTO DIFF Differential Total Cells Counted 100 Neutrophils % (Manual) 63 % Band Neutrophils % 1 % Lymphocytes % 32 % Monocytes % 3 % Basophils % 1 % Neutrophils # (Manual) 0.5 TH/MM3 Differential Comment FINAL DIFF MANUAL Atypical Lymphocytes % Toxic Granulation 2+ Platelet Estimate LOW Platelet Morphology Comment ENLARGED Blood Urea Nitrogen 21 MG/DL Creatinine 0.60 MG/DL Random Glucose 88 MG/DL Total Protein 4.5 GM/DL Albumin 1.3 GM/DL Calcium Level 7.1 MG/DL Phosphorus Level 1.8 MG/DL Magnesium Level 1.9 MG/DL Alkaline Phosphatase 173 U/L Aspartate Amino Transf (AST/SGOT) 56 U/L Alanine Aminotransferase (ALT/SGPT) 56 U/L Total Bilirubin 2.3 MG/DL Sodium Level 137 MEQ/L Potassium Level 3.1 MEQ/L Chloride Level 102 MEQ/L Carbon Dioxide Level 28.2 MEQ/L Anion Gap 7 MEQ/L Estimat Glomerular Filtration Rate 136 ML/MIN Protein Corrected Calcium 8.5 MG/DL Blood Gas Puncture Site RT RADIAL Blood Gas Patient Temperature 98.6 Blood Gas HCO3 29 mmol/L Blood Gas Base Excess 5.3 mmol/L Blood Gas Oxygen Saturation 96 % Arterial Blood pH 7.48 Arterial Blood Partial Pressure CO2 39 mmHg Arterial Blood Partial Pressure O2 105 mmHg Arterial Blood Oxygen Content 13.9 Vol % Arterial Blood Carboxyhemoglobin 1.3 % Arterial Blood Methemoglobin 1.2 % Blood Gas Hemoglobin 10.2 G/DL Oxygen Delivery Device VENTILATOR Blood Gas Ventilator Setting [id number] Blood Gas Inspired Oxygen 30 % Administered Medications Medications (Trade) Dose Ordered Sig/Siddhartha Route PRN Reason Start Time Stop Time Status Last Admin Dose Admin Tamsulosin HCl (Flomax) 0.4 mg HS PO 10/17/17 21:00 10/28/17 21:01 Carbamazepine (TEGretol) 400 mg DAILY PO 10/18/17 09:00 10/28/17 07:52 Ondansetron HCl (Zofran Inj) 4 mg Q6H PRN IV PUSH VOMITING 10/18/17 16:45 10/25/17 04:05 Prochlorperazine Maleate (Compazine) 10 mg Q6H PRN PO NAUSEA 10/18/17 18:00 10/20/17 05:00 Loperamide HCl (Imodium) 2 mg Q6H PRN PO diarrhea 10/18/17 17:00 10/21/17 15:32 Acetaminophen (Tylenol) 500 mg Q4H PRN PO TEMPERATURE > 100.4 10/19/17 05:15 10/28/17 01:24 Morphine Sulfate (Morphine Inj) 4 mg Q3H PRN IV PUSH PAIN LEVEL 3-10 10/19/17 06:30 10/28/17 18:27 Emollient Ointment (Aquaphor Oint) 1 applic Q12HR TOPICAL 10/19/17 21:00 10/28/17 21:04 Carbamazepine (TEGretol) 400 mg HS PO 10/21/17 21:00 10/28/17 21:01 Trazodone HCl (Desyrel) 150 mg HS PO 10/21/17 21:00 10/28/17 21:00 Albuterol Sulfate (Albuterol Neb) 2.5 mg Q4HR NEB PRN INH SHORTNESS OF BREATH 10/22/17 08:15 10/23/17 21:15 Multi-Ingredient Mouthwash/Gargle (Magic Mouthwash Adult Liq) 5 ml QID SWISH-SWAL 10/23/17 13:00 10/28/17 21:02 Methylprednisolone Sodium Succinate (SoluMEDROL INJ) 40 mg Q8HR IV PUSH 10/23/17 22:00 10/28/17 21:00 Vancomycin HCl 1000 mg/Sodium Chloride 250 ml @ 250 mls/hr Q8H IV 10/25/17 00:00 10/28/17 15:14 Pantoprazole Sodium (Protonix Inj) 40 mg Q24H IV PUSH 10/26/17 10:00 10/28/17 10:27 Lorazepam (Ativan Inj) 1 mg Q8H PRN IV ANXIETY 10/25/17 13:45 10/28/17 21:41 Chlorhexidine Gluconate (Peridex 0.12% Liq) 15 ml BID@08,20 MT 10/25/17 20:00 10/28/17 07:51 Oseltamivir Phosphate (Tamiflu) 75 mg BID PO 10/25/17 22:30 10/28/17 21:00 Azithromycin 500 mg/Sodium Chloride 250 ml @ 250 mls/hr Q24H IV 10/25/17 20:00 10/28/17 21:00 Meropenem 1000 mg/ Sodium Chloride 100 ml @ 200 mls/hr Q8H IV 10/26/17 11:00 10/28/17 18:26 Albuterol/ Ipratropium (Duoneb Neb) 1 ampule Q6HR NEB NEB 10/26/17 16:00 10/28/17 20:43 Olanzapine (ZyPREXA) 15 mg HS PO 10/26/17 21:00 10/28/17 21:00 Potassium Phosphate 30 mmol/ Sodium Chloride 260 ml @ 42 mls/hr UNSCH PRN IV SEE LABEL COMMENTS 10/28/17 10:30 10/28/17 11:15 Compound Med (Ritters Cream) 1 applic BID TOPICAL 10/28/17 21:00 10/28/17 20:59 Objective Remarks GENERAL: Well-nourished, well-developed patient. SKIN: Warm and dry. HEAD: skin redness and irrtation of lower abdomen EYES: No scleral icterus. No injection or drainage. NECK: Supple, trachea midline. No JVD or lymphadenopathy. LYMPHATIC: No adenopathy. CARDIOVASCULAR: Regular rate and rhythm without murmurs. RESPIRATORY: Breath sounds equal bilaterally. No accessory muscle use. GASTROINTESTINAL: Abdomen soft, non-tender, nondistended. EXTREMITIES: No cyanosis, or edema. MUSCULOSKELETAL: Adequate muscle tone. NEUROLOGICAL: No obvious focal deficit. Awake, alert, and oriented x3. PSYCHIATRIC: Appropriate mood and affect; insight and judgment normal. Assessment/Plan Problem List: (1) Neutropenic fever ICD Codes: D70.9 - Neutropenia, unspecified; R50.81 - Fever presenting with conditions classified elsewhere Status: Resolved Plan: Blood and urine cultures remain negative as of 6:25 PM on 10/20/2017. On empiric antibiotic therapy with cefepime and vancomycin. On G-CSF, absolute neutral count is 5.9 as of today. Suspect perianal area as site of bacteria entry. Keep area dry, difficult with diarrhea and XRT. 10/21/17. Neutropenia resolve. Still has fever- low grade T 100.0, BC neg. Noted thrombocytopenia likely chemo induced. Asymptomatic, follow. Cont abx 10/22/17 Pt went into resp distress this morning, Movd to ICU. Had Lasix with a good response. Still on BiPap. XRT and chemo on hold at this time due to toxicity,. Neutropenia has resolved. Off of Neupogen, Thrombocytopenia persists. NO TX needed. d/w pt, Dad and sister. Answered their questions. Dr Bauer (His oncologist) will see him tomorrow. D/W RN 10/24/17. Continue GCSF, goal ANC>5000 x 2 days. (2) Thrombocytopenia ICD Codes: D69.6 - Thrombocytopenia, unspecified Status: Acute Plan: Likely due to chemo, Mitomycin C and 5FU. complicated by neutropenic fever, pulmonary infiltrates Noted PT/PTT prolonged, check fibrinogen r/o DIC Consider drug effect, LMWH, antiseizures, antibiotics- monitor for now. Check HIT antibody but clinical presentation makes it unlikely. Monitor for bleeding. 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 He had been under the care of Dr. Bauer, Dr. Rocha and was being treated with definitive dose chemoradiotherapy with infusional 5-FU and mitomycin-C. He presents to the hospital with neutropenic fever, status post fall with a subcutaneous hematoma over his right for head and confusion. He is on empiric antibiotic therapy with vancomycin and cefepime and did receive Neupogen for growth factor support. Plan 1. Locally advanced Rectal SCC, low laying palpalbe on digital rectal exam currently undergoing treatment with concurernt chemotherapy and radiation therapy with curative intent. He is s/p day 29 dose of 5-FU and mitomycin C. 9 days of radiation therapy to complete treatment. Currently on hold due to acute illness and hospitalization. 2. Cytopenia: due to chemotherapy (5-fu and mitomycin C), s/p transfusion 2UPRBC, no platelet transfusion 3. AMS: resolved 4. Elevated troponin: s/p evaluation by cardiology team. No need for heart catheterization. 5. ID: Influenza A infection with persistence of infiltrates. Continue antibiotics including vancomycin, merropenem, azithromycin and tamiflu. Kiley Bauer MD Oct 28, 2017 23:49
[2017-10-28 23:53] LABS: PHOSPHORUS 2.6 MG/DL (2.5-4.9)
[2017-10-29] VITALS (12 sets, daily range): BP systolic 126–145; BP diastolic 60–81; PULSE 81–100; RESP 12–22; TEMP 98.2–99.1; O2SAT 90–99
[2017-10-29] MEDS: MEROPENEM INJ 1,000 MG in SODIUM CHLORIDE 0.9% INJ 100 ML IV SCH ×3 (02:25→18:30)
[2017-10-29] MEDS: MORPHINE SULFATE 4 MG/ML INJ IV PUSH PRN ×4 (02:56→20:52)
[2017-10-29] MEDS: RESP: ALBUTEROL 2.5 MG/IPRATROPIUM 0.5 MG NEB (SCH) NEB ×4 (03:35→21:07)
[2017-10-29] MEDS: methylPREDNISolone SOD SUCC 40 MG/1 ML VIAL IV PUSH SCH ×3 (05:12→22:08)
[2017-10-29 05:13] LABS: AUTOMATED NEUTROPHIL # 1.1 TH/MM3 (1.8-7.7); BASOPHIL % 0.7 % (0.0-2.0); EOSINOPHIL % 0.4 % (0.0-4.0); HEMATOCRIT 23.9 % (39.0-51.0); HEMOGLOBIN 8.3 GM/DL (13.0-17.0); LYMPH % 24.1 % (9.0-44.0); LYMPHOCYTE # 0.4 TH/MM3 (1.0-4.8); MEAN CELL VOLUME 87.2 FL (80.0-100.0); MEAN CORPUSCULAR HEMOGLOBIN 30.4 PG (27.0-34.0); MEAN CORPUSCULAR HGB CONC 34.8 % (32.0-36.0); MEAN PLATELET VOLUME 9.4 FL (7.0-11.0); MONO % 3.8 % (0.0-8.0); MONOCYTE # 0.1 TH/MM3 (0-0.9); PLATELET COUNT 76 TH/MM3 (150-450); RED BLOOD COUNT 2.75 MIL/MM3 (4.50-5.90); RED CELL DISTRIBUTION WIDTH 15.1 % (11.6-17.2); WHITE BLOOD COUNT 1.5 TH/MM3 (4.0-11.0)
[2017-10-29 05:37] LABS: ALBUMIN 1.4 GM/DL (3.4-5.0); BICARBONATE 33.2 MEQ/L (21.0-32.0); CALCIUM 7.3 MG/DL (8.5-10.1); CALCIUM-PROTEIN CORRECTED 8.6 MG/DL (8.5-10.1); CREATININE 0.45 MG/DL (0.60-1.30); MAGNESIUM 2.2 MG/DL (1.5-2.5); PHOSPHORUS 2.1 MG/DL (2.5-4.9); TOTAL BILIRUBIN ADULT 1.8 MG/DL (0.2-1.0); TOTAL PROTEIN 4.8 GM/DL (6.4-8.2)
[2017-10-29 06:59] LABS: BANDS 3 % (0-6); LYMPHOCYTES 6 % (9-44); MONOCYTES 5 % (0-8); NEUTROPHIL # MANUAL DIFF 1.3 TH/MM3 (1.8-7.7); POLYS (SEG NEUTROPHILS) 85 % (16-70)
[2017-10-29] MEDS ORDERED: PHARMACY ORDERED LAB ONE (07:45)
[2017-10-29] MEDS: CHLORHEXIDINE 0.12% (ORAL KIT) 15 ML CUP MT SCH ×2 (08:00→20:00)
[2017-10-29] MEDS: NYSTAT/DIPHENHY/LIDO MOUTHWASH (Adult) 120ML SWISH-SWAL SCH ×4 (08:05→22:11)
[2017-10-29] MEDS: carBAMazepine 200 MG TAB PO SCH ×2 (08:07→22:08)
[2017-10-29] MEDS: OSELTAMIVIR PHOSPHATE 75 MG CAP PO SCH ×2 (08:07→22:08)
[2017-10-29] MEDS: VANCOMYCIN INJ 1,000 MG in SODIUM CHLOR 0.9% 250 ML INJ 250 ML IV SCH ×3 (08:07)
[2017-10-29] MEDS: SILVER SULFADIAZINE/LIDOCAINE CREAM 60 GM JAR TOPICAL SCH ×2 (08:12→22:44)
[2017-10-29] MEDS: AQUAPHOR OINT 50 GM TUBE TOPICAL SCH ×2 (08:12→22:44)
[2017-10-29] MEDS: PANTOPRAZOLE SODIUM 40 MG VIAL IV PUSH SCH (09:50)
--- NOTE | 2017-10-29 11:53 | PD.ONC.PN ---
Subjective Subjective Remarks Resting comfortably in bed. No acute events events overnight. Objective Data Date Time Temp Pulse Resp B/P (MAP) Pulse Ox O2 Delivery O2 Flow Rate FiO2 10/29/17 10:00 100 10/29/17 08:44 96 Nasal Cannula 3.00 10/29/17 08:00 98.4 87 21 127/68 (87) 90 10/29/17 08:00 87 10/29/17 07:00 93 Nasal Cannula 3.00 10/29/17 06:00 85 10/29/17 04:00 81 10/29/17 04:00 98.3 81 22 134/71 (92) 97 10/29/17 02:00 100 10/29/17 00:00 98.2 89 22 126/60 (82) 98 10/29/17 00:00 89 10/28/17 20:33 100 Nasal Cannula 4.00 10/28/17 20:00 88 10/28/17 20:00 98.8 88 22 112/65 (81) 99 10/28/17 19:00 99 Nasal Cannula 4.00 10/28/17 18:32 17 10/28/17 18:00 96 10/28/17 16:00 98.4 96 14 123/74 (90) 98 10/28/17 16:00 96 10/28/17 14:00 90 10/28/17 13:26 98 Nasal Cannula 4.00 10/28/17 13:10 98 Nasal Cannula 4 10/28/17 12:00 93 10/28/17 12:00 30 10/28/17 12:00 98.9 93 23 134/82 (99) 97 10/29/17 10/29/17 10/29/17 06:59 14:59 22:59 Intake Total 610 ml Output Total 900 ml Balance -290 ml Result Diagram: 10/29/17 0445 10/29/17 0445 Laboratory Results Laboratory Tests Test 10/28/17 12:45 10/28/17 23:15 10/29/17 04:45 10/29/17 07:50 Blood Gas Puncture Site RT RADIAL Blood Gas Patient Temperature 98.6 Blood Gas HCO3 29 mmol/L Blood Gas Base Excess 5.3 mmol/L Blood Gas Oxygen Saturation 96 % Arterial Blood pH 7.48 Arterial Blood Partial Pressure CO2 39 mmHg Arterial Blood Partial Pressure O2 105 mmHg Arterial Blood Oxygen Content 13.9 Vol % Arterial Blood Carboxyhemoglobin 1.3 % Arterial Blood Methemoglobin 1.2 % Blood Gas Hemoglobin 10.2 G/DL Oxygen Delivery Device VENTILATOR Blood Gas Ventilator Setting [id number] Blood Gas Inspired Oxygen 30 % Potassium Level 3.5 MEQ/L 3.7 MEQ/L Phosphorus Level 2.6 MG/DL 2.1 MG/DL White Blood Count 1.5 TH/MM3 Red Blood Count 2.75 MIL/MM3 Hemoglobin 8.3 GM/DL Hematocrit 23.9 % Mean Corpuscular Volume 87.2 FL Mean Corpuscular Hemoglobin 30.4 PG Mean Corpuscular Hemoglobin Concent 34.8 % Red Cell Distribution Width 15.1 % Platelet Count 76 TH/MM3 Mean Platelet Volume 9.4 FL Neutrophils (%) (Auto) 71.0 % Lymphocytes (%) (Auto) 24.1 % Monocytes (%) (Auto) 3.8 % Eosinophils (%) (Auto) 0.4 % Basophils (%) (Auto) 0.7 % Neutrophils # (Auto) 1.1 TH/MM3 Lymphocytes # (Auto) 0.4 TH/MM3 Monocytes # (Auto) 0.1 TH/MM3 Eosinophils # (Auto) 0.0 TH/MM3 Basophils # (Auto) 0.0 TH/MM3 CBC Comment AUTO DIFF Differential Total Cells Counted 100 Neutrophils % (Manual) 85 % Band Neutrophils % 3 % Lymphocytes % 6 % Monocytes % 5 % Eosinophils % 1 % Neutrophils # (Manual) 1.3 TH/MM3 Differential Comment FINAL DIFF MANUAL Platelet Estimate LOW Platelet Morphology Comment NORMAL Blood Urea Nitrogen 15 MG/DL Creatinine 0.45 MG/DL Random Glucose 97 MG/DL Total Protein 4.8 GM/DL Albumin 1.4 GM/DL Calcium Level 7.3 MG/DL Magnesium Level 2.2 MG/DL Alkaline Phosphatase 188 U/L Aspartate Amino Transf (AST/SGOT) 90 U/L Alanine Aminotransferase (ALT/SGPT) 79 U/L Total Bilirubin 1.8 MG/DL Sodium Level 139 MEQ/L Chloride Level 101 MEQ/L Carbon Dioxide Level 33.2 MEQ/L Anion Gap 5 MEQ/L Estimat Glomerular Filtration Rate 189 ML/MIN Protein Corrected Calcium 8.6 MG/DL Vancomycin Level Trough 23.8 MCG/ML Administered Medications Medications (Trade) Dose Ordered Sig/Siddhartha Route PRN Reason Start Time Stop Time Status Last Admin Dose Admin Tamsulosin HCl (Flomax) 0.4 mg HS PO 10/17/17 21:00 10/28/17 21:01 Carbamazepine (TEGretol) 400 mg DAILY PO 10/18/17 09:00 10/29/17 08:07 Ondansetron HCl (Zofran Inj) 4 mg Q6H PRN IV PUSH VOMITING 10/18/17 16:45 10/25/17 04:05 Prochlorperazine Maleate (Compazine) 10 mg Q6H PRN PO NAUSEA 10/18/17 18:00 10/20/17 05:00 Loperamide HCl (Imodium) 2 mg Q6H PRN PO diarrhea 10/18/17 17:00 10/21/17 15:32 Acetaminophen (Tylenol) 500 mg Q4H PRN PO TEMPERATURE > 100.4 10/19/17 05:15 10/28/17 01:24 Morphine Sulfate (Morphine Inj) 4 mg Q3H PRN IV PUSH PAIN LEVEL 3-10 10/19/17 06:30 10/29/17 09:51 Emollient Ointment (Aquaphor Oint) 1 applic Q12HR TOPICAL 10/19/17 21:00 10/29/17 08:12 Carbamazepine (TEGretol) 400 mg HS PO 10/21/17 21:00 10/28/17 21:01 Trazodone HCl (Desyrel) 150 mg HS PO 10/21/17 21:00 10/28/17 21:00 Albuterol Sulfate (Albuterol Neb) 2.5 mg Q4HR NEB PRN INH SHORTNESS OF BREATH 10/22/17 08:15 10/23/17 21:15 Multi-Ingredient Mouthwash/Gargle (Magic Mouthwash Adult Liq) 5 ml QID SWISH-SWAL 10/23/17 13:00 10/29/17 08:05 Methylprednisolone Sodium Succinate (SoluMEDROL INJ) 40 mg Q8HR IV PUSH 10/23/17 22:00 10/29/17 05:12 Pantoprazole Sodium (Protonix Inj) 40 mg Q24H IV PUSH 10/26/17 10:00 10/29/17 09:50 Lorazepam (Ativan Inj) 1 mg Q8H PRN IV ANXIETY 10/25/17 13:45 10/28/17 21:41 Chlorhexidine Gluconate (Peridex 0.12% Liq) 15 ml BID@08,20 MT 10/25/17 20:00 10/28/17 07:51 Oseltamivir Phosphate (Tamiflu) 75 mg BID PO 10/25/17 22:30 10/29/17 08:07 Azithromycin 500 mg/Sodium Chloride 250 ml @ 250 mls/hr Q24H IV 10/25/17 20:00 10/28/17 21:00 Meropenem 1000 mg/ Sodium Chloride 100 ml @ 200 mls/hr Q8H IV 10/26/17 11:00 10/29/17 09:51 Albuterol/ Ipratropium (Duoneb Neb) 1 ampule Q6HR NEB NEB 10/26/17 16:00 10/29/17 08:26 Olanzapine (ZyPREXA) 15 mg HS PO 10/26/17 21:00 10/28/17 21:00 Potassium Phosphate 30 mmol/ Sodium Chloride 260 ml @ 42 mls/hr UNSCH PRN IV SEE LABEL COMMENTS 10/28/17 10:30 10/28/17 11:15 Compound Med (Ritters Cream) 1 applic BID TOPICAL 10/28/17 21:00 10/29/17 08:12 Objective Remarks GENERAL: chronically ill appearing patient in no distress SKIN: Warm and dry. HEAD: Normocephalic. EYES: No scleral icterus. No injection or drainage. NECK: Supple, trachea midline. No JVD or lymphadenopathy. LYMPHATIC: No adenopathy. RESPIRATORY: No accessory muscle use. GASTROINTESTINAL: Abdomen soft, non-tender, nondistended. EXTREMITIES: No cyanosis, or edema. MUSCULOSKELETAL: Adequate muscle tone. NEUROLOGICAL: No obvious focal deficit. Awake, alert, and oriented x3. PSYCHIATRIC: Appropriate mood and affect; insight and judgment normal. Assessment/Plan Problem List: (1) Neutropenic fever ICD Codes: D70.9 - Neutropenia, unspecified; R50.81 - Fever presenting with conditions classified elsewhere Status: Resolved Plan: Blood and urine cultures remain negative as of 6:25 PM on 10/20/2017. On empiric antibiotic therapy with cefepime and vancomycin. On G-CSF, absolute neutral count is 5.9 as of today. Suspect perianal area as site of bacteria entry. Keep area dry, difficult with diarrhea and XRT. 2/20/18. Neutropenia resolve. Still has fever- low grade T 100.0, BC neg. Noted thrombocytopenia likely chemo induced. Asymptomatic, follow. Cont abx 10/22/17 Pt went into resp distress this morning, Movd to ICU. Had Lasix with a good response. Still on BiPap. XRT and chemo on hold at this time due to toxicity,. Neutropenia has resolved. Off of Neupogen, Thrombocytopenia persists. NO TX needed. d/w pt, Dad and sister. Answered their questions. Dr Bauer (His oncologist) will see him tomorrow. D/W RN 10/24/17. Continue GCSF, goal ANC>5000 x 2 days. (2) Thrombocytopenia ICD Codes: D69.6 - Thrombocytopenia, unspecified Status: Acute Plan: Likely due to chemo, Mitomycin C and 5FU. complicated by neutropenic fever, pulmonary infiltrates Noted PT/PTT prolonged, check fibrinogen r/o DIC Consider drug effect, LMWH, antiseizures, antibiotics- monitor for now. Check HIT antibody but clinical presentation makes it unlikely. Monitor for bleeding. 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 He had been under the care of Dr. Bauer, Dr. Rocha and was being treated with definitive dose chemoradiotherapy with infusional 5-FU and mitomycin-C. He presents to the hospital with neutropenic fever, status post fall with a subcutaneous hematoma over his right for head and confusion. Hospital course complicated by respiratory failure requiring intubation and he is now s/p extubation. Plan 1. Locally advanced Rectal SCC, low laying palpable on digital rectal exam currently undergoing treatment with concurrent chemotherapy and radiation therapy with curative intent. He is s/p day 29 dose of 5-FU and mitomycin C. 9 days of radiation therapy to complete treatment. Currently on hold due to acute illness and hospitalization. 2. Cytopenia: due to chemotherapy (5-fu and mitomycin C), s/p transfusion 2UPRBC, no platelet transfusion 3. ID: Influenza A infection with persistence of infiltrates. Continue antibiotics including vancomycin, merropenem, azithromycin and tamiflu. Kiley Bauer MD Oct 29, 2017 11:53
--- NOTE | 2017-10-29 12:30 | HHI.PR ---
Subjective Remarks This is a 62 year old male patient with a history of rectal SCC currently undergoing concurrent chemotherapy and radiation. Patient was initially admitted to [facility] on 10/18/17 after a fall. Patient was found to have rhabdomyolysis treated with IV fluid recitation. Then on 10/22 patient had respiratory distress was treated with IV diuretics. Seemed to be improving. On 10/26 patient again had respiratory distress at that time patient required intubation and was followed by the tool rental technician. Patient noted to be influence A positive on 10/25. Patient is also being followed by infectious disease for influenza pneumonia and probably superimposed bacterial pneumonia, currently receiving Tamiflu, Vancomycin, Meropenem and azithromycin. Patient noted to have anemia and GI was consulted due to concerns of GI bleed. EGD was done 10/27 which showed mild erythema in the stomach consistent with NG tube trauma, minimal esophagitis and otherwise normal. Patient was able to be extubated 10/28 and hospitalist were consulted to assume care. Objective Vitals Vital Signs Date Time Temp Pulse Resp B/P (MAP) Pulse Ox O2 Delivery O2 Flow Rate FiO2 10/29/17 10:00 100 10/29/17 08:44 96 Nasal Cannula 3.00 10/29/17 08:00 98.4 87 21 127/68 (87) 90 10/29/17 08:00 87 10/29/17 07:00 93 Nasal Cannula 3.00 10/29/17 06:00 85 10/29/17 04:00 81 10/29/17 04:00 98.3 81 22 134/71 (92) 97 10/29/17 02:00 100 10/29/17 00:00 98.2 89 22 126/60 (82) 98 10/29/17 00:00 89 10/28/17 20:33 100 Nasal Cannula 4.00 10/28/17 20:00 88 10/28/17 20:00 98.8 88 22 112/65 (81) 99 10/28/17 19:00 99 Nasal Cannula 4.00 10/28/17 18:32 17 10/28/17 18:00 96 10/28/17 16:00 98.4 96 14 123/74 (90) 98 10/28/17 16:00 96 10/28/17 14:00 90 10/28/17 13:26 98 Nasal Cannula 4.00 10/28/17 13:10 98 Nasal Cannula 4 Result Diagram: 10/29/17 0445 10/29/17 0445 Imaging Last 72 hours Impressions Pelvis X-Ray 10/17/17 1704 Signed Impressions: Service Date/Time: Tuesday, October 17, 2017 17:21 - CONCLUSION: Abnormal intertrochanteric region left hip, nonspecific. I do not see evidence for acute traumatic injury. Imer Stanley MD FACR Head CT 10/17/17 1659 Signed Impressions: Service Date/Time: Tuesday, October 17, 2017 17:34 - CONCLUSION: Intracranial contents unremarkable. Large cephalhematoma. On the right. 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 Patient was initially admitted to [facility] on 10/18/17 after a fall. Patient was found to have rhabdomyolysis treated with IV fluid recitation. Then on 10/22 patient had respiratory distress was treated with IV diuretics. Seemed to be improving. On 10/26 patient again had respiratory distress at that time patient required intubation and was followed by the tool rental technician. Patient noted to be influence A positive on 10/25. Patient is also being followed by infectious disease for influenza pneumonia and probably superimposed bacterial pneumonia, currently receiving Tamiflu, Vancomycin, Meropenem and azithromycin. Patient noted to have anemia and GI was consulted due to concerns of GI bleed. EGD was done 10/27 which showed mild erythema in the stomach consistent with NG tube trauma, minimal esophagitis and otherwise normal. Patient was able to be extubated 10/28 and hospitalist were consulted to assume care. Echo noted patient does have component CHF diastolic dysfunction (2) Rhabdomyolysis ICD Codes: M62.82 - Rhabdomyolysis Status: Acute Plan: CK normalized. IVF stopped 10/22 due to fluid overload (3) Neutropenic fever ICD Codes: D70.9 - Neutropenia, unspecified; R50.81 - Fever presenting with conditions classified elsewhere Status: Resolved Plan: Questionable etiology but most likely associated with perirectal exposure. Appreciate hematology/oncology and ID input. Patient noted to be influence A positive on 10/25. Patient is also being followed by infectious disease for influenza pneumonia and probably superimposed bacterial pneumonia, currently receiving Tamiflu, Vancomycin, Meropenem and azithromycin. (4) Scalp contusion ICD Codes: S00.03XA - Contusion of scalp, initial encounter Status: Acute Plan: Manage conservatively. Clinically improved. cerebral contusion noted on repeat CT. Follow clinically. 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 (7) Bipolar depression ICD Codes: F31.30 - Bipolar disorder, current episode depressed, mild or moderate severity, unspecified Status: Chronic Plan: Continue home medication. (8) Confusion ICD Codes: R41.0 - Disorientation, unspecified Status: Acute Plan: ? etiology. Mentation improved 10/24 ? a/w infectious process, metabolic disturbance, meds, recent head injury. Ammonia, CK unremarkable. CT brain reveals possible mild hemorrhagic contusion now. Given that his neuro exam is actually improving, we'll monitor. We'll hold Lovenox due to the CT finding. Patient denies headache. confusion improved (9) At risk for abuse of opiates ICD Codes: Z91.89 - Other specified personal risk factors, not elsewhere classified Status: Chronic Plan: Pt has hx of opiate abuse and had been in outpt rehab program. He had been doing quite well. Will use caution when prescribing opiates to control his pain. (10) Elevated LFTs ICD Codes: R79.89 - Other specified abnormal findings of blood chemistry Status: Acute Plan: LFTs stable Possible a/w recent fluid overload vs med (? cefepime) LFTs improving Assessment and Plan Patient examined. Assessment and plan formulated with Rula Hughes PA-C. I agree with the above. Problem Qualifiers (1) Respiratory failure, acute: Qualified Codes: J96.01 - Acute respiratory failure with hypoxia (2) Rhabdomyolysis: (3) Scalp contusion: Qualified Codes: S00.03XA - Contusion of scalp, initial encounter (4) HTN (hypertension): Qualified Codes: I10 - Essential (primary) hypertension Rula Hughes Oct 29, 2017 12:30 Tom Min DO Nov 03, 2017 11:16
--- NOTE | 2017-10-29 13:10 | HHI.IDPN ---
Note Infectious Disease Note Patient feels fine today. He is awake and alert. He denies shortness of breath. On nasal cannula. Afebrile. White blood cell count has improved. Current WBC 1.5. 62-year-old white male who presented to the emergency department on 10/17 after falling. The patient reportedly was on the tile floor of his home for some time after he fell and was discovered by his family. He was evaluated and was noted to have heart rate of 107 and white blood cell count of 2.7 with 63% neutrophils. He was felt to have mild rhabdomyolysis and was treated. The patient has a history of rectal cancer for which he received chemotherapy and subsequently radiation therapy. His blood cultures were taken on admission and has no growth. He was positive for testing for influenzae on 10/25. PAST MEDICAL HISTORY: 1. Bipolar disorder. 2. Hypertension. 3. Gastroesophageal reflux. 4. BPH. 5. Lumbar degenerative disk disease. 6. Squamous cell cancer of the rectum diagnosed 07/2017. 7. Basal cell carcinoma of the skin. 8. Right inguinal hernia repair. 9. Rotator cuff repair. 10. [id number]. ALLERGIES DOXYCYCLINE, MINOCYCLINE, TIGECYCLINE. MEDICATIONS: 1. Meropenem. 2. Azithromycin. 3. Vancomycin. 4. Tamiflu Current Medications Medications (Trade) Dose Ordered Sig/Siddhartha Route PRN Reason Start Time Stop Time Status Last Admin Dose Admin Tamsulosin HCl (Flomax) 0.4 mg HS PO 10/17/17 21:00 10/28/17 21:01 Carbamazepine (TEGretol) 400 mg DAILY PO 10/18/17 09:00 10/29/17 08:07 Ondansetron HCl (Zofran Inj) 4 mg Q6H PRN IV PUSH VOMITING 10/18/17 16:45 10/25/17 04:05 Prochlorperazine Maleate (Compazine) 10 mg Q6H PRN PO NAUSEA 10/18/17 18:00 10/20/17 05:00 Loperamide HCl (Imodium) 2 mg Q6H PRN PO diarrhea 10/18/17 17:00 10/21/17 15:32 Acetaminophen (Tylenol) 500 mg Q4H PRN PO TEMPERATURE > 100.4 10/19/17 05:15 10/28/17 01:24 Morphine Sulfate (Morphine Inj) 4 mg Q3H PRN IV PUSH PAIN LEVEL 3-10 10/19/17 06:30 10/29/17 09:51 Emollient Ointment (Aquaphor Oint) 1 applic Q12HR TOPICAL 10/19/17 21:00 10/29/17 08:12 Carbamazepine (TEGretol) 400 mg HS PO 10/21/17 21:00 10/28/17 21:01 Trazodone HCl (Desyrel) 150 mg HS PO 10/21/17 21:00 10/28/17 21:00 Pharmacy Profile Note 0 ml @ 0 mls/hr UNSCH OTHER 10/21/17 18:15 Diphenhydramine HCl (Benadryl) 25 mg Q4H PRN PO SEE LABEL COMMENTS 10/22/17 06:00 Albuterol Sulfate (Albuterol Neb) 2.5 mg Q4HR NEB PRN INH SHORTNESS OF BREATH 10/22/17 08:15 10/23/17 21:15 Multi-Ingredient Mouthwash/Gargle (Magic Mouthwash Adult Liq) 5 ml QID SWISH-SWAL 10/23/17 13:00 10/29/17 12:34 Methylprednisolone Sodium Succinate (SoluMEDROL INJ) 40 mg Q8HR IV PUSH 10/23/17 22:00 10/29/17 05:12 Pantoprazole Sodium (Protonix Inj) 40 mg Q24H IV PUSH 10/26/17 10:00 10/29/17 09:50 Lorazepam (Ativan Inj) 1 mg Q8H PRN IV ANXIETY 10/25/17 13:45 10/28/17 21:41 Chlorhexidine Gluconate (Peridex 0.12% Liq) 15 ml BID@08,20 MT 10/25/17 20:00 10/28/17 07:51 Oseltamivir Phosphate (Tamiflu) 75 mg BID PO 10/25/17 22:30 10/29/17 08:07 Azithromycin 500 mg/Sodium Chloride 250 ml @ 250 mls/hr Q24H IV 10/25/17 20:00 10/28/17 21:00 Meropenem 1000 mg/ Sodium Chloride 100 ml @ 200 mls/hr Q8H IV 10/26/17 11:00 10/29/17 09:51 Albuterol/ Ipratropium (Duoneb Neb) 1 ampule Q6HR NEB NEB 10/26/17 16:00 10/29/17 08:26 Olanzapine (ZyPREXA) 15 mg HS PO 10/26/17 21:00 10/28/17 21:00 Potassium Chloride 100 ml @ 50 mls/hr Q2H PRN IV For Potassium 2.8 - 3.2 mEq/L 10/28/17 10:30 Potassium Chloride 100 ml @ 50 mls/hr Q2H PRN IV For Potassium 2.8 - 3.2 mEq/L 10/28/17 10:30 Potassium Bicarb/ Potassium Chloride (K-Lyte Cl Eff) 50 meq UNSCH PRN PO For Potassium 3.3 - 3.5 mEq/L 10/28/17 10:30 Potassium Chloride 100 ml @ 25 mls/hr UNSCH PRN IV For Potassium 3.3 - 3.5 mEq/L 10/28/17 10:30 Potassium Chloride 100 ml @ 50 mls/hr Q2H PRN IV For Potassium 3.3 - 3.5 mEq/L 10/28/17 10:30 Magnesium Sulfate 4 gm/Sodium Chloride 100 ml @ 50 mls/hr UNSCH PRN IV For Magnesium 0.9 - 1.1 mg/dL 10/28/17 10:30 Magnesium Oxide (Mag-Ox) 800 mg UNSCH PRN PO For Magnesium 1.2 - 1.6 mg/dL 10/28/17 10:30 Magnesium Sulfate 2 gm/Sodium Chloride 100 ml @ 50 mls/hr UNSCH PRN IV For Magnesium 1.2 - 1.6 mg/dL 10/28/17 10:30 Potassium Phosphate (K-Phos) 2,000 mg Q4H PRN PO For Phosphorus < 2.5 mg/dL 10/28/17 10:30 Sodium Phosphate 30 mmol/Sodium Chloride 250 ml @ 42 mls/hr UNSCH PRN IV For Phosphorus < 2.5 mg/dL 10/28/17 10:30 Potassium Phosphate (K-Phos) 2,000 mg UNSCH PRN PO/TUBE SEE LABEL COMMENTS 10/28/17 10:30 Potassium Phosphate 30 mmol/ Sodium Chloride 260 ml @ 42 mls/hr UNSCH PRN IV SEE LABEL COMMENTS 10/28/17 10:30 10/28/17 11:15 Compound Med (Ritters Cream) 1 applic BID TOPICAL 10/28/17 21:00 10/29/17 08:12 Vancomycin HCl 1250 mg/Sodium Chloride 262.5 ml @ 250 mls/hr Q12H IV 10/29/17 21:00 Miscellaneous Information SPECIFIC LAB TO BE DRAWN:VANCOMYCIN TROUGH DATE TO... ONCE ONCE .XX 10/31/17 08:45 10/31/17 08:46 OBJECTIVE: Vital Signs Date Time Temp Pulse Resp B/P (MAP) Pulse Ox O2 Delivery O2 Flow Rate FiO2 10/29/17 10:00 100 10/29/17 08:44 96 Nasal Cannula 3.00 10/29/17 08:00 98.4 87 21 127/68 (87) 90 10/29/17 08:00 87 10/29/17 07:00 93 Nasal Cannula 3.00 10/29/17 06:00 85 10/29/17 04:00 81 10/29/17 04:00 98.3 81 22 134/71 (92) 97 10/29/17 02:00 100 10/29/17 00:00 98.2 89 22 126/60 (82) 98 10/29/17 00:00 89 10/28/17 20:33 100 Nasal Cannula 4.00 10/28/17 20:00 88 10/28/17 20:00 98.8 88 22 112/65 (81) 99 10/28/17 19:00 99 Nasal Cannula 4.00 10/28/17 18:32 17 10/28/17 18:00 96 10/28/17 16:00 98.4 96 14 123/74 (90) 98 10/28/17 16:00 96 10/28/17 14:00 90 10/28/17 13:26 98 Nasal Cannula 4.00 10/28/17 13:10 98 Nasal Cannula 4 Laboratory Tests Test 10/28/17 05:20 10/29/17 04:45 White Blood Count 0.8 TH/MM3 1.5 TH/MM3 Red Blood Count 2.70 MIL/MM3 2.75 MIL/MM3 Hemoglobin 7.8 GM/DL 8.3 GM/DL Hematocrit 22.8 % 23.9 % Mean Corpuscular Volume 84.2 FL 87.2 FL Mean Corpuscular Hemoglobin 29.0 PG 30.4 PG Mean Corpuscular Hemoglobin Concent 34.4 % 34.8 % Red Cell Distribution Width 15.9 % 15.1 % Platelet Count 62 TH/MM3 76 TH/MM3 Mean Platelet Volume 9.2 FL 9.4 FL CBC Comment AUTO DIFF AUTO DIFF Differential Total Cells Counted 100 100 Neutrophils % (Manual) 63 % 85 % Band Neutrophils % 1 % 3 % Lymphocytes % 32 % 6 % Monocytes % 3 % 5 % Basophils % 1 % Neutrophils # (Manual) 0.5 TH/MM3 1.3 TH/MM3 Differential Comment FINAL DIFF MANUAL FINAL DIFF MANUAL Atypical Lymphocytes % Toxic Granulation 2+ Platelet Estimate LOW LOW Platelet Morphology Comment ENLARGED NORMAL Neutrophils (%) (Auto) 71.0 % Lymphocytes (%) (Auto) 24.1 % Monocytes (%) (Auto) 3.8 % Eosinophils (%) (Auto) 0.4 % Basophils (%) (Auto) 0.7 % Neutrophils # (Auto) 1.1 TH/MM3 Lymphocytes # (Auto) 0.4 TH/MM3 Monocytes # (Auto) 0.1 TH/MM3 Eosinophils # (Auto) 0.0 TH/MM3 Basophils # (Auto) 0.0 TH/MM3 Eosinophils % 1 % Laboratory Tests Test 10/28/17 05:20 10/28/17 23:15 10/29/17 04:45 Blood Urea Nitrogen 21 MG/DL 15 MG/DL Creatinine 0.60 MG/DL 0.45 MG/DL Random Glucose 88 MG/DL 97 MG/DL Total Protein 4.5 GM/DL 4.8 GM/DL Albumin 1.3 GM/DL 1.4 GM/DL Calcium Level 7.1 MG/DL 7.3 MG/DL Phosphorus Level 1.8 MG/DL 2.6 MG/DL 2.1 MG/DL Magnesium Level 1.9 MG/DL 2.2 MG/DL Alkaline Phosphatase 173 U/L 188 U/L Aspartate Amino Transf (AST/SGOT) 56 U/L 90 U/L Alanine Aminotransferase (ALT/SGPT) 56 U/L 79 U/L Total Bilirubin 2.3 MG/DL 1.8 MG/DL Sodium Level 137 MEQ/L 139 MEQ/L Potassium Level 3.1 MEQ/L 3.5 MEQ/L 3.7 MEQ/L Chloride Level 102 MEQ/L 101 MEQ/L Carbon Dioxide Level 28.2 MEQ/L 33.2 MEQ/L Anion Gap 7 MEQ/L 5 MEQ/L Estimat Glomerular Filtration Rate 136 ML/MIN 189 ML/MIN Protein Corrected Calcium 8.5 MG/DL 8.6 MG/DL IMAGING: Chest X-Ray 10/27/17 0600 Signed Impressions: Service Date/Time: Friday, October 27, 2017 05:08 - CONCLUSION: 1. Stable tubes and lines, as above. 2. Improved right lower lung zone airspace disease. 3. Stable patchy airspace disease in the left mid to lower lung zones. Erasmo Lacey MD Abdomen X-Ray 10/26/17 1000 Signed Impressions: Service Date/Time: Thursday, October 26, 2017 09:47 - CONCLUSION: Negative KUB. Tommie Cortez MD Head CT 10/21/17 0000 Signed Impressions: Service Date/Time: Saturday, October 21, 2017 23:07 - CONCLUSION: 1. Ill-defined hyperdense area now noted along the left occipital parietal lobe junction likely representing a hemorrhagic contusion. 2. Interval decrease in the size of the right cephalohematoma. Ino Head MD Liver Ultrasound 10/19/17 0000 Signed Impressions: Service Date/Time: Thursday, October 19, 2017 14:17 - CONCLUSION: Extensive sludge in the gallbladder. No gallbladder wall thickening is seen.. Yonatan Quijano MD Pelvis X-Ray 10/17/17 1704 Signed Impressions: Service Date/Time: Tuesday, October 17, 2017 17:21 - CONCLUSION: Abnormal intertrochanteric region left hip, nonspecific. I do not see evidence for acute traumatic injury. Imer Stanley MD FACR Chest X-Ray 10/26/17 1000 Signed Impressions: Service Date/Time: Thursday, October 26, 2017 09:42 - CONCLUSION: 1. Diffuse areas of consolidation throughout the lungs which could represent underlying edema or diffuse infection. There is more focal consolidation in the left perihilar region. These findings are unchanged. 2. ET tube continues to be a low but acceptable position 1.4 cm above the justin. Tommie Cortez MD Abdomen X-Ray 10/26/17 1000 Signed Impressions: Service Date/Time: Thursday, October 26, 2017 09:47 - CONCLUSION: Negative KUB. Tommie Cortez MD Head CT 10/21/17 0000 Signed Impressions: Service Date/Time: Saturday, October 21, 2017 23:07 - CONCLUSION: 1. Ill-defined hyperdense area now noted along the left occipital parietal lobe junction likely representing a hemorrhagic contusion. 2. Interval decrease in the size of the right cephalohematoma. Ino Head MD Liver Ultrasound 10/19/17 0000 Signed Impressions: Service Date/Time: Thursday, October 19, 2017 14:17 - CONCLUSION: Extensive sludge in the gallbladder. No gallbladder wall thickening is seen.. Yonatan Quijano MD Pelvis X-Ray 10/17/17 1704 Signed Impressions: Service Date/Time: Tuesday, October 17, 2017 17:21 - CONCLUSION: Abnormal intertrochanteric region left hip, nonspecific. I do not see evidence for acute traumatic injury. Imer Stanley MD FACR PHYSICAL EXAMINATION: GENERAL: No acute distress. Awake and alert and oriented. HEENT. The head atraumatic. Extraocular movements grossly intact, pupils reactive to light. No icterus. Neck: Supple without adenopathy or swelling. Lungs: Bilateral rhonchi. No wheezes. Heart: Regular S1-S2. No murmurs, rubs or gallops. Abdomen: Bowel sounds present, soft, mildly distended, nontender. No masses. Extremities: No clubbing or cyanosis or edema. Skin: No rash. Neurologic: No gross focal findings. Psychiatric: Pleasant, calm and is cooperative. IMPRESSION 1. Sepsis. 2. Neutropenia with fever. White blood cell count improving. 3. Influenza pneumonia and probably superimposed bacterial pneumonia. improving. 4. Acute respiratory failure. 5. Rectal cancer. Receiving chemotherapy and radiation therapy. 6. Increased LFT. improving. Clinically stable. RECOMMENDATIONS 1. Repeat chest x-ray tomorrow. 2. Continue Tamiflu for influenzae treatment. 3. Continue vancomycin. 4. Continue Meropenem. 5. Continue azithromycin for additional pulmonary coverage in light of persistent infiltrates. 6. Monitor white blood cell count. 7. Monitor temperature. Anticipate discharge in the next day or 2 depending on his chest x-ray and continued clinical improvement. Kamar Chand MD Oct 29, 2017 13:10
--- NOTE | 2017-10-29 17:39 | HHI.PR ---
Subjective Remarks Extubated and on O2 3 L Doing well and sats 97 On Antibiotics and Steroids. Objective Vital Signs Date Time Temp Pulse Resp B/P (MAP) Pulse Ox O2 Delivery O2 Flow Rate FiO2 10/29/17 16:00 98.3 86 22 145/81 (102) 99 10/29/17 16:00 86 10/29/17 12:00 98.3 92 12 137/73 (94) 96 10/29/17 12:00 92 10/29/17 10:00 100 10/29/17 08:44 96 Nasal Cannula 3.00 10/29/17 08:00 98.4 87 21 127/68 (87) 90 10/29/17 08:00 87 10/29/17 07:00 93 Nasal Cannula 3.00 10/29/17 06:00 85 10/29/17 04:00 81 10/29/17 04:00 98.3 81 22 134/71 (92) 97 10/29/17 02:00 100 10/29/17 00:00 98.2 89 22 126/60 (82) 98 10/29/17 00:00 89 10/28/17 20:33 100 Nasal Cannula 4.00 10/28/17 20:00 88 10/28/17 20:00 98.8 88 22 112/65 (81) 99 10/28/17 19:00 99 Nasal Cannula 4.00 10/28/17 18:32 17 10/28/17 18:00 96 I/O 10/28/17 10/28/17 10/28/17 10/29/17 10/29/17 10/29/17 07:00 15:00 23:00 07:00 15:00 23:00 Intake Total 590 ml 1240 ml 610 ml 350 ml Output Total 425 ml 2325 ml 2575 ml 900 ml Balance -425 ml -1735 ml -1335 ml -290 ml 350 ml Intake Oral 480 ml 360 ml IV Total 590 ml 760 ml 250 ml 350 ml Output Urine Total 425 ml 2325 ml 2575 ml 900 ml Gastric Drainage Total 0 ml 0 ml # Bowel Movements 0 0 Result Diagram: 10/29/1744410/29/175 Objective Remarks This is a thinly built middle-aged white male who is pale. HEENT: Head normocephalic. Pupils reactive. Tongue is dry. Throat is clear . Nasal mucosae clear. Ears no inflammation. NECK: Supple. No bruits or thyroid enlargement. No lymphadenopathy. CHEST: Distant breath sounds with wheezes bilaterally, prolonged expirations. There are few crackles at bases . HEART: The heart sounds are regular S1-S2. No murmur. No S3. ABDOMEN: The abdomen is soft and protuberant. No masses or organomegaly or tenderness. Bowel sounds are active. EXTREMITIES: Mild edema . Reflexes are 1+ with no gross motor deficits. NEUROLOGIC:Alert and talking . RECTAL: Exam is deferred. SKIN: No lesions. Assessment and Plan Assessment and Plan IMPRESSION 1. Acute hypoxemic respiratory failure. 2. He has a history of rectal cancer. 3. Syncopal episodes 4. Basilar pneumonia 5. Anemia with blood loss 6. Dehydration and acute kidney injury PLan : 1. Wean O2 to 2 L 2. Wean solumedrol 40 mg IV Q12H 3. Continue Antibiotics . 4. IS q2h bedside 5. CBC,BMP ,in am 7. PT Evaluation Kaylie Son MD Oct 29, 2017 17:39
[2017-10-29] MEDS: traZODone HCL 100 MG TAB PO SCH (22:06)
[2017-10-29] MEDS: TAMSULOSIN HCL 0.4 MG CAP PO SCH (22:08)
[2017-10-29] MEDS: AZITHROMYCIN INJ 500 MG in SODIUM CHLOR 0.9% 250 ML INJ 250 ML IV SCH (22:09)
[2017-10-29] MEDS: ZOLPIDEM TARTRATE 5 MG TAB PO PRN (22:30)
[2017-10-29] MEDS: VANCOMYCIN INJ 1,250 MG in SODIUM CHLOR 0.9% 250 ML INJ 250 ML IV SCH (23:23)
[2017-10-30] VITALS (9 sets, daily range): BP systolic 105–145; BP diastolic 64–79; PULSE 80–95; RESP 17–28; TEMP 97.4–98.9; O2SAT 94–100
[2017-10-30] MEDS: MEROPENEM INJ 1,000 MG in SODIUM CHLORIDE 0.9% INJ 100 ML IV SCH ×3 (02:18→17:57)
[2017-10-30] MEDS: MORPHINE SULFATE 4 MG/ML INJ IV PUSH PRN ×4 (03:34→18:38)
[2017-10-30] MEDS: RESP: ALBUTEROL 2.5 MG/IPRATROPIUM 0.5 MG NEB (SCH) NEB ×2 (04:06→08:02)
[2017-10-30 04:25] LABS: AUTOMATED NEUTROPHIL # 0.9 TH/MM3 (1.8-7.7); BASOPHIL % 1.6 % (0.0-2.0); EOSINOPHIL % 0.3 % (0.0-4.0); HEMATOCRIT 25.1 % (39.0-51.0); HEMOGLOBIN 8.6 GM/DL (13.0-17.0); LYMPH % 31.7 % (9.0-44.0); LYMPHOCYTE # 0.4 TH/MM3 (1.0-4.8); MEAN CELL VOLUME 83.2 FL (80.0-100.0); MEAN CORPUSCULAR HEMOGLOBIN 28.4 PG (27.0-34.0); MEAN CORPUSCULAR HGB CONC 34.2 % (32.0-36.0); MEAN PLATELET VOLUME 9.2 FL (7.0-11.0); MONO % 4.3 % (0.0-8.0); MONOCYTE # 0.1 TH/MM3 (0-0.9); NEUT % 62.1 % (16.0-70.0); PLATELET COUNT 89 TH/MM3 (150-450); RED BLOOD COUNT 3.02 MIL/MM3 (4.50-5.90); RED CELL DISTRIBUTION WIDTH 15.8 % (11.6-17.2); WHITE BLOOD COUNT 1.4 TH/MM3 (4.0-11.0)
[2017-10-30] MEDS: LORazepam 2 MG/ML VIAL IV PRN (04:42)
[2017-10-30 05:08] LABS: BICARBONATE 30.2 MEQ/L (21.0-32.0); CALCIUM 7.4 MG/DL (8.5-10.1); CREATININE 0.42 MG/DL (0.60-1.30); PHOSPHORUS 2.4 MG/DL (2.5-4.9)
[2017-10-30 05:24] LABS: CALCIUM-PROTEIN CORRECTED 8.6 MG/DL (8.5-10.1); TOTAL PROTEIN 4.9 GM/DL (6.4-8.2)
--- NOTE | 2017-10-30 06:38 | RADRPT ---
EXAM DATE/TIME: 10/30/2017 05:51 [facility] COMPARISON: CHEST SINGLE AP, October 27, 2017, 5:08. INDICATIONS : Short of breath. MEDICAL HISTORY : Hypertension. Rectal cancer. Squamous cell carcinoma. GERD. SURGICAL HISTORY : Hernia repair. Bilateral shoulder cuff repair. Chemotherapy. Radiation therapy. Blood transfusions. ENCOUNTER: Subsequent ACUITY: 1 week PAIN SCORE: Non-responsive. LOCATION: Bilateral chest FINDINGS: Barragan has been extubated with NG tube removed. Stable right IJ [id number]. Redemonstration of dif fuse patchy airspace disease in the left mid to lower lung zones with interval mild progression of pa tchy airspace disease in the right lower lung zone. Cardiomediastinal contours are stable. Remainder of the exam is unchanged. CONCLUSION: 1. Status post extubation with removal of NGT. 2. Stable patchy airspace disease in the left mid to lower lung zones. 3. Mild progression of patchy airspace disease in the right lower lung zone. Erasmo Lacey MD on October 30, 2017 at 6:35 Board Certified Radiologist. This report was verified electronically.
[2017-10-30] MEDS: CHLORHEXIDINE 0.12% (ORAL KIT) 15 ML CUP MT SCH ×2 (08:00→20:00)
[2017-10-30] MEDS: methylPREDNISolone SOD SUCC 40 MG/1 ML VIAL IV PUSH SCH (08:08)
[2017-10-30] MEDS: VANCOMYCIN INJ 1,250 MG in SODIUM CHLOR 0.9% 250 ML INJ 250 ML IV SCH (08:08)
[2017-10-30] MEDS: carBAMazepine 200 MG TAB PO SCH ×2 (08:08→20:33)
[2017-10-30] MEDS: FUROSEMIDE 20 MG TAB PO SCH (08:08)
[2017-10-30] MEDS: OSELTAMIVIR PHOSPHATE 75 MG CAP PO SCH ×2 (08:08→20:33)
[2017-10-30] MEDS: NYSTAT/DIPHENHY/LIDO MOUTHWASH (Adult) 120ML SWISH-SWAL SCH ×4 (08:09→20:33)
[2017-10-30 08:46] LABS: BANDS 3 % (0-6); LYMPHOCYTES 11 % (9-44); MONOCYTES 1 % (0-8); NEUTROPHIL # MANUAL DIFF 1.2 TH/MM3 (1.8-7.7); POLYS (SEG NEUTROPHILS) 85 % (16-70)
[2017-10-30] MEDS: AQUAPHOR OINT 50 GM TUBE TOPICAL SCH ×2 (09:00→20:34)
[2017-10-30] MEDS: SILVER SULFADIAZINE/LIDOCAINE CREAM 60 GM JAR TOPICAL SCH ×2 (09:00→20:34)
[2017-10-30] MEDS: PANTOPRAZOLE SODIUM 40 MG VIAL IV PUSH SCH (10:59)
--- NOTE | 2017-10-30 11:25 | HHI.IDPN ---
Note Infectious Disease Note Patient says he feels tired today. His appetite is poor. He appears a little lethargic. Reports pain in his rectum. Denies shortness of breath. Denies chills. Has cough without sputum production. He is on O2 2 L via nasal cannula. Afebrile. Blood counts remain low. WBC is 1.4 today. Absolute neutrophil count is slightly above 1000. Repeat chest x-ray is worse. Good urine output. Discussed with RN. Discussed with Dr. Min. 62-year-old white male who presented to the emergency department on 10/17 after falling. The patient reportedly was on the tile floor of his home for some time after he fell and was discovered by his family. He was evaluated and was noted to have heart rate of 107 and white blood cell count of 2.7 with 63% neutrophils. He was felt to have mild rhabdomyolysis and was treated. The patient has a history of rectal cancer for which he received chemotherapy and subsequently radiation therapy. His blood cultures were taken on admission and has no growth. He was positive for testing for influenzae on 10/25. PAST MEDICAL HISTORY: 1. Bipolar disorder. 2. Hypertension. 3. Gastroesophageal reflux. 4. BPH. 5. Lumbar degenerative disk disease. 6. Squamous cell cancer of the rectum diagnosed 07/2017. 7. Basal cell carcinoma of the skin. 8. Right inguinal hernia repair. 9. Rotator cuff repair. 10. Pdnitj-D-Xpby. ALLERGIES DOXYCYCLINE, MINOCYCLINE, TIGECYCLINE. MEDICATIONS: 1. Meropenem. 2. Azithromycin. 3. Vancomycin. 4. Tamiflu Current Medications Medications (Trade) Dose Ordered Sig/Siddhartha Route PRN Reason Start Time Stop Time Status Last Admin Dose Admin Tamsulosin HCl (Flomax) 0.4 mg HS PO 10/17/17 21:00 10/29/17 22:08 Carbamazepine (TEGretol) 400 mg DAILY PO 10/18/17 09:00 10/30/17 08:08 Ondansetron HCl (Zofran Inj) 4 mg Q6H PRN IV PUSH VOMITING 10/18/17 16:45 10/25/17 04:05 Prochlorperazine Maleate (Compazine) 10 mg Q6H PRN PO NAUSEA 10/18/17 18:00 10/20/17 05:00 Loperamide HCl (Imodium) 2 mg Q6H PRN PO diarrhea 10/18/17 17:00 10/21/17 15:32 Acetaminophen (Tylenol) 500 mg Q4H PRN PO TEMPERATURE > 100.4 10/19/17 05:15 10/28/17 01:24 Morphine Sulfate (Morphine Inj) 4 mg Q3H PRN IV PUSH PAIN LEVEL 3-10 10/19/17 06:30 10/30/17 09:33 Emollient Ointment (Aquaphor Oint) 1 applic Q12HR TOPICAL 10/19/17 21:00 10/30/17 09:00 Carbamazepine (TEGretol) 400 mg HS PO 10/21/17 21:00 10/29/17 22:08 Trazodone HCl (Desyrel) 150 mg HS PO 10/21/17 21:00 10/29/17 22:06 Pharmacy Profile Note 0 ml @ 0 mls/hr UNSCH OTHER 10/21/17 18:15 Diphenhydramine HCl (Benadryl) 25 mg Q4H PRN PO SEE LABEL COMMENTS 10/22/17 06:00 Albuterol Sulfate (Albuterol Neb) 2.5 mg Q4HR NEB PRN INH SHORTNESS OF BREATH 10/22/17 08:15 10/23/17 21:15 Multi-Ingredient Mouthwash/Gargle (Magic Mouthwash Adult Liq) 5 ml QID SWISH-SWAL 10/23/17 13:00 10/30/17 08:09 Pantoprazole Sodium (Protonix Inj) 40 mg Q24H IV PUSH 10/26/17 10:00 10/30/17 10:59 Lorazepam (Ativan Inj) 1 mg Q8H PRN IV ANXIETY 10/25/17 13:45 10/30/17 04:42 Chlorhexidine Gluconate (Peridex 0.12% Liq) 15 ml BID@08,20 MT 10/25/17 20:00 10/30/17 08:00 Oseltamivir Phosphate (Tamiflu) 75 mg BID PO 10/25/17 22:30 10/30/17 08:08 Azithromycin 500 mg/Sodium Chloride 250 ml @ 250 mls/hr Q24H IV 10/25/17 20:00 10/29/17 22:09 Meropenem 1000 mg/ Sodium Chloride 100 ml @ 200 mls/hr Q8H IV 10/26/17 11:00 10/30/17 10:59 Albuterol/ Ipratropium (Duoneb Neb) 1 ampule Q6HR NEB NEB 10/26/17 16:00 10/30/17 08:02 Olanzapine (ZyPREXA) 15 mg HS PO 10/26/17 21:00 10/29/17 22:06 Potassium Chloride 100 ml @ 50 mls/hr Q2H PRN IV For Potassium 2.8 - 3.2 mEq/L 10/28/17 10:30 Potassium Chloride 100 ml @ 50 mls/hr Q2H PRN IV For Potassium 2.8 - 3.2 mEq/L 10/28/17 10:30 Potassium Bicarb/ Potassium Chloride (K-Lyte Cl Eff) 50 meq UNSCH PRN PO For Potassium 3.3 - 3.5 mEq/L 10/28/17 10:30 Potassium Chloride 100 ml @ 25 mls/hr UNSCH PRN IV For Potassium 3.3 - 3.5 mEq/L 10/28/17 10:30 Potassium Chloride 100 ml @ 50 mls/hr Q2H PRN IV For Potassium 3.3 - 3.5 mEq/L 10/28/17 10:30 Magnesium Sulfate 4 gm/Sodium Chloride 100 ml @ 50 mls/hr UNSCH PRN IV For Magnesium 0.9 - 1.1 mg/dL 10/28/17 10:30 Magnesium Oxide (Mag-Ox) 800 mg UNSCH PRN PO For Magnesium 1.2 - 1.6 mg/dL 10/28/17 10:30 Magnesium Sulfate 2 gm/Sodium Chloride 100 ml @ 50 mls/hr UNSCH PRN IV For Magnesium 1.2 - 1.6 mg/dL 10/28/17 10:30 Potassium Phosphate (K-Phos) 2,000 mg Q4H PRN PO For Phosphorus < 2.5 mg/dL 10/28/17 10:30 Sodium Phosphate 30 mmol/Sodium Chloride 250 ml @ 42 mls/hr UNSCH PRN IV For Phosphorus < 2.5 mg/dL 10/28/17 10:30 Potassium Phosphate (K-Phos) 2,000 mg UNSCH PRN PO/TUBE SEE LABEL COMMENTS 10/28/17 10:30 Potassium Phosphate 30 mmol/ Sodium Chloride 260 ml @ 42 mls/hr UNSCH PRN IV SEE LABEL COMMENTS 10/28/17 10:30 10/28/17 11:15 Compound Med (Ritters Cream) 1 applic BID TOPICAL 10/28/17 21:00 10/30/17 09:00 Vancomycin HCl 1250 mg/Sodium Chloride 262.5 ml @ 250 mls/hr Q12H IV 10/29/17 21:00 10/30/17 08:08 Miscellaneous Information SPECIFIC LAB TO BE DRAWN:VANCOMYCIN TROUGH DATE TO... ONCE ONCE .XX 10/31/17 08:45 10/31/17 08:46 Methylprednisolone Sodium Succinate (SoluMEDROL INJ) 40 mg BID IV PUSH 10/29/17 21:00 10/30/17 08:08 Furosemide (Lasix) 20 mg DAILY PO 10/30/17 09:00 10/30/17 08:08 Zolpidem Tartrate (Ambien) 5 mg HS PRN PO INSOMNIA 10/29/17 18:45 10/29/17 22:30 OBJECTIVE: Vital Signs Date Time Temp Pulse Resp B/P (MAP) Pulse Ox O2 Delivery O2 Flow Rate FiO2 10/30/17 08:03 94 Nasal Cannula 2.00 10/30/17 08:00 94 10/30/17 08:00 98.9 94 25 129/67 (87) 99 10/30/17 07:00 100 Nasal Cannula 2.00 10/30/17 04:07 97 Nasal Cannula 3.00 10/30/17 04:00 97.4 94 19 140/64 (89) 97 10/30/17 04:00 94 10/30/17 03:39 22 10/30/17 00:00 80 10/30/17 00:00 98.5 80 26 145/79 (101) 96 10/29/17 21:08 94 Nasal Cannula 3.00 10/29/17 21:00 99 Nasal Cannula 2.00 10/29/17 21:00 88 10/29/17 20:00 99.1 92 22 133/76 (95) 99 10/29/17 16:00 98.3 86 22 145/81 (102) 99 10/29/17 16:00 86 10/29/17 12:00 98.3 92 12 137/73 (94) 96 10/29/17 12:00 92 Laboratory Tests Test 10/29/17 04:45 10/30/17 04:10 White Blood Count 1.5 TH/MM3 1.4 TH/MM3 Red Blood Count 2.75 MIL/MM3 3.02 MIL/MM3 Hemoglobin 8.3 GM/DL 8.6 GM/DL Hematocrit 23.9 % 25.1 % Mean Corpuscular Volume 87.2 FL 83.2 FL Mean Corpuscular Hemoglobin 30.4 PG 28.4 PG Mean Corpuscular Hemoglobin Concent 34.8 % 34.2 % Red Cell Distribution Width 15.1 % 15.8 % Platelet Count 76 TH/MM3 89 TH/MM3 Mean Platelet Volume 9.4 FL 9.2 FL Neutrophils (%) (Auto) 71.0 % 62.1 % Lymphocytes (%) (Auto) 24.1 % 31.7 % Monocytes (%) (Auto) 3.8 % 4.3 % Eosinophils (%) (Auto) 0.4 % 0.3 % Basophils (%) (Auto) 0.7 % 1.6 % Neutrophils # (Auto) 1.1 TH/MM3 0.9 TH/MM3 Lymphocytes # (Auto) 0.4 TH/MM3 0.4 TH/MM3 Monocytes # (Auto) 0.1 TH/MM3 0.1 TH/MM3 Eosinophils # (Auto) 0.0 TH/MM3 0.0 TH/MM3 Basophils # (Auto) 0.0 TH/MM3 0.0 TH/MM3 CBC Comment AUTO DIFF AUTO DIFF Differential Total Cells Counted 100 100 Neutrophils % (Manual) 85 % 85 % Band Neutrophils % 3 % 3 % Lymphocytes % 6 % 11 % Monocytes % 5 % 1 % Eosinophils % 1 % Neutrophils # (Manual) 1.3 TH/MM3 1.2 TH/MM3 Differential Comment FINAL DIFF MANUAL FINAL DIFF MANUAL Platelet Estimate LOW LOW Platelet Morphology Comment NORMAL ENLARGED Laboratory Tests Test 10/28/17 23:15 10/29/17 04:45 10/30/17 04:10 Potassium Level 3.5 MEQ/L 3.7 MEQ/L 4.1 MEQ/L Phosphorus Level 2.6 MG/DL 2.1 MG/DL 2.4 MG/DL Blood Urea Nitrogen 15 MG/DL 11 MG/DL Creatinine 0.45 MG/DL 0.42 MG/DL Random Glucose 97 MG/DL 112 MG/DL Total Protein 4.8 GM/DL 4.9 GM/DL Albumin 1.4 GM/DL Calcium Level 7.3 MG/DL 7.4 MG/DL Magnesium Level 2.2 MG/DL Alkaline Phosphatase 188 U/L Aspartate Amino Transf (AST/SGOT) 90 U/L Alanine Aminotransferase (ALT/SGPT) 79 U/L Total Bilirubin 1.8 MG/DL Sodium Level 139 MEQ/L 138 MEQ/L Chloride Level 101 MEQ/L 102 MEQ/L Carbon Dioxide Level 33.2 MEQ/L 30.2 MEQ/L Anion Gap 5 MEQ/L 6 MEQ/L Estimat Glomerular Filtration Rate 189 ML/MIN 205 ML/MIN Protein Corrected Calcium 8.6 MG/DL 8.6 MG/DL IMAGING: Chest X-Ray 10/30/17 0600 Signed Impressions: Service Date/Time: October 05:51 - CONCLUSION: 1. Status post extubation with removal of NGT. 2. Stable patchy airspace disease in the left mid to lower lung zones. 3. Mild progression of patchy airspace disease in the right lower lung zone. Erasmo Lacey MD Chest X-Ray 10/27/17 0600 Signed Impressions: Service Date/Time: Friday, October 27, 2017 05:08 - CONCLUSION: 1. Stable tubes and lines, as above. 2. Improved right lower lung zone airspace disease. 3. Stable patchy airspace disease in the left mid to lower lung zones. Erasmo Lacey MD Abdomen X-Ray 10/26/17 1000 Signed Impressions: Service Date/Time: Thursday, October 26, 2017 09:47 - CONCLUSION: Negative KUB. Tommie Cortez MD Head CT 10/21/17 0000 Signed Impressions: Service Date/Time: Saturday, October 21, 2017 23:07 - CONCLUSION: 1. Ill-defined hyperdense area now noted along the left occipital parietal lobe junction likely representing a hemorrhagic contusion. 2. Interval decrease in the size of the right cephalohematoma. Ino Head MD Liver Ultrasound 10/19/17 0000 Signed Impressions: Service Date/Time: Thursday, October 19, 2017 14:17 - CONCLUSION: Extensive sludge in the gallbladder. No gallbladder wall thickening is seen.. Yonatan Quijano MD Pelvis X-Ray 10/17/17 1704 Signed Impressions: Service Date/Time: Tuesday, October 17, 2017 17:21 - CONCLUSION: Abnormal intertrochanteric region left hip, nonspecific. I do not see evidence for acute traumatic injury. Imer Stanley MD FACR Chest X-Ray 10/26/17 1000 Signed Impressions: Service Date/Time: Thursday, October 26, 2017 09:42 - CONCLUSION: 1. Diffuse areas of consolidation throughout the lungs which could represent underlying edema or diffuse infection. There is more focal consolidation in the left perihilar region. These findings are unchanged. 2. ET tube continues to be a low but acceptable position 1.4 cm above the justin. Tommie Cortez MD Abdomen X-Ray 10/26/17 1000 Signed Impressions: Service Date/Time: Thursday, October 26, 2017 09:47 - CONCLUSION: Negative KUB. Tommie Cortez MD Head CT 10/21/17 0000 Signed Impressions: Service Date/Time: Saturday, October 21, 2017 23:07 - CONCLUSION: 1. Ill-defined hyperdense area now noted along the left occipital parietal lobe junction likely representing a hemorrhagic contusion. 2. Interval decrease in the size of the right cephalohematoma. Ino Head MD Liver Ultrasound 10/19/17 0000 Signed Impressions: Service Date/Time: Thursday, October 19, 2017 14:17 - CONCLUSION: Extensive sludge in the gallbladder. No gallbladder wall thickening is seen.. Yonatan Quijano MD Pelvis X-Ray 10/17/17 1704 Signed Impressions: Service Date/Time: Tuesday, October 17, 2017 17:21 - CONCLUSION: Abnormal intertrochanteric region left hip, nonspecific. I do not see evidence for acute traumatic injury. Imer Stanley MD FACR PHYSICAL EXAMINATION: GENERAL: No acute distress. HEENT. The head atraumatic. Extraocular movements grossly intact, pupils reactive to light. No icterus. Oropharynx mucosa moist. No thrush. Neck: Supple without adenopathy or swelling. Lungs: Bilateral coarse breath sounds. No wheezes. Heart: Regular S1-S2. No murmurs, rubs or gallops. Abdomen: Bowel sounds present, soft, mildly distended, nontender. No masses. Extremities: No clubbing or cyanosis or edema. Skin: No rash. Neurologic: No gross focal findings. Psychiatric: Pleasant, calm and is cooperative. IMPRESSION 1. Sepsis. 2. Neutropenia with fever. WBC improved. However slight decreased from yesterday. 3. Influenza pneumonia and probably superimposed bacterial pneumonia. improving. Chest x-rays is worse. 4. Acute respiratory failure. Post extubation. 5. Rectal cancer. 6. Increased LFT. Increased yesterday. Clinically appears stable. RECOMMENDATIONS 1. Continue Tamiflu for influenza treatment. Would typically give a 5 day course for influenza. However given his immunosuppression and worsening chest x-ray Would continue for a longer course. 2. Stop vancomycin. 3. Continue Meropenem. 4. Continue azithromycin but change to p.o. for additional pulmonary coverage in light of persistent infiltrates. 5. Monitor white blood cell count. 6. Monitor temperature. 7. Monitor liver function tests. 8. Repeat chest x-ray tomorrow. Would like to see further improvement in the chest x-ray since he is at risk for continued pulmonary infection given his Low white blood cell count. Kamar Chand MD Oct 30, 2017 11:25
[2017-10-30] MEDS: AZITHROMYCIN 250 MG TAB PO SCH (11:49)
--- NOTE | 2017-10-30 14:15 | PD.ONC.PN ---
Subjective Subjective Remarks Resting comfortably in bed in no distress. Objective Data Date Time Temp Pulse Resp B/P (MAP) Pulse Ox O2 Delivery O2 Flow Rate FiO2 10/30/17 12:00 98.9 85 28 136/78 (97) 98 10/30/17 12:00 85 10/30/17 08:03 94 Nasal Cannula 2.00 10/30/17 08:00 94 10/30/17 08:00 98.9 94 25 129/67 (87) 99 10/30/17 07:00 100 Nasal Cannula 2.00 10/30/17 04:07 97 Nasal Cannula 3.00 10/30/17 04:00 97.4 94 19 140/64 (89) 97 10/30/17 04:00 94 10/30/17 03:39 22 10/30/17 00:00 80 10/30/17 00:00 98.5 80 26 145/79 (101) 96 10/29/17 21:08 94 Nasal Cannula 3.00 10/29/17 21:00 99 Nasal Cannula 2.00 10/29/17 21:00 88 10/29/17 20:00 99.1 92 22 133/76 (95) 99 10/29/17 16:00 98.3 86 22 145/81 (102) 99 10/29/17 16:00 86 10/30/17 10/30/17 10/30/17 06:59 14:59 22:59 Intake Total 992.5 ml Output Total 1675 ml Balance -682.5 ml Result Diagram: 10/30/17 0410 10/30/17 0410 Laboratory Results Laboratory Tests Test 10/30/17 04:10 White Blood Count 1.4 TH/MM3 Red Blood Count 3.02 MIL/MM3 Hemoglobin 8.6 GM/DL Hematocrit 25.1 % Mean Corpuscular Volume 83.2 FL Mean Corpuscular Hemoglobin 28.4 PG Mean Corpuscular Hemoglobin Concent 34.2 % Red Cell Distribution Width 15.8 % Platelet Count 89 TH/MM3 Mean Platelet Volume 9.2 FL Neutrophils (%) (Auto) 62.1 % Lymphocytes (%) (Auto) 31.7 % Monocytes (%) (Auto) 4.3 % Eosinophils (%) (Auto) 0.3 % Basophils (%) (Auto) 1.6 % Neutrophils # (Auto) 0.9 TH/MM3 Lymphocytes # (Auto) 0.4 TH/MM3 Monocytes # (Auto) 0.1 TH/MM3 Eosinophils # (Auto) 0.0 TH/MM3 Basophils # (Auto) 0.0 TH/MM3 CBC Comment AUTO DIFF Differential Total Cells Counted 100 Neutrophils % (Manual) 85 % Band Neutrophils % 3 % Lymphocytes % 11 % Monocytes % 1 % Neutrophils # (Manual) 1.2 TH/MM3 Differential Comment FINAL DIFF MANUAL Platelet Estimate LOW Platelet Morphology Comment ENLARGED Blood Urea Nitrogen 11 MG/DL Creatinine 0.42 MG/DL Random Glucose 112 MG/DL Total Protein 4.9 GM/DL Calcium Level 7.4 MG/DL Phosphorus Level 2.4 MG/DL Sodium Level 138 MEQ/L Potassium Level 4.1 MEQ/L Chloride Level 102 MEQ/L Carbon Dioxide Level 30.2 MEQ/L Anion Gap 6 MEQ/L Estimat Glomerular Filtration Rate 205 ML/MIN Protein Corrected Calcium 8.6 MG/DL Imaging Studies Last 24 hours Impressions Chest X-Ray 10/30/17 0600 Signed Impressions: Service Date/Time: October 05:51 - CONCLUSION: 1. Status post extubation with removal of NGT. 2. Stable patchy airspace disease in the left mid to lower lung zones. 3. Mild progression of patchy airspace disease in the right lower lung zone. Erasmo Lacey MD Administered Medications Medications (Trade) Dose Ordered Sig/Siddhartha Route PRN Reason Start Time Stop Time Status Last Admin Dose Admin Tamsulosin HCl (Flomax) 0.4 mg HS PO 10/17/17 21:00 10/29/17 22:08 Carbamazepine (TEGretol) 400 mg DAILY PO 10/18/17 09:00 10/30/17 08:08 Ondansetron HCl (Zofran Inj) 4 mg Q6H PRN IV PUSH VOMITING 10/18/17 16:45 10/25/17 04:05 Prochlorperazine Maleate (Compazine) 10 mg Q6H PRN PO NAUSEA 10/18/17 18:00 10/20/17 05:00 Loperamide HCl (Imodium) 2 mg Q6H PRN PO diarrhea 10/18/17 17:00 10/21/17 15:32 Acetaminophen (Tylenol) 500 mg Q4H PRN PO TEMPERATURE > 100.4 10/19/17 05:15 10/28/17 01:24 Morphine Sulfate (Morphine Inj) 4 mg Q3H PRN IV PUSH PAIN LEVEL 3-10 10/19/17 06:30 10/30/17 09:33 Emollient Ointment (Aquaphor Oint) 1 applic Q12HR TOPICAL 10/19/17 21:00 10/30/17 09:00 Carbamazepine (TEGretol) 400 mg HS PO 10/21/17 21:00 10/29/17 22:08 Trazodone HCl (Desyrel) 150 mg HS PO 10/21/17 21:00 10/29/17 22:06 Albuterol Sulfate (Albuterol Neb) 2.5 mg Q4HR NEB PRN INH SHORTNESS OF BREATH 10/22/17 08:15 10/23/17 21:15 Multi-Ingredient Mouthwash/Gargle (Magic Mouthwash Adult Liq) 5 ml QID SWISH-SWAL 10/23/17 13:00 10/30/17 11:49 Pantoprazole Sodium (Protonix Inj) 40 mg Q24H IV PUSH 10/26/17 10:00 10/30/17 10:59 Lorazepam (Ativan Inj) 1 mg Q8H PRN IV ANXIETY 10/25/17 13:45 10/30/17 04:42 Chlorhexidine Gluconate (Peridex 0.12% Liq) 15 ml BID@08,20 MT 10/25/17 20:00 10/30/17 08:00 Oseltamivir Phosphate (Tamiflu) 75 mg BID PO 10/25/17 22:30 10/30/17 08:08 Meropenem 1000 mg/ Sodium Chloride 100 ml @ 200 mls/hr Q8H IV 10/26/17 11:00 10/30/17 10:59 Albuterol/ Ipratropium (Duoneb Neb) 1 ampule Q6HR NEB NEB 10/26/17 16:00 10/30/17 08:02 Olanzapine (ZyPREXA) 15 mg HS PO 10/26/17 21:00 10/29/17 22:06 Potassium Phosphate 30 mmol/ Sodium Chloride 260 ml @ 42 mls/hr UNSCH PRN IV SEE LABEL COMMENTS 10/28/17 10:30 10/28/17 11:15 Compound Med (Ritters Cream) 1 applic BID TOPICAL 10/28/17 21:00 10/30/17 09:00 Methylprednisolone Sodium Succinate (SoluMEDROL INJ) 40 mg BID IV PUSH 10/29/17 21:00 10/30/17 08:08 Furosemide (Lasix) 20 mg DAILY PO 10/30/17 09:00 10/30/17 08:08 Zolpidem Tartrate (Ambien) 5 mg HS PRN PO INSOMNIA 10/29/17 18:45 10/29/17 22:30 Azithromycin (Zithromax) 500 mg DAILY PO 10/30/17 12:00 10/30/17 11:49 Objective Remarks GENERAL: chronically ill appearing patient in no distress SKIN: Warm and dry. HEAD: Normocephalic. EYES: No scleral icterus. No injection or drainage. RESPIRATORY: No accessory muscle use. GASTROINTESTINAL: Abdomen soft, non-tender, nondistended. EXTREMITIES: No cyanosis, or edema. MUSCULOSKELETAL: Adequate muscle tone. NEUROLOGICAL: No obvious focal deficit. Awake, alert, and oriented x3. PSYCHIATRIC: Appropriate mood and affect; insight and judgment normal. Assessment/Plan Problem List: (1) Neutropenic fever ICD Codes: D70.9 - Neutropenia, unspecified; R50.81 - Fever presenting with conditions classified elsewhere Status: Resolved Plan: Blood and urine cultures remain negative as of 6:25 PM on 10/20/2017. On empiric antibiotic therapy with cefepime and vancomycin. On G-CSF, absolute neutral count is 5.9 as of today. Suspect perianal area as site of bacteria entry. Keep area dry, difficult with diarrhea and XRT. 10/21/17. Neutropenia resolve. Still has fever- low grade T 100.0, BC neg. Noted thrombocytopenia likely chemo induced. Asymptomatic, follow. Cont abx 10/22/17 Pt went into resp distress this morning, Movd to ICU. Had Lasix with a good response. Still on BiPap. XRT and chemo on hold at this time due to toxicity,. Neutropenia has resolved. Off of Neupogen, Thrombocytopenia persists. NO TX needed. d/w pt, Dad and sister. Answered their questions. Dr Bauer (His oncologist) will see him tomorrow. D/W RN 10/24/17. Continue GCSF, goal ANC>5000 x 2 days. (2) Thrombocytopenia ICD Codes: D69.6 - Thrombocytopenia, unspecified Status: Acute Plan: Likely due to chemo, Mitomycin C and 5FU. complicated by neutropenic fever, pulmonary infiltrates Noted PT/PTT prolonged, check fibrinogen r/o DIC Consider drug effect, LMWH, antiseizures, antibiotics- monitor for now. Check HIT antibody but clinical presentation makes it unlikely. Monitor for bleeding. 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 He had been under the care of Dr. Bauer, Dr. Rocha and was being treated with definitive dose chemoradiotherapy with infusional 5-FU and mitomycin-C. He presents to the hospital with neutropenic fever, status post fall with a subcutaneous hematoma over his right for head and confusion. Hospital course complicated by respiratory failure requiring intubation and he is now s/p extubation. Plan 1. Locally advanced Rectal SCC, low laying palpable on digital rectal exam currently undergoing treatment with concurrent chemotherapy and radiation therapy with curative intent. He is s/p day 29 dose of 5-FU and mitomycin C. 9 days of radiation therapy to complete treatment. Currently on hold due to acute illness and hospitalization. 2. Cytopenia: due to chemotherapy (5-fu and mitomycin C), continue to follow closely 3. ID: Influenza A infection with persistence of infiltrates. Continue antibiotics including merropenem, azithromycin and tamiflu. Kiley Bauer MD Oct 30, 2017 14:15
--- NOTE | 2017-10-30 16:54 | HHI.PR ---
Subjective Remarks Patient reports feels fatigued today RN reports patient has poor appetite Objective Vitals Vital Signs Date Time Temp Pulse Resp B/P (MAP) Pulse Ox O2 Delivery O2 Flow Rate FiO2 10/30/17 16:00 98.3 95 17 105/64 (78) 99 10/30/17 16:00 95 10/30/17 12:00 98.9 85 28 136/78 (97) 98 10/30/17 12:00 85 10/30/17 08:03 94 Nasal Cannula 2.00 10/30/17 08:00 94 10/30/17 08:00 98.9 94 25 129/67 (87) 99 10/30/17 07:00 100 Nasal Cannula 2.00 10/30/17 04:07 97 Nasal Cannula 3.00 10/30/17 04:00 97.4 94 19 140/64 (89) 97 10/30/17 04:00 94 10/30/17 03:39 22 10/30/17 00:00 80 10/30/17 00:00 98.5 80 26 145/79 (101) 96 10/29/17 21:08 94 Nasal Cannula 3.00 10/29/17 21:00 99 Nasal Cannula 2.00 10/29/17 21:00 88 10/29/17 20:00 99.1 92 22 133/76 (95) 99 10/30/17 10/30/17 10/31/17 15:00 23:00 07:00 Intake Total 362.5 ml Balance 362.5 ml IV Total 362.5 ml Result Diagram: 10/30/17 0410 10/30/17 0410 Other Results Laboratory Tests Test 10/28/17 05:20 10/28/17 12:45 10/28/17 23:15 10/29/17 04:45 White Blood Count 0.8 TH/MM3 1.5 TH/MM3 Red Blood Count 2.70 MIL/MM3 2.75 MIL/MM3 Hemoglobin 7.8 GM/DL 8.3 GM/DL Hematocrit 22.8 % 23.9 % Mean Corpuscular Volume 84.2 FL 87.2 FL Mean Corpuscular Hemoglobin 29.0 PG 30.4 PG Mean Corpuscular Hemoglobin Concent 34.4 % 34.8 % Red Cell Distribution Width 15.9 % 15.1 % Platelet Count 62 TH/MM3 76 TH/MM3 Mean Platelet Volume 9.2 FL 9.4 FL CBC Comment AUTO DIFF AUTO DIFF Differential Total Cells Counted 100 100 Neutrophils % (Manual) 63 % 85 % Band Neutrophils % 1 % 3 % Lymphocytes % 32 % 6 % Monocytes % 3 % 5 % Basophils % 1 % Neutrophils # (Manual) 0.5 TH/MM3 1.3 TH/MM3 Differential Comment FINAL DIFF MANUAL FINAL DIFF MANUAL Atypical Lymphocytes % Toxic Granulation 2+ Platelet Estimate LOW LOW Platelet Morphology Comment ENLARGED NORMAL Blood Urea Nitrogen 21 MG/DL 15 MG/DL Creatinine 0.60 MG/DL 0.45 MG/DL Random Glucose 88 MG/DL 97 MG/DL Total Protein 4.5 GM/DL 4.8 GM/DL Albumin 1.3 GM/DL 1.4 GM/DL Calcium Level 7.1 MG/DL 7.3 MG/DL Phosphorus Level 1.8 MG/DL 2.6 MG/DL 2.1 MG/DL Magnesium Level 1.9 MG/DL 2.2 MG/DL Alkaline Phosphatase 173 U/L 188 U/L Aspartate Amino Transf (AST/SGOT) 56 U/L 90 U/L Alanine Aminotransferase (ALT/SGPT) 56 U/L 79 U/L Total Bilirubin 2.3 MG/DL 1.8 MG/DL Sodium Level 137 MEQ/L 139 MEQ/L Potassium Level 3.1 MEQ/L 3.5 MEQ/L 3.7 MEQ/L Chloride Level 102 MEQ/L 101 MEQ/L Carbon Dioxide Level 28.2 MEQ/L 33.2 MEQ/L Anion Gap 7 MEQ/L 5 MEQ/L Estimat Glomerular Filtration Rate 136 ML/MIN 189 ML/MIN Protein Corrected Calcium 8.5 MG/DL 8.6 MG/DL Blood Gas Puncture Site RT RADIAL Blood Gas Patient Temperature 98.6 Blood Gas HCO3 29 mmol/L Blood Gas Base Excess 5.3 mmol/L Blood Gas Oxygen Saturation 96 % Arterial Blood pH 7.48 Arterial Blood Partial Pressure CO2 39 mmHg Arterial Blood Partial Pressure O2 105 mmHg Arterial Blood Oxygen Content 13.9 Vol % Arterial Blood Carboxyhemoglobin 1.3 % Arterial Blood Methemoglobin 1.2 % Blood Gas Hemoglobin 10.2 G/DL Oxygen Delivery Device VENTILATOR Blood Gas Ventilator Setting [id number] Blood Gas Inspired Oxygen 30 % Neutrophils (%) (Auto) 71.0 % Lymphocytes (%) (Auto) 24.1 % Monocytes (%) (Auto) 3.8 % Eosinophils (%) (Auto) 0.4 % Basophils (%) (Auto) 0.7 % Neutrophils # (Auto) 1.1 TH/MM3 Lymphocytes # (Auto) 0.4 TH/MM3 Monocytes # (Auto) 0.1 TH/MM3 Eosinophils # (Auto) 0.0 TH/MM3 Basophils # (Auto) 0.0 TH/MM3 Eosinophils % 1 % Test 10/29/17 07:50 10/30/17 04:10 Vancomycin Level Trough 23.8 MCG/ML White Blood Count 1.4 TH/MM3 Red Blood Count 3.02 MIL/MM3 Hemoglobin 8.6 GM/DL Hematocrit 25.1 % Mean Corpuscular Volume 83.2 FL Mean Corpuscular Hemoglobin 28.4 PG Mean Corpuscular Hemoglobin Concent 34.2 % Red Cell Distribution Width 15.8 % Platelet Count 89 TH/MM3 Mean Platelet Volume 9.2 FL Neutrophils (%) (Auto) 62.1 % Lymphocytes (%) (Auto) 31.7 % Monocytes (%) (Auto) 4.3 % Eosinophils (%) (Auto) 0.3 % Basophils (%) (Auto) 1.6 % Neutrophils # (Auto) 0.9 TH/MM3 Lymphocytes # (Auto) 0.4 TH/MM3 Monocytes # (Auto) 0.1 TH/MM3 Eosinophils # (Auto) 0.0 TH/MM3 Basophils # (Auto) 0.0 TH/MM3 CBC Comment AUTO DIFF Differential Total Cells Counted 100 Neutrophils % (Manual) 85 % Band Neutrophils % 3 % Lymphocytes % 11 % Monocytes % 1 % Neutrophils # (Manual) 1.2 TH/MM3 Differential Comment FINAL DIFF MANUAL Platelet Estimate LOW Platelet Morphology Comment ENLARGED Blood Urea Nitrogen 11 MG/DL Creatinine 0.42 MG/DL Random Glucose 112 MG/DL Total Protein 4.9 GM/DL Calcium Level 7.4 MG/DL Phosphorus Level 2.4 MG/DL Sodium Level 138 MEQ/L Potassium Level 4.1 MEQ/L Chloride Level 102 MEQ/L Carbon Dioxide Level 30.2 MEQ/L Anion Gap 6 MEQ/L Estimat Glomerular Filtration Rate 205 ML/MIN Protein Corrected Calcium 8.6 MG/DL Imaging Last 72 hours Impressions Pelvis X-Ray 10/17/17 [id number] Signed Impressions: Service Date/Time: Tuesday, October 17, 2017 17:21 - CONCLUSION: Abnormal intertrochanteric region left hip, nonspecific. I do not see evidence for acute traumatic injury. Imer Stanley MD FACR Head CT 10/17/17 [id number] Signed Impressions: Service Date/Time: Tuesday, October 17, 2017 17:34 - CONCLUSION: Intracranial contents unremarkable. Large cephalhematoma. On the right. Imer Stanley MD FACR Objective Remarks GENERAL: This is a well-nourished, well-developed patient, in no apparent distress. CARDIOVASCULAR: Regular rate and rhythm without murmurs, gallops, or rubs. RESPIRATORY: Coarse bilaterally GASTROINTESTINAL: Abdomen soft, non-tender, nondistended. Normal active bowel sounds MUSCULOSKELETAL: Extremities without clubbing, cyanosis, or edema. NEURO: Alert & Oriented x4 to person, place, time, situation. 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 Patient was initially admitted to [facility] on 10/18/17 after a fall. Patient was found to have rhabdomyolysis treated with IV fluid recitation. Then on 10/22 patient had respiratory distress was treated with IV diuretics. Seemed to be improving. On 10/26 patient again had respiratory distress at that time patient required intubation and was followed by the organizational development specialist, until 10/28 Patient noted to have anemia and GI was consulted due to concerns of GI bleed. EGD was done 10/27 which showed mild erythema in the stomach consistent with NG tube trauma, minimal esophagitis and otherwise normal. Patient was able to be extubated 10/28 and hospitalist were consulted to assume care. Echo noted patient does have component CHF diastolic dysfunction Patient noted to be influence A positive on 10/25. Patient is also being followed by infectious disease for influenza pneumonia and probably superimposed bacterial pneumonia, currently receiving Tamiflu (10/15 - present) , Meropenem (10/26 - present) and azithromycin (10/25 - changed to PO ), vancomycin (10/19- 10/29). repeat CXR in AM (2) Rhabdomyolysis ICD Codes: M62.82 - Rhabdomyolysis Status: Acute Plan: CK normalized. IVF stopped 10/22 due to fluid overload (3) Neutropenic fever ICD Codes: D70.9 - Neutropenia, unspecified; R50.81 - Fever presenting with conditions classified elsewhere Status: Acute Plan: Questionable etiology but most likely associated with perirectal exposure. Appreciate hematology/oncology and ID input. Patient noted to be influence A positive on 10/25. Patient is also being followed by infectious disease for influenza pneumonia and probably superimposed bacterial pneumonia, currently receiving Tamiflu, Vancomycin, Meropenem and azithromycin. (4) Scalp contusion ICD Codes: S00.03XA - Contusion of scalp, initial encounter Status: Acute Plan: Manage conservatively. Clinically improved. cerebral contusion noted on repeat CT. Follow clinically. 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 (7) Bipolar depression ICD Codes: F31.30 - Bipolar disorder, current episode depressed, mild or moderate severity, unspecified Status: Chronic Plan: Continue home medication. (8) Confusion ICD Codes: R41.0 - Disorientation, unspecified Status: Acute Plan: ? etiology. Mentation improved 10/24 ? a/w infectious process, metabolic disturbance, meds, recent head injury. Ammonia, CK unremarkable. CT brain reveals possible mild hemorrhagic contusion now. Given that his neuro exam is actually improving, we'll monitor. We'll hold Lovenox due to the CT finding. Patient denies headache. confusion improved (9) At risk for abuse of opiates ICD Codes: Z91.89 - Other specified personal risk factors, not elsewhere classified Status: Chronic Plan: Pt has hx of opiate abuse and had been in outpt rehab program. He had been doing quite well. Will use caution when prescribing opiates to control his pain. (10) Elevated LFTs ICD Codes: R79.89 - Other specified abnormal findings of blood chemistry Status: Acute Plan: LFTs stable Possible a/w recent fluid overload vs med (? cefepime) LFTs improving (11) Poor appetite ICD Codes: R63.0 - Anorexia Plan: add boost to meals start Remeron 30 mg PO QHS Assessment and Plan Patient examined. Assessment and plan formulated with Rula Hughes PA-C. I agree with the above. Problem Qualifiers (1) Respiratory failure, acute: Qualified Codes: J96.01 - Acute respiratory failure with hypoxia (2) Rhabdomyolysis: (3) Scalp contusion: Qualified Codes: S00.03XA - Contusion of scalp, initial encounter (4) HTN (hypertension): Qualified Codes: I10 - Essential (primary) hypertension Rula Hughes Oct 30, 2017 16:54 Tom Min DO Nov 03, 2017 12:11
--- NOTE | 2017-10-30 18:08 | HHI.PR ---
Subjective Remarks Extubated and on O2 2 L Doing well and sats 97 On Antibiotics and Steroids. His CXR shows Bilateral infiltrates Objective Vital Signs Date Time Temp Pulse Resp B/P (MAP) Pulse Ox O2 Delivery O2 Flow Rate FiO2 10/30/17 16:00 98.3 95 17 105/64 (78) 99 10/30/17 16:00 95 10/30/17 12:00 98.9 85 28 136/78 (97) 98 10/30/17 12:00 85 10/30/17 08:03 94 Nasal Cannula 2.00 10/30/17 08:00 94 10/30/17 08:00 98.9 94 25 129/67 (87) 99 10/30/17 07:00 100 Nasal Cannula 2.00 10/30/17 04:07 97 Nasal Cannula 3.00 10/30/17 04:00 97.4 94 19 140/64 (89) 97 10/30/17 04:00 94 10/30/17 03:39 22 10/30/17 00:00 80 10/30/17 00:00 98.5 80 26 145/79 (101) 96 10/29/17 21:08 94 Nasal Cannula 3.00 10/29/17 21:00 99 Nasal Cannula 2.00 10/29/17 21:00 88 10/29/17 20:00 99.1 92 22 133/76 (95) 99 I/O 10/29/17 10/29/17 10/29/17 10/30/17 10/30/17 10/30/17 07:00 15:00 23:00 07:00 15:00 23:00 Intake Total 610 ml 350 ml 480 ml 992.5 ml 362.5 ml Output Total 900 ml 550 ml 1675 ml Balance -290 ml 350 ml -70 ml -682.5 ml 362.5 ml Intake Oral 360 ml 480 ml 480 ml IV Total 250 ml 350 ml 512.5 ml 362.5 ml Output Urine Total 900 ml 550 ml 1675 ml # Bowel Movements 0 1 1 Result Diagram: 10/30/1740910/30/17409 Objective Remarks This is a thinly built middle-aged white male who is pale . HEENT: Head normocephalic. Pupils reactive. Tongue is dry. Throat is clear . NECK: Supple. No bruits or thyroid enlargement. No lymphadenopathy. CHEST: Distant breath sounds with wheezes bilaterally. There are few crackles at bases . HEART: The heart sounds are regular S1-S2. No murmur. No S3. ABDOMEN: The abdomen is soft and protuberant. No masses or organomegaly or tenderness. Bowel sounds are active. EXTREMITIES: No edema . Reflexes are 1+ with no gross motor deficits. NEUROLOGIC:Alert and talking .No deficits RECTAL: Exam is deferred. SKIN: No lesions. Assessment and Plan Assessment and Plan IMPRESSION 1. Acute hypoxemic respiratory failure. 2. He has a history of rectal cancer. 3. Syncopal episodes 4. Basilar pneumonia 5. Anemia with blood loss 6. Dehydration and acute kidney injury PLan : 1. Wean O2 to 2 L 2. D/C solumedrol 3. Continue Antibiotics . 4. IS q2h bedside 5. Add Prednisone 30 mg daily 7. PT Evaluation 8. Chest XRay in am Kaylie Son MD Oct 30, 2017 18:08
[2017-10-30] MEDS: ZOLPIDEM TARTRATE 5 MG TAB PO PRN (20:32)
[2017-10-30] MEDS: traZODone HCL 100 MG TAB PO SCH (20:33)
[2017-10-30] MEDS: TAMSULOSIN HCL 0.4 MG CAP PO SCH (20:33)
[2017-10-30] MEDS: MIRTAZAPINE 15 MG TAB PO SCH (20:33)
[2017-10-31] VITALS (9 sets, daily range): BP systolic 110–135; BP diastolic 7–75; PULSE 78–108; RESP 18–24; TEMP 98–98.9; O2SAT 96–100
[2017-10-31] MEDS: MORPHINE SULFATE 4 MG/ML INJ IV PUSH PRN ×2 (01:15→08:39)
[2017-10-31] MEDS: MEROPENEM INJ 1,000 MG in SODIUM CHLORIDE 0.9% INJ 100 ML IV SCH ×3 (02:27→17:52)
[2017-10-31] MEDS: LORazepam 2 MG/ML VIAL IV PRN ×3 (04:02→19:34)
[2017-10-31 05:38] LABS: AUTOMATED NEUTROPHIL # 0.6 TH/MM3 (1.8-7.7); BASOPHIL % 1.8 % (0.0-2.0); EOSINOPHIL # 0.1 TH/MM3 (0-0.4); EOSINOPHIL % 4.7 % (0.0-4.0); HEMATOCRIT 26.1 % (39.0-51.0); HEMOGLOBIN 9.1 GM/DL (13.0-17.0); LYMPH % 29.8 % (9.0-44.0); LYMPHOCYTE # 0.3 TH/MM3 (1.0-4.8); MEAN CELL VOLUME 86.9 FL (80.0-100.0); MEAN CORPUSCULAR HEMOGLOBIN 30.3 PG (27.0-34.0); MEAN CORPUSCULAR HGB CONC 34.9 % (32.0-36.0); MEAN PLATELET VOLUME 9.4 FL (7.0-11.0); MONO % 7.5 % (0.0-8.0); MONOCYTE # 0.1 TH/MM3 (0-0.9); NEUT % 56.2 % (16.0-70.0); PLATELET COUNT 113 TH/MM3 (150-450); RED CELL DISTRIBUTION WIDTH 15.8 % (11.6-17.2); WHITE BLOOD COUNT 1.1 TH/MM3 (4.0-11.0)
[2017-10-31 06:00] LABS: ALBUMIN 1.6 GM/DL (3.4-5.0); AST (GOT) 63 U/L (15-37); BICARBONATE 31.5 MEQ/L (21.0-32.0); BLOOD UREA NITROGEN 12 MG/DL (7-18); CALCIUM 7.6 MG/DL (8.5-10.1); CHLORIDE 97 MEQ/L (98-107); CREATININE 0.46 MG/DL (0.60-1.30); GLOMERULAR FILTRATION RATE 184 ML/MIN (>89); GLUCOSE,RANDOM 92 MG/DL (74-106); SODIUM (NA) 136 MEQ/L (136-145)
[2017-10-31 06:04] LABS: ALKALINE PHOSPHATASE 188 U/L (45-117); ALT (GPT) 93 U/L (12-78); TOTAL BILIRUBIN ADULT 1.4 MG/DL (0.2-1.0); TOTAL PROTEIN 4.9 GM/DL (6.4-8.2)
--- NOTE | 2017-10-31 06:41 | RADRPT ---
EXAM DATE/TIME: 10/31/2017 04:35 [facility] COMPARISON: CHEST SINGLE AP, October 30, 2017, 5:51. INDICATIONS : Pneumonia. MEDICAL HISTORY : Hypertension. Rectal cancer. Squamous cell carcinoma. GERD. SURGICAL HISTORY : Hernia repair. Bilateral shoulder cuff repair. Chemotherapy. Radiation therapy. Blood transfusions. ENCOUNTER: Subsequent ACUITY: 2 weeks PAIN SCORE: 0/10 LOCATION: Bilateral chest FINDINGS: Residual patchy infiltrates in the lateral left midlung and in the lower lateral right lung. Her cat heter tip projects at the cavoatrial junction. The heart is upper limits normal size, stable from pr ior. Both hemidiaphragms remain well delineated. CONCLUSION: Stable partially consolidative infiltrates in the lateral left midlung and lower lateral right lung. Marty Blackmon MD on October 31, 2017 at 6:39 Board Certified Radiologist. This report was verified electronically.
[2017-10-31] MEDS: CHLORHEXIDINE 0.12% (ORAL KIT) 15 ML CUP MT SCH ×2 (08:00→19:36)
[2017-10-31] MEDS: PANTOPRAZOLE SODIUM 40 MG VIAL IV PUSH SCH (08:26)
[2017-10-31] MEDS: FUROSEMIDE 20 MG TAB PO SCH (08:27)
[2017-10-31] MEDS: AZITHROMYCIN 250 MG TAB PO SCH (08:27)
[2017-10-31] MEDS: carBAMazepine 200 MG TAB PO SCH ×2 (08:27→19:35)
[2017-10-31] MEDS: NYSTAT/DIPHENHY/LIDO MOUTHWASH (Adult) 120ML SWISH-SWAL SCH ×4 (08:27→19:36)
[2017-10-31] MEDS: predniSONE 10 MG TAB PO SCH (08:27)
[2017-10-31] MEDS: OSELTAMIVIR PHOSPHATE 75 MG CAP PO SCH ×2 (08:39→19:35)
[2017-10-31] MEDS: AQUAPHOR OINT 50 GM TUBE TOPICAL SCH ×2 (08:39→21:00)
[2017-10-31] MEDS: SILVER SULFADIAZINE/LIDOCAINE CREAM 60 GM JAR TOPICAL SCH ×2 (08:40→21:00)
[2017-10-31] MEDS ORDERED: PHARMACY ORDERED LAB ONE (08:45)
[2017-10-31 08:58] LABS: BASOPHILS 1 % (0-2); LYMPHOCYTES 13 % (9-44); MONOCYTES 4 % (0-8); NEUTROPHIL # MANUAL DIFF 0.9 TH/MM3 (1.8-7.7); POLYS (SEG NEUTROPHILS) 78 % (16-70)
[2017-10-31] MEDS: ACETAMINOPHEN/HYDROcodone 325 MG/5 MG TAB PO PRN ×3 (12:15→22:48)
--- NOTE | 2017-10-31 12:29 | HHI.IDPN ---
Note Infectious Disease Note Patient feels okay. Still has poor appetite. No fever. Denies shortness of breath Reports pain in his rectum. Occasional cough without sputum production. He is on O2 2 L via nasal cannula. White blood cell count is lower today. Absolute neutrophil count is below 1000. Patient is off Neupogen. Repeat chest x-ray still with bilateral infiltrates. Good urine output. Discussed with Dr. Min. 62-year-old white male who presented to the emergency department on 10/17 after falling. The patient reportedly was on the tile floor of his home for some time after he fell and was discovered by his family. He was evaluated and was noted to have heart rate of 107 and white blood cell count of 2.7 with 63% neutrophils. He was felt to have mild rhabdomyolysis and was treated. The patient has a history of rectal cancer for which he received chemotherapy and subsequently radiation therapy. His blood cultures were taken on admission and has no growth. He was positive for testing for influenzae on 10/25. PAST MEDICAL HISTORY: 1. Bipolar disorder. 2. Hypertension. 3. Gastroesophageal reflux. 4. BPH. 5. Lumbar degenerative disk disease. 6. Squamous cell cancer of the rectum diagnosed 07/2017. 7. Basal cell carcinoma of the skin. 8. Right inguinal hernia repair. 9. Rotator cuff repair. 10. Zphnuu-D-Fzom. ALLERGIES DOXYCYCLINE, MINOCYCLINE, TIGECYCLINE. MEDICATIONS: 1. Meropenem. 2. Azithromycin. 3. Tamiflu Current Medications Medications (Trade) Dose Ordered Sig/Siddhartha Route PRN Reason Start Time Stop Time Status Last Admin Dose Admin Tamsulosin HCl (Flomax) 0.4 mg HS PO 10/17/17 21:00 10/30/17 20:33 Carbamazepine (TEGretol) 400 mg DAILY PO 10/18/17 09:00 10/31/17 08:27 Ondansetron HCl (Zofran Inj) 4 mg Q6H PRN IV PUSH VOMITING 10/18/17 16:45 10/25/17 04:05 Prochlorperazine Maleate (Compazine) 10 mg Q6H PRN PO NAUSEA 10/18/17 18:00 10/20/17 05:00 Loperamide HCl (Imodium) 2 mg Q6H PRN PO diarrhea 10/18/17 17:00 10/21/17 15:32 Acetaminophen (Tylenol) 500 mg Q4H PRN PO TEMPERATURE > 100.4 10/19/17 05:15 10/28/17 01:24 Morphine Sulfate (Morphine Inj) 4 mg Q3H PRN IV PUSH PAIN 8-10 10/19/17 06:30 10/31/17 08:39 Emollient Ointment (Aquaphor Oint) 1 applic Q12HR TOPICAL 10/19/17 21:00 10/31/17 08:39 Carbamazepine (TEGretol) 400 mg HS PO 10/21/17 21:00 10/30/17 20:33 Trazodone HCl (Desyrel) 150 mg HS PO 10/21/17 21:00 10/30/17 20:33 Diphenhydramine HCl (Benadryl) 25 mg Q4H PRN PO SEE LABEL COMMENTS 10/22/17 06:00 Albuterol Sulfate (Albuterol Neb) 2.5 mg Q4HR NEB PRN INH SHORTNESS OF BREATH 10/22/17 08:15 10/23/17 21:15 Multi-Ingredient Mouthwash/Gargle (Magic Mouthwash Adult Liq) 5 ml QID SWISH-SWAL 10/23/17 13:00 10/31/17 08:27 Pantoprazole Sodium (Protonix Inj) 40 mg Q24H IV PUSH 10/26/17 10:00 10/31/17 08:26 Lorazepam (Ativan Inj) 1 mg Q8H PRN IV ANXIETY 10/25/17 13:45 10/31/17 04:02 Chlorhexidine Gluconate (Peridex 0.12% Liq) 15 ml BID@08,20 MT 10/25/17 20:00 10/30/17 08:00 Oseltamivir Phosphate (Tamiflu) 75 mg BID PO 10/25/17 22:30 10/31/17 08:39 Meropenem 1000 mg/ Sodium Chloride 100 ml @ 200 mls/hr Q8H IV 10/26/17 11:00 10/31/17 10:36 Olanzapine (ZyPREXA) 15 mg HS PO 10/26/17 21:00 10/30/17 20:32 Potassium Chloride 100 ml @ 50 mls/hr Q2H PRN IV For Potassium 2.8 - 3.2 mEq/L 10/28/17 10:30 Potassium Chloride 100 ml @ 50 mls/hr Q2H PRN IV For Potassium 2.8 - 3.2 mEq/L 10/28/17 10:30 Potassium Bicarb/ Potassium Chloride (K-Lyte Cl Eff) 50 meq UNSCH PRN PO For Potassium 3.3 - 3.5 mEq/L 10/28/17 10:30 Potassium Chloride 100 ml @ 25 mls/hr UNSCH PRN IV For Potassium 3.3 - 3.5 mEq/L 10/28/17 10:30 Potassium Chloride 100 ml @ 50 mls/hr Q2H PRN IV For Potassium 3.3 - 3.5 mEq/L 10/28/17 10:30 Magnesium Sulfate 4 gm/Sodium Chloride 100 ml @ 50 mls/hr UNSCH PRN IV For Magnesium 0.9 - 1.1 mg/dL 10/28/17 10:30 Magnesium Oxide (Mag-Ox) 800 mg UNSCH PRN PO For Magnesium 1.2 - 1.6 mg/dL 10/28/17 10:30 Magnesium Sulfate 2 gm/Sodium Chloride 100 ml @ 50 mls/hr UNSCH PRN IV For Magnesium 1.2 - 1.6 mg/dL 10/28/17 10:30 Potassium Phosphate (K-Phos) 2,000 mg Q4H PRN PO For Phosphorus < 2.5 mg/dL 10/28/17 10:30 Sodium Phosphate 30 mmol/Sodium Chloride 250 ml @ 42 mls/hr UNSCH PRN IV For Phosphorus < 2.5 mg/dL 10/28/17 10:30 Potassium Phosphate (K-Phos) 2,000 mg UNSCH PRN PO/TUBE SEE LABEL COMMENTS 10/28/17 10:30 Potassium Phosphate 30 mmol/ Sodium Chloride 260 ml @ 42 mls/hr UNSCH PRN IV SEE LABEL COMMENTS 10/28/17 10:30 10/28/17 11:15 Compound Med (Ritters Cream) 1 applic BID TOPICAL 10/28/17 21:00 10/31/17 08:40 Furosemide (Lasix) 20 mg DAILY PO 10/30/17 09:00 10/31/17 08:27 Zolpidem Tartrate (Ambien) 5 mg HS PRN PO INSOMNIA 10/29/17 18:45 10/30/17 20:32 Azithromycin (Zithromax) 500 mg DAILY PO 10/30/17 12:00 10/31/17 08:27 Mirtazapine (Remeron) 30 mg HS PO 10/30/17 21:00 10/30/17 20:33 Prednisone (Deltasone) 30 mg DAILY PO 10/31/17 09:00 10/31/17 08:27 Acetaminophen/ Hydrocodone Bitart (Paxton 5-325 Mg) 1 tab Q4H PRN PO PAIN 3-7 10/31/17 12:15 OBJECTIVE: Vital Signs Date Time Temp Pulse Resp B/P (MAP) Pulse Ox O2 Delivery O2 Flow Rate FiO2 10/31/17 08:54 96 Nasal Cannula 3.00 10/31/17 08:00 108 10/31/17 08:00 100 Nasal Cannula 3.00 10/31/17 08:00 98.6 108 21 128/7 (47) 100 10/31/17 07:39 79 10/31/17 04:00 96 10/31/17 04:00 98.7 82 22 135/75 (95) 97 10/31/17 01:20 22 10/31/17 00:00 98.9 96 20 120/71 (87) 100 10/31/17 00:00 96 10/30/17 20:40 96 Nasal Cannula 2.00 10/30/17 20:00 90 10/30/17 20:00 98.6 90 25 130/71 (90) 100 10/30/17 19:00 100 Nasal Cannula 2.00 10/30/17 16:00 98.3 95 17 105/64 (78) 99 10/30/17 16:00 95 Laboratory Tests Test 10/30/17 04:10 10/31/17 05:16 White Blood Count 1.4 TH/MM3 1.1 TH/MM3 Red Blood Count 3.02 MIL/MM3 3.00 MIL/MM3 Hemoglobin 8.6 GM/DL 9.1 GM/DL Hematocrit 25.1 % 26.1 % Mean Corpuscular Volume 83.2 FL 86.9 FL Mean Corpuscular Hemoglobin 28.4 PG 30.3 PG Mean Corpuscular Hemoglobin Concent 34.2 % 34.9 % Red Cell Distribution Width 15.8 % 15.8 % Platelet Count 89 TH/MM3 113 TH/MM3 Mean Platelet Volume 9.2 FL 9.4 FL Neutrophils (%) (Auto) 62.1 % 56.2 % Lymphocytes (%) (Auto) 31.7 % 29.8 % Monocytes (%) (Auto) 4.3 % 7.5 % Eosinophils (%) (Auto) 0.3 % 4.7 % Basophils (%) (Auto) 1.6 % 1.8 % Neutrophils # (Auto) 0.9 TH/MM3 0.6 TH/MM3 Lymphocytes # (Auto) 0.4 TH/MM3 0.3 TH/MM3 Monocytes # (Auto) 0.1 TH/MM3 0.1 TH/MM3 Eosinophils # (Auto) 0.0 TH/MM3 0.1 TH/MM3 Basophils # (Auto) 0.0 TH/MM3 0.0 TH/MM3 CBC Comment AUTO DIFF AUTO DIFF Differential Total Cells Counted 100 100 Neutrophils % (Manual) 85 % 78 % Band Neutrophils % 3 % Lymphocytes % 11 % 13 % Monocytes % 1 % 4 % Neutrophils # (Manual) 1.2 TH/MM3 0.9 TH/MM3 Differential Comment FINAL DIFF MANUAL FINAL DIFF MANUAL Platelet Estimate LOW LOW Platelet Morphology Comment ENLARGED NORMAL Eosinophils % 4 % Basophils % 1 % Basophilic Stippling MOD Laboratory Tests Test 10/30/17 04:10 10/31/17 05:16 Blood Urea Nitrogen 11 MG/DL 12 MG/DL Creatinine 0.42 MG/DL 0.46 MG/DL Random Glucose 112 MG/DL 92 MG/DL Total Protein 4.9 GM/DL 4.9 GM/DL Calcium Level 7.4 MG/DL 7.6 MG/DL Phosphorus Level 2.4 MG/DL Sodium Level 138 MEQ/L 136 MEQ/L Potassium Level 4.1 MEQ/L 3.7 MEQ/L Chloride Level 102 MEQ/L 97 MEQ/L Carbon Dioxide Level 30.2 MEQ/L 31.5 MEQ/L Anion Gap 6 MEQ/L 8 MEQ/L Estimat Glomerular Filtration Rate 205 ML/MIN 184 ML/MIN Protein Corrected Calcium 8.6 MG/DL Albumin 1.6 GM/DL Alkaline Phosphatase 188 U/L Aspartate Amino Transf (AST/SGOT) 63 U/L Alanine Aminotransferase (ALT/SGPT) 93 U/L Total Bilirubin 1.4 MG/DL IMAGING: Chest X-Ray 10/31/17 0600 Signed Impressions: Service Date/Time: Tuesday, October 31, 2017 04:35 - CONCLUSION: Stable partially consolidative infiltrates in the lateral left midlung and lower lateral right lung. Marty Blackmon MD Chest X-Ray 10/30/17 0600 Signed Impressions: Service Date/Time: October 05:51 - CONCLUSION: 1. Status post extubation with removal of NGT. 2. Stable patchy airspace disease in the left mid to lower lung zones. 3. Mild progression of patchy airspace disease in the right lower lung zone. Erasmo Lacey MD Chest X-Ray 10/30/17 0600 Signed Impressions: Service Date/Time: October 05:51 - CONCLUSION: 1. Status post extubation with removal of NGT. 2. Stable patchy airspace disease in the left mid to lower lung zones. 3. Mild progression of patchy airspace disease in the right lower lung zone. Erasmo Lacey MD Chest X-Ray 10/27/17 0600 Signed Impressions: Service Date/Time: Friday, October 27, 2017 05:08 - CONCLUSION: 1. Stable tubes and lines, as above. 2. Improved right lower lung zone airspace disease. 3. Stable patchy airspace disease in the left mid to lower lung zones. Erasmo Lacey MD Abdomen X-Ray 10/26/17 1000 Signed Impressions: Service Date/Time: Thursday, October 26, 2017 09:47 - CONCLUSION: Negative KUB. Tommie Cortez MD Head CT 10/21/17 0000 Signed Impressions: Service Date/Time: Saturday, October 21, 2017 23:07 - CONCLUSION: 1. Ill-defined hyperdense area now noted along the left occipital parietal lobe junction likely representing a hemorrhagic contusion. 2. Interval decrease in the size of the right cephalohematoma. Ino Head MD Liver Ultrasound 10/19/17 0000 Signed Impressions: Service Date/Time: Thursday, October 19, 2017 14:17 - CONCLUSION: Extensive sludge in the gallbladder. No gallbladder wall thickening is seen.. Yonatan uQijano MD Pelvis X-Ray 10/17/17 1704 Signed Impressions: Service Date/Time: Tuesday, October 17, 2017 17:21 - CONCLUSION: Abnormal intertrochanteric region left hip, nonspecific. I do not see evidence for acute traumatic injury. Imer Stanley MD FACR Chest X-Ray 10/26/17 1000 Signed Impressions: Service Date/Time: Thursday, October 26, 2017 09:42 - CONCLUSION: 1. Diffuse areas of consolidation throughout the lungs which could represent underlying edema or diffuse infection. There is more focal consolidation in the left perihilar region. These findings are unchanged. 2. ET tube continues to be a low but acceptable position 1.4 cm above the justin. Tommie Cortez MD Abdomen X-Ray 10/26/17 1000 Signed Impressions: Service Date/Time: Thursday, October 26, 2017 09:47 - CONCLUSION: Negative KUB. Tommie Cortez MD Head CT 10/21/17 0000 Signed Impressions: Service Date/Time: Saturday, October 21, 2017 23:07 - CONCLUSION: 1. Ill-defined hyperdense area now noted along the left occipital parietal lobe junction likely representing a hemorrhagic contusion. 2. Interval decrease in the size of the right cephalohematoma. Ino Head MD Liver Ultrasound 10/19/17 0000 Signed Impressions: Service Date/Time: Thursday, October 19, 2017 14:17 - CONCLUSION: Extensive sludge in the gallbladder. No gallbladder wall thickening is seen.. Yonatan Quijano MD Pelvis X-Ray 10/17/17 1704 Signed Impressions: Service Date/Time: Tuesday, October 17, 2017 17:21 - CONCLUSION: Abnormal intertrochanteric region left hip, nonspecific. I do not see evidence for acute traumatic injury. Imer Stanley MD FACR PHYSICAL EXAMINATION: GENERAL: No acute distress. Awake and alert HEENT. The head atraumatic. Extraocular movements grossly intact, pupils reactive to light. No icterus. Oropharynx mucosa moist. No thrush. Neck: Supple without adenopathy or swelling. Lungs: Bilateral coarse breath sounds. Heart: Regular S1-S2. No murmurs, rubs or gallops. Abdomen: Bowel sounds present, soft, mildly distended, nontender. No masses. Extremities: No clubbing or cyanosis or edema. Skin: No rash. Neurologic: No gross focal findings. Psychiatric: Pleasant, calm and is cooperative. IMPRESSION 1. Sepsis. 2. Neutropenia with fever. WBC decreased. Absolute neutrophil count is now below 1000. The Neupogen appears to have been discontinued on 10/21. 3. Influenza pneumonia and probably superimposed bacterial pneumonia. improving. Chest x-rays not showing improvement. 4. Acute respiratory failure. Post extubation. 5. Rectal cancer. Post chemo/Radiation. 6. Increased LFT. Still elevated. Clinically appears stable. RECOMMENDATIONS 1. Continue Tamiflu for influenza treatment. Would typically give a 5 day course for influenza. However given his immunosuppression and worsening chest x-ray Would continue for a longer course. 2. Continue Meropenem. 3. Continue azithromycin for additional pulmonary coverage in light of persistent infiltrates. 4. Monitor white blood cell count. 5. Monitor temperature. If he has any temperature spikes we will need to resume gram-positive coverage and obtain blood cultures. 7. Monitor liver function tests. 8. Discussed with Dr. Min about resuming the Neupogen. Please call ID on the weekend if input is needed. Kamar Chand MD Oct 31, 2017 12:29
[2017-10-31] MEDS ORDERED: IOHEXOL 350 MG/ML 50 ML BTL (for RAD DIAG) OTHER ONE (15:20)
--- NOTE | 2017-10-31 16:00 | RADRPT ---
EXAM DATE/TIME: 10/31/2017 14:56 [place] COMPARISON: No previous studies available for comparison. INDICATIONS : Patient with history of rectal cancer in need of Xnbjw-g-Pzik evaluation. MEDICAL HISTORY : BPH, Lumbar DDD, HTN, GERD, HLD, Squamous cell carcinoma of the rectum SURGICAL HISTORY : Axillary lymphadenectomy, Rectal biopsy, Radiofrequency rhizotomy, Port placement ENCOUNTER: Subsequent ACUITY: 1 day PAIN SCORE: 0/10 FLUORO TIME: 0.2 minutes IMAGE SERIES: 1 MEDICATION(S): 1.) 500 units Heparin IV PROCEDURE : 1. Access of Ssoieh-w-xgtf. 2. Port patency injection. The risks, benefits and alternatives to the procedure were explained and verbal and written consent w as obtained. The patient was placed supine. The port was prepped in sterile fashion. Full sterile t echnique was used, including cap, mask, sterile gloves and gown, and a large sterile sheet. Hand hyg iene and 2% chlorhexidine prep was utilized per protocol for cutaneous antisepsis with appropriate dr y time for site. The previously placed port was accessed and positive contrast was injected for evaluation. Fluoroscop ic evaluation demonstrates a well-positioned right IJ Nzxpgi-k-Zaha with tip in the atrial caval junc tion. Port tubing is intact. Contrast administered due to poor flows easily to the right atrium. No e vidence for significant thrombus or fibrin sheath. CONCLUSION: 1. Well-positioned patent right IJ [id number]. No significant thrombus or fibrin sheath. Erasmo Lacey MD on October 31, 2017 at 15:58 Board Certified Radiologist. This report was verified electronically.
--- NOTE | 2017-10-31 17:22 | HHI.PR ---
Subjective Remarks No new complaints. Objective Vitals Vital Signs Date Time Temp Pulse Resp B/P (MAP) Pulse Ox O2 Delivery O2 Flow Rate FiO2 10/31/17 16:00 98.0 78 22 111/70 (84) 100 10/31/17 16:00 78 10/31/17 13:15 15 10/31/17 12:00 98.2 87 18 110/70 (83) 98 10/31/17 12:00 87 10/31/17 08:54 96 Nasal Cannula 3.00 10/31/17 08:00 108 10/31/17 08:00 100 Nasal Cannula 3.00 10/31/17 08:00 98.6 108 21 128/7 (47) 100 10/31/17 07:39 79 10/31/17 04:00 96 10/31/17 04:00 98.7 82 22 135/75 (95) 97 10/31/17 01:20 22 10/31/17 00:00 98.9 96 20 120/71 (87) 100 10/31/17 00:00 96 10/30/17 20:40 96 Nasal Cannula 2.00 10/30/17 20:00 90 10/30/17 20:00 98.6 90 25 130/71 (90) 100 10/30/17 19:00 100 Nasal Cannula 2.00 Result Diagram: 10/31/17 0516 10/31/17 0516 Imaging Last Impressions Chest X-Ray 10/31/17 0600 Signed Impressions: Service Date/Time: Tuesday, October 31, 2017 04:35 - CONCLUSION: Stable partially consolidative infiltrates in the lateral left midlung and lower lateral right lung. Marty Blackmon MD Venous Access Device Injection 10/31/17 0000 Signed Impressions: Service Date/Time: Tuesday, October 31, 2017 14:56 - CONCLUSION: 1. Well-positioned patent right IJ [id number]. No significant thrombus or fibrin sheath. Erasmo Lacey MD Abdomen X-Ray 10/26/17 1000 Signed Impressions: Service Date/Time: Thursday, October 26, 2017 09:47 - CONCLUSION: Negative KUB. Tommie Cortez MD Head CT 10/21/17 0000 Signed Impressions: Service Date/Time: Saturday, October 21, 2017 23:07 - CONCLUSION: 1. Ill-defined hyperdense area now noted along the left occipital parietal lobe junction likely representing a hemorrhagic contusion. 2. Interval decrease in the size of the right cephalohematoma. Ino Head MD Liver Ultrasound 10/19/17 0000 Signed Impressions: Service Date/Time: Thursday, October 19, 2017 14:17 - CONCLUSION: Extensive sludge in the gallbladder. No gallbladder wall thickening is seen.. Yonatan Quijano MD Pelvis X-Ray 10/17/17 1704 Signed Impressions: Service Date/Time: Tuesday, October 17, 2017 17:21 - CONCLUSION: Abnormal intertrochanteric region left hip, nonspecific. I do not see evidence for acute traumatic injury. Imer Stanley MD FACR Objective Remarks GENERAL: This is a well-nourished, well-developed patient, in no apparent distress. CARDIOVASCULAR: Regular rate and rhythm without murmurs, gallops, or rubs. RESPIRATORY: Coarse bilaterally GASTROINTESTINAL: Abdomen soft, non-tender, nondistended. Normal active bowel sounds MUSCULOSKELETAL: Extremities without clubbing, cyanosis, or edema. NEURO: Alert & Oriented x4 to person, place, time, situation. 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 Patient was initially admitted to [facility] on 10/18/17 after a fall. Patient was found to have rhabdomyolysis treated with IV fluid recitation. Then on 10/22 patient had respiratory distress was treated with IV diuretics. Seemed to be improving. On 10/26 patient again had respiratory distress at that time patient required intubation and was followed by the classifier operator, until 10/28 Patient noted to have anemia and GI was consulted due to concerns of GI bleed. EGD was done 10/27 which showed mild erythema in the stomach consistent with NG tube trauma, minimal esophagitis and otherwise normal. Patient was able to be extubated 10/28 and hospitalist were consulted to assume care. Echo noted patient does have component CHF diastolic dysfunction Patient noted to be influence A positive on 10/25. Patient is also being followed by infectious disease for influenza pneumonia and probably superimposed bacterial pneumonia, currently receiving Tamiflu (10/15 - present) , Meropenem (10/26 - present) and azithromycin (10/25 - changed to PO ), vancomycin (10/19- 10/29). repeat CXR in AM 10/31/17 - Case d/w Dr. Petersen (10/31/17) - continue current antibiotic regimen through the weekend - reevaluate antibiotic regimen on November 03 (2) Rhabdomyolysis ICD Codes: M62.82 - Rhabdomyolysis Status: Acute Plan: CK normalized. IVF stopped 10/22 due to fluid overload (3) Neutropenic fever ICD Codes: D70.9 - Neutropenia, unspecified; R50.81 - Fever presenting with conditions classified elsewhere Status: Resolved Plan: Questionable etiology but most likely associated with perirectal exposure. Appreciate hematology/oncology and ID input. Patient noted to be influence A positive on 10/25. Patient is also being followed by infectious disease for influenza pneumonia and probably superimposed bacterial pneumonia, currently receiving Tamiflu, Vancomycin, Meropenem and azithromycin. (4) Scalp contusion ICD Codes: S00.03XA - Contusion of scalp, initial encounter Status: Acute Plan: Manage conservatively. Clinically improved. cerebral contusion noted on repeat CT. Follow clinically. 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 (7) Bipolar depression ICD Codes: F31.30 - Bipolar disorder, current episode depressed, mild or moderate severity, unspecified Status: Chronic Plan: Continue home medication. (8) Confusion ICD Codes: R41.0 - Disorientation, unspecified Status: Acute Plan: ? etiology. Mentation improved 10/24 ? a/w infectious process, metabolic disturbance, meds, recent head injury. Ammonia, CK unremarkable. CT brain reveals possible mild hemorrhagic contusion now. Given that his neuro exam is actually improving, we'll monitor. We'll hold Lovenox due to the CT finding. Patient denies headache. confusion improved (9) At risk for abuse of opiates ICD Codes: Z91.89 - Other specified personal risk factors, not elsewhere classified Status: Chronic Plan: Pt has hx of opiate abuse and had been in outpt rehab program. He had been doing quite well. Will use caution when prescribing opiates to control his pain. (10) Elevated LFTs ICD Codes: R79.89 - Other specified abnormal findings of blood chemistry Status: Acute Plan: LFTs stable Possible a/w recent fluid overload vs med (? cefepime) LFTs improving (11) Poor appetite ICD Codes: R63.0 - Anorexia Plan: add boost to meals start Remeron 30 mg PO QHS Problem Qualifiers (1) Respiratory failure, acute: Qualified Codes: J96.01 - Acute respiratory failure with hypoxia (2) Rhabdomyolysis: (3) Scalp contusion: Qualified Codes: S00.03XA - Contusion of scalp, initial encounter (4) HTN (hypertension): Qualified Codes: I10 - Essential (primary) hypertension Tom Min DO Oct 31, 2017 17:22
--- NOTE | 2017-10-31 19:18 | HHI.PR ---
Subjective Remarks Extubated and on O2 2 L and feels better On Tamiflu. His CXR shows improved infiltrates Objective Vital Signs Date Time Temp Pulse Resp B/P (MAP) Pulse Ox O2 Delivery O2 Flow Rate FiO2 10/31/17 16:00 98.0 78 22 111/70 (84) 100 10/31/17 16:00 78 10/31/17 13:15 15 10/31/17 12:00 98.2 87 18 110/70 (83) 98 10/31/17 12:00 87 10/31/17 08:54 96 Nasal Cannula 3.00 10/31/17 08:00 108 10/31/17 08:00 100 Nasal Cannula 3.00 10/31/17 08:00 98.6 108 21 128/7 (47) 100 10/31/17 07:39 79 10/31/17 04:00 96 10/31/17 04:00 98.7 82 22 135/75 (95) 97 10/31/17 01:20 22 10/31/17 00:00 98.9 96 20 120/71 (87) 100 10/31/17 00:00 96 10/30/17 20:40 96 Nasal Cannula 2.00 10/30/17 20:00 90 10/30/17 20:00 98.6 90 25 130/71 (90) 100 I/O 10/30/17 10/30/17 10/30/17 10/31/17 10/31/17 10/31/17 07:00 15:00 23:00 07:00 15:00 23:00 Intake Total 992.5 ml 362.5 ml 525 ml 100 ml 480 ml Output Total 1675 ml 2600 ml 800 ml 1600 ml Balance -682.5 ml 362.5 ml -2075 ml -700 ml -1120 ml Intake Oral 480 ml 525 ml 480 ml IV Total 512.5 ml 362.5 ml 100 ml Output Urine Total 1675 ml 2600 ml 800 ml 1600 ml # Bowel Movements 1 1 1 Result Diagram: 10/31/17 0516 10/31/17 0516 Objective Remarks This is a thinly built middle-aged white male who is alert HEENT: Head normocephalic. Pupils reactive. Tongue is dry. Throat is clear . NECK: Supple. No bruits or thyroid enlargement. No lymphadenopathy. CHEST: Distant breath sounds with occ Crackles at bases There are few crackles at bases . HEART: The heart sounds are regular S1-S2. No murmur. No S3. ABDOMEN: The abdomen is soft and protuberant. No masses or organomegaly or tenderness. Bowel sounds are active. EXTREMITIES: No edema . Reflexes are 1+ NEUROLOGIC:Alert and talking .No deficits RECTAL: Exam is deferred. SKIN: No lesions. Assessment and Plan Assessment and Plan IMPRESSION 1. Acute hypoxemic respiratory failure. 2. He has a history of rectal cancer. 3. Syncopal episodes 4. Basilar pneumonia 5. Anemia with blood loss 6. Dehydration and acute kidney injury PLan : 1. Wean O2 to 2 L 2. Labs in am 3. Continue Antibiotics . 4. IS q2h bedside 5. Prednisone 30 mg daily and taper 7. PT Evaluation 8. Transfer to [facility] Kaylie Son MD Oct 31, 2017 19:18
[2017-10-31] MEDS: MIRTAZAPINE 15 MG TAB PO SCH (19:34)
[2017-10-31] MEDS: TAMSULOSIN HCL 0.4 MG CAP PO SCH (19:35)
[2017-10-31] MEDS: traZODone HCL 100 MG TAB PO SCH (19:35)
[2017-11-01] VITALS: BP 110/72; PULSE 90; PULSE 99; RESP 24; TEMP 98.1; O2SAT 100
--- NOTE | 2017-11-01 01:52 | PD.ONC.PN ---
Subjective Subjective Remarks Patient seen at bedside at approximately 8 pm on 10/31/2017 Resting comfortably in bed in no distress Objective Data Date Time Temp Pulse Resp B/P (MAP) Pulse Ox O2 Delivery O2 Flow Rate FiO2 11/01/17 00:00 99 11/01/17 00:00 98.1 90 24 110/72 (85) 100 10/31/17 20:54 98 Nasal Cannula 2.00 10/31/17 20:00 98.1 90 24 110/72 (85) 100 10/31/17 20:00 98 10/31/17 19:00 100 Nasal Cannula 2.00 10/31/17 16:00 98.0 78 22 111/70 (84) 100 10/31/17 16:00 78 10/31/17 13:15 15 10/31/17 12:00 98.2 87 18 110/70 (83) 98 10/31/17 12:00 87 10/31/17 08:54 96 Nasal Cannula 3.00 10/31/17 08:00 108 10/31/17 08:00 100 Nasal Cannula 3.00 10/31/17 08:00 98.6 108 21 128/7 (47) 100 10/31/17 07:39 79 10/31/17 04:00 96 10/31/17 04:00 98.7 82 22 135/75 (95) 97 Result Diagram: 10/31/17 0516 10/31/17 0516 Laboratory Results Laboratory Tests Test 10/31/17 05:16 White Blood Count 1.1 TH/MM3 Red Blood Count 3.00 MIL/MM3 Hemoglobin 9.1 GM/DL Hematocrit 26.1 % Mean Corpuscular Volume 86.9 FL Mean Corpuscular Hemoglobin 30.3 PG Mean Corpuscular Hemoglobin Concent 34.9 % Red Cell Distribution Width 15.8 % Platelet Count 113 TH/MM3 Mean Platelet Volume 9.4 FL Neutrophils (%) (Auto) 56.2 % Lymphocytes (%) (Auto) 29.8 % Monocytes (%) (Auto) 7.5 % Eosinophils (%) (Auto) 4.7 % Basophils (%) (Auto) 1.8 % Neutrophils # (Auto) 0.6 TH/MM3 Lymphocytes # (Auto) 0.3 TH/MM3 Monocytes # (Auto) 0.1 TH/MM3 Eosinophils # (Auto) 0.1 TH/MM3 Basophils # (Auto) 0.0 TH/MM3 CBC Comment AUTO DIFF Differential Total Cells Counted 100 Neutrophils % (Manual) 78 % Lymphocytes % 13 % Monocytes % 4 % Eosinophils % 4 % Basophils % 1 % Neutrophils # (Manual) 0.9 TH/MM3 Differential Comment FINAL DIFF MANUAL Platelet Estimate LOW Platelet Morphology Comment NORMAL Basophilic Stippling MOD Blood Urea Nitrogen 12 MG/DL Creatinine 0.46 MG/DL Random Glucose 92 MG/DL Total Protein 4.9 GM/DL Albumin 1.6 GM/DL Calcium Level 7.6 MG/DL Alkaline Phosphatase 188 U/L Aspartate Amino Transf (AST/SGOT) 63 U/L Alanine Aminotransferase (ALT/SGPT) 93 U/L Total Bilirubin 1.4 MG/DL Sodium Level 136 MEQ/L Potassium Level 3.7 MEQ/L Chloride Level 97 MEQ/L Carbon Dioxide Level 31.5 MEQ/L Anion Gap 8 MEQ/L Estimat Glomerular Filtration Rate 184 ML/MIN Imaging Studies Last 24 hours Impressions Chest X-Ray 10/31/17 0600 Signed Impressions: Service Date/Time: Tuesday, October 31, 2017 04:35 - CONCLUSION: Stable partially consolidative infiltrates in the lateral left midlung and lower lateral right lung. Marty Blackmon MD Administered Medications Medications (Trade) Dose Ordered Sig/Siddhartha Route PRN Reason Start Time Stop Time Status Last Admin Dose Admin Tamsulosin HCl (Flomax) 0.4 mg HS PO 10/17/17 21:00 10/31/17 19:35 Carbamazepine (TEGretol) 400 mg DAILY PO 10/18/17 09:00 10/31/17 08:27 Ondansetron HCl (Zofran Inj) 4 mg Q6H PRN IV PUSH VOMITING 10/18/17 16:45 10/25/17 04:05 Prochlorperazine Maleate (Compazine) 10 mg Q6H PRN PO NAUSEA 10/18/17 18:00 10/20/17 05:00 Loperamide HCl (Imodium) 2 mg Q6H PRN PO diarrhea 10/18/17 17:00 10/21/17 15:32 Acetaminophen (Tylenol) 500 mg Q4H PRN PO TEMPERATURE > 100.4 10/19/17 05:15 10/28/17 01:24 Morphine Sulfate (Morphine Inj) 4 mg Q3H PRN IV PUSH PAIN 8-10 10/19/17 06:30 10/31/17 08:39 Emollient Ointment (Aquaphor Oint) 1 applic Q12HR TOPICAL 10/19/17 21:00 10/31/17 21:00 Carbamazepine (TEGretol) 400 mg HS PO 10/21/17 21:00 10/31/17 19:35 Trazodone HCl (Desyrel) 150 mg HS PO 10/21/17 21:00 10/31/17 19:35 Albuterol Sulfate (Albuterol Neb) 2.5 mg Q4HR NEB PRN INH SHORTNESS OF BREATH 10/22/17 08:15 10/23/17 21:15 Multi-Ingredient Mouthwash/Gargle (Magic Mouthwash Adult Liq) 5 ml QID SWISH-SWAL 10/23/17 13:00 10/31/17 19:36 Pantoprazole Sodium (Protonix Inj) 40 mg Q24H IV PUSH 10/26/17 10:00 10/31/17 08:26 Lorazepam (Ativan Inj) 1 mg Q8H PRN IV ANXIETY 10/25/17 13:45 10/31/17 19:34 Chlorhexidine Gluconate (Peridex 0.12% Liq) 15 ml BID@08,20 MT 10/25/17 20:00 10/30/17 08:00 Oseltamivir Phosphate (Tamiflu) 75 mg BID PO 10/25/17 22:30 10/31/17 19:35 Meropenem 1000 mg/ Sodium Chloride 100 ml @ 200 mls/hr Q8H IV 10/26/17 11:00 10/31/17 17:52 Olanzapine (ZyPREXA) 15 mg HS PO 10/26/17 21:00 10/31/17 19:36 Potassium Phosphate 30 mmol/ Sodium Chloride 260 ml @ 42 mls/hr UNSCH PRN IV SEE LABEL COMMENTS 10/28/17 10:30 10/28/17 11:15 Compound Med (Ritters Cream) 1 applic BID TOPICAL 10/28/17 21:00 10/31/17 21:00 Furosemide (Lasix) 20 mg DAILY PO 10/30/17 09:00 10/31/17 08:27 Zolpidem Tartrate (Ambien) 5 mg HS PRN PO INSOMNIA 10/29/17 18:45 10/30/17 20:32 Azithromycin (Zithromax) 500 mg DAILY PO 10/30/17 12:00 10/31/17 08:27 Mirtazapine (Remeron) 30 mg HS PO 10/30/17 21:00 10/31/17 19:34 Prednisone (Deltasone) 30 mg DAILY PO 10/31/17 09:00 10/31/17 08:27 Acetaminophen/ Hydrocodone Bitart (Moodus 5-325 Mg) 1 tab Q4H PRN PO PAIN 3-7 10/31/17 12:15 10/31/17 18:48 Objective Remarks GENERAL: Well-nourished, well-developed patient. SKIN: Warm and dry. HEAD: Normocephalic. EYES: No scleral icterus. No injection or drainage. NECK: Supple, trachea midline. No JVD or lymphadenopathy. LYMPHATIC: No adenopathy. CARDIOVASCULAR: Regular rate and rhythm without murmurs. RESPIRATORY: Breath sounds equal bilaterally. No accessory muscle use. GASTROINTESTINAL: Abdomen soft, non-tender, nondistended. EXTREMITIES: No cyanosis, or edema. MUSCULOSKELETAL: Adequate muscle tone. NEUROLOGICAL: No obvious focal deficit. Awake, alert, and oriented x3. PSYCHIATRIC: Appropriate mood and affect; insight and judgment normal. Assessment/Plan Problem List: (1) Neutropenic fever ICD Codes: D70.9 - Neutropenia, unspecified; R50.81 - Fever presenting with conditions classified elsewhere Status: Resolved Plan: Blood and urine cultures remain negative as of 6:25 PM on 10/20/2017. On empiric antibiotic therapy with cefepime and vancomycin. On G-CSF, absolute neutral count is 5.9 as of today. Suspect perianal area as site of bacteria entry. Keep area dry, difficult with diarrhea and XRT. 10/21/17. Neutropenia resolve. Still has fever- low grade T 100.0, BC neg. Noted thrombocytopenia likely chemo induced. Asymptomatic, follow. Cont abx 10/22/17 Pt went into resp distress this morning, Movd to ICU. Had Lasix with a good response. Still on BiPap. XRT and chemo on hold at this time due to toxicity,. Neutropenia has resolved. Off of Neupogen, Thrombocytopenia persists. NO TX needed. d/w pt, Dad and sister. Answered their questions. Dr Bauer (His oncologist) will see him tomorrow. D/W RN 10/24/17. Continue GCSF, goal ANC>5000 x 2 days. (2) Thrombocytopenia ICD Codes: D69.6 - Thrombocytopenia, unspecified Status: Acute Plan: Likely due to chemo, Mitomycin C and 5FU. complicated by neutropenic fever, pulmonary infiltrates Noted PT/PTT prolonged, check fibrinogen r/o DIC Consider drug effect, LMWH, antiseizures, antibiotics- monitor for now. Check HIT antibody but clinical presentation makes it unlikely. Monitor for bleeding. 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 He had been under the care of Dr. Bauer, Dr. Rocha and was being treated with definitive dose chemoradiotherapy with infusional 5-FU and mitomycin-C. He presents to the hospital with neutropenic fever, status post fall with a subcutaneous hematoma over his right for head and confusion. Hospital course complicated by respiratory failure requiring intubation and he is now s/p extubation. Plan 1. Locally advanced Rectal SCC, low laying palpable on digital rectal exam currently undergoing treatment with concurrent chemotherapy and radiation therapy with curative intent. He is s/p day 29 dose of 5-FU and mitomycin C. 9 days of radiation therapy to complete treatment. Currently on hold due to acute illness and hospitalization. 2. Cytopenia: due to chemotherapy (5-fu and mitomycin C), continue to follow closely. Will start G-CSF due to infection and length of neutropenia. 3. ID: Influenza A infection with persistence of infiltrates. Continue antibiotics including merropenem, azithromycin and tamiflu. Kiley Bauer MD Nov 01, 2017 01:52
[2017-11-01] MEDS: ACETAMINOPHEN/HYDROcodone 325 MG/5 MG TAB PO PRN ×5 (02:26→22:16)
[2017-11-01] MEDS: LORazepam 2 MG/ML VIAL IV PRN ×3 (02:26→22:16)
[2017-11-01] MEDS: MEROPENEM INJ 1,000 MG in SODIUM CHLORIDE 0.9% INJ 100 ML IV SCH ×3 (02:26→18:31)
[2017-11-01] MEDS: MORPHINE SULFATE 4 MG/ML INJ IV PUSH PRN ×3 (05:47→20:43)
[2017-11-01 08:00] VITALS: BP 137/69; PULSE 80; RESP 22; TEMP 98.9; O2SAT 97
[2017-11-01] MEDS: CHLORHEXIDINE 0.12% (ORAL KIT) 15 ML CUP MT SCH ×2 (08:00→20:00)
[2017-11-01] MEDS: AQUAPHOR OINT 50 GM TUBE TOPICAL SCH ×2 (09:00→20:44)
[2017-11-01] MEDS: SILVER SULFADIAZINE/LIDOCAINE CREAM 60 GM JAR TOPICAL SCH ×2 (09:00→20:44)
[2017-11-01] MEDS: NYSTAT/DIPHENHY/LIDO MOUTHWASH (Adult) 120ML SWISH-SWAL SCH ×4 (09:00→20:44)
[2017-11-01] MEDS: predniSONE 10 MG TAB PO SCH (10:22)
[2017-11-01] MEDS: OSELTAMIVIR PHOSPHATE 75 MG CAP PO SCH ×2 (10:23→20:44)
[2017-11-01] MEDS: FUROSEMIDE 20 MG TAB PO SCH (10:23)
[2017-11-01] MEDS: carBAMazepine 200 MG TAB PO SCH ×2 (10:24→20:43)
[2017-11-01] MEDS: AZITHROMYCIN 250 MG TAB PO SCH (10:24)
[2017-11-01] MEDS: PANTOPRAZOLE SODIUM 40 MG VIAL IV PUSH SCH (10:27)
[2017-11-01 12:00] VITALS: BP 111/69; PULSE 90; RESP 22; TEMP 98.6; O2SAT 99
[2017-11-01 13:01] LABS: AUTOMATED NEUTROPHIL # 0.6 TH/MM3 (1.8-7.7); EOSINOPHIL % 3.5 % (0.0-4.0); HEMATOCRIT 29.9 % (39.0-51.0); HEMOGLOBIN 10.4 GM/DL (13.0-17.0); LYMPH % 32.5 % (9.0-44.0); LYMPHOCYTE # 0.3 TH/MM3 (1.0-4.8); MEAN CORPUSCULAR HEMOGLOBIN 29.5 PG (27.0-34.0); MEAN CORPUSCULAR HGB CONC 34.7 % (32.0-36.0); MEAN PLATELET VOLUME 9.1 FL (7.0-11.0); MONO % 7.9 % (0.0-8.0); MONOCYTE # 0.1 TH/MM3 (0-0.9); NEUT % 55.1 % (16.0-70.0); PLATELET COUNT 162 TH/MM3 (150-450); RED BLOOD COUNT 3.52 MIL/MM3 (4.50-5.90); RED CELL DISTRIBUTION WIDTH 15.7 % (11.6-17.2); WHITE BLOOD COUNT 1.1 TH/MM3 (4.0-11.0)
[2017-11-01] MEDS: FILGRASTIM 300 MCG/ML VIAL SQ SCH (13:44)
[2017-11-01 14:00] LABS: BANDS 5 % (0-6); LYMPHOCYTES 16 % (9-44); MONOCYTES 6 % (0-8); NEUTROPHIL # MANUAL DIFF 0.8 TH/MM3 (1.8-7.7); POLYS (SEG NEUTROPHILS) 71 % (16-70)
[2017-11-01 14:01] LABS: TOXIC GRANULATION 1+ (NORMAL)
--- NOTE | 2017-11-01 15:30 | HHI.PR ---
Subjective Remarks Extubated and on O2 2 L and sats 100 On Tamiflu. His CXR shows improved infiltrates Objective Vital Signs Date Time Temp Pulse Resp B/P (MAP) Pulse Ox O2 Delivery O2 Flow Rate FiO2 11/01/17 00:00 99 11/01/17 00:00 98.1 90 24 110/72 (85) 100 10/31/17 23:48 22 10/31/17 20:54 98 Nasal Cannula 2.00 10/31/17 20:00 98.1 90 24 110/72 (85) 100 10/31/17 20:00 98 10/31/17 19:00 100 Nasal Cannula 2.00 10/31/17 16:00 98.0 78 22 111/70 (84) 100 10/31/17 16:00 78 I/O 10/31/17 10/31/17 10/31/17 11/01/17 11/01/17 11/01/17 07:00 15:00 23:00 07:00 15:00 23:00 Intake Total 100 ml 480 ml Output Total 800 ml 1600 ml Balance -700 ml -1120 ml Intake Oral 480 ml IV Total 100 ml Output Urine Total 800 ml 1600 ml # Bowel Movements 1 Result Diagram: 11/01/17 1218 10/31/17 0516 Objective Remarks This is a thinly built middle-aged white male who is pale. HEENT: Head normocephalic. Pupils reactive. Tongue is dry. Throat is clear . Nasal mucosae clear. Ears no inflammation. NECK: Supple. No bruits or thyroid enlargement. No lymphadenopathy. CHEST: Distant breath sounds with wheezes bilaterally, prolonged expirations. There are few crackles at bases . HEART: The heart sounds are regular S1-S2. No murmur. No S3. ABDOMEN: The abdomen is soft and protuberant. No masses or organomegaly or tenderness. Bowel sounds are active. EXTREMITIES: Mild edema . Reflexes are 1+ with no gross motor deficits. NEUROLOGIC:Alert and talking . RECTAL: Exam is deferred. SKIN: No lesions. Assessment and Plan Assessment and Plan IMPRESSION 1. Acute hypoxemic respiratory failure. 2. He has a history of rectal cancer. 3. Syncopal episodes 4. Basilar pneumonia 5. Anemia with blood loss 6. Dehydration and acute kidney injury PLan : 1. Wean O2 to RA 2. CXR in am 3. Continue Antibiotics . 4. IS q2h bedside 5. Prednisone 20 mg daily and taper 7. PT Evaluation 8. Transfer to [facility] Kaylie Son MD Nov 01, 2017 15:30
[2017-11-01 16:00] VITALS: BP 115/73; PULSE 88; RESP 23; TEMP 98.5; O2SAT 93
--- NOTE | 2017-11-01 17:36 | HHI.PR ---
Subjective Remarks No new complaints. Objective Vitals Vital Signs Date Time Temp Pulse Resp B/P (MAP) Pulse Ox O2 Delivery O2 Flow Rate FiO2 11/01/17 00:00 99 11/01/17 00:00 98.1 90 24 110/72 (85) 100 10/31/17 23:48 22 10/31/17 20:54 98 Nasal Cannula 2.00 10/31/17 20:00 98.1 90 24 110/72 (85) 100 10/31/17 20:00 98 10/31/17 19:00 100 Nasal Cannula 2.00 Result Diagram: 11/01/17 1218 10/31/17 0516 Imaging Last Impressions Chest X-Ray 10/31/17 0600 Signed Impressions: Service Date/Time: Tuesday, October 31, 2017 04:35 - CONCLUSION: Stable partially consolidative infiltrates in the lateral left midlung and lower lateral right lung. Marty Blackmon MD Venous Access Device Injection 10/31/17 0000 Signed Impressions: Service Date/Time: Tuesday, October 31, 2017 14:56 - CONCLUSION: 1. Well-positioned patent right IJ [id number]. No significant thrombus or fibrin sheath. Erasmo Lacey MD Abdomen X-Ray 10/26/17 1000 Signed Impressions: Service Date/Time: Thursday, October 26, 2017 09:47 - CONCLUSION: Negative KUB. Tommie Cortez MD Head CT 10/21/17 0000 Signed Impressions: Service Date/Time: Saturday, October 21, 2017 23:07 - CONCLUSION: 1. Ill-defined hyperdense area now noted along the left occipital parietal lobe junction likely representing a hemorrhagic contusion. 2. Interval decrease in the size of the right cephalohematoma. Ino Head MD Liver Ultrasound 10/19/17 0000 Signed Impressions: Service Date/Time: Thursday, October 19, 2017 14:17 - CONCLUSION: Extensive sludge in the gallbladder. No gallbladder wall thickening is seen.. Yonatan Quijano MD Pelvis X-Ray 10/17/17 1704 Signed Impressions: Service Date/Time: Tuesday, October 17, 2017 17:21 - CONCLUSION: Abnormal intertrochanteric region left hip, nonspecific. I do not see evidence for acute traumatic injury. Imer Stanley MD FACR Objective Remarks GENERAL: This is a well-nourished, well-developed patient, in no apparent distress. CARDIOVASCULAR: Regular rate and rhythm without murmurs, gallops, or rubs. RESPIRATORY: CLEAR X B/L GASTROINTESTINAL: Abdomen soft, non-tender, nondistended. Normal active bowel sounds MUSCULOSKELETAL: Extremities without clubbing, cyanosis, or edema. NEURO: Alert & Oriented x4 to person, place, time, situation. 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 Patient was initially admitted to [facility] on 10/18/17 after a fall. Patient was found to have rhabdomyolysis treated with IV fluid recitation. Then on 10/22 patient had respiratory distress was treated with IV diuretics. Seemed to be improving. On 10/26 patient again had respiratory distress at that time patient required intubation and was followed by the vat cleaner, until 10/28 Patient noted to have anemia and GI was consulted due to concerns of GI bleed. EGD was done 10/27 which showed mild erythema in the stomach consistent with NG tube trauma, minimal esophagitis and otherwise normal. Patient was able to be extubated 10/28 and hospitalist were consulted to assume care. Echo noted patient does have component CHF diastolic dysfunction Patient noted to be influence A positive on 10/25. Patient is also being followed by infectious disease for influenza pneumonia and probably superimposed bacterial pneumonia, currently receiving Tamiflu (10/15 - present) , Meropenem (10/26 - present) and azithromycin (10/25 - changed to PO ), vancomycin (10/19- 10/29). repeat CXR in AM 11/01/17 - Pt interviewed and examined - Pt has NO new clinical complaints. - PE without change - Case d/w Dr. Petersen (10/31/17) - continue current antibiotic regimen through the weekend - reevaluate antibiotic regimen on Friday, November 03 (2) Rhabdomyolysis ICD Codes: M62.82 - Rhabdomyolysis Status: Acute Plan: CK normalized. IVF stopped 10/22 due to fluid overload (3) Neutropenic fever ICD Codes: D70.9 - Neutropenia, unspecified; R50.81 - Fever presenting with conditions classified elsewhere Status: Resolved Plan: Questionable etiology but most likely associated with perirectal exposure. Appreciate hematology/oncology and ID input. Patient noted to be influence A positive on 10/25. Patient is also being followed by infectious disease for influenza pneumonia and probably superimposed bacterial pneumonia, currently receiving Tamiflu, Vancomycin, Meropenem and azithromycin. (4) Scalp contusion ICD Codes: S00.03XA - Contusion of scalp, initial encounter Status: Acute Plan: Manage conservatively. Clinically improved. cerebral contusion noted on repeat CT. Follow clinically. 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 (7) Bipolar depression ICD Codes: F31.30 - Bipolar disorder, current episode depressed, mild or moderate severity, unspecified Status: Chronic Plan: Continue home medication. (8) Confusion ICD Codes: R41.0 - Disorientation, unspecified Status: Acute Plan: ? etiology. Mentation improved 10/24 ? a/w infectious process, metabolic disturbance, meds, recent head injury. Ammonia, CK unremarkable. CT brain reveals possible mild hemorrhagic contusion now. Given that his neuro exam is actually improving, we'll monitor. We'll hold Lovenox due to the CT finding. Patient denies headache. confusion improved (9) At risk for abuse of opiates ICD Codes: Z91.89 - Other specified personal risk factors, not elsewhere classified Status: Chronic Plan: Pt has hx of opiate abuse and had been in outpt rehab program. He had been doing quite well. Will use caution when prescribing opiates to control his pain. (10) Elevated LFTs ICD Codes: R79.89 - Other specified abnormal findings of blood chemistry Status: Acute Plan: LFTs stable Possible a/w recent fluid overload vs med (? cefepime) LFTs improving (11) Poor appetite ICD Codes: R63.0 - Anorexia Plan: add boost to meals start Remeron 30 mg PO QHS Problem Qualifiers (1) Respiratory failure, acute: Qualified Codes: J96.01 - Acute respiratory failure with hypoxia (2) Rhabdomyolysis: (3) Scalp contusion: Qualified Codes: S00.03XA - Contusion of scalp, initial encounter (4) HTN (hypertension): Qualified Codes: I10 - Essential (primary) hypertension Tom Min DO Nov 01, 2017 17:36
[2017-11-01 20:00] VITALS: BP 114/72; PULSE 90; RESP 22; TEMP 98.3; O2SAT 98
[2017-11-01 20:39] VITALS: O2SAT 95
[2017-11-01] MEDS: MIRTAZAPINE 15 MG TAB PO SCH (20:43)
[2017-11-01] MEDS: traZODone HCL 100 MG TAB PO SCH (20:44)
[2017-11-01] MEDS: TAMSULOSIN HCL 0.4 MG CAP PO SCH (20:44)
[2017-11-02] VITALS (7 sets, daily range): BP systolic 95–127; BP diastolic 60–79; PULSE 82–103; RESP 18–25; TEMP 97.6–98.8; O2SAT 92–98
[2017-11-02] MEDS: ACETAMINOPHEN/HYDROcodone 325 MG/5 MG TAB PO PRN ×3 (03:02→17:22)
[2017-11-02] MEDS: MEROPENEM INJ 1,000 MG in SODIUM CHLORIDE 0.9% INJ 100 ML IV SCH ×3 (03:02→17:22)
[2017-11-02] MEDS: LORazepam 2 MG/ML VIAL IV PRN ×2 (03:03→21:27)
[2017-11-02 05:17] LABS: AUTOMATED NEUTROPHIL # 0.8 TH/MM3 (1.8-7.7); BASOPHIL % 0.8 % (0.0-2.0); EOSINOPHIL % 2.5 % (0.0-4.0); HEMATOCRIT 26.3 % (39.0-51.0); HEMOGLOBIN 8.9 GM/DL (13.0-17.0); LYMPH % 33.8 % (9.0-44.0); LYMPHOCYTE # 0.5 TH/MM3 (1.0-4.8); MEAN CELL VOLUME 83.7 FL (80.0-100.0); MEAN CORPUSCULAR HEMOGLOBIN 28.5 PG (27.0-34.0); MEAN PLATELET VOLUME 8.7 FL (7.0-11.0); MONO % 9.4 % (0.0-8.0); MONOCYTE # 0.1 TH/MM3 (0-0.9); NEUT % 53.5 % (16.0-70.0); PLATELET COUNT 157 TH/MM3 (150-450); RED BLOOD COUNT 3.14 MIL/MM3 (4.50-5.90); WHITE BLOOD COUNT 1.5 TH/MM3 (4.0-11.0)
[2017-11-02 05:40] LABS: CREATININE 0.48 MG/DL (0.60-1.30)
[2017-11-02 07:32] LABS: BANDS 7 % (0-6); BASOPHILS 1 % (0-2); LYMPHOCYTES 27 % (9-44); MONOCYTES 8 % (0-8); NEUTROPHIL # MANUAL DIFF 0.9 TH/MM3 (1.8-7.7); POLYS (SEG NEUTROPHILS) 56 % (16-70)
[2017-11-02] MEDS: CHLORHEXIDINE 0.12% (ORAL KIT) 15 ML CUP MT SCH ×2 (08:00→20:00)
[2017-11-02] MEDS: FUROSEMIDE 20 MG TAB PO SCH (08:58)
[2017-11-02] MEDS: AZITHROMYCIN 250 MG TAB PO SCH (08:58)
[2017-11-02] MEDS: predniSONE 10 MG TAB PO SCH (08:58)
[2017-11-02] MEDS: carBAMazepine 200 MG TAB PO SCH ×2 (08:59→21:25)
[2017-11-02] MEDS: OSELTAMIVIR PHOSPHATE 75 MG CAP PO SCH ×2 (08:59→21:04)
[2017-11-02] MEDS: SILVER SULFADIAZINE/LIDOCAINE CREAM 60 GM JAR TOPICAL SCH ×2 (09:00→21:00)
[2017-11-02] MEDS: AQUAPHOR OINT 50 GM TUBE TOPICAL SCH ×2 (09:00→21:00)
[2017-11-02] MEDS: NYSTAT/DIPHENHY/LIDO MOUTHWASH (Adult) 120ML SWISH-SWAL SCH ×4 (09:00→21:00)
[2017-11-02] MEDS: PANTOPRAZOLE SODIUM 40 MG VIAL IV PUSH SCH (09:01)
[2017-11-02] MEDS: FILGRASTIM 300 MCG/ML VIAL SQ SCH (13:44)
--- NOTE | 2017-11-02 14:12 | HHI.PR ---
Subjective Remarks Off O2 and sats 98 On Tamiflu. His CXR shows improved infiltrates Poor intake Objective Vital Signs Date Time Temp Pulse Resp B/P (MAP) Pulse Ox O2 Delivery O2 Flow Rate FiO2 11/02/17 08:00 84 11/02/17 08:00 97.9 84 20 96/61 (73) 92 11/02/17 07:00 93 Room Air 11/02/17 04:02 18 11/02/17 04:00 97.6 82 18 95/60 (72) 92 11/02/17 04:00 82 11/02/17 00:00 98.0 83 22 100/61 (74) 98 11/02/17 00:00 86 11/01/17 20:48 24 11/01/17 20:39 95 21 11/01/17 20:00 90 11/01/17 20:00 98.3 90 22 114/72 (86) 98 11/01/17 19:00 95 Nasal Cannula 2.00 11/01/17 16:00 88 11/01/17 16:00 98.5 88 23 115/73 (87) 93 I/O 11/01/17 11/01/17 11/01/17 11/02/17 11/02/17 11/02/17 07:00 15:00 23:00 07:00 15:00 23:00 Intake Total 480 ml 240 ml Output Total 1700 ml 700 ml Balance -1220 ml -460 ml Intake Oral 480 ml 240 ml Output Urine Total 1700 ml 700 ml # Bowel Movements 0 0 Result Diagram: 11/02/17 0450 11/02/17 0450 Objective Remarks This is a thinly built middle-aged white male who is pale. HEENT: Head normocephalic. Pupils reactive. Tongue is dry. Throat is clear . NECK: Supple. No bruits or thyroid enlargement. No lymphadenopathy. CHEST: Distant breath sounds with no wheeze. There are few crackles at bases . HEART: The heart sounds are regular S1-S2. No murmur. No S3. ABDOMEN: The abdomen is soft and protuberant. No masses or organomegaly or tenderness. Bowel sounds are active. EXTREMITIES: No edema . Reflexes are 1+ with no gross motor deficits. NEUROLOGIC:Alert and talking . RECTAL: Exam is deferred. SKIN: No lesions. Assessment and Plan Assessment and Plan IMPRESSION 1. Acute hypoxemic respiratory failure. 2. He has a history of rectal cancer. 3. Syncopal episodes 4. Basilar pneumonia 5. Anemia with blood loss 6. Dehydration and acute kidney injury PLan : 1. D/C O2 2. Labs in am 3. Continue Antibiotics per ID 4. IS q2h bedside 5. Prednisone 20 mg daily 7. PT Evaluation 8. Transfer to [facility] Kaylie Son MD Nov 02, 2017 14:12
[2017-11-02] MEDS: MORPHINE SULFATE 4 MG/ML INJ IV PUSH PRN ×2 (14:39→23:15)
--- NOTE | 2017-11-02 16:14 | HHI.PR ---
Subjective Remarks No complaints Objective Vitals Vital Signs Date Time Temp Pulse Resp B/P (MAP) Pulse Ox O2 Delivery O2 Flow Rate FiO2 11/02/17 12:00 95 11/02/17 12:00 98.2 95 25 99/64 (76) 96 11/02/17 08:00 84 11/02/17 08:00 97.9 84 20 96/61 (73) 92 11/02/17 07:00 93 Room Air 11/02/17 04:02 18 11/02/17 04:00 97.6 82 18 95/60 (72) 92 11/02/17 04:00 82 11/02/17 00:00 98.0 83 22 100/61 (74) 98 11/02/17 00:00 86 11/01/17 20:48 24 11/01/17 20:39 95 21 11/01/17 20:00 90 11/01/17 20:00 98.3 90 22 114/72 (86) 98 11/01/17 19:00 95 Nasal Cannula 2.00 Result Diagram: 11/02/17 0450 11/02/17 0450 Other Results Laboratory Tests Test 10/31/17 05:16 11/01/17 12:18 11/02/17 04:50 White Blood Count 1.1 TH/MM3 1.1 TH/MM3 1.5 TH/MM3 Red Blood Count 3.00 MIL/MM3 3.52 MIL/MM3 3.14 MIL/MM3 Hemoglobin 9.1 GM/DL 10.4 GM/DL 8.9 GM/DL Hematocrit 26.1 % 29.9 % 26.3 % Mean Corpuscular Volume 86.9 FL 85.0 FL 83.7 FL Mean Corpuscular Hemoglobin 30.3 PG 29.5 PG 28.5 PG Mean Corpuscular Hemoglobin Concent 34.9 % 34.7 % 34.0 % Red Cell Distribution Width 15.8 % 15.7 % 16.0 % Platelet Count 113 TH/MM3 162 TH/MM3 157 TH/MM3 Mean Platelet Volume 9.4 FL 9.1 FL 8.7 FL Neutrophils (%) (Auto) 56.2 % 55.1 % 53.5 % Lymphocytes (%) (Auto) 29.8 % 32.5 % 33.8 % Monocytes (%) (Auto) 7.5 % 7.9 % 9.4 % Eosinophils (%) (Auto) 4.7 % 3.5 % 2.5 % Basophils (%) (Auto) 1.8 % 1.0 % 0.8 % Neutrophils # (Auto) 0.6 TH/MM3 0.6 TH/MM3 0.8 TH/MM3 Lymphocytes # (Auto) 0.3 TH/MM3 0.3 TH/MM3 0.5 TH/MM3 Monocytes # (Auto) 0.1 TH/MM3 0.1 TH/MM3 0.1 TH/MM3 Eosinophils # (Auto) 0.1 TH/MM3 0.0 TH/MM3 0.0 TH/MM3 Basophils # (Auto) 0.0 TH/MM3 0.0 TH/MM3 0.0 TH/MM3 CBC Comment AUTO DIFF AUTO DIFF AUTO DIFF Differential Total Cells Counted 100 100 100 Neutrophils % (Manual) 78 % 71 % 56 % Lymphocytes % 13 % 16 % 27 % Monocytes % 4 % 6 % 8 % Eosinophils % 4 % 2 % 1 % Basophils % 1 % 1 % Neutrophils # (Manual) 0.9 TH/MM3 0.8 TH/MM3 0.9 TH/MM3 Differential Comment FINAL DIFF MANUAL FINAL DIFF MANUAL FINAL DIFF MANUAL Platelet Estimate LOW NORMAL NORMAL Platelet Morphology Comment NORMAL ENLARGED NORMAL Basophilic Stippling MOD Blood Urea Nitrogen 12 MG/DL Creatinine 0.46 MG/DL 0.48 MG/DL Random Glucose 92 MG/DL Total Protein 4.9 GM/DL Albumin 1.6 GM/DL Calcium Level 7.6 MG/DL Alkaline Phosphatase 188 U/L Aspartate Amino Transf (AST/SGOT) 63 U/L Alanine Aminotransferase (ALT/SGPT) 93 U/L Total Bilirubin 1.4 MG/DL Sodium Level 136 MEQ/L Potassium Level 3.7 MEQ/L Chloride Level 97 MEQ/L Carbon Dioxide Level 31.5 MEQ/L Anion Gap 8 MEQ/L Estimat Glomerular Filtration Rate 184 ML/MIN 175 ML/MIN Band Neutrophils % 5 % 7 % Toxic Granulation 1+ Red Cell Morphology Comment NORMAL Imaging Last Impressions Chest X-Ray 10/31/17 0600 Signed Impressions: Service Date/Time: Tuesday, October 31, 2017 04:35 - CONCLUSION: Stable partially consolidative infiltrates in the lateral left midlung and lower lateral right lung. Marty Blackmon MD Venous Access Device Injection 10/31/17 0000 Signed Impressions: Service Date/Time: Tuesday, October 31, 2017 14:56 - CONCLUSION: 1. Well-positioned patent right IJ [id number]. No significant thrombus or fibrin sheath. Erasmo Lacey MD Abdomen X-Ray 10/26/17 1000 Signed Impressions: Service Date/Time: Thursday, October 26, 2017 09:47 - CONCLUSION: Negative KUB. Tommie Cortez MD Head CT 10/21/17 0000 Signed Impressions: Service Date/Time: Saturday, October 21, 2017 23:07 - CONCLUSION: 1. Ill-defined hyperdense area now noted along the left occipital parietal lobe junction likely representing a hemorrhagic contusion. 2. Interval decrease in the size of the right cephalohematoma. Ino Head MD Liver Ultrasound 10/19/17 0000 Signed Impressions: Service Date/Time: Thursday, October 19, 2017 14:17 - CONCLUSION: Extensive sludge in the gallbladder. No gallbladder wall thickening is seen.. Yonatan Quijano MD Pelvis X-Ray 10/17/17 1704 Signed Impressions: Service Date/Time: Tuesday, October 17, 2017 17:21 - CONCLUSION: Abnormal intertrochanteric region left hip, nonspecific. I do not see evidence for acute traumatic injury. Imer Stanley MD FACR Objective Remarks GENERAL: This is a well-nourished, well-developed patient, in no apparent distress. CARDIOVASCULAR: Regular rate and rhythm without murmurs, gallops, or rubs. RESPIRATORY: Clear bilaterally GASTROINTESTINAL: Abdomen soft, non-tender, nondistended. Normal active bowel sounds MUSCULOSKELETAL: Extremities without clubbing, cyanosis, or edema. NEURO: Alert & Oriented x4 to person, place, time, situation. 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 Patient was initially admitted to [facility] on 10/18/17 after a fall. Patient was found to have rhabdomyolysis treated with IV fluid recitation. Then on 10/22 patient had respiratory distress was treated with IV diuretics. Seemed to be improving. On 10/26 patient again had respiratory distress at that time patient required intubation and was followed by the child support specialist, until 10/28 Patient noted to have anemia and GI was consulted due to concerns of GI bleed. EGD was done 10/27 which showed mild erythema in the stomach consistent with NG tube trauma, minimal esophagitis and otherwise normal. Patient was able to be extubated 10/28 and hospitalist were consulted to assume care. Echo noted patient does have component CHF diastolic dysfunction Patient noted to be influence A positive on 10/25. Patient is also being followed by infectious disease for influenza pneumonia and probably superimposed bacterial pneumonia, currently receiving Tamiflu (10/15 - present) , Meropenem (10/26 - present) and azithromycin (10/25 - changed to PO ), vancomycin (10/19- 10/29). - Case d/w Dr. Petersen (10/31/17) - continue current antibiotic regimen through the weekend - reevaluate antibiotic regimen on November 03 - repeat CXR in am - repeat CBC in AM - Patient tolerating RA (2) Rhabdomyolysis ICD Codes: M62.82 - Rhabdomyolysis Status: Acute Plan: CK normalized. IVF stopped 10/22 due to fluid overload (3) Neutropenic fever ICD Codes: D70.9 - Neutropenia, unspecified; R50.81 - Fever presenting with conditions classified elsewhere Status: Resolved Plan: Questionable etiology but most likely associated with perirectal exposure. Appreciate hematology/oncology and ID input. Patient noted to be influence A positive on 10/25. Patient is also being followed by infectious disease for influenza pneumonia and probably superimposed bacterial pneumonia, currently receiving Tamiflu, Vancomycin, Meropenem and azithromycin. (4) Scalp contusion ICD Codes: S00.03XA - Contusion of scalp, initial encounter Status: Acute Plan: Manage conservatively. Clinically improved. cerebral contusion noted on repeat CT. Follow clinically. 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 (7) Bipolar depression ICD Codes: F31.30 - Bipolar disorder, current episode depressed, mild or moderate severity, unspecified Status: Chronic Plan: Continue home medication. (8) Confusion ICD Codes: R41.0 - Disorientation, unspecified Status: Acute Plan: ? etiology. Mentation improved 10/24 ? a/w infectious process, metabolic disturbance, meds, recent head injury. Ammonia, CK unremarkable. CT brain reveals possible mild hemorrhagic contusion now. Given that his neuro exam is actually improving, we'll monitor. We'll hold Lovenox due to the CT finding. Patient denies headache. confusion improved (9) At risk for abuse of opiates ICD Codes: Z91.89 - Other specified personal risk factors, not elsewhere classified Status: Chronic Plan: Pt has hx of opiate abuse and had been in outpt rehab program. He had been doing quite well. Will use caution when prescribing opiates to control his pain. (10) Elevated LFTs ICD Codes: R79.89 - Other specified abnormal findings of blood chemistry Status: Acute Plan: LFTs stable Possible a/w recent fluid overload vs med (? cefepime) Liver US (10/19) Extensive sludge in the gallbladder. No gallbladder wall thickening is seen. LFTs improving recheck CMP in AM (11) Poor appetite ICD Codes: R63.0 - Anorexia Plan: add boost to meals start Remeron 30 mg PO QHS (12) Anemia ICD Codes: D64.9 - Anemia, unspecified Status: Acute Plan: On admission S/P EGD (10/27) IMPRESSION: Mild erythema in the stomach consistent with NG tube trauma Minimal esophagitis Normal otherwise Most likely anemia multifactorial including colon cancer If patient started having active bleeding from the rectum might consider colonoscopy Assessment and Plan Patient examined. Assessment and plan formulated with Rula Hughes PA-C. I agree with the above. Problem Qualifiers (1) Respiratory failure, acute: Qualified Codes: J96.01 - Acute respiratory failure with hypoxia (2) Rhabdomyolysis: (3) Scalp contusion: Qualified Codes: S00.03XA - Contusion of scalp, initial encounter (4) HTN (hypertension): Qualified Codes: I10 - Essential (primary) hypertension (5) Anemia: Qualified Codes: D64.9 - Anemia, unspecified Rula Hughes Nov 02, 2017 16:14 Tom Min DO Nov 03, 2017 11:17
[2017-11-02] MEDS: MIRTAZAPINE 15 MG TAB PO SCH (21:02)
[2017-11-02] MEDS: TAMSULOSIN HCL 0.4 MG CAP PO SCH (21:03)
[2017-11-02] MEDS: traZODone HCL 100 MG TAB PO SCH (21:03)
[2017-11-03] VITALS (7 sets, daily range): BP systolic 102–135; BP diastolic 62–80; PULSE 80–124; RESP 17–27; TEMP 98–98.6; O2SAT 92–100
[2017-11-03] MEDS: MEROPENEM INJ 1,000 MG in SODIUM CHLORIDE 0.9% INJ 100 ML IV SCH (03:30)
[2017-11-03] MEDS: MORPHINE SULFATE 4 MG/ML INJ IV PUSH PRN ×2 (04:52→16:34)
[2017-11-03 06:21] LABS: BASOPHIL % 1.1 % (0.0-2.0); EOSINOPHIL % 1.6 % (0.0-4.0); HEMATOCRIT 30.4 % (39.0-51.0); HEMOGLOBIN 10.4 GM/DL (13.0-17.0); LYMPH % 41.5 % (9.0-44.0); MEAN CELL VOLUME 85.1 FL (80.0-100.0); MEAN CORPUSCULAR HEMOGLOBIN 29.1 PG (27.0-34.0); MEAN CORPUSCULAR HGB CONC 34.3 % (32.0-36.0); MEAN PLATELET VOLUME 8.9 FL (7.0-11.0); MONO % 12.1 % (0.0-8.0); MONOCYTE # 0.3 TH/MM3 (0-0.9); NEUT % 43.7 % (16.0-70.0); PLATELET COUNT 200 TH/MM3 (150-450); RED BLOOD COUNT 3.57 MIL/MM3 (4.50-5.90); RED CELL DISTRIBUTION WIDTH 15.8 % (11.6-17.2); WHITE BLOOD COUNT 2.4 TH/MM3 (4.0-11.0)
--- NOTE | 2017-11-03 06:24 | RADRPT ---
EXAM DATE/TIME: 11/03/2017 04:57 [facility] COMPARISON: CHEST SINGLE AP, October 31, 2017, 4:35. INDICATIONS : Short of breath. MEDICAL HISTORY : Hypertension. Rectal cancer. Squamous cell carcinoma. GERD. SURGICAL HISTORY : Hernia repair. Bilateral shoulder cuff repair. Chemotherapy. ENCOUNTER: Subsequent ACUITY: 1 week PAIN SCORE: 0/10 LOCATION: Bilateral chest FINDINGS: Portable AP view of the chest demonstrates a normal-sized cardiac silhouette. Right chest wall Infuse -a-Port remain present. EKG lines overlie the patient. Lungs are underinflated and there are intersti tial and airspace opacities bilaterally. No pneumothorax or pleural effusion is identified. CONCLUSION: Stable chest x-ray with interstitial and airspace opacities bilaterally, left greater than right. Tommie Rivera MD on November 03, 2017 at 6:21 Board Certified Radiologist. This report was verified electronically.
[2017-11-03 06:51] LABS: ALBUMIN 1.9 GM/DL (3.4-5.0); AST (GOT) 30 U/L (15-37); BICARBONATE 28.7 MEQ/L (21.0-32.0); BLOOD UREA NITROGEN 12 MG/DL (7-18); CALCIUM 7.6 MG/DL (8.5-10.1); CHLORIDE 98 MEQ/L (98-107); CREATININE 0.63 MG/DL (0.60-1.30); GLOMERULAR FILTRATION RATE 128 ML/MIN (>89); GLUCOSE,RANDOM 91 MG/DL (74-106); SODIUM (NA) 136 MEQ/L (136-145)
[2017-11-03 06:53] LABS: ALT (GPT) 56 U/L (12-78)
[2017-11-03 06:55] LABS: ALKALINE PHOSPHATASE 226 U/L (45-117); TOTAL BILIRUBIN ADULT 1.3 MG/DL (0.2-1.0); TOTAL PROTEIN 5.3 GM/DL (6.4-8.2)
[2017-11-03] MEDS: CHLORHEXIDINE 0.12% (ORAL KIT) 15 ML CUP MT SCH ×2 (08:00→19:49)
[2017-11-03 08:31] LABS: BANDS 18 % (0-6); BASOPHILS 2 % (0-2); LYMPHOCYTES 18 % (9-44); MONOCYTES 10 % (0-8); MYELOCYTES 1 % (0-0); NEUTROPHIL # MANUAL DIFF 1.7 TH/MM3 (1.8-7.7); POLYS (SEG NEUTROPHILS) 50 % (16-70)
[2017-11-03 08:32] LABS: TOXIC GRANULATION 1+ (NORMAL)
[2017-11-03] MEDS: SILVER SULFADIAZINE/LIDOCAINE CREAM 60 GM JAR TOPICAL SCH ×3 (09:00→20:16)
[2017-11-03] MEDS: NYSTAT/DIPHENHY/LIDO MOUTHWASH (Adult) 120ML SWISH-SWAL SCH ×4 (09:00→20:15)
[2017-11-03] MEDS: AQUAPHOR OINT 50 GM TUBE TOPICAL SCH ×2 (09:00→20:16)
[2017-11-03] MEDS: PANTOPRAZOLE SODIUM 40 MG VIAL IV PUSH SCH (09:40)
[2017-11-03] MEDS: predniSONE 10 MG TAB PO SCH (09:40)
[2017-11-03] MEDS: AZITHROMYCIN 250 MG TAB PO SCH (09:40)
[2017-11-03] MEDS: FUROSEMIDE 20 MG TAB PO SCH (09:41)
[2017-11-03] MEDS: carBAMazepine 200 MG TAB PO SCH ×2 (09:41→20:06)
[2017-11-03] MEDS: OSELTAMIVIR PHOSPHATE 75 MG CAP PO SCH (09:41)
--- NOTE | 2017-11-03 11:18 | HHI.PR ---
Subjective Remarks feels well. eager for rehab. Objective Vitals heart reg lung cta abds /nt ext no edema Vital Signs Date Time Temp Pulse Resp B/P (MAP) Pulse Ox O2 Delivery O2 Flow Rate FiO2 11/03/17 08:00 98.4 97 17 119/71 (87) 94 11/03/17 04:12 98.6 102 18 109/63 (78) 93 11/03/17 00:04 98.3 108 19 102/62 (75) 92 11/02/17 21:00 103 11/02/17 21:00 Room Air 11/02/17 20:00 98.3 103 20 127/79 (95) 94 11/02/17 16:00 98 11/02/17 16:00 98.8 98 20 121/74 (90) 94 11/02/17 12:00 95 11/02/17 12:00 98.2 95 25 99/64 (76) 96 Result Diagram: 11/03/17 0438 11/03/17 0438 Imaging Last Impressions Chest X-Ray 10/31/17 0600 Signed Impressions: Service Date/Time: Tuesday, October 31, 2017 04:35 - CONCLUSION: Stable partially consolidative infiltrates in the lateral left midlung and lower lateral right lung. Marty Blackmon MD Venous Access Device Injection 10/31/17 0000 Signed Impressions: Service Date/Time: Tuesday, October 31, 2017 14:56 - CONCLUSION: 1. Well-positioned patent right IJ [id number]. No significant thrombus or fibrin sheath. Erasmo Lacey MD Abdomen X-Ray 10/26/17 1000 Signed Impressions: Service Date/Time: Thursday, October 26, 2017 09:47 - CONCLUSION: Negative KUB. Tommie Cortez MD Head CT 10/21/17 0000 Signed Impressions: Service Date/Time: Saturday, October 21, 2017 23:07 - CONCLUSION: 1. Ill-defined hyperdense area now noted along the left occipital parietal lobe junction likely representing a hemorrhagic contusion. 2. Interval decrease in the size of the right cephalohematoma. Ino Head MD Liver Ultrasound 10/19/17 0000 Signed Impressions: Service Date/Time: Thursday, October 19, 2017 14:17 - CONCLUSION: Extensive sludge in the gallbladder. No gallbladder wall thickening is seen.. Yonatan Quijano MD Pelvis X-Ray 10/17/17 1701 Signed Impressions: Service Date/Time: Tuesday, October 17, 2017 17:21 - CONCLUSION: Abnormal intertrochanteric region left hip, nonspecific. I do not see evidence for acute traumatic injury. 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 Patient was initially admitted to [facility] on 10/18/17 after a fall. Patient was found to have rhabdomyolysis treated with IV fluid recitation. Then on 10/22 patient had respiratory distress was treated with IV diuretics. Seemed to be improving. On 10/26 patient again had respiratory distress at that time patient required intubation and was followed by the english professor, until 10/28 Patient noted to have anemia and GI was consulted due to concerns of GI bleed. EGD was done 10/27 which showed mild erythema in the stomach consistent with NG tube trauma, minimal esophagitis and otherwise normal. Patient was able to be extubated 10/28 and hospitalist were consulted to assume care. Echo noted patient does have component CHF diastolic dysfunction Patient noted to be influence A positive on 10/25. Patient is also being followed by infectious disease for influenza pneumonia and probably superimposed bacterial pneumonia, currently receiving Tamiflu (10/15 - present) , Meropenem (10/26 - present) and azithromycin (10/25 - changed to PO ), vancomycin (10/19- 10/29). placed on neupogen per hem/onc due to neutropenia. - Case d/w Dr. Petersen (10/31/17) - continue current antibiotic regimen through the weekend - reevaluate antibiotic regimen today with ID Will plan for d/c in next 24hr if ok with conultants and we identify snf. (2) Rhabdomyolysis ICD Codes: M62.82 - Rhabdomyolysis Status: Acute Plan: CK normalized. IVF stopped 10/22 due to fluid overload (3) Neutropenic fever ICD Codes: D70.9 - Neutropenia, unspecified; R50.81 - Fever presenting with conditions classified elsewhere Status: Acute Plan: Questionable etiology but most likely associated with perirectal exposure. Appreciate hematology/oncology and ID input. Patient noted to be influence A positive on 10/25. Patient is also being followed by infectious disease for influenza pneumonia and probably superimposed bacterial pneumonia, currently receiving Tamiflu, Vancomycin, Meropenem and azithromycin. gcsf per hem/onc (4) Scalp contusion ICD Codes: S00.03XA - Contusion of scalp, initial encounter Status: Acute Plan: Manage conservatively. Clinically improved. cerebral contusion noted on repeat CT. Follow clinically. 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 (7) Bipolar depression ICD Codes: F31.30 - Bipolar disorder, current episode depressed, mild or moderate severity, unspecified Status: Chronic Plan: Continue home medication. (8) Confusion ICD Codes: R41.0 - Disorientation, unspecified Status: Acute Plan: ? etiology. Mentation improved 10/24 ? a/w infectious process, metabolic disturbance, meds, recent head injury. Ammonia, CK unremarkable. CT brain reveals possible mild hemorrhagic contusion now. Given that his neuro exam is actually improving, we'll monitor. We'll hold Lovenox due to the CT finding. Patient denies headache. confusion improved (9) At risk for abuse of opiates ICD Codes: Z91.89 - Other specified personal risk factors, not elsewhere classified Status: Chronic Plan: Pt has hx of opiate abuse and had been in outpt rehab program. He had been doing quite well. Will use caution when prescribing opiates to control his pain. (10) Elevated LFTs ICD Codes: R79.89 - Other specified abnormal findings of blood chemistry Status: Acute Plan: LFTs stable Possible a/w recent fluid overload vs med (? cefepime) Liver US (10/19) Extensive sludge in the gallbladder. No gallbladder wall thickening is seen. LFTs improving (11) Poor appetite ICD Codes: R63.0 - Anorexia Plan: add boost to meals start Remeron 30 mg PO QHS (12) Anemia ICD Codes: D64.9 - Anemia, unspecified Status: Acute Plan: On admission S/P EGD (10/27) IMPRESSION: Mild erythema in the stomach consistent with NG tube trauma Minimal esophagitis Normal otherwise Most likely anemia multifactorial including colon cancer If patient started having active bleeding from the rectum might consider colonoscopy Problem Qualifiers (1) Respiratory failure, acute: Qualified Codes: J96.01 - Acute respiratory failure with hypoxia (2) Rhabdomyolysis: (3) Scalp contusion: Qualified Codes: S00.03XA - Contusion of scalp, initial encounter (4) HTN (hypertension): Qualified Codes: I10 - Essential (primary) hypertension (5) Anemia: Qualified Codes: D64.9 - Anemia, unspecified Jr Sawant MD Nov 03, 2017 11:18
--- NOTE | 2017-11-03 11:48 | HHI.IDPN ---
Note Infectious Disease Note Patient resting in bed and appears comfortable. Weekend events noted. Patient fell. Says he feels okay. No fever. No shortness of breath or chest pain. Occasional cough without sputum production. He is on O2 2 L via nasal cannula. White blood cell count is improved. Repeat chest x-ray looks stable. 62-year-old white male who presented to the emergency department on 10/17 after falling. The patient reportedly was on the tile floor of his home for some time after he fell and was discovered by his family. He was evaluated and was noted to have heart rate of 107 and white blood cell count of 2.7 with 63% neutrophils. He was felt to have mild rhabdomyolysis and was treated. The patient has a history of rectal cancer for which he received chemotherapy and subsequently radiation therapy. His blood cultures were taken on admission and has no growth. He was positive for testing for influenzae on 10/25. PAST MEDICAL HISTORY: 1. Bipolar disorder. 2. Hypertension. 3. Gastroesophageal reflux. 4. BPH. 5. Lumbar degenerative disk disease. 6. Squamous cell cancer of the rectum diagnosed 07/2017. 7. Basal cell carcinoma of the skin. 8. Right inguinal hernia repair. 9. Rotator cuff repair. 10. [id number]. ALLERGIES DOXYCYCLINE, MINOCYCLINE, TIGECYCLINE. MEDICATIONS: 1. Meropenem. 2. Azithromycin. 3. Tamiflu Current Medications Medications (Trade) Dose Ordered Sig/Siddhartha Route PRN Reason Start Time Stop Time Status Last Admin Dose Admin Tamsulosin HCl (Flomax) 0.4 mg HS PO 10/17/17 21:00 11/02/17 21:03 Carbamazepine (TEGretol) 400 mg DAILY PO 10/18/17 09:00 11/03/17 09:41 Ondansetron HCl (Zofran Inj) 4 mg Q6H PRN IV PUSH VOMITING 10/18/17 16:45 10/25/17 04:05 Prochlorperazine Maleate (Compazine) 10 mg Q6H PRN PO NAUSEA 10/18/17 18:00 10/20/17 05:00 Loperamide HCl (Imodium) 2 mg Q6H PRN PO diarrhea 10/18/17 17:00 10/21/17 15:32 Acetaminophen (Tylenol) 500 mg Q4H PRN PO TEMPERATURE > 100.4 10/19/17 05:15 10/28/17 01:24 Morphine Sulfate (Morphine Inj) 4 mg Q3H PRN IV PUSH PAIN 8-10 10/19/17 06:30 11/03/17 04:52 Emollient Ointment (Aquaphor Oint) 1 applic Q12HR TOPICAL 10/19/17 21:00 11/02/17 09:00 Carbamazepine (TEGretol) 400 mg HS PO 10/21/17 21:00 11/02/17 21:25 Trazodone HCl (Desyrel) 150 mg HS PO 10/21/17 21:00 11/02/17 21:03 Diphenhydramine HCl (Benadryl) 25 mg Q4H PRN PO SEE LABEL COMMENTS 10/22/17 06:00 Albuterol Sulfate (Albuterol Neb) 2.5 mg Q4HR NEB PRN INH SHORTNESS OF BREATH 10/22/17 08:15 10/23/17 21:15 Multi-Ingredient Mouthwash/Gargle (Magic Mouthwash Adult Liq) 5 ml QID SWISH-SWAL 10/23/17 13:00 11/02/17 17:22 Pantoprazole Sodium (Protonix Inj) 40 mg Q24H IV PUSH 10/26/17 10:00 11/03/17 09:40 Lorazepam (Ativan Inj) 1 mg Q8H PRN IV ANXIETY 10/25/17 13:45 11/02/17 21:27 Chlorhexidine Gluconate (Peridex 0.12% Liq) 15 ml BID@08,20 MT 10/25/17 20:00 10/30/17 08:00 Oseltamivir Phosphate (Tamiflu) 75 mg BID PO 10/25/17 22:30 11/03/17 09:41 Meropenem 1000 mg/ Sodium Chloride 100 ml @ 200 mls/hr Q8H IV 10/26/17 11:00 11/03/17 03:30 Olanzapine (ZyPREXA) 15 mg HS PO 10/26/17 21:00 11/02/17 21:03 Potassium Chloride 100 ml @ 50 mls/hr Q2H PRN IV For Potassium 2.8 - 3.2 mEq/L 10/28/17 10:30 Potassium Chloride 100 ml @ 50 mls/hr Q2H PRN IV For Potassium 2.8 - 3.2 mEq/L 10/28/17 10:30 Potassium Bicarb/ Potassium Chloride (K-Lyte Cl Eff) 50 meq UNSCH PRN PO For Potassium 3.3 - 3.5 mEq/L 10/28/17 10:30 Potassium Chloride 100 ml @ 25 mls/hr UNSCH PRN IV For Potassium 3.3 - 3.5 mEq/L 10/28/17 10:30 Potassium Chloride 100 ml @ 50 mls/hr Q2H PRN IV For Potassium 3.3 - 3.5 mEq/L 10/28/17 10:30 Magnesium Sulfate 4 gm/Sodium Chloride 100 ml @ 50 mls/hr UNSCH PRN IV For Magnesium 0.9 - 1.1 mg/dL 10/28/17 10:30 Magnesium Oxide (Mag-Ox) 800 mg UNSCH PRN PO For Magnesium 1.2 - 1.6 mg/dL 10/28/17 10:30 Magnesium Sulfate 2 gm/Sodium Chloride 100 ml @ 50 mls/hr UNSCH PRN IV For Magnesium 1.2 - 1.6 mg/dL 10/28/17 10:30 Potassium Phosphate (K-Phos) 2,000 mg Q4H PRN PO For Phosphorus < 2.5 mg/dL 10/28/17 10:30 Sodium Phosphate 30 mmol/Sodium Chloride 250 ml @ 42 mls/hr UNSCH PRN IV For Phosphorus < 2.5 mg/dL 10/28/17 10:30 Potassium Phosphate (K-Phos) 2,000 mg UNSCH PRN PO/TUBE SEE LABEL COMMENTS 10/28/17 10:30 Potassium Phosphate 30 mmol/ Sodium Chloride 260 ml @ 42 mls/hr UNSCH PRN IV SEE LABEL COMMENTS 10/28/17 10:30 10/28/17 11:15 Compound Med (Ritters Cream) 1 applic BID TOPICAL 10/28/17 21:00 11/03/17 00:00 Furosemide (Lasix) 20 mg DAILY PO 10/30/17 09:00 11/03/17 09:41 Zolpidem Tartrate (Ambien) 5 mg HS PRN PO INSOMNIA 10/29/17 18:45 10/30/17 20:32 Azithromycin (Zithromax) 500 mg DAILY PO 10/30/17 12:00 11/03/17 09:40 Mirtazapine (Remeron) 30 mg HS PO 10/30/17 21:00 11/02/17 21:02 Prednisone (Deltasone) 30 mg DAILY PO 10/31/17 09:00 11/03/17 09:40 Acetaminophen/ Hydrocodone Bitart ([place] 5-325 Mg) 1 tab Q4H PRN PO PAIN 3-7 10/31/17 12:15 11/02/17 17:22 Filgrastim (Neupogen Inj) 300 mcg DAILY@14 SQ 11/01/17 14:00 11/03/17 16:00 11/02/17 13:44 OBJECTIVE: Vital Signs Date Time Temp Pulse Resp B/P (MAP) Pulse Ox O2 Delivery O2 Flow Rate FiO2 11/03/17 08:00 98.4 97 17 119/71 (87) 94 11/03/17 04:12 98.6 102 18 109/63 (78) 93 11/03/17 00:04 98.3 108 19 102/62 (75) 92 11/02/17 21:00 103 11/02/17 21:00 Room Air 11/02/17 20:00 98.3 103 20 127/79 (95) 94 11/02/17 16:00 98 11/02/17 16:00 98.8 98 20 121/74 (90) 94 11/02/17 12:00 95 11/02/17 12:00 98.2 95 25 99/64 (76) 96 Laboratory Tests Test 11/01/17 12:18 11/02/17 04:50 11/03/17 04:38 White Blood Count 1.1 TH/MM3 1.5 TH/MM3 2.4 TH/MM3 Red Blood Count 3.52 MIL/MM3 3.14 MIL/MM3 3.57 MIL/MM3 Hemoglobin 10.4 GM/DL 8.9 GM/DL 10.4 GM/DL Hematocrit 29.9 % 26.3 % 30.4 % Mean Corpuscular Volume 85.0 FL 83.7 FL 85.1 FL Mean Corpuscular Hemoglobin 29.5 PG 28.5 PG 29.1 PG Mean Corpuscular Hemoglobin Concent 34.7 % 34.0 % 34.3 % Red Cell Distribution Width 15.7 % 16.0 % 15.8 % Platelet Count 162 TH/MM3 157 TH/MM3 200 TH/MM3 Mean Platelet Volume 9.1 FL 8.7 FL 8.9 FL Neutrophils (%) (Auto) 55.1 % 53.5 % 43.7 % Lymphocytes (%) (Auto) 32.5 % 33.8 % 41.5 % Monocytes (%) (Auto) 7.9 % 9.4 % 12.1 % Eosinophils (%) (Auto) 3.5 % 2.5 % 1.6 % Basophils (%) (Auto) 1.0 % 0.8 % 1.1 % Neutrophils # (Auto) 0.6 TH/MM3 0.8 TH/MM3 1.0 TH/MM3 Lymphocytes # (Auto) 0.3 TH/MM3 0.5 TH/MM3 1.0 TH/MM3 Monocytes # (Auto) 0.1 TH/MM3 0.1 TH/MM3 0.3 TH/MM3 Eosinophils # (Auto) 0.0 TH/MM3 0.0 TH/MM3 0.0 TH/MM3 Basophils # (Auto) 0.0 TH/MM3 0.0 TH/MM3 0.0 TH/MM3 CBC Comment AUTO DIFF AUTO DIFF AUTO DIFF Differential Total Cells Counted 100 100 100 Neutrophils % (Manual) 71 % 56 % 50 % Band Neutrophils % 5 % 7 % 18 % Lymphocytes % 16 % 27 % 18 % Monocytes % 6 % 8 % 10 % Eosinophils % 2 % 1 % 1 % Neutrophils # (Manual) 0.8 TH/MM3 0.9 TH/MM3 1.7 TH/MM3 Differential Comment FINAL DIFF MANUAL FINAL DIFF MANUAL FINAL DIFF MANUAL Toxic Granulation 1+ 1+ Platelet Estimate NORMAL NORMAL NORMAL Platelet Morphology Comment ENLARGED NORMAL ENLARGED Basophils % 1 % 2 % Red Cell Morphology Comment NORMAL Myelocytes 1 % Laboratory Tests Test 11/02/17 04:50 11/03/17 04:38 Creatinine 0.48 MG/DL 0.63 MG/DL Estimat Glomerular Filtration Rate 175 ML/MIN 128 ML/MIN Blood Urea Nitrogen 12 MG/DL Random Glucose 91 MG/DL Total Protein 5.3 GM/DL Albumin 1.9 GM/DL Calcium Level 7.6 MG/DL Alkaline Phosphatase 226 U/L Aspartate Amino Transf (AST/SGOT) 30 U/L Alanine Aminotransferase (ALT/SGPT) 56 U/L Total Bilirubin 1.3 MG/DL Sodium Level 136 MEQ/L Potassium Level 3.8 MEQ/L Chloride Level 98 MEQ/L Carbon Dioxide Level 28.7 MEQ/L Anion Gap 9 MEQ/L IMAGING: Chest X-Ray 11/03/17 06 Signed Impressions: Service Date/Time: Friday, November 03, 2017 04:57 - CONCLUSION: Stable chest x-ray with interstitial and airspace opacities bilaterally, left greater than right. Tommie Rivera MD Chest X-Ray 10/31/17 0600 Signed Impressions: Service Date/Time: Tuesday, October 31, 2017 04:35 - CONCLUSION: Stable partially consolidative infiltrates in the lateral left midlung and lower lateral right lung. Marty Blackmon MD Chest X-Ray 10/30/17 06 Signed Impressions: Service Date/Time: October 05:51 - CONCLUSION: 1. Status post extubation with removal of NGT. 2. Stable patchy airspace disease in the left mid to lower lung zones. 3. Mild progression of patchy airspace disease in the right lower lung zone. Erasmo Lacey MD Chest X-Ray 10/30/17 06 Signed Impressions: Service Date/Time: October 05:51 - CONCLUSION: 1. Status post extubation with removal of NGT. 2. Stable patchy airspace disease in the left mid to lower lung zones. 3. Mild progression of patchy airspace disease in the right lower lung zone. Erasmo Lacey MD Chest X-Ray 10/27/17 0600 Signed Impressions: Service Date/Time: Friday, October 27, 2017 05:08 - CONCLUSION: 1. Stable tubes and lines, as above. 2. Improved right lower lung zone airspace disease. 3. Stable patchy airspace disease in the left mid to lower lung zones. Erasmo Lacey MD Abdomen X-Ray 10/26/17 1000 Signed Impressions: Service Date/Time: Thursday, October 26, 2017 09:47 - CONCLUSION: Negative KUB. Tommie Cortez MD Head CT 10/21/17 0000 Signed Impressions: Service Date/Time: Saturday, October 21, 2017 23:07 - CONCLUSION: 1. Ill-defined hyperdense area now noted along the left occipital parietal lobe junction likely representing a hemorrhagic contusion. 2. Interval decrease in the size of the right cephalohematoma. Ino Head MD Liver Ultrasound 10/19/17 0000 Signed Impressions: Service Date/Time: Thursday, October 19, 2017 14:17 - CONCLUSION: Extensive sludge in the gallbladder. No gallbladder wall thickening is seen.. Yonatan Quijano MD Pelvis X-Ray 10/17/17 1704 Signed Impressions: Service Date/Time: Tuesday, October 17, 2017 17:21 - CONCLUSION: Abnormal intertrochanteric region left hip, nonspecific. I do not see evidence for acute traumatic injury. Imer Stanley MD FACR PHYSICAL EXAMINATION: GENERAL: No acute distress. Awake and alert HEENT. The head atraumatic. Extraocular movements grossly intact, pupils reactive to light. No icterus. Oropharynx mucosa moist. Neck: Supple without adenopathy or swelling. Lungs: Bilateral coarse breath sounds. Heart: Regular S1-S2. No murmurs, rubs or gallops. Abdomen: Bowel sounds present, soft, mildly distended, nontender. No masses. Extremities: No clubbing or cyanosis or edema. Skin: No rash. Neurologic: No gross focal findings. Psychiatric: Pleasant, calm and is cooperative. IMPRESSION 1. Sepsis. Improved. 2. Neutropenia with fever. WBC increased. Temperature is improved. 3. Influenza pneumonia and probably superimposed bacterial pneumonia. improved. 4. Acute respiratory failure. Post extubation. Improved. 5. Rectal cancer. Post chemo/Radiation. 6. Increased LFT. Improved. Clinically appears stable. RECOMMENDATIONS 1. Stop Tamiflu. 2. Stop meropenem. White blood cell count has improved. 3. Continue azithromycin p.o. for another 7 days 4. Monitor white blood cell count. Patient is clinically stable to be discharged from infection standpoint. Kamar Chand MD Nov 03, 2017 11:48
[2017-11-03] MEDS: ACETAMINOPHEN/HYDROcodone 325 MG/5 MG TAB PO PRN (12:44)
--- NOTE | 2017-11-03 12:55 | PD.ONC.PN ---
Subjective Subjective Remarks Resting comfortably in bed in no distress. Good appetite. Improved pain in rectal area. Objective Data Date Time Temp Pulse Resp B/P (MAP) Pulse Ox O2 Delivery O2 Flow Rate FiO2 11/03/17 12:00 98.5 91 17 118/75 (89) 100 11/03/17 08:00 98.4 97 17 119/71 (87) 94 11/03/17 04:12 98.6 102 18 109/63 (78) 93 11/03/17 00:04 98.3 108 19 102/62 (75) 92 11/02/17 21:00 103 11/02/17 21:00 Room Air 11/02/17 20:00 98.3 103 20 127/79 (95) 94 11/02/17 16:00 98 11/02/17 16:00 98.8 98 20 121/74 (90) 94 11/03/17 11/03/17 11/03/17 07:00 15:00 23:00 Intake Total 580 ml Output Total 1000 ml Balance -420 ml Result Diagram: 11/03/17 0438 11/03/17 0438 Laboratory Results Laboratory Tests Test 11/03/17 04:38 White Blood Count 2.4 TH/MM3 Red Blood Count 3.57 MIL/MM3 Hemoglobin 10.4 GM/DL Hematocrit 30.4 % Mean Corpuscular Volume 85.1 FL Mean Corpuscular Hemoglobin 29.1 PG Mean Corpuscular Hemoglobin Concent 34.3 % Red Cell Distribution Width 15.8 % Platelet Count 200 TH/MM3 Mean Platelet Volume 8.9 FL Neutrophils (%) (Auto) 43.7 % Lymphocytes (%) (Auto) 41.5 % Monocytes (%) (Auto) 12.1 % Eosinophils (%) (Auto) 1.6 % Basophils (%) (Auto) 1.1 % Neutrophils # (Auto) 1.0 TH/MM3 Lymphocytes # (Auto) 1.0 TH/MM3 Monocytes # (Auto) 0.3 TH/MM3 Eosinophils # (Auto) 0.0 TH/MM3 Basophils # (Auto) 0.0 TH/MM3 CBC Comment AUTO DIFF Differential Total Cells Counted 100 Neutrophils % (Manual) 50 % Band Neutrophils % 18 % Lymphocytes % 18 % Monocytes % 10 % Eosinophils % 1 % Basophils % 2 % Neutrophils # (Manual) 1.7 TH/MM3 Myelocytes 1 % Differential Comment FINAL DIFF MANUAL Toxic Granulation 1+ Platelet Estimate NORMAL Platelet Morphology Comment ENLARGED Blood Urea Nitrogen 12 MG/DL Creatinine 0.63 MG/DL Random Glucose 91 MG/DL Total Protein 5.3 GM/DL Albumin 1.9 GM/DL Calcium Level 7.6 MG/DL Alkaline Phosphatase 226 U/L Aspartate Amino Transf (AST/SGOT) 30 U/L Alanine Aminotransferase (ALT/SGPT) 56 U/L Total Bilirubin 1.3 MG/DL Sodium Level 136 MEQ/L Potassium Level 3.8 MEQ/L Chloride Level 98 MEQ/L Carbon Dioxide Level 28.7 MEQ/L Anion Gap 9 MEQ/L Estimat Glomerular Filtration Rate 128 ML/MIN Imaging Studies Last 24 hours Impressions Chest X-Ray 11/03/17 0600 Signed Impressions: Service Date/Time: Friday, November 03, 2017 04:57 - CONCLUSION: Stable chest x-ray with interstitial and airspace opacities bilaterally, left greater than right. Tommie Rivera MD Administered Medications Medications (Trade) Dose Ordered Sig/Siddhartha Route PRN Reason Start Time Stop Time Status Last Admin Dose Admin Tamsulosin HCl (Flomax) 0.4 mg HS PO 10/17/17 21:00 11/02/17 21:03 Carbamazepine (TEGretol) 400 mg DAILY PO 10/18/17 09:00 11/03/17 09:41 Ondansetron HCl (Zofran Inj) 4 mg Q6H PRN IV PUSH VOMITING 10/18/17 16:45 10/25/17 04:05 Prochlorperazine Maleate (Compazine) 10 mg Q6H PRN PO NAUSEA 10/18/17 18:00 10/20/17 05:00 Loperamide HCl (Imodium) 2 mg Q6H PRN PO diarrhea 10/18/17 17:00 10/21/17 15:32 Acetaminophen (Tylenol) 500 mg Q4H PRN PO TEMPERATURE > 100.4 10/19/17 05:15 10/28/17 01:24 Morphine Sulfate (Morphine Inj) 4 mg Q3H PRN IV PUSH PAIN 8-10 10/19/17 06:30 11/03/17 04:52 Emollient Ointment (Aquaphor Oint) 1 applic Q12HR TOPICAL 10/19/17 21:00 11/02/17 09:00 Carbamazepine (TEGretol) 400 mg HS PO 10/21/17 21:00 11/02/17 21:25 Trazodone HCl (Desyrel) 150 mg HS PO 10/21/17 21:00 11/02/17 21:03 Albuterol Sulfate (Albuterol Neb) 2.5 mg Q4HR NEB PRN INH SHORTNESS OF BREATH 10/22/17 08:15 10/23/17 21:15 Multi-Ingredient Mouthwash/Gargle (Magic Mouthwash Adult Liq) 5 ml QID SWISH-SWAL 10/23/17 13:00 11/02/17 17:22 Pantoprazole Sodium (Protonix Inj) 40 mg Q24H IV PUSH 10/26/17 10:00 11/03/17 09:40 Lorazepam (Ativan Inj) 1 mg Q8H PRN IV ANXIETY 10/25/17 13:45 11/02/17 21:27 Chlorhexidine Gluconate (Peridex 0.12% Liq) 15 ml BID@08,20 MT 10/25/17 20:00 10/30/17 08:00 Olanzapine (ZyPREXA) 15 mg HS PO 10/26/17 21:00 11/02/17 21:03 Potassium Phosphate 30 mmol/ Sodium Chloride 260 ml @ 42 mls/hr UNSCH PRN IV SEE LABEL COMMENTS 10/28/17 10:30 10/28/17 11:15 Compound Med (Ritters Cream) 1 applic BID TOPICAL 10/28/17 21:00 11/03/17 09:00 Furosemide (Lasix) 20 mg DAILY PO 10/30/17 09:00 11/03/17 09:41 Zolpidem Tartrate (Ambien) 5 mg HS PRN PO INSOMNIA 10/29/17 18:45 10/30/17 20:32 Azithromycin (Zithromax) 500 mg DAILY PO 10/30/17 12:00 11/03/17 09:40 Mirtazapine (Remeron) 30 mg HS PO 10/30/17 21:00 11/02/17 21:02 Prednisone (Deltasone) 30 mg DAILY PO 10/31/17 09:00 11/03/17 09:40 Acetaminophen/ Hydrocodone Bitart ([place] 5-325 Mg) 1 tab Q4H PRN PO PAIN 3-7 10/31/17 12:15 11/03/17 12:44 Filgrastim (Neupogen Inj) 300 mcg DAILY@14 SQ 11/01/17 14:00 11/03/17 16:00 11/02/17 13:44 Objective Remarks GENERAL: chronically ill appearing man in no distress SKIN: Warm and dry. HEAD: Normocephalic. EYES: No scleral icterus. No injection or drainage. RESPIRATORY: No accessory muscle use. GASTROINTESTINAL: Abdomen soft, non-tender, nondistended. EXTREMITIES: No cyanosis, or edema. MUSCULOSKELETAL: Adequate muscle tone. NEUROLOGICAL: No obvious focal deficit. Awake, alert, and oriented x3. PSYCHIATRIC: Appropriate mood and affect; insight and judgment normal. Assessment/Plan Problem List: (1) Neutropenic fever ICD Codes: D70.9 - Neutropenia, unspecified; R50.81 - Fever presenting with conditions classified elsewhere Status: Acute Plan: Blood and urine cultures remain negative as of 6:25 PM on 10/20/2017. On empiric antibiotic therapy with cefepime and vancomycin. On G-CSF, absolute neutral count is 5.9 as of today. Suspect perianal area as site of bacteria entry. Keep area dry, difficult with diarrhea and XRT. 10/21/17. Neutropenia resolve. Still has fever- low grade T 100.0, BC neg. Noted thrombocytopenia likely chemo induced. Asymptomatic, follow. Cont abx 10/22/17 Pt went into resp distress this morning, Movd to ICU. Had Lasix with a good response. Still on BiPap. XRT and chemo on hold at this time due to toxicity,. Neutropenia has resolved. Off of Neupogen, Thrombocytopenia persists. NO TX needed. d/w pt, Dad and sister. Answered their questions. Dr Bauer (His oncologist) will see him tomorrow. D/W RN 10/24/17. Continue GCSF, goal ANC>5000 x 2 days. (2) Thrombocytopenia ICD Codes: D69.6 - Thrombocytopenia, unspecified Status: Acute Plan: Likely due to chemo, Mitomycin C and 5FU. complicated by neutropenic fever, pulmonary infiltrates Noted PT/PTT prolonged, check fibrinogen r/o DIC Consider drug effect, LMWH, antiseizures, antibiotics- monitor for now. Check HIT antibody but clinical presentation makes it unlikely. Monitor for bleeding. 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 He had been under the care of Dr. Bauer, Dr. Rocha and was being treated with definitive dose chemoradiotherapy with infusional 5-FU and mitomycin-C. He presents to the hospital with neutropenic fever, status post fall with a subcutaneous hematoma over his right for head and confusion. Hospital course complicated by respiratory failure requiring intubation and he is now s/p extubation. Plan 1. Locally advanced Rectal SCC, low laying palpable on digital rectal exam currently undergoing treatment with concurrent chemotherapy and radiation therapy with curative intent. He is s/p day 29 dose of 5-FU and mitomycin C. 9 days of radiation therapy to complete treatment. Currently on hold due to acute illness and hospitalization. 2. Cytopenia: due to chemotherapy (5-fu and mitomycin C), continue to follow closely. Will start G-CSF due to infection and length of neutropenia. Continue G-CSF 3. ID: Influenza A infection with persistence of infiltrates. Continue currently on azithromycin. 4. Elevated liver function tests: improving. Kiley Bauer MD Nov 03, 2017 12:55
[2017-11-03] MEDS: FILGRASTIM 300 MCG/ML VIAL SQ SCH (16:24)
--- NOTE | 2017-11-03 19:18 | HHI.PR ---
Subjective Remarks On O2 again at 2 L No SOB at rest.Was up in a chair. His CXR shows bilateral infiltrates . WBC is 2.4 Objective Vital Signs Date Time Temp Pulse Resp B/P (MAP) Pulse Ox O2 Delivery O2 Flow Rate FiO2 11/03/17 16:10 Nasal Cannula 2.00 21 11/03/17 16:00 98.3 80 17 106/72 (83) 100 11/03/17 12:00 98.5 91 17 118/75 (89) 100 11/03/17 08:00 98.4 97 17 119/71 (87) 94 11/03/17 04:12 98.6 102 18 109/63 (78) 93 11/03/17 00:04 98.3 108 19 102/62 (75) 92 11/02/17 21:00 103 11/02/17 21:00 Room Air 11/02/17 20:00 98.3 103 20 127/79 (95) 94 I/O 11/02/17 11/02/17 11/02/17 11/03/17 11/03/17 11/03/17 07:00 15:00 23:00 07:00 15:00 23:00 Intake Total 240 ml 580 ml 580 ml 600 ml Output Total 700 ml 1400 ml 1000 ml 1250 ml Balance -460 ml -820 ml -420 ml -650 ml Intake Oral 240 ml 480 ml 480 ml 600 ml IV Total 100 ml 100 ml Output Urine Total 700 ml 1400 ml 1000 ml 1250 ml # Bowel Movements 0 1 Result Diagram: 11/03/17 0438 11/03/17 0438 Objective Remarks This is a thinly built middle-aged white male who is pale. HEENT: Head normocephalic. Pupils reactive. Tongue is dry. Throat is clear . NECK: Supple. No bruits or thyroid enlargement. No lymphadenopathy. CHEST: Distant breath sounds with occ wheeze. There are few crackles at bases . HEART: The heart sounds are regular S1-S2. No murmur. No S3. ABDOMEN: The abdomen is soft and protuberant. No masses or organomegaly or tenderness. Bowel sounds are active. EXTREMITIES: No edema . Reflexes are 1+ with no gross motor deficits. NEUROLOGIC:Alert and in no distress SKIN: No lesions. Assessment and Plan Assessment and Plan IMPRESSION 1. Acute hypoxemic respiratory failure. 2. He has a history of rectal cancer. 3. Syncopal episodes 4. Basilar pneumonia 5. Anemia with blood loss 6. Dehydration and acute kidney injury PLan : 1. O2 2 L PRN 2. CBC,BMP in am 3. Continue Antibiotics per ID 4. IS q2h bedside 5. Prednisone 15 mg daily 7. PT Evaluation 8. Transfer to [facility] Kaylie Son MD Nov 03, 2017 19:18
[2017-11-03] MEDS: TAMSULOSIN HCL 0.4 MG CAP PO SCH (20:06)
[2017-11-03] MEDS: MIRTAZAPINE 15 MG TAB PO SCH (20:06)
[2017-11-03] MEDS: traZODone HCL 100 MG TAB PO SCH (20:07)
[2017-11-03] MEDS: LORazepam 2 MG/ML VIAL IV PRN (20:12)
[2017-11-04 00:15] VITALS: BP 121/71; PULSE 96; RESP 21; TEMP 98; O2SAT 99
[2017-11-04 04:47] VITALS: BP 113/68; PULSE 95; RESP 23; TEMP 98.6; O2SAT 98
[2017-11-04] MEDS: MORPHINE SULFATE 4 MG/ML INJ IV PUSH PRN (06:19)
[2017-11-04 07:21] LABS: CREATININE 0.57 MG/DL (0.60-1.30)
[2017-11-04 07:26] VITALS: BP 119/72; PULSE 94; RESP 18; TEMP 97.5; O2SAT 100
[2017-11-04] MEDS: CHLORHEXIDINE 0.12% (ORAL KIT) 15 ML CUP MT SCH (08:00)
[2017-11-04] MEDS: NYSTAT/DIPHENHY/LIDO MOUTHWASH (Adult) 120ML SWISH-SWAL SCH ×2 (09:00→12:05)
[2017-11-04] MEDS ORDERED: predniSONE 20 MG TAB PO SCH (09:00)
[2017-11-04] MEDS: FUROSEMIDE 20 MG TAB PO SCH (09:01)
[2017-11-04] MEDS: carBAMazepine 200 MG TAB PO SCH (09:01)
[2017-11-04] MEDS: AZITHROMYCIN 250 MG TAB PO SCH (09:02)
[2017-11-04] MEDS: PANTOPRAZOLE SODIUM 40 MG VIAL IV PUSH SCH (09:03)
[2017-11-04] MEDS: SILVER SULFADIAZINE/LIDOCAINE CREAM 60 GM JAR TOPICAL SCH (09:03)
[2017-11-04] MEDS: AQUAPHOR OINT 50 GM TUBE TOPICAL SCH (09:04)
[2017-11-04] MEDS: LORazepam 2 MG/ML VIAL IV PRN (09:08)
[2017-11-04] MEDS ORDERED: AZIT250T3 PO (09:20)
[2017-11-04] MEDS ORDERED: PRED10 PO (09:27)
[2017-11-04] MEDS ORDERED: LORA-392 PO (09:27)
--- NOTE | 2017-11-04 09:34 | HHI.DCPOC ---
Discharge Care Plan Diagnosis: (1) Respiratory failure, acute (2) Rectal cancer (3) Neutropenic fever (4) Thrombocytopenia (5) Elevated LFTs (6) HTN (hypertension) (7) Rhabdomyolysis (8) Anemia Goals to Promote Your Health * To prevent worsening of your condition and complications * To maintain your health at the optimal level Directions to Meet Your Goals Take your medications as prescribed Follow your dietary instruction Follow activity as directed Keep your appointments as scheduled Take your immunizations and boosters as scheduled If your symptoms worsen call your PCP, if no PCP go to Urgent Care Center or Emergency Room Smoking is Dangerous to Your Health. Avoid second hand smoke Call the 24-hour hour crisis hotline for domestic abuse at Jr Sawant MD Nov 04, 2017 09:34
--- NOTE | 2017-11-04 09:39 | HHI.DS ---
Discharge Summary Admission Date Oct 19, 2017 at 20:40 Discharge Date: Nov 04, 2017 Admitting Diagnosis rhabdo, scalp contusion, anemia, hypokalemia (1) Respiratory failure, acute Diagnosis: Principal ICD Codes: J96.00 - Acute respiratory failure, unspecified whether with hypoxia or hypercapnia Status: Acute (2) Rhabdomyolysis Diagnosis: Principal ICD Codes: M62.82 - Rhabdomyolysis Status: Acute (3) Neutropenic fever Diagnosis: Principal ICD Codes: D70.9 - Neutropenia, unspecified; R50.81 - Fever presenting with conditions classified elsewhere Status: Acute (4) Scalp contusion Diagnosis: Principal ICD Codes: S00.03XA - Contusion of scalp, initial encounter Status: Acute (5) Rectal cancer Diagnosis: Principal ICD Codes: C20 - Malignant neoplasm of rectum Status: Chronic (6) HTN (hypertension) Diagnosis: Secondary ICD Codes: I10 - Essential (primary) hypertension Status: Chronic (7) Bipolar depression Diagnosis: Secondary ICD Codes: F31.30 - Bipolar disorder, current episode depressed, mild or moderate severity, unspecified Status: Chronic (8) Confusion Diagnosis: Secondary ICD Codes: R41.0 - Disorientation, unspecified Status: Acute (9) At risk for abuse of opiates Diagnosis: Secondary ICD Codes: Z91.89 - Other specified personal risk factors, not elsewhere classified Status: Chronic (10) Elevated LFTs Diagnosis: Secondary ICD Codes: R79.89 - Other specified abnormal findings of blood chemistry Status: Acute (11) Poor appetite Diagnosis: Secondary ICD Codes: R63.0 - Anorexia (12) Anemia Diagnosis: Secondary ICD Codes: D64.9 - Anemia, unspecified Status: Acute Brief History 61-year-old male with bipolar Affective disorder presented to the ER via [facility] following a head injury. He was reportedly unaware of the circumstances of the fall yesterday however this morning on my exam he tells me that he was at his home and had been feeling somewhat dizzy and lightheaded and fell to the floor after feeling lightheaded. Denied any chest pain or palpitations or shortness of breath. He apparently fell to the floor yesterday morning hitting his head. He reportedly laid on a tile floor for some time following the fall actually was discovered by his nephew. He was reportedly lying on his back. He states that he was unable to get up on his own due to weakness. He was complaining with bilateral hip pain but this has improved this morning. He denies neck pain. He denies any current symptoms of head injury including nausea, blurred vision, headache. He reports that he had not been eating much lately as he had just been through 2 weeks of chemotherapy for the rectal cancer. He had radiation therapy approximately one month ago he says. He lives alone but has a nephew in the area and has a sister who apparently is flying down from [place] later today. CBC/BMP: 11/03/17 0438 11/04/17 0535 Significant Findings Laboratory Tests Test 11/01/17 12:18 11/02/17 04:50 11/03/17 04:38 11/04/17 05:35 White Blood Count 1.1 TH/MM3 (4.0-11.0) 1.5 TH/MM3 (4.0-11.0) 2.4 TH/MM3 (4.0-11.0) Red Blood Count 3.52 MIL/MM3 (4.50-5.90) 3.14 MIL/MM3 (4.50-5.90) 3.57 MIL/MM3 (4.50-5.90) Hemoglobin 10.4 GM/DL (13.0-17.0) 8.9 GM/DL (13.0-17.0) 10.4 GM/DL (13.0-17.0) Hematocrit 29.9 % (39.0-51.0) 26.3 % (39.0-51.0) 30.4 % (39.0-51.0) Neutrophils # (Auto) 0.6 TH/MM3 (1.8-7.7) 0.8 TH/MM3 (1.8-7.7) 1.0 TH/MM3 (1.8-7.7) Lymphocytes # (Auto) 0.3 TH/MM3 (1.0-4.8) 0.5 TH/MM3 (1.0-4.8) Neutrophils % (Manual) 71 % (16-70) Neutrophils # (Manual) 0.8 TH/MM3 (1.8-7.7) 0.9 TH/MM3 (1.8-7.7) 1.7 TH/MM3 (1.8-7.7) Toxic Granulation 1+ (NORMAL) 1+ (NORMAL) Platelet Morphology Comment ENLARGED (NORMAL) ENLARGED (NORMAL) Monocytes (%) (Auto) 9.4 % (0.0-8.0) 12.1 % (0.0-8.0) Band Neutrophils % 7 % (0-6) 18 % (0-6) Creatinine 0.48 MG/DL (0.60-1.30) 0.57 MG/DL (0.60-1.30) Monocytes % 10 % (0-8) Myelocytes 1 % (0-0) Total Protein 5.3 GM/DL (6.4-8.2) Albumin 1.9 GM/DL (3.4-5.0) Calcium Level 7.6 MG/DL (8.5-10.1) Alkaline Phosphatase 226 U/L (45-117) Total Bilirubin 1.3 MG/DL (0.2-1.0) Hospital Course (1) Respiratory failure, acute This is a 62 year old male patient with a history of rectal SCC currently undergoing concurrent chemotherapy and radiation. Patient was initially admitted to [facility] on 10/18/17 after a fall. Patient was found to have rhabdomyolysis treated with IV fluid . Then on 10/22 patient had respiratory distress was treated with IV diuretics. Seemed to be improving. 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 EGD was done 10/27 which showed mild erythema in the stomach consistent with NG tube trauma, minimal esophagitis and otherwise normal. Patient was able to be extubated 10/28 and hospitalist were consulted to assume care. Echo noted patient does have component CHF diastolic dysfunction and patient was diuresed. Patient noted to be influence A positive on 10/25. Patient is also being followed by infectious disease for influenza pneumonia and probably superimposed bacterial pneumonia, currently receiving Tamiflu (10/15 - present) , Meropenem (10/26 - present) and azithromycin (10/25 - changed to PO ), vancomycin (10/19- 10/29). placed on neupogen per hem/onc due to neutropenia. Prior to d/c ID change abx to just one more week of azithromycin. Pulmonary tapering steroids. Overall pt doing much better and will be transferred to SNF for PT and f/u pcp/ oncology/pulmonary. Pt Condition on Discharge: Stable Discharge Disposition: Discharge to SNF Discharge Instructions DIET: Follow Instructions for: As Tolerated, No Restrictions Activities you can perform: Regular-No Restrictions Follow up Referrals: Oncology - [address] Bauer Pulmonology - 1 Week with Kaylie Son MD New Medications: Lorazepam (Ativan) 0.5 Mg Tab 0.5 MG PO Q8H PRN for ANXIETY AND/OR AGITATION, #20 TAB 0 Refills Prednisone (Prednisone) 10 Mg Tab 10 MG PO DIRECTED for Inflammation for 7 Days, TAB 0 Refills 20mg po daily x 3 days then 10mg po daily x 4 days then stop Azithromycin (Azithromycin) 250 Mg Tab 500 MG PO DAILY for Infection for 7 Days, #14 TAB Continued Medications: Aspirin (Aspirin Low Dose) 81 Mg Chew 81 MG CHEW DAILY, TAB 0 Refills Carbamazepine (Tegretol) 200 Mg Tab 200 MG PO DIRECTED, #60 TAB 0 Refills 400MG PO in AM and 600mg PO HS Pantoprazole (Protonix) 40 Mg Tab 40 MG PO DAILY for Reflux, #30 TAB 0 Refills Tamsulosin (Flomax) 0.4 Mg Cap 0.4 MG PO HS for Manage Prostate Problems, #30 CAP 0 Refills Trazodone (Trazodone) 100 Mg Tablet 200 MG PO HS for Control Depression, #30 TAB 0 Refills Zolpidem (Zolpidem) 10 Mg Tab 10 MG PO HS for Insomnia, TAB 0 Refills Discontinued Medications: Lisinopril (Lisinopril) 20 Mg Tab 20 MG PO BID, #30 TAB 0 Refills Dcwcmdfq-Lvhrjnafnhybxpk-Cnxcgzwrp Liq (Magic Mouthwash Adult Liq) 120 Ml Susp 10 ML SWISH-SWAL QID for mucositis, #300 ML 0 Refills Jr Sawant MD Nov 04, 2017 09:39
[2017-11-04] MEDS ORDERED: LORazepam 0.5 MG TAB PO PRN (09:45)
[2017-11-04 10:11] VITALS: PULSE 103
[2017-11-04] MEDS: ACETAMINOPHEN/HYDROcodone 325 MG/5 MG TAB PO PRN (10:55)
[2017-11-04 11:31] LABS: HEMATOCRIT 24.7 % (39.0-51.0); HEMOGLOBIN 8.5 GM/DL (13.0-17.0); MEAN CELL VOLUME 83.6 FL (80.0-100.0); MEAN CORPUSCULAR HEMOGLOBIN 28.6 PG (27.0-34.0); MEAN CORPUSCULAR HGB CONC 34.3 % (32.0-36.0); MEAN PLATELET VOLUME 8.8 FL (7.0-11.0); PLATELET COUNT 176 TH/MM3 (150-450); RED BLOOD COUNT 2.96 MIL/MM3 (4.50-5.90); RED CELL DISTRIBUTION WIDTH 16.9 % (11.6-17.2); WHITE BLOOD COUNT 4.4 TH/MM3 (4.0-11.0)
[2017-11-04 11:45] VITALS: BP 112/68; PULSE 97; RESP 18; TEMP 98.3; O2SAT 95
--- NOTE | 2017-11-04 12:35 | PD.ONC.PN ---
Subjective Subjective Remarks Afebrile overnight. Patient seen at 1130AM. Patient feeling much better. he is excited that he is getting out of the hospital today, going to rehab. denies blood in his stool today or yesterday. denies pain. Objective Data Date Time Temp Pulse Resp B/P (MAP) Pulse Ox O2 Delivery O2 Flow Rate FiO2 11/04/17 11:45 98.3 97 18 112/68 (83) 95 11/04/17 07:26 97.5 94 18 119/72 (88) 100 11/04/17 06:28 20 11/04/17 04:47 98.6 95 23 113/68 (83) 98 11/04/17 00:15 98.0 96 21 121/71 (88) 99 11/03/17 22:45 98.0 124 23 122/75 (91) 96 11/03/17 20:05 98.3 95 27 135/80 (98) 100 11/03/17 20:00 Nasal Cannula 2.00 11/03/17 16:10 Nasal Cannula 2.00 21 11/03/17 16:00 98.3 80 17 106/72 (83) 100 11/04/17 11/04/17 11/04/17 07:00 15:00 23:00 Output Total 850 ml Balance -850 ml Result Diagram: 11/04/17 1115 11/04/17 0535 Laboratory Results Laboratory Tests Test 11/04/17 05:35 11/04/17 11:15 Creatinine 0.57 MG/DL Estimat Glomerular Filtration Rate 144 ML/MIN White Blood Count 4.4 TH/MM3 Red Blood Count 2.96 MIL/MM3 Hemoglobin 8.5 GM/DL Hematocrit 24.7 % Mean Corpuscular Volume 83.6 FL Mean Corpuscular Hemoglobin 28.6 PG Mean Corpuscular Hemoglobin Concent 34.3 % Red Cell Distribution Width 16.9 % Platelet Count 176 TH/MM3 Mean Platelet Volume 8.8 FL CBC Comment AUTO DIFF Administered Medications Medications (Trade) Dose Ordered Sig/Siddhartha Route PRN Reason Start Time Stop Time Status Last Admin Dose Admin Tamsulosin HCl (Flomax) 0.4 mg HS PO 10/17/17 21:00 11/03/17 20:06 Carbamazepine (TEGretol) 400 mg DAILY PO 10/18/17 09:00 11/04/17 09:01 Ondansetron HCl (Zofran Inj) 4 mg Q6H PRN IV PUSH VOMITING 10/18/17 16:45 10/25/17 04:05 Prochlorperazine Maleate (Compazine) 10 mg Q6H PRN PO NAUSEA 10/18/17 18:00 10/20/17 05:00 Loperamide HCl (Imodium) 2 mg Q6H PRN PO diarrhea 10/18/17 17:00 10/21/17 15:32 Acetaminophen (Tylenol) 500 mg Q4H PRN PO TEMPERATURE > 100.4 10/19/17 05:15 10/28/17 01:24 Emollient Ointment (Aquaphor Oint) 1 applic Q12HR TOPICAL 10/19/17 21:00 11/04/17 09:04 Carbamazepine (TEGretol) 400 mg HS PO 10/21/17 21:00 11/03/17 20:06 Trazodone HCl (Desyrel) 150 mg HS PO 10/21/17 21:00 11/03/17 20:07 Albuterol Sulfate (Albuterol Neb) 2.5 mg Q4HR NEB PRN INH SHORTNESS OF BREATH 10/22/17 08:15 10/23/17 21:15 Multi-Ingredient Mouthwash/Gargle (Magic Mouthwash Adult Liq) 5 ml QID SWISH-SWAL 10/23/17 13:00 11/04/17 09:00 Chlorhexidine Gluconate (Peridex 0.12% Liq) 15 ml BID@08,20 MT 10/25/17 20:00 10/30/17 08:00 Olanzapine (ZyPREXA) 15 mg HS PO 10/26/17 21:00 11/03/17 20:07 Compound Med (Ritters Cream) 1 applic BID TOPICAL 10/28/17 21:00 11/04/17 09:03 Furosemide (Lasix) 20 mg DAILY PO 10/30/17 09:00 11/04/17 09:01 Zolpidem Tartrate (Ambien) 5 mg HS PRN PO INSOMNIA 10/29/17 18:45 10/30/17 20:32 Azithromycin (Zithromax) 500 mg DAILY PO 10/30/17 12:00 11/04/17 09:02 Mirtazapine (Remeron) 30 mg HS PO 10/30/17 21:00 11/03/17 20:06 Acetaminophen/ Hydrocodone Bitart ([place] 5-325 Mg) 1 tab Q4H PRN PO PAIN 3-7 10/31/17 12:15 11/04/17 10:55 Prednisone (Deltasone) 20 mg DAILY PO 11/04/17 09:00 11/04/17 09:02 Objective Remarks GENERAL: Thin middle aged male, sitting up in bed in nad. SKIN: Warm and dry. HEAD: Normocephalic. EYES: No injection or drainage. NECK: Supple, trachea midline. CARDIOVASCULAR: Regular rate and rhythm RESPIRATORY: Breath sounds equal bilaterally. No accessory muscle use. GASTROINTESTINAL: Abdomen soft, non-tender, nondistended. EXTREMITIES: No cyanosis NEUROLOGICAL: awake and alert, normal speech. 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 He had been under the care of Dr. Bauer, Dr. Rocha and was being treated with definitive dose chemoradiotherapy with infusional 5-FU and mitomycin-C. He presents to the hospital with neutropenic fever, status post fall with a subcutaneous hematoma over his right for head and confusion. Hospital course complicated by respiratory failure requiring intubation and he is now s/p extubation. Plan 1. Locally advanced Rectal SCC, low laying palpable on digital rectal exam currently undergoing treatment with concurrent chemotherapy and radiation therapy with curative intent. will plan to resume treatment post-rehab. 2. Cytopenia: WBC and platelet count recovered. hgb with slight dip overnight. will need to continue to monitor. 3. ID: Influenza A infection with persistence of infiltrates. doing much better. Remains on Zithromax Miladis Song Nov 04, 2017 12:35 Kiley Bauer MD Nov 04, 2017 15:18
[2017-11-04 13:34] LABS: BANDS 19 % (0-6); BASOPHILS 2 % (0-2); LYMPHOCYTES 22 % (9-44); METAMYELOCYTES 1 % (0-1); MONOCYTES 10 % (0-8); MYELOCYTES 1 % (0-0); NEUTROPHIL # MANUAL DIFF 2.8 TH/MM3 (1.8-7.7); POLYS (SEG NEUTROPHILS) 43 % (16-70); STOMATOCYTES 1+ (NORMAL); TOXIC GRANULATION 1+ (NORMAL)
[2017-11-05] MEDS ORDERED: PANTOPRAZOLE SOD 40 MG DELAYED RELEASE TAB PO SCH (09:00)
== END 2017-11-04 14:09 | DRG 808 ==
LOC: PHED 16:33 → PHEDA 18:44 → PH3B 21:49 → OBSVTOIN 10-19 20:40 → PHICU 10-22 10:58 → N03A 10-25 20:03 → N03B 11-02 19:03
PROVIDERS: ADMIT Hospitalist; ATTEND Hospitalist
PROC: 30233N1 Transfusion of Nonautologous Red Blood Cells into Peripheral Vein, Percutaneous Approach (ICD-10-PCS; principal; 2017-10-17)
PROC: 5A09357 Assistance with Respiratory Ventilation, Less than 24 Consecutive Hours, Continuous Positive Airway Pressure (ICD-10-PCS; 2017-10-22)
PROC: 5A1945Z Respiratory Ventilation, 24-96 Consecutive Hours (ICD-10-PCS; 2017-10-25)
PROC: 0BH17EZ Insertion of Endotracheal Airway into Trachea, Via Natural or Artificial Opening (ICD-10-PCS; 2017-10-25)
PROC: 0T9B70Z Drainage of Bladder with Drainage Device, Via Natural or Artificial Opening (ICD-10-PCS; 2017-10-25)
PROC: 0DJ08ZZ Inspection of Upper Intestinal Tract, Via Natural or Artificial Opening Endoscopic (ICD-10-PCS; 2017-10-27)
DX: D70.8 Other neutropenia (principal); J96.01 Acute respiratory failure with hypoxia; R65.20 Severe sepsis without septic shock; J11.08 Influenza due to unidentified influenza virus with specified pneumonia; A41.9 Sepsis, unspecified organism; N17.9 Acute kidney failure, unspecified; I11.0 Hypertensive heart disease with heart failure; C20 Malignant neoplasm of rectum; D69.59 Other secondary thrombocytopenia; E86.0 Dehydration; J15.9 Unspecified bacterial pneumonia; I50.30 Unspecified diastolic (congestive) heart failure; C77.5 Secondary and unspecified malignant neoplasm of intrapelvic lymph nodes; M62.82 Rhabdomyolysis; F31.31 Bipolar disorder, current episode depressed, mild; S06.330A Contusion and laceration of cerebrum, unspecified, without loss of consciousness, initial encounter; R11.10 Vomiting, unspecified; R50.81 Fever presenting with conditions classified elsewhere; S00.03XA Contusion of scalp, initial encounter; E87.6 Hypokalemia; W18.30XA Fall on same level, unspecified, initial encounter; Y93.9 Activity, unspecified; Y92.009 Unspecified place in unspecified non-institutional (private) residence as the place of occurrence of the external cause; N40.0 Benign prostatic hyperplasia without lower urinary tract symptoms; M51.36 Other intervertebral disc degeneration, lumbar region; E78.5 Hyperlipidemia, unspecified; Z87.891 Personal history of nicotine dependence; S80.01XA Contusion of right knee, initial encounter; S70.02XA Contusion of left hip, initial encounter; S70.01XA Contusion of right hip, initial encounter; G89.29 Other chronic pain; M54.5 Low back pain; E29.1 Testicular hypofunction; G25.81 Restless legs syndrome; G43.909 Migraine, unspecified, not intractable, without status migrainosus; R63.0 Anorexia; L59.8 Other specified disorders of the skin and subcutaneous tissue related to radiation; T45.1X5A Adverse effect of antineoplastic and immunosuppressive drugs, initial encounter; R55 Syncope and collapse; R74.8 Abnormal levels of other serum enzymes; K21.0 Gastro-esophageal reflux disease with esophagitis; K29.70 Gastritis, unspecified, without bleeding; Z85.828 Personal history of other malignant neoplasm of skin; Z82.49 Family history of ischemic heart disease and other diseases of the circulatory system; Z80.0 Family history of malignant neoplasm of digestive organs; Z83.3 Family history of diabetes mellitus; Z78.9 Other specified health status; Z80.42 Family history of malignant neoplasm of prostate
CPT/HCPCS: 31500; 36430; 36598; 36600; 70450; 71045; 72170; 74018; 76705; 80048; 80053; 80074; 80202; 81001; 82140; 82248; 82550; 82552; 82565; 82805; 83010; 83605; 83615; 83735; 84100; 84132; 84155; 84484; 85007; 85014; 85018; 85025; 85027; 85384; 85610; 85730; 86021; 86022; 86703; 86850; 86900; 86901; 86920; 87040; 87070; 87086; 87205; 87449; 87493; 87641; 87804; 93005; 93306; 94002; 94003; 94150; 94640; 94664; 94667; 94668; 96361; 96374; 96375; C9113; G0378; G8987-GP; G8988-GP; J0330; J0456; J0610; J0692; J0780; J1442; J1642; J1650; J1940; J1956; J2060; J2185; J2270; J2370; J2405; J2920; J3010; J3370; J3480; J7030; J7050; J7512; J7613; P9016; Q0164; Q9967